=== PATIENT | female | born 1980 | race Caucasian/White ===

== ENCOUNTER 2019-01-02 15:06 | Emergency (ER) | payer OTHER, MEDICAID, SELFPAY ==
[2019-01-02 15:08] VITALS: BP 116/79; PULSE 77; RESP 22; TEMP 36.9; O2SAT 100
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
[2019-01-02 15:45] LABS: Add Manual Diff / Slide Review NO; Basophils Absolute Auto 100 /uL (0-100); Basophils Percent Auto 0.6 % (0-2); Eosinophils Absolute Auto 400 /uL (0-450); Eosinophils Percent Auto 3.5 % (2-4); Hematocrit 41.7 % (36-46); Hemoglobin 14.4 g/dL (12.0-16.0); Lymphocytes Absolute Auto 1300 /uL (1100-4500); Mean Corpuscular HGB Conc 34.4 % (30-36); Mean Corpuscular Hemoglobin 31.2 PG (26-34); Mean Corpuscular Volume 90.5 fL (80-100); Monocytes Absolute Auto 700 /uL (0-900); Monocytes Percent Auto 5.7 % (3-14); Neutrophils Absolute Auto 9500 /uL (1500-7000); Neutrophils Percent Auto 79.2 % (50-75); Platelet Count 291 X10^3/uL (150-400); Red Blood Cell Count 4.61 X10^6/uL (4.0-5.2); Red Cell Distribution Width 13.1 % (11.6-14.8); White Blood Cell Count 11.9 X10^3/uL (4.5-11.0)
[2019-01-02 16:04] LABS: Alanine Aminotransferase 12 IU/L (9-52); Albumin 4.2 g/dL (3.5-5.0); Albumin Globulin Ratio 1.1 (1.0-2.8); Alkaline Phosphatase 48 U/L (38-126); Aspartate Aminotransferase 28 IU/L (14-36); BUN Creatinine Ratio 11.3 (6-22); Bilirubin Total 0.7 mg/dL (0.2-1.3); Blood Urea Nitrogen 9 mg/dL (7-17); Calcium 8.8 mg/dL (8.4-10.2); Carbon Dioxide 27 mmol/L (22-32); Chloride 106 mmol/L (98-107); Creatine Kinase 60 U/L (30-135); Estimated Glomerular Filt Rate > 60.0 mL/min (>60); Globulin 3.7 g/dL (1.7-4.1); Glucose 94 mg/dL (70-100); HEMOLYSIS 67 (0-50); Potassium 4.1 mmol/L (3.4-5.1); Sodium 141 mmol/L (137-145); Total Protein 7.9 g/dL (6.3-8.2)
[2019-01-02 16:05] VITALS: BP 107/61; PULSE 71; RESP 13; O2SAT 100
[2019-01-02 16:16] LABS: Troponin I < 0.012 ng/mL (0.01-0.034)
== END 2019-01-02 16:45 | disposition home or self-care (01) ==
PROVIDERS: Emergency Provider Emergency Medicine; Family Provider Physician Assistant; PCP Physician Assistant
DX: R42 Dizziness and giddiness (principal)
CPT/HCPCS: 36591; 80053; 82550; 84484; 85025; 93005; 93041; 99283; 99284

== ENCOUNTER 2019-12-20 13:03 | Emergency (ER) | payer OTHER, MEDICAID, SELFPAY ==
[2019-12-20 13:11] VITALS: BP 116/67; PULSE 77; RESP 14; TEMP 37.1; O2SAT 96; BMI 31.1
--- NOTE | 2019-12-20 13:24 | ED.HA ---
HPI - Headache General Chief Complaint: Headache Stated Complaint: numbness in face/headache Time Seen by Provider: 12/20/19 13:10 Mode of arrival: Ambulatory Limitations: no limitations History of Present Illness HPI Narrative: Patient is a 39-year-old female who presents with numbness tingling on the left side of her face and headache. She was actually seen by her primary doctor yesterday he thought it was an atypical migraine. Today the numbness has gotten worse infected sharp shooting pain only on the left side of her face. She has no facial droop no difficulty speaking no visual changes no other neuro deficits. She says that she does have a history of migraines but this is significantly atypical. She is not sensitive to light or noise. She had a kidney stone earlier this week and was taking ibuprofen and Tylenol in her kidney stone has resolved. MD Complaint: headache Location: left Severity: moderate Related Data Home Medications Medication Instructions Recorded Confirmed hydrocodone-acetaminophen 1 tab PO TID PRN 01/02/19 01/02/19 Previous Rx's Medication Instructions Recorded hydrocodone-acetaminophen [[place]] 1 tab PO Q6H PRN #10 tab 12/20/19 Allergies Allergy/AdvReac Type Severity Reaction Status Date / Time doxycycline Allergy Verified 12/20/19 13:11 levofloxacin [From Levaquin] Allergy Verified 12/20/19 13:11 morphine Allergy Verified 12/20/19 13:11 Review of Systems Review of Systems Narrative: GENERAL: Denies chills, fatigue, malaise, fever, sweats, travel HEENT: Denies sinus pain, ear pain, sore throat, difficulty swallowing, neck pain RESPIRATORY: Denies dyspnea, cough, wheezing, hemoptysis, sputum. CARDIOVASCULAR: Denies chest pain, palpitations, orthopnea, edema GASTROINTESTINAL: Denies nausea, vomiting, abdominal pain, diarrhea, constipation, melena. : Denies dysuria, frequency, incontinence, hematuria, urinary retention, flank pain. MUSCULOSKELETAL: Denies weakness, joint pain, or bony pain SKIN: No rash, no erythema, no pruritus NEUROLOGIC: See HPI PSYCHIATRIC: No concerning psychosocial issues. 12 point review of systems is negative except for those stated above and HPI Patient History Medical History Vertigo (Acute) Social History Smoking Status: Unknown if ever smoked Smoking Status: Unknown if ever smoked alcohol intake frequency: holidays/special occasions only Substance Use Type: does not use Exam Initial Vital Signs Initial Vital Signs: Vital Signs Temperature 98.8 F 12/20/19 13:11 Pulse Rate 77 12/20/19 13:11 Respiratory Rate 14 12/20/19 13:11 Blood Pressure 116/67 12/20/19 13:11 Pulse Oximetry 96 12/20/19 13:11 GENERAL: Well-appearing, well-nourished and in no acute distress. HEENT: Head atraumatic,EOMI, pupils reactive, face symmetric, moist mucous membranes CARDIOVASCULAR: Regular rate and rhythm without murmurs, rubs or gallops. RESPIRATORY: Breath sounds equal bilaterally, no wheezes rales or rhonchi. ABDOMEN: Soft, nontender. Normoactive bowel sounds all 4 quadrants. No guarding or rebound. EXTREMITIES: Normal range of motion, no clubbing or edema. Neurovascularly intact NEUROLOGICAL: Alert and oriented x4.Normal gait and speech. Cranial nerves II through XII grossly intact. Decreased sensation on left side of face otolaryngologist strength equal bilaterally. Forehead wrinkles bilaterally and equally able to close eyes equally tight no facial droop. SKIN: Warm, dry, no laceration, no petechiae, no rashes or lesions. Scores NIH Stroke Scale Level of Conciousness: Alert, keenly responsive Ask month/age: Answers both questions correctly. Open/close eyes, close hand: Performs both tasks correctly Best gaze horizontal: Normal Visual sharma: No visual loss Facial palsy: Normal symetrical movement Left arm drift: No drift for full 10 sec Right arm drift: No drift for full 10 sec Left leg drift: No drift for full 10 sec Right leg drift: No drift for full 10 sec Limb ataxia: Absent Sensory on face/arms/legs: Normal, no sensory loss Best language: No aphasia, normal Dysarthria: Normal Extinction or inattention: No abnormality Total NIH Stroke scale score: 0 Course Orders Ordered: ED Orders 12/20/19 13:41 CT head/brain wo con Stat Vital Signs Vital signs: Vital Signs - 8 hr 12/20/19 13:11 12/20/19 14:25 Temperature 98.8 F Pulse Rate 77 70 Respiratory Rate 14 14 Blood Pressure 116/67 98/64 Pulse Oximetry 96 100 MDM - Headache Imaging Data CT scan - head: Radiologist's Impression: PROCEDURE: CT HEAD/BRAIN WO CON INDICATIONS: headache with numbness left face TECHNIQUE: Noncontrast 4.5 mm thick angled axial sections acquired from the foramen magnum to the vertex, with coronal and sagittal reformats. For radiation dose reduction, the following was used: automated exposure control, adjustment of mA and/or kV according to patient size. COMPARISON: None. FINDINGS: Image quality: Excellent. CSF spaces: Basal cisterns are patent. No extra-axial fluid collections. Ventricles are normal in size and shape. Brain: No midline shift. No intracranial masses or hemorrhage. Briceño-white matter interface is normal. Skull and face: Calvarium and visualized facial bones are intact, without suspicious lesions. Sinuses: Mild mucosal thickening in the visible sinuses, and ethmoid air cells. Mastoid air cavities are aerated. Frontal sinuses are hypoplastic. IMPRESSION: 1. No CT evidence of acute intracranial process. 2. Mild, partially imaged sinus disease. Dictated by: Kristal Hooper M.D. on 12/20/2019 at 12:53 Approved by: Kristal Hooper M.D. on 12/20/2019 at 12:56 [facility] Narrative Medical decision making narrative: The patient really has no focal deficit she has sharp shooting pain on left side of her face which may be the beginning of shingles. It has been ongoing for 1 day. It is not numbness. She currently has no rash. She also has a mild headache, but no weakness dysarthria or aphasia I do not think stroke, head CT is also negative. She does not have any signs of Alexander's palsy, she has no facial droop. She says she is unable to sleep due to pain in her face. I discussed with her the possibility of early shingles. I discussed all findings with the patient and , Education has been performed regarding treatment plan, diagnosis, warning signs and symptoms and all concerns have been addressed. Verbally agree with and understood all of the above. Discharge Plan Departure Patient Disposition: Home Clinical Impression: Headache Qualifiers: Headache type: unspecified Headache chronicity pattern: acute headache Intractability: not intractable Qualified Code(s): R51 - Headache Discharge Date/Time: 12/20/19 14:33 Instructions: DI for Shingles, DI for Headache Activity Restrictions/Additional Instructions: *You have been diagnosed with in headache *What to do: It is possible that he may develop shingles. If this is the case he will notice vesicle like lesions only on the left side of your face. This may appear in the next few days. *Continue to take medications as directed [place] 1 tablet every 6 hours if needed for severe pain *Follow up with your primary care provider in 2-3 days *Return to ER if you should have increasing pain and lesions around her and eye, weakness numbness tingling visual changes or any new, worsening or concerning symptoms CONTROLLED SUBSTANCE DISCHARGE (Narcotoic/benzodiazepine/Flexeril/Phenergan) 1. You have been prescribed narcotic medications, it does have acetaminophen/Tylenol/paracetamol in it so do not take extra Tylenol or Tylenol containing products TRAMADOL DOES NOT CONTAIN TYLENOL 2. Please understand that we cannot provide further refills of narcotics, benzodiazepines or controlled substances through the ED and her pain management will need to be through your provider. 3. While on these medications you cannot drive or operate heavy machinery. 4. You cannot sign legal documents or perform any duties such as this. 5. As long as you're taking opiate pain medications he should also be taking a stool softener such as Colace, Dulcolax, MiraLAX or prune juice, to help avoid constipation. Prescriptions: New hydrocodone-acetaminophen [[place]] 5-325 mg tablet 1 tab PO Q6H PRN (Reason: pain) Qty: 10 RF: 0 No Action hydrocodone-acetaminophen 5-325 mg tablet 1 tab PO TID PRN (Reason: Back Pain) RF: 0
--- NOTE | 2019-12-20 13:41 | DI.CT.S_ITS ---
PROCEDURE: CT HEAD/BRAIN WO CON INDICATIONS: headache with numbness left face TECHNIQUE: Noncontrast 4.5 mm thick angled axial sections acquired from the foramen magnum to the vertex, with coronal and sagittal reformats. For radiation dose reduction, the following was used: automated exposure control, adjustment of mA and/or kV according to patient size. COMPARISON: None. FINDINGS: Image quality: Excellent. CSF spaces: Basal cisterns are patent. No extra-axial fluid collections. Ventricles are normal in size and shape. Brain: No midline shift. No intracranial masses or hemorrhage. Briceño-white matter interface is normal. Skull and face: Calvarium and visualized facial bones are intact, without suspicious lesions. Sinuses: Mild mucosal thickening in the visible sinuses, and ethmoid air cells. Mastoid air cavities are aerated. Frontal sinuses are hypoplastic. IMPRESSION: 1. No CT evidence of acute intracranial process. 2. Mild, partially imaged sinus disease. Dictated by: Kristal Hooper M.D. on 12/20/2019 at 12:53 Approved by: Kristal Hooper M.D. on 12/20/2019 at 12:56
[2019-12-20 14:25] VITALS: BP 98/64; PULSE 70; RESP 14; O2SAT 100
== END 2019-12-20 14:33 | disposition home or self-care (01) ==
PROVIDERS: Emergency Provider Emergency Medicine; Family Provider Physician Assistant
DX: R51 Headache (principal); R20.0 Anesthesia of skin; B02.9 Zoster without complications
CPT/HCPCS: 70450; 99283; 99284

== ENCOUNTER 2020-01-30 14:45 | Emergency (ER) | payer OTHER, MEDICAID, SELFPAY ==
[2020-01-30 14:50] VITALS: BP 96/66; PULSE 77; RESP 18; TEMP 37; O2SAT 99; BMI 29.2
--- NOTE | 2020-01-30 16:26 | ED_ITS ---
HPI - Asthma General Chief Complaint: Asthma Stated Complaint: asthma complications since x5 days Time Seen by Provider: 01/30/20 16:22 Source: patient Mode of arrival: Ambulatory Limitations: no limitations History of Present Illness HPI Narrative: 39-year-old woman with a history of mild chronic asthma presents with worsening symptoms with the increased smoked in particular matter in the air over the last week. She currently is using albuterol nebulizer and inhaler and finding that her chest still feels tightness she feels that she can not get a complete breath. She is able speak in full sentences and is not having significant wheezing at this. Related Data Home Medications Medication Instructions Recorded Confirmed hydrocodone-acetaminophen 1 tab PO TID PRN 01/02/19 01/02/19 Previous Rx's Medication Instructions Recorded hydrocodone-acetaminophen [[place]] 1 tab PO Q6H PRN #10 tab 12/20/19 beclomethasone dipropionate [Qvar 1 inhalation INHALATION BID #10.6 01/30/20 RediHaler] gram prednisone 20 mg PO DAILY #7 tab 01/30/20 Allergies Allergy/AdvReac Type Severity Reaction Status Date / Time doxycycline Allergy Verified 12/20/19 13:11 levofloxacin [From Levaquin] Allergy Verified 12/20/19 13:11 morphine Allergy Verified 12/20/19 13:11 Review of Systems Review of Systems Narrative: Pertinent positive and negative findings as per HPI Remainder of review of systems is otherwise unremarkable for Constitutional: Fevers, chills, weakness ENT: No sore throat, neck pain, ear pain CV: palpitations, dyspnea on exertion GI: Nausea, vomiting, diarrhea, change in bowel habits, black or bloody stools : Dysuria, hematuria, flank pain MS: Muscle weakness, numbness, joint swelling or warmth Skin: Rashes, nonhealing lesions Neuro: Syncope, dizziness, tingling Patient History Medical History (Updated 01/30/20 @ 18:02 by Kami Courtney MD) Asthma (Acute) Vertigo (Acute) Social History Smoking Status: Never smoker Smoking Status: Never smoker alcohol intake frequency: holidays/special occasions only Substance Use Type: marijuana Exam Narrative Exam Narrative: General: Healthy appearing, in no acute distress. Able to give a complete and coherent history. Well-nourished well-developed HEENT: Moist mucous membranes, normal sclera with reactive pupils, Neck: supple Respiratory: Lungs are clear to auscultation, no wheezing no rales no rhonchi. No accessory muscle use. Full and symmetrical air movement Cardiac: Regular rate and rhythm no murmurs no bruits Abdomen: Soft nontender good bowel tones, no flank pain Skin: Warm and dry, no rashes Neurologic: Grossly neurologically intact with no obvious asymmetries or abnormalities Extremities: No trauma, well perfused Psych: Cooperative, appropriate insight and affect Initial Vital Signs Initial Vital Signs: Vital Signs Temperature 98.6 F 01/30/20 14:50 Pulse Rate 77 01/30/20 14:50 Respiratory Rate 18 01/30/20 14:50 Blood Pressure 96/66 01/30/20 14:50 Pulse Oximetry 99 01/30/20 14:50 Course Orders Ordered: ED Orders 01/30/20 16:24 COVID19 -ED/INPAT/OR/L&D Stat 01/30/20 16:26 Chest [XR chest 2V] Stat Vital Signs Vital signs: Vital Signs - 8 hr 01/30/20 14:50 01/30/20 17:02 01/30/20 17:07 Temperature 98.6 F Pulse Rate 77 62 65 Respiratory Rate 18 Blood Pressure 96/66 92/59 L Pulse Oximetry 99 100 98 01/30/20 17:30 01/30/20 18:00 Temperature Pulse Rate 62 62 Respiratory Rate Blood Pressure Pulse Oximetry 100 100 [facility] - Asthma Medical Records Attestation: I reviewed the patient's medical records. Lab Data Attestation: I reviewed the patient's lab results. Labs: Lab Results 01/30/20 Range/Units 16:24 COVID-19 PCR Negative (Negative) Imaging Data Chest x-ray: Radiologist's Impression: FINDINGS: Surgical changes and devices: None. Lungs and pleura: Lungs are clear. No pleural effusions or pneumothorax. Mediastinum: Mediastinal contours are normal. Heart size is normal. Bones and chest wall: No suspicious bony abnormalities. Soft tissues appear unremarkable. IMPRESSION: Normal chest plain films. Dictated by: Randall Hadley M.D. on 01/30/2020 at 15:46 MDM Narrative Medical decision making narrative: 39-year-old woman complaining tightness and inability it get a deep breath with the recent increase in smoke in the air. She has been using her inhalers more. She actually does not have significant wheeze on her exam today. Chest x-ray is unremarkable. Will suggest 5 days of 20 mg of prednisone and adding steroid inhaler b.i.d.. She is safe for home discharge Discharge Plan Departure Patient Disposition: Home Clinical Impression: Asthma due to environmental allergies Asthma Qualifiers: Asthma severity: mild Asthma persistence: intermittent Asthma complication type: with acute exacerbation Qualified Code(s): J45.21 - Mild intermittent asthma with (acute) exacerbation Instructions: DI for Asthma -- Adult Activity Restrictions/Additional Instructions: Thank you for coming in today Your chest x-ray is reassuring and your clinical exam does not suggest severe wheezing. I believe that of brief course of oral steroids will help you feel that you can completely expand her chest and that remaining on inhaled steroids 1 puff in the morning 1 puff in the evening. I have given you a prescription for Qvar, an inhaled steroid to continue for at least a week after all the smoke has cleared. I hope you feel better. Prescriptions: New Qvar RediHaler 80 mcg/actuation HFA aerosol breath activated 1 inhalation INHALATION BID Qty: 10.6 RF: 0 prednisone 20 mg tablet 20 mg PO DAILY Qty: 7 RF: 0 No Action hydrocodone-acetaminophen 5-325 mg tablet 1 tab PO TID PRN (Reason: Back Pain) RF: 0 hydrocodone-acetaminophen [[place]] 5-325 mg tablet 1 tab PO Q6H PRN (Reason: pain) Qty: 10 RF: 0
--- NOTE | 2020-01-30 16:26 | DI.RAD.S_ITS ---
PROCEDURE: XR CHEST 2V INDICATIONS: cough/short of breath TECHNIQUE: 2 views of the chest were acquired. COMPARISON: None. FINDINGS: Surgical changes and devices: None. Lungs and pleura: Lungs are clear. No pleural effusions or pneumothorax. Mediastinum: Mediastinal contours are normal. Heart size is normal. Bones and chest wall: No suspicious bony abnormalities. Soft tissues appear unremarkable. IMPRESSION: Normal chest plain films. Dictated by: Randall Hadley M.D. on 01/30/2020 at 15:46 Approved by: Randall Hadley M.D. on 01/30/2020 at 15:47
[2020-01-30 16:45] LABS: COVID19 -Nasal RAPID Negative (Negative)
[2020-01-30 17:02] VITALS: PULSE 62; O2SAT 100
[2020-01-30 17:07] VITALS: BP 92/59; PULSE 65; O2SAT 98
[2020-01-30 17:30] VITALS: PULSE 62; O2SAT 100
[2020-01-30 18:00] VITALS: PULSE 62; O2SAT 100
== END 2020-01-30 18:08 | disposition home or self-care (01) ==
PROVIDERS: Emergency Provider Emergency Medicine; Family Provider Physician Assistant
DX: J45.21 Mild intermittent asthma with (acute) exacerbation (principal); R05 Cough
CPT/HCPCS: 71046; 87635; 99281; 99283

== ENCOUNTER 2020-03-06 11:23 | Emergency (ER) | payer OTHER, SELFPAY ==
[2020-03-06 11:24] VITALS: BP 102/55; PULSE 71; RESP 14; TEMP 37.2; O2SAT 97; BMI 26.5
--- NOTE | 2020-03-06 11:44 | ED.EXTPRO ---
HPI - Extremity Problem <Mahnaz Dutton PA-C - Last Filed: 03/06/20 13:05> General Chief complaint: Extremity Problem,Nontraumatic Stated complaint: shoulder issues Time Seen by Provider: 03/06/20 11:27 Source: patient Mode of arrival: Ambulatory Limitations: no limitations History of Present Illness HPI Narrative: This is an uncomfortable appearing 39-year-old woman with a history of asthma, hysterectomy, chronic back pain and shoulder impingement on the left. She presents the emergency department complaining of worsening shoulder pain on the left with reduced range of motion, tight muscles. She has a history of Left shoulder impingement but her symptoms flared up 2 weeks ago and this morning when she woke up she realized she was not going to be able to go to work to to pain and tight muscles, at times over the last few days with spasms in her shoulder she has had pain so intense that it causes nausea. She has seen a physical therapist for this as well as her primary care, she was told she needs to have massage done as her muscles are too tight to get physical therapy to be effective and is working on getting scheduled for this. She has gradually felt that her shoulder symptoms are worsening over the last few weeks . 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 She states this does feel similar to previous flare-ups and episodes however it has been a long time since it has happened and she is not sure if it is been this bad before. She notes she has never had any imaging of her shoulder and has not seen an orthopedic provider. She is currently working on getting in to be seen at [facility] for further evaluation for this. She has been taking Aleve and ibuprofen but she has not taken the since yesterday. She has not taken any muscle relaxers. She does not remember doing anything to injure this, doing any heavy lifting or any new exercise routines in the last month. She denies any headache, chest pain, cough, shortness of breath, recent trauma or falls, throat pain, fevers, chills, vomiting, ongoing nausea, abdominal pain or any other symptoms. MD Complaint: joint paint (Left shoulder) Related Data Home Medications Medication Instructions Recorded Confirmed hydrocodone-acetaminophen 1 tab PO TID PRN 01/02/19 01/02/19 Previous Rx's Medication Instructions Recorded hydrocodone-acetaminophen [[place]] 1 tab PO Q6H PRN #10 tab 12/20/19 beclomethasone dipropionate [Qvar 1 inhalation INHALATION BID #10.6 01/30/20 RediHaler] gram prednisone 20 mg PO DAILY #7 tab 01/30/20 baclofen 10 mg PO TID #30 tab 03/06/20 hydrocodone-acetaminophen 1 tab PO Q8H PRN #14 tab 03/06/20 lidocaine 1 patch TOP DAILY PRN #10 each 03/06/20 ondansetron 4 mg PO Q8H #20 tab 03/06/20 Allergies Allergy/AdvReac Type Severity Reaction Status Date / Time doxycycline Allergy Verified 03/06/20 11:29 levofloxacin [From Levaquin] Allergy Verified 03/06/20 11:29 morphine Allergy Verified 03/06/20 11:29 Review of Systems <Mahnaz Dutton PA-C - Last Filed: 03/06/20 13:05> Review of Systems Narrative: GENERAL: Denies chills, fatigue, malaise, fever, sweats. HEENT: Denies sinus pain, ear pain, sore throat, difficulty swallowing, dizziness. RESPIRATORY: Denies dyspnea, cough, wheezing, hemoptysis, sputum. CARDIOVASCULAR: Denies chest pain, palpitations, orthopnea, edema, GASTROINTESTINAL: Denies nausea, vomiting, abdominal pain, diarrhea, constipation, melena. : Denies dysuria, frequency, incontinence, hematuria, urinary retention. MUSCULOSKELETAL: Positive for left shoulder pain for 2 weeks, worsening, with tingling sometimes radiating down the back of her left arm, and left neck pain when she turns her head to the right. Denies weakness, joint pain, or bony pain SKIN: Denies rash, skin lesions, or other NEUROLOGIC: Denies weakness, headache, numbness, change in speech, confusion, seizures, incoordination. PSYCHIATRIC: No concerning psychosocial issues. 12 point review of systems is negative except for those stated above ROS Unobtainable: All systems reviewed & are unremarkable except as noted in HPI and below Patient History <Mahnaz Dutton PA-C - Last Filed: 03/06/20 13:05> Medical History Asthma (Acute) Vertigo (Acute) Social History Smoking Status: Never smoker Smoking Status: Never smoker alcohol intake frequency: holidays/special occasions only Substance Use Type: marijuana Exam <Mahnaz Dutton PA-C - Last Filed: 03/06/20 13:05> Narrative Exam Narrative: GENERAL: 39 year old patient appears stated age. Well-nourished, well-developed patient, in mild distress. HEAD: Atraumatic. Normocephalic. EYES: Pupils equal round and reactive. Extraocular motions intact. No scleral icterus. No injection or drainage. ENT: Nose without bleeding, purulent drainage. Throat without erythema, tonsillar hypertrophy or exudate. Airway patent. NECK: Trachea midline. Spinous processes are nontender, paraspinal muscles on the left side of the neck and the left trapezius otherwise the Non tender CARDIOVASCULAR: Regular rate and rhythm without murmurs, gallops, or rubs. RESPIRATORY: Clear to auscultation. Breath sounds equal bilaterally. No wheezes, rales, or rhonchi. GASTROINTESTINAL: Abdomen soft, non-tender, nondistended. EXTREMITIES: She has tenderness at the shoulder joint, no appreciable swelling, no erythema or heat noted, trapezius and SITS muscles are extremely tight and are tender. She has reduced range of motion of the left shoulder due to pain she is able to lift her arm up/extend to approximately 90? without signifcant pain laterally and anteriorly, elevation above 90degrees both passive and active causes significant pain. No edema or joint tenderness. Sensation and strength are intact and equal bilaterally in the upper extremities 5/5, however she has pain with resisted range of motion on the left. Positive Neer sign, positive empty can test, positive scarf sign. BACK: Ther is generalized paraspinamuscle tenderness/tightness in the upper back. Otherwise nontender without deformity or crepitance. No flank tenderness. NEURO: AOx3. SKIN: No rash or erythema of visible areas Initial Vital Signs Initial Vital Signs: Vital Signs Temperature 98.9 F 03/06/20 11:24 Pulse Rate 71 03/06/20 11:24 Respiratory Rate 14 03/06/20 11:24 Blood Pressure 102/55 L 10/22/20 11:24 Pulse Oximetry 97 03/06/20 11:24 <Venessa Padilla DO - Last Filed: 03/06/20 13:08> Initial Vital Signs Initial Vital Signs: Vital Signs Temperature 98.9 F 03/06/20 11:24 Pulse Rate 71 03/06/20 11:24 Respiratory Rate 14 03/06/20 11:24 Blood Pressure 102/55 L 03/06/20 11:24 Pulse Oximetry 97 03/06/20 11:24 Scores <Mahnaz Dutton PA-C - Last Filed: 03/06/20 13:05> GCS [place] coma scale eye opening: Spontaneous [place] coma scale verbal response: Orientated [place] coma scale motor response: Obey commands [place] coma scale total score: 15 Course <Mahnaz Dutton PA-C - Last Filed: 03/06/20 13:05> Course Course Narrative: Spoke with the patient about her allergies this specifically related to opioid pain medicines as she is listed as having a morphine allergy. Patient states that she can take Vicodin she says ?it is the only 1 that does not make may have vomiting and other issues but it is fine. Orders Ordered: ED Orders 03/06/20 11:47 XR shoulder LT min 2V Stat Discontinued Medications Baclofen (Lioresal) 10 mg PO NOW ONE Stop: 03/06/20 11:48 Last Admin: 03/06/20 11:58 Dose: 10 mg Documented by: ELIZ Ketorolac Tromethamine (Toradol) 15 mg IM NOW ONE Stop: 03/06/20 11:48 Last Admin: 03/06/20 11:58 Dose: 15 mg Documented by: ELIZ Vital Signs Vital signs: Vital Signs - 8 hr 03/06/20 11:24 03/06/20 12:49 Temperature 98.9 F Pulse Rate 71 68 Respiratory Rate 14 16 Blood Pressure 102/55 L 100/58 L Pulse Oximetry 97 99 <Venessa Padilla DO - Last Filed: 03/06/20 13:08> Orders Ordered: ED Orders 03/06/20 11:47 XR shoulder LT min 2V Stat Discontinued Medications Baclofen (Lioresal) 10 mg PO NOW ONE Stop: 03/06/20 11:48 Last Admin: 03/06/20 11:58 Dose: 10 mg Documented by: ELIZ Ketorolac Tromethamine (Toradol) 15 mg IM NOW ONE Stop: 03/06/20 11:48 Last Admin: 03/06/20 11:58 Dose: 15 mg Documented by: ELIZ Vital Signs Vital signs: Vital Signs - 8 hr 03/06/20 11:24 03/06/20 12:49 Temperature 98.9 F Pulse Rate 71 68 Respiratory Rate 14 16 Blood Pressure 102/55 L 100/58 L Pulse Oximetry 97 99 MDM - Extremity (Nontraumatic) <Mahnaz Dutton PA-C - Last Filed: 03/06/20 13:05> Imaging Data Extremity x-ray #1: Attestation: I personally reviewed and interpreted this imaging study as follows: Radiologist's Impression: [address] [address] XRay Report Signed Patient: Lesvia Capellan CMR#: [id number] : 1980Acct:[id number] Age/Sex: 39 / FDate of Service: 03/06/20 Loc: ED Accession Number: [id number] Procedure: XR shoulder LT min 2V Ordering Provider: Mahnaz Dutton P.A-C PROCEDURE: XR SHOULDER LT MIN 2V INDICATIONS: left shoulder pain reduced ROM no trauma TECHNIQUE: 3 views of the shoulder were acquired. COMPARISON: None. FINDINGS: Bones: No fractures or dislocations. No suspicious bony lesions. Visualized ribs appear intact. Soft tissues: No suspicious soft tissue calcifications. IMPRESSION: No fracture or dislocation. If clinical symptoms persist or clinical suspicion for internal derangement is high, MRI is suggested for further evaluation. Dictated by: Miguel Chairez M.D. on 03/06/2020 at 12:23 Approved by: Miguel Chairez M.D. on 03/06/2020 at 12:25 [facility] Narrative Medical decision making narrative: Somewhat uncomfortable appearing 39-year-old woman with a history of mild intermittent asthma, chronic left shoulder pain presents to the emergency department complaining of acute worsening of her shoulder pain in the last 2 weeks. Her history and exam is not suggestive of cardiac, vascular, or infectious etiology. Labs are not obtained. She has a history of impingement syndrome and today has reduced range of motion at the shoulder, positive signs for rotator cuff injury, and muscle tightness and spasming of the left shoulder. No recent trauma, or injury. Patient is currently following with PCP, physical therapy and massage, she is encouraged to see orthopedics as she has never seen orthopedic provider for her shoulder issues and impingement syndrome, and has not had imaging. She is provided prescriptions for muscle relaxer, lidocaine patches, short course of pain medicine, as well as antinausea medicine to take with the pain medicine. Emergency return precautions provided, all questions answered. Discharge Plan Departure Patient Disposition: Home Clinical Impression: Acute pain of left shoulder, Impingement syndrome of left shoulder region Injury of left rotator cuff Qualifiers: Encounter type: subsequent encounter Qualified Code(s): S46.002D - Unspecified injury of muscle(s) and tendon(s) of the rotator cuff of left shoulder, subsequent encounter Discharge Date/Time: 03/06/20 12:50 Instructions: Rotator Cuff Injury Activity Restrictions/Additional Instructions: Thank you for letting us be part of your care in the emergency department today. I do think that your symptoms and your exam today suggest that you have a rotator cuff injury to your left shoulder and likely have a nerve impingement with this. Please continue to work on getting in for massage therapy, work with physical therapy and your primary care. I a.m. also including information for our orthopedic team if you would like to try to be seen in their office for further evaluation I do think that it would be beneficial for you to be seen by orthopedic provider as you had longstanding issues with her shoulder seems to be worsening and have not yet been evaluated by orthopedics. I did prescribe lidocaine patches for you as well as a muscle relaxer, a work note, and some nausea and pain medicine. In general Tylenol and ibuprofen are the best options for pain control for muscle pain I also recommend that you try using heat or alternating heat and ice although your muscles are very tight so I think heat is likely going to be more helpful. There is no evidence of an emergent or life threatening illness at this time, but follow up with your doctor in 1-2 days is recommended nonetheless to continue to rule out serious underlying causes of your symptoms. Please call the office for an appointment. Please return to the Emergency Department for any worsening or persistent symptoms. Please take medications as directed. Prescriptions: New baclofen 10 mg tablet 10 mg PO TID Qty: 30 RF: 0 lidocaine 4 % adhesive patch,medicated 1 patch TOP DAILY PRN (Reason: pain) Qty: 10 RF: 0 ondansetron 4 mg tablet,disintegrating 4 mg PO Q8H Qty: 20 RF: 0 hydrocodone-acetaminophen 5-325 mg tablet 1 tab PO Q8H PRN (Reason: pain) Qty: 14 RF: 0 No Action hydrocodone-acetaminophen 5-325 mg tablet 1 tab PO TID PRN (Reason: Back Pain) RF: 0 hydrocodone-acetaminophen [[place]] 5-325 mg tablet 1 tab PO Q6H PRN (Reason: pain) Qty: 10 RF: 0 Qvar RediHaler 80 mcg/actuation HFA aerosol breath activated 1 inhalation INHALATION BID Qty: 10.6 RF: 0 prednisone 20 mg tablet 20 mg PO DAILY Qty: 7 RF: 0 Referrals: Pedro Vieira MD [Physician] - (Shoulder impingement/rotator cuff injury, acute on chronic) Stand Alone Forms: Work Release Note
--- NOTE | 2020-03-06 11:47 | DI.RAD.S_ITS ---
PROCEDURE: XR SHOULDER LT MIN 2V INDICATIONS: left shoulder pain reduced ROM no trauma TECHNIQUE: 3 views of the shoulder were acquired. COMPARISON: None. FINDINGS: Bones: No fractures or dislocations. No suspicious bony lesions. Visualized ribs appear intact. Soft tissues: No suspicious soft tissue calcifications. IMPRESSION: No fracture or dislocation. If clinical symptoms persist or clinical suspicion for internal derangement is high, MRI is suggested for further evaluation. Dictated by: Miguel Chairez M.D. on 03/06/2020 at 12:23 Approved by: Miguel Chairez M.D. on 03/06/2020 at 12:25
[2020-03-06] MEDS: BACLOFEN 10 MG TABLET PO (11:58)
[2020-03-06] MEDS: KETOROLAC 60 MG/2 ML VIAL 15 MG IM (11:58)
[2020-03-06 12:49] VITALS: BP 100/58; PULSE 68; RESP 16; O2SAT 99
== END 2020-03-06 12:50 | disposition home or self-care (01) ==
PROVIDERS: Emergency Provider Student in an Organized Health Care Education/Training Program; Family Provider Physician Assistant
DX: M25.512 Pain in left shoulder (principal); M75.42 Impingement syndrome of left shoulder; S46.002D Unspecified injury of muscle(s) and tendon(s) of the rotator cuff of left shoulder, subsequent encounter; R11.0 Nausea
CPT/HCPCS: 73030; 96372; 99283; 99284; J1885

== ENCOUNTER 2020-03-27 18:50 | Emergency (ER) | payer OTHER, SELFPAY ==
[2020-03-27 18:54] VITALS: BP 107/59; PULSE 83; RESP 14; TEMP 37.1; O2SAT 98; BMI 27.4
--- NOTE | 2020-03-27 18:58 | ED.HA ---
HPI - Headache General Chief Complaint: Headache Stated Complaint: massive headache Time Seen by Provider: 03/27/20 18:57 History of Present Illness HPI Narrative: 40-year-old woman with a history of psoriasis who presents with 5 days of severe headache she describes as pulsating pressure through the top of her head, feels like her eyes are going to pop out and her tender to physically touching them. She has been nauseated and vomiting. She is dizzy if she stands up fast. Pressure is worse if she leans forward. She notes low-grade temperatures to the 100 range. No specific abdominal pain, chest pain, dyspnea, cough, diarrhea, dysuria. She does note that her usual psoriasis is a bit worse recently but nothing that is particularly troublesome. She has been using Flonase nasal spray with no relief. Additional medication she has tried to help with his headache include Tylenol, a single dose of rectal Phenergan, ibuprofen, heat oral Benadryl none of this has been effective. She does have a history of migraine headaches and describes current headache as distinctly different. She is not noticing any cognitive deficits, acute neurologic findings or meningismus. Related Data Home Medications Medication Instructions Recorded Confirmed hydrocodone-acetaminophen 1 tab PO TID PRN 01/02/19 01/02/19 Previous Rx's Medication Instructions Recorded hydrocodone-acetaminophen [[place]] 1 tab PO Q6H PRN #10 tab 12/20/19 beclomethasone dipropionate [Qvar 1 inhalation INHALATION BID #10.6 01/30/20 RediHaler] gram prednisone 20 mg PO DAILY #7 tab 01/30/20 baclofen 10 mg PO TID #30 tab 03/06/20 hydrocodone-acetaminophen 1 tab PO Q8H PRN #14 tab 03/06/20 lidocaine 1 patch TOP DAILY PRN #10 each 03/06/20 ondansetron 4 mg PO Q8H #20 tab 03/06/20 amoxicillin-pot clavulanate 1 tab PO BID #28 tab 03/27/20 [Augmentin] fluconazole [Diflucan] 150 mg PO DAILY #2 tab 03/27/20 Allergies Allergy/AdvReac Type Severity Reaction Status Date / Time doxycycline Allergy Verified 03/27/20 18:59 levofloxacin [From Levaquin] Allergy Verified 03/27/20 18:59 morphine Allergy Verified 03/27/20 18:59 Review of Systems Review of Systems Narrative: Remainder of review of systems including constitutional, ENT, cardiovascular, respiratory, GI, , musculoskeletal, skin, neurologic and psychiatric systems reviewed and are unremarkable except as noted in HPI. Patient History Medical History Asthma (Acute) Psoriasis (Acute) Vertigo (Acute) Social History Smoking Status: Never smoker Smoking Status: Never smoker alcohol intake frequency: holidays/special occasions only Substance Use Type: marijuana Exam Narrative Exam Narrative: General: Healthy appearing, in no acute distress. Able to give a complete and coherent history. Well-nourished well-developed HEENT: Moist mucous membranes, normal sclera with reactive pupils, tenderness to percussion over maxillary and frontal sinuses. Tympanic membranes are pearly [place] bilaterally. Oropharynx is unremarkable Neck: Minor submandibular bilateral adenopathy, supple, no pain or tenderness with head or neck manipulation to suggest meningismus Respiratory: Lungs are clear to auscultation, no wheezing no rales no rhonchi. Full and symmetrical air movement Cardiac: Regular rate and rhythm no murmurs no bruits Abdomen: Soft nontender good bowel tones, no flank pain Neurologic: Grossly neurologically intact with no obvious asymmetries or abnormalities Extremities: No trauma, well perfused Psych: Cooperative, appropriate insight and affect Initial Vital Signs Initial Vital Signs: Vital Signs Temperature 98.8 F 03/27/20 18:54 Pulse Rate 83 03/27/20 18:54 Respiratory Rate 14 03/27/20 18:54 Blood Pressure 107/59 L 03/27/20 18:54 Pulse Oximetry 98 03/27/20 18:54 Course Orders Ordered: ED Orders 03/27/20 19:25 Complete Blood Count AUTO DIFF Stat Comprehensive Metabolic Panel Stat 03/27/20 21:05 CT sinus screen wo con Stat Discontinued Medications Amoxicillin/Clavulanate Potassium (Augmentin 875-125 Mg) 1 tab PO NOW ONE Stop: 03/27/20 22:17 Last Admin: 03/27/20 22:21 Dose: 1 tab Documented by: RMARTIN Dexamethasone (Decadron) 10 mg IV NOW ONE Stop: 03/27/20 19:09 Last Admin: 03/27/20 19:30 Dose: 10 mg Documented by: VADIM Diphenhydramine HCl (Benadryl) 25 mg IV NOW ONE Stop: 03/27/20 19:09 Last Admin: 03/27/20 19:29 Dose: 25 mg Documented by: VADIM Sodium Chloride (Normal Saline 0.9%) 1,000 mls @ 1,000 mls/hr IV BOLUS ONE Stop: 03/27/20 20:07 Last Infusion: 03/27/20 20:29 Dose: 0 mls/hr Documented by: Admin: 03/27/20 19:34 Dose: 1,000 mls/hr Documented by: VADIM Ketorolac Tromethamine (Toradol) 15 mg IV NOW ONE Stop: 03/27/20 19:09 Last Admin: 03/27/20 19:30 Dose: 15 mg Documented by: VADIM Metoclopramide HCl (Reglan) 10 mg IV NOW ONE Stop: 03/27/20 19:09 Last Admin: 03/27/20 19:34 Dose: 10 mg Documented by: VADIM Vital Signs Vital signs: Vital Signs - 8 hr 03/27/20 18:54 03/27/20 21:56 03/27/20 22:23 Temperature 98.8 F Pulse Rate 83 72 75 Respiratory Rate 14 12 16 Blood Pressure 107/59 L 98/54 L 99/66 Pulse Oximetry 98 100 97 MDM - Headache Medical Records Attestation: I reviewed the patient's medical records. Lab Data Attestation: I reviewed the patient's lab results. Result diagrams: 03/27/20 19:25 03/27/20 19:25 Labs: Lab Results 03/27/20 03/27/20 Range/Units 19:25 19:25 WBC 8.8 (4.5-11.0) X10^3/uL RBC 4.20 (4.0-5.2) X10^6/uL Hgb 13.2 (12.0-16.0) g/dL Hct 38.5 (36-46) % MCV 91.5 (80-100) fL MCH 31.5 (26-34) PG MCHC 34.4 (30-36) % RDW 12.6 (11.6-14.8) % Plt Count 305 (150-400) X10^3/uL Neut % (Auto) 61.3 (50-75) % Lymph % (Auto) 23.3 L (25-40) % [place] % (Auto) 8.4 (3-14) % Eos % (Auto) 6.1 H (2-4) % Baso % (Auto) 0.9 (0-2) % Neut # (Auto) 5400 (5785-1431) /uL Lymph # (Auto) 2100 (7480-0685) /uL [place] # (Auto) 700 (0-900) /uL Eos # (Auto) 500 H (0-450) /uL Baso # (Auto) 100 (0-100) /uL Sodium 137 (137-145) mmol/L Potassium 3.3 L (3.4-5.1) mmol/L Chloride 104 (98-107) mmol/L Carbon Dioxide 28 (22-32) mmol/L BUN 7 (7-17) mg/dL Creatinine 0.73 (0.52-1.04) mg/dL Estimated GFR > 60.0 (>60) mL/min BUN/Creatinine Ratio 9.6 (6-22) Glucose 108 H (70-100) mg/dL Calcium 8.4 (8.4-10.2) mg/dL Total Bilirubin 0.3 (0.2-1.3) mg/dL AST 19 (14-36) IU/L ALT 13 (<35) IU/L Alkaline Phosphatase 56 (38-126) U/L Total Protein 6.9 (6.3-8.2) g/dL Albumin 3.7 (3.5-5.0) g/dL Globulin 3.2 (1.7-4.1) g/dL Albumin/Globulin Ratio 1.2 (1.0-2.8) Imaging Data Sinus CT: Radiologist's Impression: FINDINGS: Image quality: Excellent. Mucosal thickening noted in the maxillary sinuses, the sphenoid sinuses and the ethmoid air cells bilaterally. 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 IMPRESSION: Bilateral maxillary, bilateral sphenoid and bilateral ethmoid air cell sinusitis. Dictated by: Diane Romero MD, PhD on 03/27/2020 at 21:35 MDM Narrative Medical decision making narrative: 40-year-old woman with week of severe headache that continues to worsen. CT scan shows pansinusitis. She was feeling better after IV fluids, Toradol Decadron and Reglan. Will treat with 14 days of Augmentin. She is safe for home discharge Discharge Plan Departure Patient Disposition: Home Clinical Impression: Acute bacterial sinusitis Acute pansinusitis Qualifiers: Recurrence: non-recurrent Qualified Code(s): J01.40 - Acute pansinusitis, unspecified Instructions: DI for Sinusitis Activity Restrictions/Additional Instructions: Thank you for coming in today I am sorry you have had such a frustrating experience with the medical system this week. I am glad that your headache is slightly improved after the medications in the emergency room. The CT scan of your sinuses does show an acute bacterial sinusitis involving all 6 sinuses. Your going to need 2 full weeks of Augmentin, an antibiotic, twice a day. Augmentin can cause yeast infections. If your experiencing vaginal itching please take 1 Diflucan senior living through the course of antibiotics and another after you have completely finished the antibiotics. Using a saline irrigation system or Netti pot along with Sudafed to encourage drainage of your sinuses may help help you heal faster and feel better faster. Using 400 mg of ibuprofen (2 [id number] pills) and 1 Tylenol every 6 hours can be very helpful in controlling pain. I hope you improve quickly Prescriptions: New amoxicillin-pot clavulanate [Augmentin] 875-125 mg tablet 1 tab PO BID Qty: 28 RF: 0 fluconazole [Diflucan] 150 mg tablet 150 mg PO DAILY Qty: 2 RF: 0 No Action hydrocodone-acetaminophen 5-325 mg tablet 1 tab PO TID PRN (Reason: Back Pain) RF: 0 hydrocodone-acetaminophen [[place]] 5-325 mg tablet 1 tab PO Q6H PRN (Reason: pain) Qty: 10 RF: 0 Qvar RediHaler 80 mcg/actuation HFA aerosol breath activated 1 inhalation INHALATION BID Qty: 10.6 RF: 0 prednisone 20 mg tablet 20 mg PO DAILY Qty: 7 RF: 0 baclofen 10 mg tablet 10 mg PO TID Qty: 30 RF: 0 lidocaine 4 % adhesive patch,medicated 1 patch TOP DAILY PRN (Reason: pain) Qty: 10 RF: 0 ondansetron 4 mg tablet,disintegrating 4 mg PO Q8H Qty: 20 RF: 0 hydrocodone-acetaminophen 5-325 mg tablet 1 tab PO Q8H PRN (Reason: pain) Qty: 14 RF: 0
[2020-03-27 19:29] LABS: Add Manual Diff / Slide Review NO; Basophils Absolute Auto 100 /uL (0-100); Basophils Percent Auto 0.9 % (0-2); Eosinophils Absolute Auto 500 /uL (0-450); Eosinophils Percent Auto 6.1 % (2-4); Hematocrit 38.5 % (36-46); Hemoglobin 13.2 g/dL (12.0-16.0); Lymphocytes Absolute Auto 2100 /uL (1100-4500); Lymphocytes Percent Auto 23.3 % (25-40); Mean Corpuscular HGB Conc 34.4 % (30-36); Mean Corpuscular Hemoglobin 31.5 PG (26-34); Mean Corpuscular Volume 91.5 fL (80-100); Monocytes Absolute Auto 700 /uL (0-900); Monocytes Percent Auto 8.4 % (3-14); Neutrophils Absolute Auto 5400 /uL (1500-7000); Neutrophils Percent Auto 61.3 % (50-75); Platelet Count 305 X10^3/uL (150-400); Red Cell Distribution Width 12.6 % (11.6-14.8); White Blood Cell Count 8.8 X10^3/uL (4.5-11.0)
[2020-03-27] MEDS: diphenhydrAMINE 50 MG/ML VIAL 25 MG IV (19:29)
[2020-03-27] MEDS: KETOROLAC 60 MG/2 ML VIAL 15 MG IV (19:30)
[2020-03-27] MEDS: DEXAMETHASONE 10 MG/ML VIAL IV (19:30)
[2020-03-27] MEDS: METOCLOPRAMIDE 10 MG/2 ML INJ IV (19:34)
[2020-03-27] MEDS: SODIUM CHLORIDE 0.9% 1,000 ML 1000 ML IV (19:34)
[2020-03-27 19:44] LABS: Alanine Aminotransferase 13 IU/L (<35); Albumin 3.7 g/dL (3.5-5.0); Albumin Globulin Ratio 1.2 (1.0-2.8); Alkaline Phosphatase 56 U/L (38-126); Aspartate Aminotransferase 19 IU/L (14-36); BUN Creatinine Ratio 9.6 (6-22); Bilirubin Total 0.3 mg/dL (0.2-1.3); Blood Urea Nitrogen 7 mg/dL (7-17); Calcium 8.4 mg/dL (8.4-10.2); Carbon Dioxide 28 mmol/L (22-32); Chloride 104 mmol/L (98-107); Estimated Glomerular Filt Rate > 60.0 mL/min (>60); Globulin 3.2 g/dL (1.7-4.1); Glucose 108 mg/dL (70-100); HEMOLYSIS < 15 (0-50); Potassium 3.3 mmol/L (3.4-5.1); Sodium 137 mmol/L (137-145); Total Protein 6.9 g/dL (6.3-8.2)
--- NOTE | 2020-03-27 21:05 | DI.CT.S_ITS ---
PROCEDURE: CT SINUS SCREEN WO CON INDICATIONS: severe headache, ? ethmoid sinusitis TECHNIQUE: Noncontrast 3.0 mm axial images acquired from the frontal sinuses to the mid-sella, with coronal and sagittal reformats. For radiation dose reduction, the following was used: automated exposure control, adjustment of mA and/or kV according to patient size. COMPARISON: None. FINDINGS: Image quality: Excellent. Mucosal thickening noted in the maxillary sinuses, the sphenoid sinuses and the ethmoid air cells bilaterally. 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 IMPRESSION: Bilateral maxillary, bilateral sphenoid and bilateral ethmoid air cell sinusitis. Dictated by: Diane Romero MD, PhD on 03/27/2020 at 21:35 Approved by: Diane Romero MD, PhD on 03/27/2020 at 21:36
[2020-03-27 21:56] VITALS: BP 98/54; PULSE 72; RESP 12; O2SAT 100
[2020-03-27] MEDS: AMOXICILLIN/CLAV 875/125 MG 1 TAB PO (22:21)
[2020-03-27 22:23] VITALS: BP 99/66; PULSE 75; RESP 16; O2SAT 97
== END 2020-03-27 22:40 | disposition home or self-care (01) ==
PROVIDERS: Emergency Provider Emergency Medicine; Family Provider Physician Assistant
DX: J01.90 Acute sinusitis, unspecified (principal); J01.40 Acute pansinusitis, unspecified; R11.2 Nausea with vomiting, unspecified; R42 Dizziness and giddiness
CPT/HCPCS: 36415; 70486; 80053; 85025; 96361; 96374; 96375; 99284; J1100; J1200; J1885; J2765

== ENCOUNTER 2020-07-12 12:31 | Emergency (ER) | payer OTHER, MEDICAID, SELFPAY ==
[2020-07-12 12:48] VITALS: BP 104/67; PULSE 71; RESP 16; TEMP 35.8; O2SAT 97; BMI 28.7
--- NOTE | 2020-07-12 13:32 | ED_ITS ---
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 She is currently taking Tylenol, ibuprofen, Flexeril without improvement. She has been having difficult time getting rest due to discomfort. She describes pain as sharp, burning, shooting down to left fingers from left side neck. Patient is waiting to get MRI test done and a referral to allergy and immunology specialist. Patient denies recent injuries, or fall. Patient denies fever, chills, vomiting, or rash in her neck or back. Patient feels nauseous intermittently with severe pain. Related Data Previous Rx's Medication Instructions Recorded beclomethasone dipropionate [Qvar 1 inhalation INHALATION BID #10.6 01/30/20 RediHaler] gram lidocaine 1 patch TOP DAILY PRN #10 each 03/06/20 fluconazole [Diflucan] 150 mg PO DAILY #2 tab 03/27/20 hydrocodone-acetaminophen [Wellman] 1 tab PO Q8H PRN #7 tab 07/12/20 lidocaine 1 patch TOPICAL DAILY PRN #30 ea 07/12/20 ondansetron 4 mg PO Q8H PRN #7 tab 07/12/20 prednisone 40 mg PO DAILY 4 Days #8 tab 07/12/20 Allergies Allergy/AdvReac Type Severity Reaction Status Date / Time doxycycline Allergy Severe Anaphylaxis Verified 07/12/20 12:50 levofloxacin [From Levaquin] Allergy Severe Anaphylaxis Verified 07/12/20 12:50 morphine Allergy Severe Anaphylaxis Verified 07/12/20 12:50 Review of Systems <RAS Yan - Last Filed: 07/12/20 16:25> Review of Systems Narrative: General: Denies fever, chills, fatigue, malaise, sweats. HEENT: Denies sinus pain, ear pain, sore throat, difficulty swallowing, dizziness. Respiratory: Denies dyspnea, cough, wheezing, hemoptysis, sputum. Cardiovascular: Denies chest pain, palpitations, orthopnea, edema. Gastrointestinal: Denies (+) occasional nausea with severe pain, vomiting, abdominal pain, diarrhea, constipation, melena. : Denies dysuria, frequency, incontinence, hematuria, urinary retention. Musculoskeletal: See HPI Skin: Denies rash, skin lesions, or other. Neurologic: See HPI Patient History <RAS Yan - Last Filed: 07/12/20 16:25> Medical History Asthma Psoriasis Vertigo Social History Smoking Status: Never smoker Smoking Status: Never smoker alcohol intake frequency: holidays/special occasions only Substance Use Type: marijuana Exam <RAS Yan - Last Filed: 07/12/20 16:25> Narrative Exam Narrative: General appearance: well developed, well nourished, in no acute distress. Head: normocephalic, atraumatic, no scalp lesions, non-tender. ENT: Hearing grossly intact. Airway patent. Neck/Thyroid: neck supple, full range of motion, no visible masses or meningeal signs. No JVD, non-tender without lymphadenopathy. Skin: no suspicious rashes, lesions over visible areas. Warm and dry and appropriate color for ethnicity. Heart: no clubbing, no cyanosis, no edema. S1 and S2 normal. RRR w/o murmurs, clicks, or bruits. Lungs: Breathing even and unlabored. No stridor. No accessory muscles used. Able to speak in full sentences. Chest: normal shape and expansion. Abdomen: non-obese, non-distended. Neurologic: alert and oriented. Cognitive exam, EM[employer]OYMENT [employer] and PNS grossly intact on informal exam. Psych: good eye contact, normal affect. Initial Vital Signs Initial Vital Signs: Vital Signs Temperature 96.4 F L 07/12/20 12:48 Pulse Rate 71 07/12/20 12:48 Respiratory Rate 16 07/12/20 12:48 Blood Pressure 104/67 07/12/20 12:48 Pulse Oximetry 97 07/12/20 12:48 Back/Spine/Pelvis Back: normal to inspection Cervical Spine: normal cervical lordosis, pain with cervical ROM (left neck, no midcervical tendernss), No cervical spinal tenderness and No step off deformity Thoracic/Lumbar Spine: thoracic and lumbar spine normal to inspection, No pain with thoraco-lumbar ROM, No paraspinal tenderness and No thoracic spinal tenderness <Josh Motley DO - Last Filed: 07/12/20 18:19> Initial Vital Signs Initial Vital Signs: Vital Signs Temperature 96.4 F L 07/12/20 12:48 Pulse Rate 71 07/12/20 12:48 Respiratory Rate 16 07/12/20 12:48 Blood Pressure 104/67 07/12/20 12:48 Pulse Oximetry 97 07/12/20 12:48 Scores <RAS Yan - Last Filed: 07/12/20 16:25> GCS Sweeden coma scale eye opening: Spontaneous Sweeden coma scale verbal response: Orientated Sweeden coma scale motor response: Obey commands Anahi coma scale total score: 15 Nexus Score for C-Spine Focal Neurologic deficit present: No Midline spinal tenderness present: No Altered level of conciousness present: No Intoxication present: No Distracting Injury Present: No Nexus Criteria for C-spine: 0 Course <RAS Yan - Last Filed: 07/12/20 16:25> Orders Ordered: Discontinued Medications Hydrocodone Bitart/Acetaminophen (Hydrocodone/Acet 5/325 Tablet) 1 tab PO NOW ONE Stop: 07/12/20 13:17 Last Admin: 07/12/20 14:02 Dose: 1 tab Documented by: QUANG Ketorolac Tromethamine (Ketorolac 60 Mg/2 Ml Vial) 30 mg IM NOW ONE Stop: 07/12/20 13:17 Last Admin: 07/12/20 14:04 Dose: 30 mg Documented by: QUANG Lidocaine (Lidocaine Patch 1 Each Adh..Patch) 1 each TOP NOW ONE Stop: 07/12/20 13:17 Last Admin: 07/12/20 14:02 Dose: 1 each Documented by: QUANG Lidocaine (Remove Lidocaine Patch) 1 each TOP BEDTIME EKATERINA Pantoprazole Sodium (Pantoprazole 20 Mg Tablet) 20 mg PO NOW ONE Stop: 07/12/20 13:17 Last Admin: 07/12/20 14:02 Dose: 20 mg Documented by: QUANG Prednisone (Prednisone 20 Mg Tablet) 40 mg PO NOW ONE Stop: 07/12/20 13:17 Last Admin: 07/12/20 14:02 Dose: 40 mg Documented by: QUANG Reevaluation(s) Reevaluation #1: Patient reports pain starts to improve. Time: 14:35 Vital Signs Vital signs: Vital Signs - 8 hr 07/12/20 12:48 07/12/20 14:08 Temperature 96.4 F L Pulse Rate 71 64 Respiratory Rate 16 16 Blood Pressure 104/67 103/65 Pulse Oximetry 97 97 <Josh Motley DO - Last Filed: 07/12/20 18:19> Orders Ordered: Discontinued Medications Hydrocodone Bitart/Acetaminophen (Hydrocodone/Acet 5/325 Tablet) 1 tab PO NOW ONE Stop: 07/12/20 13:17 Last Admin: 07/12/20 14:02 Dose: 1 tab Documented by: QUANG Ketorolac Tromethamine (Ketorolac 60 Mg/2 Ml Vial) 30 mg IM NOW ONE Stop: 07/12/20 13:17 Last Admin: 07/12/20 14:04 Dose: 30 mg Documented by: QUANG Lidocaine (Lidocaine Patch 1 Each Adh..Patch) 1 each TOP NOW ONE Stop: 07/12/20 13:17 Last Admin: 07/12/20 14:02 Dose: 1 each Documented by: QUANG Lidocaine (Remove Lidocaine Patch) 1 each TOP BEDTIME EKATERINA Pantoprazole Sodium (Pantoprazole 20 Mg Tablet) 20 mg PO NOW ONE Stop: 07/12/20 13:17 Last Admin: 07/12/20 14:02 Dose: 20 mg Documented by: QUANG Prednisone (Prednisone 20 Mg Tablet) 40 mg PO NOW ONE Stop: 07/12/20 13:17 Last Admin: 07/12/20 14:02 Dose: 40 mg Documented by: QUANG Vital Signs Vital signs: Vital Signs - 8 hr 07/12/20 12:48 07/12/20 14:08 Temperature 96.4 F L Pulse Rate 71 64 Respiratory Rate 16 16 Blood Pressure 104/67 103/65 Pulse Oximetry 97 97 MDM - Neck Pain/Injury <RAS Yan - Last Filed: 07/12/20 16:25> Differential Diagnosis Differential diagnosis: Likely disc disorder of cervical region, cervical radiculopathy, cervical spondylosis and strain of neck muscle Medical Records Attestation: I reviewed the patient's medical records. DAKSHA Narrative Medical decision making narrative: This is a 40 year female who has a known history of degenerative disease of cervical spine and currently receiving Tylenol, Motrin, Flexeril treatment that was initiated by PCP without effective pain management at home. Patient reports pain radiating down to her two fingers in little and ring finger from left side neck. Patient has intact sensation bilaterally with equal bilateral strength. Slightly limited active and passive range of motion since this causes pain. Patient does not have rash in her neck and denies constitutional symptoms. Currently she is waiting for MRI test and a referral to spine surgeon. Patient's pain managed with lidocaine patch, Toradol, Wellman, a short course of prednisone therapy and prophylactic Protonix provided to protect GI ulcer. Patient reports pain improved after 30 minutes of treatment and is ready to go home. Patient discharged to home with same medication regimen with return precautions. Patient verbalized understanding in agreement with treatment plan. Discharge Plan Departure Patient Disposition: Home Clinical Impression: Cervical radiculopathy Instructions: DI for Cervical Radiculopathy Activity Restrictions/Additional Instructions: You have been diagnosed with [ neck pain likely cervical radiculopathy]. What to do: *Take your medications as directed. Please continue with your current medication Tylenol, Motrin, Flexeril as needed. You can take Wellman for severe pain which is narcotic pain medication and he can cause drowsiness and constipation. It can increase sedation when you take it with Flexeril. When you take these medications, please do not drive, drink alcohol, or operate heavy equipments. You can use lidocaine patch on affected site which stays on for 12 hours and off for 12 hours as needed for pain. Use Zofran as needed for nausea. Use prednisone 40 mg daily for next 4 more days. Please take omeprazole [id number] to protect stomach while your taking prednisone and ibuprofen concurrently. This medication have been transmitted to [facility] in [place]. *Follow up with your primary care provider in 2-3 days, call for an appointment. Let them know you were seen in the ED and that we asked you to be seen in follow up. Please follow-up with MRI and allergy and immunology specialist as planned. *Return to ED if you have any new, worsening, or concerning symptoms, such as [worsening pain/numbness, weakness to left extremity, chest pain, breathing difficulty, fever, rash, unable to tolerate fluids or any acute concerns]. Prescriptions: New hydrocodone-acetaminophen [Wellman] 5-325 mg tablet 1 tab PO Q8H PRN (Reason: pain) Qty: 7 RF: 0 prednisone 20 mg tablet 40 mg PO DAILY 4 Days Qty: 8 RF: 0 ondansetron 4 mg tablet,disintegrating 4 mg PO Q8H PRN (Reason: nausea and vomiting) Qty: 7 RF: 0 lidocaine 5 % adhesive patch,medicated 1 patch topical DAILY PRN (Reason: pain) Qty: 30 RF: 0 No Action Qvar RediHaler 80 mcg/actuation HFA aerosol breath activated 1 inhalation INHALATION BID Qty: 10.6 RF: 0 fluconazole [Diflucan] 150 mg tablet 150 mg PO DAILY Qty: 2 RF: 0 lidocaine 4 % adhesive patch,medicated 1 patch TOP DAILY PRN (Reason: pain) Qty: 10 RF: 0 Referrals: Betty Otriz PA-C [Family Provider] - <Josh Motley, - Last Filed: 07/12/20 18:19> Cosign ED Attending Cosignature Attestation: Dr Motley Co-Sign Statement: I was available for consultation during this patient's emergency department visit. This chart is signed by myself for administrative purposes only. I did not have direct contact with this patient during this visit. They were seen independently by the APC.
[2020-07-12] MEDS: predniSONE 20 MG TABLET 40 MG PO (14:02)
[2020-07-12] MEDS: PANTOPRAZOLE 20 MG TABLET PO (14:02)
[2020-07-12] MEDS: HYDROCODONE/ACET 5/325 TABLET 1 TAB PO (14:02)
[2020-07-12] MEDS: LIDOCAINE PATCH 1 EACH ADH..PATCH TOP (14:02)
[2020-07-12] MEDS: KETOROLAC 60 MG/2 ML VIAL 30 MG IM (14:04)
[2020-07-12 14:08] VITALS: BP 103/65; PULSE 64; RESP 16; O2SAT 97
== END 2020-07-12 15:19 | disposition home or self-care (01) ==
PROVIDERS: Emergency Provider Nurse Practitioner Family; Family Provider Physician Assistant
DX: M54.12 Radiculopathy, cervical region (principal)
CPT/HCPCS: 96372; 99281; 99283; J1885

== ENCOUNTER 2021-06-15 22:12 | Emergency (ER) | payer OTHER, MEDICAID, SELFPAY ==
[2021-06-15 22:40] VITALS: BP 112/60; PULSE 83; RESP 22; TEMP 37.1; O2SAT 96; BMI 31.1
--- NOTE | 2021-06-15 23:05 | DI.RAD.S_ITS ---
PROCEDURE: XR CHEST 2V INDICATIONS: Shortness of breath TECHNIQUE: 2 views of the chest were acquired. COMPARISON: [facility], , XR CHEST 2V, 01/30/2020, 16:16. FINDINGS: Surgical changes and devices: None. Lungs and pleura: Lungs are clear. No pleural effusions or pneumothorax. Mediastinum: Mediastinal contours are normal. Heart size is normal. Bones and chest wall: No suspicious bony abnormalities. Soft tissues appear unremarkable. IMPRESSION: No acute pulmonary process. Dictated by: Terri Brown M.D. on 06/15/2021 at 23:38 Approved by: Terri Brown M.D. on 06/15/2021 at 23:39
[2021-06-15 23:08] LABS: COVID19 -Nasal RAPID Negative (Negative)
[2021-06-15 23:25] VITALS: PULSE 82; RESP 21; O2SAT 96
[2021-06-15] MEDS: ALBUTEROL/IPRATROPIUM 3 ML AMPUL INH (23:25)
--- NOTE | 2021-06-15 23:54 | ED_ITS ---
HPI - SOB/Dyspnea General Chief Complaint: Shortness of Breath/Dyspnea Stated Complaint: trouble breathing Time Seen by Provider: 06/15/21 22:19 Source: patient Mode of arrival: Ambulatory Limitations: no limitations History of Present Illness HPI Narrative: 41-year-old female nonsmoker with history asthma presents with her significant other and a chief complaint of increased wheezing despite her best efforts as an outpatient. She has been using her inhalers and nebulizers as well as inhaled steroids at home for the past few days but feels increasingly tight. She denies any fever or chills and has had no productive cough. She denies nausea, vomiting or diarrhea. Related Data Previous Rx's Medication Instructions Recorded beclomethasone dipropionate 80 1 inhalation INHALATION BID #10.6 01/30/20 mcg/actuation HFA breath activated gram aerosol (Qvar RediHaler) lidocaine 4 % topical patch 1 patch TOP DAILY PRN #10 each 03/06/20 fluconazole 150 mg tablet 150 mg PO DAILY #2 tab 03/27/20 (Diflucan) hydrocodone 5 mg-acetaminophen 325 1 tab PO Q8H PRN #7 tab 07/12/20 mg tablet ([place]) lidocaine 5 % topical patch 1 patch TOPICAL DAILY PRN #30 ea 07/12/20 ondansetron 4 mg disintegrating 4 mg PO Q8H PRN #7 tab 07/12/20 tablet ipratropium bromide 0.02 % 2.5 ml INHALATION TID-QID PRN #75 06/15/21 solution for inhalation ml prednisone 10 mg tablet See Rx Instructions .ROUTE 06/15/21 .COMPLEX #30 tab Allergies Allergy/AdvReac Type Severity Reaction Status Date / Time doxycycline Allergy Severe Anaphylaxis Verified 07/12/20 12:50 levofloxacin [From Levaquin] Allergy Severe Anaphylaxis Verified 07/12/20 12:50 morphine Allergy Severe Anaphylaxis Verified 07/12/20 12:50 Review of Systems Review of Systems Narrative: GENERAL: Denies chills, fatigue, malaise, fever, sweats. HEENT: Denies sinus pain, ear pain, sore throat, difficulty swallowing, dizziness. RESPIRATORY: See HPI CARDIOVASCULAR: Denies chest pain, palpitations, orthopnea, edema, GASTROINTESTINAL: Denies nausea, vomiting, abdominal pain, diarrhea, constipation, melena. : Denies dysuria, frequency, incontinence, hematuria, urinary retention. MUSCULOSKELETAL: denies weakness, joint pain, or bony pain SKIN: Denies rash, skin lesions, or other NEUROLOGIC: Denies weakness, headache, numbness, change in speech, confusion, seizures, incoordination. PSYCHIATRIC: No concerning psychosocial issues. 12 point review of systems is negative except for those stated above Patient History Medical History Asthma Psoriasis Vertigo Social History Smoking Status: Never smoker Smoking Status: Never smoker alcohol intake frequency: a few times a month Substance Use Type: marijuana Exam Narrative Exam Narrative: GENERAL: [41 year old patient appears stated age. Well-developed patient, in mild distress. HEAD: Atraumatic. Normocephalic. EYES: Pupils equal round and reactive. Extraocular motions intact. No scleral icterus. No injection or drainage. ENT: Nose without bleeding, purulent drainage. Throat without erythema, tonsillar hypertrophy or exudate. Airway patent. NECK: Trachea midline. Non tender CARDIOVASCULAR: Regular rate and rhythm without murmurs, gallops, or rubs. RESPIRATORY: Increased work of breathing with decreased lung sounds throughout, inspiratory and expiratory wheeze GASTROINTESTINAL: Abdomen soft, non-tender, nondistended. EXTREMITIES: No edema or joint tenderness. BACK: Nontender without deformity or crepitance. No flank tenderness. NEURO: AOx3. SKIN: No rash or erythema of visible areas Initial Vital Signs Initial Vital Signs: Vital Signs Temperature 98.7 F 06/15/21 22:40 Pulse Rate 83 06/15/21 22:40 Respiratory Rate 22 06/15/21 22:40 Blood Pressure 112/60 06/15/21 22:40 Pulse Oximetry 96 06/15/21 22:40 Course Orders Ordered: ED Orders 06/15/21 22:45 COVID19 -Nasal swab/Pre-Proc Stat 06/15/21 23:05 Chest [XR chest 2V] Stat Discontinued Medications Albuterol/Ipratropium (Albuterol/Ipratropium 3 Ml Ampul) 3 ml INH NOW ONE Stop: 06/15/21 23:15 Last Admin: 06/15/21 23:25 Dose: 3 ml Documented by: MIKE Prednisone (Prednisone 20 Mg Tablet) 60 mg PO NOW ONE Stop: 06/15/21 23:49 Last Admin: 06/16/21 00:05 Dose: 60 mg Documented by: FELICITY Reevaluation(s) Reevaluation #1: Significant improvement with the above-stated therapies. Chest x-ray is clear. Patient can ambulate through the department without difficulty, increased work of breathing or hypoxemia Vital Signs Vital signs: Vital Signs - 8 hr 06/15/21 22:40 06/15/21 23:25 Temperature 98.7 F Pulse Rate 83 82 Respiratory Rate 22 21 Blood Pressure 112/60 Pulse Oximetry 96 96 MDM - SOB/Dyspnea Lab Data Labs: Lab Results 06/15/21 Range/Units 22:45 SARS-CoV-2 (PCR) Negative (Negative) MDM Narrative Medical decision making narrative: Patient with reassuring history, physical exam, chest x-ray, negative COVID and response to therapies. She has significant improvement, tolerates ambulation without difficulty, increased work of breathing or hypoxemia. She has no fever or chills. Prescription sent to her pharmacy of choice, return precautions given and questions answered to her apparent satisfaction Discharge Plan Departure Patient Disposition: Home Clinical Impression: Asthma exacerbation Instructions: DI for Asthma -- Adult Activity Restrictions/Additional Instructions: *You have been diagnosed with [asthma exacerbation] *What to do: *Please continue to take your regular medications as directed. [ x] New medication prescriptions sent to your pharmacy: [[facility] in [place] ] [ ] New medication written as a paper prescription [ ] No new medications given *Please follow up with your primary care provider in 2-3 days, call for an appointment. Let them know you were seen in the Emergency Department and that we ask that you be seen in follow up. We will electronically transmit a record of today's note if your PCP is in our system *If you do not have a primary care provider please contact the [facility] Resource line at [phone]. They will ask some questions about your medical history and help get you set up with a doctor in the community. *Return to Emergency Department if you should have any new, worsening or concer emma symptoms, such as [fever greater than 101 F, shaking chills, worsening pain, persistent vomiting or other bothersome symptoms] Prescriptions: New prednisone 10 mg tablet See Rx Instructions .ROUTE .COMPLEX Qty: 30 0RF Rx Instructions: Day 1,2,3: 40mg PO Daily Day 4,5,6: 30mg PO Daily Day 7,8,9: 20mg PO Daily Day 10,11,12: 10mg PO Daily #30 ipratropium bromide 0.02 % solution 2.5 ml inhalation TID-QID PRN (Reason: shortness of breath or wheezing) Qty: 75 0RF No Action Qvar RediHaler 80 mcg/actuation HFA aerosol breath activated 1 inhalation INHALATION BID Qty: 10.6 0RF fluconazole [Diflucan] 150 mg tablet 150 mg PO DAILY Qty: 2 0RF hydrocodone-acetaminophen [[place]] 5-325 mg tablet 1 tab PO Q8H PRN (Reason: pain) Qty: 7 0RF ondansetron 4 mg tablet,disintegrating 4 mg PO Q8H PRN (Reason: nausea and vomiting) Qty: 7 0RF lidocaine 5 % adhesive patch,medicated 1 patch topical DAILY PRN (Reason: pain) Qty: 30 0RF Rx Instructions: leave on most painful area for up to 12 hrs lidocaine 4 % adhesive patch,medicated 1 patch TOP DAILY PRN (Reason: pain) Qty: 10 0RF Rx Instructions: may leave on for up to 12 hrs
[2021-06-16] MEDS: predniSONE 20 MG TABLET 60 MG PO (00:05)
[2021-06-16 01:00] VITALS: BP 108/75; PULSE 82; RESP 18; O2SAT 96
--- NOTE | 2021-06-16 01:01 | PC.NURSE ---
pt states she has been using her inhaler x 2 weeks with some relief today she was not getting any relief
== END 2021-06-16 01:05 | disposition home or self-care (01) ==
PROVIDERS: Emergency Provider Emergency Medicine; Family Provider Physician Assistant
DX: J45.901 Unspecified asthma with (acute) exacerbation (principal); Z20.822 Contact with and (suspected) exposure to COVID-19
CPT/HCPCS: 71046; 87635; 94640; 99283; 99284; C9803

== ENCOUNTER 2021-12-13 22:57 | Emergency (ER) | payer OTHER, MEDICAID, SELFPAY ==
[2021-12-13 23:05] VITALS: BP 115/63; PULSE 104; RESP 18; O2SAT 100; BMI 31.1
--- NOTE | 2021-12-13 23:11 | DI.RAD.S_ITS ---
PROCEDURE: XR CHEST 1V INDICATIONS: chest pain TECHNIQUE: One view of the chest was acquired. COMPARISON: [facility], CR, XR CHEST 2V, 06/15/2021, 22:57. FINDINGS: Surgical changes and devices: None. Lungs and pleura: Lungs are clear. No pleural effusions or pneumothorax. Mediastinum: Mediastinal contours appear normal. Heart size is normal. Bones and chest wall: No suspicious bony lesions. Overlying soft tissues appear unremarkable. IMPRESSION: 1. No acute cardiopulmonary disease. Dictated by: Asa Traylor M.D. on 12/13/2021 at 23:40 Approved by: Asa Traylor M.D. on 12/13/2021 at 23:40
[2021-12-13 23:15] VITALS: PULSE 88; O2SAT 97
--- NOTE | 2021-12-13 23:24 | ED.CHESTPAIN ---
HPI - Chest Pain General Chief Complaint: Chest Pain Stated Complaint: Chest pain and tightness, IRR heartbeat Time Seen by Provider: 12/13/21 23:17 Source: patient Mode of arrival: Ambulatory History of Present Illness HPI narrative: Patient is a COMMUNITY SERVICE DIRECTOR. Here with her . [place] chest tightness at 7:30 p.m. tonight. Took 2 puffs of her inhaler without improvement. Later in the evening at bedtime patient continued to feel chest tightness and palpitations. No nausea no dyspnea no syncope no sweating. Patient states felt different from her asthma exacerbation. On monitor patient feels PVC when it does occur. They are isolated. Never had this problem before. No prior history of blood clots in legs or lungs. Does have family history of heart disease, father had had fatal [place] in his 30s. Patient does not smoke. Does not take blood pressure medication or cholesterol medication. Denies drugs. No changes in lifestyle or diet or medication. No new stressors Related Data Previous Rx's Medication Instructions Recorded beclomethasone dipropionate 80 1 inhalation inhalation BID #10.6 01/30/20 mcg/actuation HFA breath activated grams aerosol (Qvar RediHaler) lidocaine 4 % topical patch 1 patch topical DAILY PRN pain #10 03/06/20 ea fluconazole 150 mg tablet 150 mg PO DAILY #2 tabs 03/27/20 (Diflucan) hydrocodone 5 mg-acetaminophen 325 1 tab PO Q8H PRN pain #7 tabs 07/12/20 mg tablet ([place]) lidocaine 5 % topical patch 1 patch topical DAILY PRN pain #30 07/12/20 ea ondansetron 4 mg disintegrating 4 mg PO Q8H PRN nausea and 07/12/20 tablet vomiting #7 tabs ipratropium bromide 0.02 % 2.5 ml inhalation TID-QID PRN 06/15/21 solution for inhalation shortness of breath or wheezing #75 mL prednisone 10 mg tablet See Rx Instructions .Route 06/15/21 .COMPLEX #30 tabs potassium chloride 20 mEq 20 meq PO BID #14 tabs 12/14/21 tablet,extended release (K-Tab) Allergies Allergy/AdvReac Type Severity Reaction Status Date / Time doxycycline Allergy Severe Anaphylaxis Verified 07/12/20 12:50 levofloxacin [From Levaquin] Allergy Severe Anaphylaxis Verified 07/12/20 12:50 morphine Allergy Severe Anaphylaxis Verified 07/12/20 12:50 Review of Systems Review of Systems Narrative: GENERAL: Denies chills, fatigue, malaise, fever, sweats. HEENT: Denies sinus pain, ear pain, sore throat RESPIRATORY: Denies dyspnea, cough CARDIOVASCULAR: Positive for chest pain, palpitations GASTROINTESTINAL: Denies nausea, vomiting, abdominal pain : Denies dysuria, frequency, hematuria MUSCULOSKELETAL: denies muscle or bony pain SKIN: Denies rash, skin lesions NEUROLOGIC: Denies weakness, numbness ROS Unobtainable: All systems reviewed & are unremarkable except as noted in HPI and below Patient History Medical History (Updated 12/14/21 @ 01:43 by Serg Schumacher MD) Asthma Psoriasis Vertigo Social History Smoking Status: Never smoker Smoking Status: Never smoker alcohol intake frequency: a few times a month Substance Use Type: marijuana Exam Narrative Exam Narrative: GENERAL: in no distress, not toxic not dyspneic HEAD: Normocephalic. EYES: Pupils equal round No scleral icterus. ENT: Mucous membranes moist. NECK: Trachea midline. CARDIOVASCULAR: Regular rate and rhythm without murmurs RESPIRATORY: Clear to auscultation. Breath sounds equal bilaterally. No wheezes, rales, or rhonchi. GASTROINTESTINAL: Abdomen soft, non-tender EXTREMITIES: No gross deformities. BACK: No flank tenderness. NEURO: AOx4. SKIN: Warm and dry PSYCH: Not anxious, is cooperative Initial Vital Signs Initial Vital Signs: Vital Signs Pulse Rate 104 H 12/13/21 23:05 Respiratory Rate 18 12/13/21 23:05 Blood Pressure 115/63 12/13/21 23:05 Pulse Oximetry 100 12/13/21 23:05 Oxygen Delivery Method 12/13/21 23:05 Course Course Course Narrative: No new issues during course of stay Orders Ordered: ED Orders 12/13/21 23:11 XR chest 1V Stat EKG-12 Lead Stat 12/13/21 23:13 Complete Blood Count AUTO DIFF Stat Comprehensive Metabolic Panel Stat D Dimer Stat Lipase Stat Magnesium Stat Test Serum,Qual Stat TSH [Thyroid Stimulating Hormone] Stat Troponin & CK Cardiac Panel Stat 12/14/21 00:30 Urine Drug Screen, Rapid Stat Urine Microscopic Stat Discontinued Medications Potassium Chloride (Potassium Chloride 20 Meq Tab) 40 meq PO NOW ONE Stop: 12/14/21 00:26 Last Admin: 12/14/21 00:43 Dose: 40 meq Documented By: YOLANDA Reevaluation(s) Reevaluation #1: Updated patient and has been results. PVCs palpitations likely due to potassium being low. Looking back at last 2 years she has had trending downward her potassium levels from 4.1 Potassium tablets 40 mEq just given. Will continue to monitor for any improvement with PVCs. Patient and state they did not eat very much yesterday when they were out because it was so hot Time: 01:03 Reevaluation #2: Patient states much better with palpitations after given potassium 40 mEq. Much less palpitations and PVCs on monitor. at bedside. They desired discharge home. Reviewed with them her potassium was trending downward in the past couple of years. Likely today became symptomatic this session because she did not have a much to eat or drink yesterday Time: 01:39 Vital Signs Vital signs: Vital Signs - 8 hr 12/13/21 23:05 12/13/21 23:15 12/13/21 23:30 Pulse Rate 104 H 88 85 Respiratory Rate 18 16 Blood Pressure 115/63 Pulse Oximetry 100 97 100 Oxygen Delivery Method Room Air 12/13/21 23:32 12/13/21 23:32 12/14/21 00:00 Pulse Rate 82 Respiratory Rate 21 Blood Pressure 128/67 118/72 Pulse Oximetry 100 Oxygen Delivery Method 12/14/21 00:00 12/14/21 00:45 12/14/21 00:46 Pulse Rate 81 85 79 Respiratory Rate 18 20 12 Blood Pressure Pulse Oximetry 99 99 98 Oxygen Delivery Method 12/14/21 00:46 12/14/21 01:00 12/14/21 01:00 Pulse Rate 79 Respiratory Rate Blood Pressure 130/68 104/57 L Pulse Oximetry 97 Oxygen Delivery Method 12/14/21 01:30 12/14/21 01:30 Pulse Rate 71 Respiratory Rate 12 Blood Pressure 110/67 Pulse Oximetry 97 Oxygen Delivery Method MDM - Chest Pain Differential Diagnosis Differential diagnosis: Likely stable angina, unstable angina pectoris and other (Palpitations/arrhythmia/PVC/hypokalemia) Lab Data Result diagrams: 12/13/21 23:13 12/13/21 23:13 Labs: Lab Results 0712/13/21 12/13/21 Range/Units 23:13 23:13 23:13 WBC 11.5 H (4.5-11.0) X10^3/uL RBC 4.44 (4.0-5.2) X10^6/uL Hgb 14.1 (12.0-16.0) g/dL Hct 40.0 (36-46) % MCV 90.1 (80-100) fL MCH 31.8 (26-34) PG MCHC 35.3 (30-36) % RDW 13.0 (11.6-14.8) % Plt Count 317 (150-400) X10^3/uL Neut % (Auto) 60.3 (50-75) % Lymph % (Auto) 26.1 (25-40) % [place] % (Auto) 7.3 (3-14) % Eos % (Auto) 5.8 H (2-4) % Baso % (Auto) 0.5 (0-2) % Neut # (Auto) 7000 (5083-5810) /uL Lymph # (Auto) 3000 (6043-6386) /uL [place] # (Auto) 800 (0-900) /uL Eos # (Auto) 700 H (0-450) /uL Baso # (Auto) 100 (0-100) /uL D-Dimer < 200 (<230) ng/mL Sodium 140 (137-145) mmol/L Potassium 2.9 L (3.4-5.1) mmol/L Chloride 104 (98-107) mmol/L Carbon Dioxide 25 (22-32) mmol/L BUN 8 (7-17) mg/dL Creatinine 0.80 (0.52-1.04) mg/dL Estimated GFR > 60 (>60) mL/min BUN/Creatinine Ratio 10.0 (6-22) Glucose 122 H (70-100) mg/dL Calcium 8.7 (8.4-10.2) mg/dL Magnesium 2.0 (1.6-2.3) mg/dL Total Bilirubin 0.3 (0.2-1.3) mg/dL AST 22 (14-36) IU/L ALT 16 (<35) IU/L Alkaline Phosphatase 67 (38-126) U/L Total Creatine Kinase 73 (30-135) U/L CK-MB (CK-2) TNP CK-MB (CK-2) Rel Index TNP Troponin I < 0.012 (0.01-0.034) ng/mL Total Protein 7.7 (6.3-8.2) g/dL Albumin 4.2 (3.5-5.0) g/dL Globulin 3.5 (1.7-4.1) g/dL Albumin/Globulin Ratio 1.2 (1.0-2.8) Lipase 99 (23-300) U/L TSH (0.47-4.68) uIU/mL Serum , Qual (Negative) U Opiates 300ng/mL cut (Negative) Ur Oxycodone Screen (Negative) Urine Methadone Screen (Negative) Ur Barbiturates Screen (Negative) U Tricyclic Antidepress (Negative) Ur Phencyclidine Scrn (Negative) Ur Amphetamines Screen (Negative) U Methamphetamines Scrn (Negative) Ur MDMA Scrn (Ecstasy) (Negative) U Benzodiazepines Scrn (Negative) Urine Cocaine Screen (Negative) U Marijuana (THC) Screen (Negative) 12/13/21 12/13/21 12/14/21 Range/Units 23:13 23:13 00:30 WBC (4.5-11.0) X10^3/uL RBC (4.0-5.2) X10^6/uL Hgb (12.0-16.0) g/dL Hct (36-46) % MCV (80-100) fL MCH (26-34) PG MCHC (30-36) % RDW (11.6-14.8) % Plt Count (150-400) X10^3/uL Neut % (Auto) (50-75) % Lymph % (Auto) (25-40) % [place] % (Auto) (3-14) % Eos % (Auto) (2-4) % Baso % (Auto) (0-2) % Neut # (Auto) (0171-8354) /uL Lymph # (Auto) (3174-6043) /uL [place] # (Auto) (0-900) /uL Eos # (Auto) (0-450) /uL Baso # (Auto) (0-100) /uL D-Dimer (<230) ng/mL Sodium (137-145) mmol/L Potassium (3.4-5.1) mmol/L Chloride (98-107) mmol/L Carbon Dioxide (22-32) mmol/L BUN (7-17) mg/dL Creatinine (0.52-1.04) mg/dL Estimated GFR (>60) mL/min BUN/Creatinine Ratio (6-22) Glucose (70-100) mg/dL Calcium (8.4-10.2) mg/dL Magnesium (1.6-2.3) mg/dL Total Bilirubin (0.2-1.3) mg/dL AST (14-36) IU/L ALT (<35) IU/L Alkaline Phosphatase (38-126) U/L Total Creatine Kinase (30-135) U/L CK-MB (CK-2) CK-MB (CK-2) Rel Index Troponin I (0.01-0.034) ng/mL Total Protein (6.3-8.2) g/dL Albumin (3.5-5.0) g/dL Globulin (1.7-4.1) g/dL Albumin/Globulin Ratio (1.0-2.8) Lipase (23-300) U/L TSH 2.13 (0.47-4.68) uIU/mL Serum , Qual Negative (Negative) U Opiates 300ng/mL cut Negative (Negative) Ur Oxycodone Screen Negative (Negative) Urine Methadone Screen Negative (Negative) Ur Barbiturates Screen Negative (Negative) U Tricyclic Antidepress Negative (Negative) Ur Phencyclidine Scrn Negative (Negative) Ur Amphetamines Screen Negative (Negative) U Methamphetamines Scrn Negative (Negative) Ur MDMA Scrn (Ecstasy) Negative (Negative) U Benzodiazepines Scrn Negative (Negative) Urine Cocaine Screen Negative (Negative) U Marijuana (THC) Screen Positive H (Negative) Point of Care Testing Test Results Negative Urine Dip Bedside Urine Glucose Negative Bedside Urine Bilirubin - Negative Bedside Urine Ketone - Negative Urine Specific [place] 1.010 Bedside Urine Occult Blood + Bedside Urine pH 6.5 Bedside Urine Protein - Negative Bedside Urine Urobilinogen - Negative Bedside Urine Nitrite - Negative Bedside Urine Leukocytes - Negative Esterase Imaging Data Chest x-ray: Radiologist's Impression: [address] [address] XRay Report Signed Patient: Lesvia Capellan MR#: [id number] : 1980 Acct:[id number] Age/Sex: 41 / F Date of Service: 12/13/21 Loc: ED Accession Number: [id number] ?? Procedure: XR chest 1V Ordering Provider: Serg Schumacher MD PROCEDURE:? XR CHEST 1V ? INDICATIONS:? chest pain ? TECHNIQUE:? One view of the chest was acquired.? ? COMPARISON:? [facility], CR, XR CHEST 2V, 06/15/2021, 22:57. ? FINDINGS:? ? Surgical changes and devices:? None.? ? Lungs and pleura:? Lungs are clear.? No pleural effusions or pneumothorax.? ? Mediastinum:? Mediastinal contours appear normal.? Heart size is normal.? ? Bones and chest wall:? No suspicious bony lesions.? Overlying soft tissues appear unremarkable.? ? IMPRESSION:? ? 1.? No acute cardiopulmonary disease. ? ? ? Dictated by: Asa Traylor M.D. on 12/13/2021 at 23:40 ? ? Approved by: Asa Traylor M.D. on 12/13/2021 at 23:40 ? ECG Data Interpretation: Sinus rhythm, occasional PVC rate [address] elevation or depression MDM Narrative Medical decision making narrative: Appropriate for discharge home. Patient only has palpitations and is detected on monitor with a PVC. Symptoms significantly improved with potassium replacement. No repeat enzymes indicated this time. Patient does not want to repeat potassium levels. Does agree with potassium prescription and she will follow up with her family doctor. Has will get a Holter monitor. Never had exertional chest pain. Only palpitations discomfort and is detected on monitor. Return precautions reviewed with patient and . They desire discharge home Discharge Plan Departure Patient Disposition: Home Clinical Impression: Premature ventricular contractions (PVCs) (VPCs), Hypokalemia Instructions: DI for Hypokalemia, DI for Arrhythmias Activity Restrictions/Additional Instructions: See family doctor this week for re-evaluation and to have your potassium levels redrawn/levels. Continue prescribed potassium tablets. They have been sent to your pharmacy to brain picker tomorrow. Return if worse if any questions or concerns. You may need to schedule for Holter monitor with her family doctor. Prescriptions: New potassium chloride [K-Tab] 20 mEq tablet extended release 20 meq PO BID Qty: 14 0RF No Action Qvar RediHaler 80 mcg/actuation HFA aerosol breath activated 1 inhalation INHALATION BID Qty: 10.6 0RF fluconazole [Diflucan] 150 mg tablet 150 mg PO DAILY Qty: 2 0RF hydrocodone-acetaminophen [[place]] 5-325 mg tablet 1 tab PO Q8H PRN (Reason: pain) Qty: 7 0RF ondansetron 4 mg tablet,disintegrating 4 mg PO Q8H PRN (Reason: nausea and vomiting) Qty: 7 0RF lidocaine 5 % adhesive patch,medicated 1 patch topical DAILY PRN (Reason: pain) Qty: 30 0RF Rx Instructions: leave on most painful area for up to 12 hrs prednisone 10 mg tablet See Rx Instructions .ROUTE .COMPLEX Qty: 30 0RF Rx Instructions: Day 1,2,3: 40mg PO Daily Day 4,5,6: 30mg PO Daily Day 7,8,9: 20mg PO Daily Day 10,11,12: 10mg PO Daily #30 ipratropium bromide 0.02 % solution 2.5 ml inhalation TID-QID PRN (Reason: shortness of breath or wheezing) Qty: 75 0RF lidocaine 4 % adhesive patch,medicated 1 patch TOP DAILY PRN (Reason: pain) Qty: 10 0RF Rx Instructions: may leave on for up to 12 hrs Visit Report Forms: Patient Portal/API
[2021-12-13 23:30] VITALS: PULSE 85; RESP 16; O2SAT 100
[2021-12-13 23:30] LABS: Add Manual Diff / Slide Review NO; Basophils Absolute Auto 100 /uL (0-100); Basophils Percent Auto 0.5 % (0-2); Eosinophils Absolute Auto 700 /uL (0-450); Eosinophils Percent Auto 5.8 % (2-4); Hemoglobin 14.1 g/dL (12.0-16.0); Lymphocytes Absolute Auto 3000 /uL (1100-4500); Lymphocytes Percent Auto 26.1 % (25-40); Mean Corpuscular HGB Conc 35.3 % (30-36); Mean Corpuscular Hemoglobin 31.8 PG (26-34); Mean Corpuscular Volume 90.1 fL (80-100); Monocytes Absolute Auto 800 /uL (0-900); Monocytes Percent Auto 7.3 % (3-14); Neutrophils Absolute Auto 7000 /uL (1500-7000); Neutrophils Percent Auto 60.3 % (50-75); Platelet Count 317 X10^3/uL (150-400); Red Blood Cell Count 4.44 X10^6/uL (4.0-5.2); White Blood Cell Count 11.5 X10^3/uL (4.5-11.0)
[2021-12-13 23:32] VITALS: BP 128/67; PULSE 82; RESP 21; O2SAT 100
[2021-12-13 23:37] LABS: Pregnancy Test Serum,Qual Negative (Negative)
[2021-12-13 23:43] LABS: Alanine Aminotransferase 16 IU/L (<35); Albumin 4.2 g/dL (3.5-5.0); Albumin Globulin Ratio 1.2 (1.0-2.8); Alkaline Phosphatase 67 U/L (38-126); Aspartate Aminotransferase 22 IU/L (14-36); Bilirubin Total 0.3 mg/dL (0.2-1.3); Blood Urea Nitrogen 8 mg/dL (7-17); Calcium 8.7 mg/dL (8.4-10.2); Carbon Dioxide 25 mmol/L (22-32); Chloride 104 mmol/L (98-107); Creatine Kinase 73 U/L (30-135); Estimated Glomerular Filt Rate > 60 mL/min (>60); Globulin 3.5 g/dL (1.7-4.1); Glucose 122 mg/dL (70-100); HEMOLYSIS < 15 (0-50); Lipase 99 U/L (23-300); Potassium 2.9 mmol/L (3.4-5.1); Sodium 140 mmol/L (137-145); Total Protein 7.7 g/dL (6.3-8.2)
[2021-12-13 23:53] LABS: D Dimer < 200 ng/mL (<230)
[2021-12-13 23:55] LABS: Troponin I < 0.012 ng/mL (0.01-0.034)
[2021-12-14] VITALS: BP 118/72; PULSE 81; RESP 18; O2SAT 99
[2021-12-14 00:34] LABS: Thyroid Stimulating Hormone 2.13 uIU/mL (0.47-4.68)
[2021-12-14] MEDS: POTASSIUM CHLORIDE 20 MEQ TAB 40 MEQ PO (00:43)
[2021-12-14 00:45] VITALS: PULSE 85; RESP 20; O2SAT 99
[2021-12-14 00:46] VITALS: BP 130/68; PULSE 79; RESP 12; O2SAT 98
[2021-12-14 01:00] VITALS: BP 104/57; PULSE 79; O2SAT 97
[2021-12-14 01:16] LABS: UR Morphine/Opiate cutoff 300 Negative (Negative); Ur Creatinine 20 (Normal); Ur Specific Gravity 1.015 (Normal); Urine Amphetamines Negative (Negative); Urine Barbiturates Negative (Negative); Urine Benzodiazepines Negative (Negative); Urine Cocaine Negative (Negative); Urine MDMA Negative (Negative); Urine Methadone Negative (Negative); Urine Methamphetamines Negative (Negative); Urine Oxycodone Negative (Negative); Urine Phencyclidine Negative (Negative); Urine Tetrahydrocannabinol Positive (Negative); Urine Tricyclic Antidepressant Negative (Negative); Urine pH 5 (Normal)
[2021-12-14 01:30] VITALS: BP 110/67; PULSE 71; RESP 12; O2SAT 97
[2021-12-14 02:41] LABS: Bacteria Urine Many (>30); Culture Indicated Urine Specimen Cultured; RBC Urine 0-1/HPF (0-5/HPF); Squamous Epithelial Cell Urine 1-5 /HPF (0-5/HPF); WBC Urine 0-1/HPF (0-5/HPF)
== END 2021-12-14 01:53 | disposition home or self-care (01) ==
PROVIDERS: Emergency Provider Emergency Medicine; Family Provider Physician Assistant
DX: I49.3 Ventricular premature depolarization (principal); E87.6 Hypokalemia; R07.9 Chest pain, unspecified
CPT/HCPCS: 36415; 71045; 80053; 80305; 81003; 81015; 81025; 82550; 83690; 83735; 84443; 84484; 84703; 85025; 85379; 87077; 87086; 87186; 93005; 99284

== ENCOUNTER 2021-12-29 11:34 | Emergency (ER) | payer OTHER, MEDICAID, SELFPAY ==
[2021-12-29 11:46] VITALS: BP 128/71; PULSE 72; O2SAT 99
[2021-12-29 11:47] VITALS: BP 128/71; PULSE 76; RESP 17; TEMP 36.6; O2SAT 99; BMI 31.1
[2021-12-29 12:00] VITALS: BP 113/63; PULSE 74; O2SAT 99
[2021-12-29 12:30] VITALS: PULSE 68; O2SAT 100
[2021-12-29 12:31] VITALS: BP 109/67; PULSE 69; O2SAT 100
[2021-12-29] MEDS: KETOROLAC 30 MG/ML VIAL 15 MG IM (12:39)
[2021-12-29] MEDS: OXYCODONE/ACETAMINOPHEN 5/325 TABLET 1 TAB PO (12:39)
[2021-12-29] MEDS: methocarbamoL 500 MG TABLET 750 MG PO (12:39)
[2021-12-29] MEDS: predniSONE 20 MG TABLET 40 MG PO (12:39)
[2021-12-29] MEDS: LIDOCAINE PATCH 1 EACH ADH..PATCH TOP (12:40)
--- NOTE | 2021-12-29 12:51 | ED_ITS ---
HPI - Back Pain/Injury <Carla Barnard, [facility] - Last Filed: 12/29/21 13:15> General Chief Complaint: Back Pain/Injury Stated Complaint: Middle back pain Time Seen by Provider: 12/29/21 12:02 Source: patient and family History of Present Illness HPI Narrative: This is a 41-year-old female with history of psoriatic arthritis, degenerative joint disease, chronic low back pain who presents to the emergency department today describing muscle spasms in the middle lower aspect of her back which are getting worse and have been progressing over the last 3 days without recent injury. Patient states that it feels like pressure and can not relax her musculature, she endorses difficulty sleeping and doing everyday tasks. She denies any recent fever, chills, denies any incontinence, weakness, numbness or tingling in any extremity. She states that she is had a history of that past but does not have that currently. Patient has a follow-up appointment next week with her primary care provider after she was seen in the emergency department on 12/14/2021 and diagnosed with hypokalemia. Patient denies any weakness, states that she is still able to walk around but is not able to do certain tasks because she feels like she is having muscle spasms. Related Data Previous Rx's Medication Instructions Recorded beclomethasone dipropionate 80 1 inhalation inhalation BID #10.6 01/30/20 mcg/actuation HFA breath activated grams aerosol (Qvar RediHaler) lidocaine 4 % topical patch 1 patch topical DAILY PRN pain #10 03/06/20 ea fluconazole 150 mg tablet 150 mg PO DAILY #2 tabs 03/27/20 (Diflucan) hydrocodone 5 mg-acetaminophen 325 1 tab PO Q8H PRN pain #7 tabs 07/12/20 mg tablet ([place]) lidocaine 5 % topical patch 1 patch topical DAILY PRN pain #30 07/12/20 ea ondansetron 4 mg disintegrating 4 mg PO Q8H PRN nausea and 07/12/20 tablet vomiting #7 tabs ipratropium bromide 0.02 % 2.5 ml inhalation TID-QID PRN 06/15/21 solution for inhalation shortness of breath or wheezing #75 mL prednisone 10 mg tablet See Rx Instructions .Route 06/15/21 .COMPLEX #30 tabs potassium chloride 20 mEq 20 meq PO BID #14 tabs 12/14/21 tablet,extended release (K-Tab) lidocaine 5 % topical patch 1 patch topical DAILY PRN muscle 12/29/21 (Lidoderm) spasm #15 ea methocarbamol 750 mg tablet 750 mg PO Q8H PRN muscle spasms 12/29/21 #20 tabs prednisone 20 mg tablet 40 mg PO DAILY 4 days #8 tabs 12/29/21 Allergies Allergy/AdvReac Type Severity Reaction Status Date / Time doxycycline Allergy Severe Anaphylaxis Verified 12/29/21 11:51 levofloxacin [From Levaquin] Allergy Severe Anaphylaxis Verified 12/29/21 11:51 morphine Allergy Severe Anaphylaxis Verified 12/29/21 11:51 Review of Systems <RAS Swartz - Last Filed: 12/29/21 13:15> Review of Systems Narrative: General: denies fever, chills Head/Neck: denies headache, neck pain Eyes: denies visual changes, eye pain Cardio: denies chest pain, palpitations Respiratory: denies shortness of breath, cough GI: denies abdominal pain, nausea, vomiting, or diarrhea : denies dysuria, hematuria or flank pain MSK: denies new joint pain, muscle weakness or swelling Skin: denies rash, itching or wound Neuro: denies numbness, tingling, dizziness Patient History <RSA Swartz - Last Filed: 12/29/21 13:15> Medical History Asthma Psoriasis Vertigo Social History Smoking Status: Never smoker Smoking Status: Never smoker alcohol intake frequency: a few times a month Substance Use Type: marijuana Exam <RAS Swartz - Last Filed: 12/29/21 13:15> Narrative Exam Narrative: Independently reviewed vitals signs and nursing notes. General: cooperative, comfortable, in no acute distress, well groomed Head: atraumatic, symmetrical facial expressions Neck: supple Eyes: equal round and reactive, EOMI, conjunctiva normal Nose: nares patent, no rhinorrhea Mouth/Throat: moist mucus membranes Cardiovascular: regular rate and rhythm, no peripheral edema, warm extremities Respiratory: normal effort, able to speak in complete sentences, no audible wheezing, stridor, or rales. No retractions or tachypnea. GI: abdomen soft, nontender to palpation, nondistended, no masses, no exquisite tenderness with exam, without guarding or rebound. MSK: moves all extremities, neurovascularly intact, no weakness, normal tone with equal sensation bilaterally upper and lowers. Cervical Spine: normal cervical lordosis, no pain with cervical ROM (left neck, no midcervical tendernss), No cervical spinal tenderness and No step off deformity Thoracic/Lumbar Spine: thoracic and lumbar spine normal to inspection, No pain with thoraco-lumbar ROM, No paraspinal tenderness and No thoracic spinal tenderness Skin: brisk capillary refill, no rash, no erythema Neuro: normal speech and cognition, A&O x3 Psych: mental status is grossly normal, congruent mood, normal affect, pleasant and cooperative Initial Vital Signs Initial Vital Signs: Vital Signs Pulse Rate 72 12/29/21 11:46 Blood Pressure 128/71 12/29/21 11:46 Pulse Oximetry 99 12/29/21 11:46 <Kami Courtney MD - Last Filed: 12/29/21 18:57> Initial Vital Signs Initial Vital Signs: Vital Signs Pulse Rate 72 12/29/21 11:46 Blood Pressure 128/71 12/29/21 11:46 Pulse Oximetry 99 12/29/21 11:46 Course <RAS Swartz - Last Filed: 12/29/21 13:15> Orders Ordered: Discontinued Medications Ketorolac Tromethamine (Ketorolac 30 Mg/Ml Vial) 15 mg IM NOW ONE Stop: 12/29/21 12:20 Last Admin: 12/29/21 12:39 Dose: 15 mg Documented By: MYKEL Lidocaine (Lidocaine Patch 1 Each Adh..Patch) 1 each TOP DAILY ONE Stop: 12/29/21 12:21 Last Admin: 12/29/21 12:40 Dose: 1 each Documented By: MYKEL Methocarbamol (Methocarbamol 500 Mg Tablet) 750 mg PO NOW ONE Stop: 12/29/21 12:20 Last Admin: 12/29/21 12:39 Dose: 750 mg Documented By: MYKEL Oxycodone/Acetaminophen (Oxycodone/Acetaminophen 5/325 Tablet) 1 tab PO NOW ONE Stop: 12/29/21 12:20 Last Admin: 12/29/21 12:39 Dose: 1 tab Documented By: MYKEL Prednisone (Prednisone 20 Mg Tablet) 40 mg PO NOW ONE Stop: 12/29/21 12:20 Last Admin: 12/29/21 12:39 Dose: 40 mg Documented By: MYKEL Vital Signs Vital signs: Vital Signs - 8 hr 12/29/21 11:47 12/29/21 11:46 12/29/21 11:46 Temperature 98 F Pulse Rate 76 72 Respiratory Rate 17 Blood Pressure 128/71 128/71 Pulse Oximetry 99 99 Oxygen Delivery Method Room Air 12/29/21 12:00 12/29/21 12:00 12/29/21 12:30 Temperature Pulse Rate 74 68 Respiratory Rate Blood Pressure 113/63 Pulse Oximetry 99 100 Oxygen Delivery Method 12/29/21 12:31 12/29/21 12:31 Temperature Pulse Rate 69 Respiratory Rate Blood Pressure 109/67 Pulse Oximetry 100 Oxygen Delivery Method <Kami Courtney MD - Last Filed: 12/29/21 18:57> Orders Ordered: Discontinued Medications Ketorolac Tromethamine (Ketorolac 30 Mg/Ml Vial) 15 mg IM NOW ONE Stop: 12/29/21 12:20 Last Admin: 12/29/21 12:39 Dose: 15 mg Documented By: MYKEL Lidocaine (Lidocaine Patch 1 Each Adh..Patch) 1 each TOP DAILY ONE Stop: 12/29/21 12:21 Last Admin: 12/29/21 12:40 Dose: 1 each Documented By: MYKEL Methocarbamol (Methocarbamol 500 Mg Tablet) 750 mg PO NOW ONE Stop: 12/29/21 12:20 Last Admin: 12/29/21 12:39 Dose: 750 mg Documented By: MYKEL Oxycodone/Acetaminophen (Oxycodone/Acetaminophen 5/325 Tablet) 1 tab PO NOW ONE Stop: 12/29/21 12:20 Last Admin: 12/29/21 12:39 Dose: 1 tab Documented By: MYKEL Prednisone (Prednisone 20 Mg Tablet) 40 mg PO NOW ONE Stop: 12/29/21 12:20 Last Admin: 12/29/21 12:39 Dose: 40 mg Documented By: MYKEL Vital Signs Vital signs: Vital Signs - 8 hr 12/29/21 11:47 12/29/21 11:46 12/29/21 11:46 Temperature 98 F Pulse Rate 76 72 Respiratory Rate 17 Blood Pressure 128/71 128/71 Pulse Oximetry 99 99 Oxygen Delivery Method Room Air 12/29/21 12:00 12/29/21 12:00 12/29/21 12:30 Temperature Pulse Rate 74 68 Respiratory Rate Blood Pressure 113/63 Pulse Oximetry 99 100 Oxygen Delivery Method 12/29/21 12:31 12/29/21 12:31 Temperature Pulse Rate 69 Respiratory Rate Blood Pressure 109/67 Pulse Oximetry 100 Oxygen Delivery Method MDM - Back Pain/Injury <Carla Barnard, [facility] - Last Filed: 12/29/21 13:15> [facility] Narrative Medical decision making narrative: Patient presents with 3 days of worsening lumbar back pain with muscle spasms and without trauma, she is afebrile. Given history and exam, suspect likely musculoskeletal etiology, she is nontoxic appearing with no overt risk factors for epidural hematoma or abscess. No overt evidence of critical cord compression and has a nonfocal near exam. Neurovascularly intact distally, no evidence of infection, peritoneal signs, hypertensive crisis, or abdominal pain with low suspicion for AAA. No weakness, incontinence, neurovascular or sensation changes, no concerning findings for caudal equina syndrome, lumbar fracture, without paresthesia, neuropathic pain, meningeal signs and fever. This could be a herniated disk, paraspinal or other muscle strain, ligamental injury, arthritic, nephrolithiasis/pyelonephritis, epidural abscess, chronic pain, and other diagnosis? considered less likely. Patient has scheduled follow-up with her primary care provider next week, encouraged to seek out physical therapy, discuss advanced imaging, chronic pain medication management. Patient is appropriate and amenable to discharge home. Vital signs are stable on repeat examination is unremarkable. Patient has been informed of results. Patient has been given strict return to ER precautions for any new or worsening symptoms. Patient understands to follow up closely with outpatient providers as instructed. Patient understands plan and agrees to discharge home. All questions and concerns answered at this time. Discharge Plan Departure Patient Disposition: Home Clinical Impression: Acute exacerbation of chronic low back pain Instructions: DI for Back Spasm, DI for Back Strain or Sprain Activity Restrictions/Additional Instructions: *You have been diagnosed with an acute exacerbation of back pain. Please continue on your ibuprofen, Tylenol, and heat regimen. Please do not take any ibuprofen today, use a muscle relaxer every hours as needed muscle spasms. Please return to the emergency department if you develop weakness in any extremity, incontinence of bowel or bladder, if you develop a fever, or if you are unable to take care of yourself at home. Please follow-up with your primary care provider this episode exacerbation of pain as well as your previous visit. Discussed physical therapy or other pain management modalities and see what may worked best for you. Please eat food and drink water while taking these medications to prevent stomach ulcer. I hope you feel better soon. Thank you for trusting us with your care. *What to do: *Please continue to take your regular medications as directed. [x ] New medication prescriptions sent to your pharmacy: [ [facility]] [ ] New medication written as a paper prescription [ ] No new medications given *Please follow up with your primary care provider in 2-3 days, call for an appointment. Let them know you were seen in the Emergency Department and that we asked that you be seen for follow-up. We will electronically transmit a record of today's note if your PCP is in our system *If you do not have a primary care provider please contact [phone] to establish care with one of the [facility] primary care providers. *Return to Emergency Department if you should have any new, worsening, or concerning symptoms, such as [fever greater than 101F, chills, worsening pain, persistent vomiting or other bothersome symptoms]. Prescriptions: New prednisone 20 mg tablet 40 mg PO DAILY 4 Days Qty: 8 0RF lidocaine [Lidoderm] 5 % adhesive patch,medicated 1 patch topical DAILY PRN (Reason: muscle spasm) Qty: 15 0RF Rx Instructions: leave on most painful area for up to 12 hrs methocarbamol 750 mg tablet 750 mg PO Q8H PRN (Reason: muscle spasms) Qty: 20 0RF No Action Qvar RediHaler 80 mcg/actuation HFA aerosol breath activated 1 inhalation INHALATION BID Qty: 10.6 0RF fluconazole [Diflucan] 150 mg tablet 150 mg PO DAILY Qty: 2 0RF hydrocodone-acetaminophen [[place]] 5-325 mg tablet 1 tab PO Q8H PRN (Reason: pain) Qty: 7 0RF ondansetron 4 mg tablet,disintegrating 4 mg PO Q8H PRN (Reason: nausea and vomiting) Qty: 7 0RF lidocaine 5 % adhesive patch,medicated 1 patch topical DAILY PRN (Reason: pain) Qty: 30 0RF Rx Instructions: leave on most painful area for up to 12 hrs prednisone 10 mg tablet See Rx Instructions .ROUTE .COMPLEX Qty: 30 0RF Rx Instructions: Day 1,2,3: 40mg PO Daily Day 4,5,6: 30mg PO Daily Day 7,8,9: 20mg PO Daily Day 10,11,12: 10mg PO Daily #30 ipratropium bromide 0.02 % solution 2.5 ml inhalation TID-QID PRN (Reason: shortness of breath or wheezing) Qty: 75 0RF lidocaine 4 % adhesive patch,medicated 1 patch TOP DAILY PRN (Reason: pain) Qty: 10 0RF Rx Instructions: may leave on for up to 12 hrs potassium chloride [K-Tab] 20 mEq tablet extended release 20 meq PO BID Qty: 14 0RF Visit Report Forms: Patient Portal/API <Kami Courtney MD - Last Filed: 12/29/21 18:57> Cosign ED Attending Cosignature Attestation: I was immediately available in the department for consultation throughout this patient's visit. I agree with documentation as above. Kami Courtney MD
== END 2021-12-29 12:53 | disposition home or self-care (01) ==
PROVIDERS: Emergency Provider Nurse Practitioner Critical Care Medicine; Family Provider Physician Assistant
DX: M54.50 Low back pain, unspecified (principal)
CPT/HCPCS: 96372; 99283; J1885

== ENCOUNTER 2022-05-28 15:04 | Emergency (ER) | payer OTHER, SELFPAY ==
[2022-05-28 15:04] VITALS: BP 130/58; PULSE 85; RESP 16; TEMP 36.3; O2SAT 95; BMI 31.1
--- NOTE | 2022-05-28 15:26 | DI.RAD.S_ITS ---
PROCEDURE: XR CHEST 2V INDICATIONS: Cough, SOB x1week TECHNIQUE: 2 views of the chest were acquired. COMPARISON: [facility], CR, XR CHEST 1V, 12/13/2021, 23:20. FINDINGS: Surgical changes and devices: None. Lungs and pleura: Lungs are clear. No pleural effusions or pneumothorax. Mediastinum: Mediastinal contours are normal. Heart size is normal. Bones and chest wall: No suspicious bony abnormalities. Soft tissues appear unremarkable. IMPRESSION: No acute pulmonary process. Dictated by: Terri Brown M.D. on 05/28/2022 at 16:37 Approved by: Terri Brown M.D. on 05/28/2022 at 16:38
[2022-05-28 16:25] LABS: Influenza A - CEPHEID Flu A NEGATIVE (NEGATIVE); Influenza B - CEPHEID Flu B NEGATIVE (NEGATIVE); Respiratory Syncytial Virus Negative (Negative)
[2022-05-28 16:40] LABS: COVID-19 CEPHEID 4-PLEX PCR Negative (Negative)
[2022-05-28 19:30] VITALS: BP 122/79; PULSE 82; O2SAT 98
--- NOTE | 2022-05-28 19:32 | ED.URI ---
HPI - URI/Sore Throat <RAS Swartz - Last Filed: 05/28/22 20:14> General Chief Complaint: Upper Respiratory Symptoms Stated Complaint: Chest congestion, SOB Time Seen by Provider: 05/28/22 18:16 History of Present Illness HPI Narrative: This is a 42-year-old female with history of asthma who presents to the emergency department with upper respiratory congestion the last 2-3 days, states that she started wheezing and having shortness of breath today and denies recent fever, exposure to allergy, recent medications or other trigger. She states that she gave herself 6 breathing treatments prior to coming in, takes QVAR, and ipratropium as needed. Patient's primary care provider is Daksha MCGINNIS at [facility] and her health records are outside of this system. Patient also has a history of psoriasis, psoriatic arthritis, degenerative joint disease. States she has an allergy to doxycycline, Levaquin and morphine. States that she is had increasing frequency of her cough, if she takes a deep breath, it triggers a coughing fit. She denies any recent antibiotics or steroids. Related Data Previous Rx's Medication Instructions Recorded beclomethasone dipropionate 80 1 inhalation inhalation BID #10.6 01/30/20 mcg/actuation HFA breath activated grams aerosol (Qvar RediHaler) lidocaine 4 % topical patch 1 patch topical DAILY PRN pain #10 03/06/20 ea fluconazole 150 mg tablet 150 mg PO DAILY #2 tabs 03/27/20 (Diflucan) hydrocodone 5 mg-acetaminophen 325 1 tab PO Q8H PRN pain #7 tabs 07/12/20 mg tablet (Rankin) lidocaine 5 % topical patch 1 patch topical DAILY PRN pain #30 07/12/20 ea ondansetron 4 mg disintegrating 4 mg PO Q8H PRN nausea and 07/12/20 tablet vomiting #7 tabs ipratropium bromide 0.02 % 2.5 ml inhalation TID-QID PRN 06/15/21 solution for inhalation shortness of breath or wheezing #75 mL prednisone 10 mg tablet See Rx Instructions .Route 06/15/21 .COMPLEX #30 tabs potassium chloride 20 mEq 20 meq PO BID #14 tabs 12/14/21 tablet,extended release (K-Tab) lidocaine 5 % topical patch 1 patch topical DAILY PRN muscle 12/29/21 (Lidoderm) spasm #15 ea methocarbamol 750 mg tablet 750 mg PO Q8H PRN muscle spasms 12/29/21 #20 tabs albuterol sulfate 2.5 mg/3 mL 2.5 mg (3 mL) inhalation Q1H PRN 05/28/22 (0.083 %) solution for nebulization shortness of breath or wheezing #90 mL albuterol sulfate 90 mcg/actuation 2 inh inhalation Q4-6H PRN 05/28/22 breath activated powder inhaler shortness of breath #1 ea benzonatate 200 mg capsule 200 mg PO BID PRN cough #20 caps 05/28/22 cetirizine 10 mg tablet (Allergy 10 mg PO BEDTIME PRN congestion 05/28/22 Relief (cetirizine)) #30 tabs ipratropium 0.5 mg-albuterol 3 mg 3 ml inhalation TID PRN shortness 05/28/22 (2.5 mg base)/3 mL nebulization of breath or wheezing #90 mL soln magnesium oxide 500 mg capsule 500 mg PO BEDTIME #20 caps 05/28/22 prednisone 20 mg tablet 40 mg PO DAILY 5 days #10 tabs 05/28/22 Allergies Allergy/AdvReac Type Severity Reaction Status Date / Time doxycycline Allergy Severe Anaphylaxis Verified 05/28/22 15:38 levofloxacin [From Levaquin] Allergy Severe Anaphylaxis Verified 05/28/22 15:38 morphine Allergy Severe Anaphylaxis Verified 05/28/22 15:38 Review of Systems <ARS Swartz - Last Filed: 05/28/22 20:14> Review of Systems ROS Unobtainable: All systems reviewed & are unremarkable except as noted in HPI and below Patient History <RAS Swartz - Last Filed: 05/28/22 20:14> Medical History (Updated 05/29/22 @ 05:14 by Venessa Padilla DO) Asthma Psoriasis Vertigo Social History Smoking Status: Never smoker Smoking Status: Never smoker alcohol intake frequency: a few times a month Substance Use Type: marijuana Exam <RAS Swartz - Last Filed: 05/28/22 20:14> Narrative Exam Narrative: Reviewed vitals signs and nursing notes. General: cooperative, uncomfortable, short of breath, patient states that she is wheezing, well groomed HEENT: symmetrical facial expressions, moist mucous membranes, congestion Cardiovascular: regular rate and rhythm, no peripheral edema, warm extremities, without tachycardia Respiratory: normal effort, able to speak 4-5 word sentences, breath sounds tight throughout with inspiratory and expiratory wheezes, without stridor, rales, or crackles or abnormal breath sounds. No retractions. Re-evaluation after neb with ongoing GI: abdomen soft, nontender to palpation, nondistended, without masses, rebound tenderness or exquisite tenderness with exam. MSK: moves all extremities, neurovascularly intact, no weakness, normal tone Skin: brisk capillary refill, without pallor or erythema Neuro: normal speech and cognition, A&O x3, ambulatory, clear speech Psych: mental status is grossly normal, congruent mood, normal affect, pleasant and cooperative Initial Vital Signs Initial Vital Signs: Vital Signs Temperature 97.4 F L 05/28/22 15:04 Pulse Rate 85 05/28/22 15:04 Respiratory Rate 16 05/28/22 15:04 Blood Pressure 130/58 L 05/28/22 15:04 Pulse Oximetry 95 05/28/22 15:04 Oxygen Delivery Method 05/28/22 15:04 <Venessa Padilla DO - Last Filed: 05/30/22 07:50> Initial Vital Signs Initial Vital Signs: Vital Signs Temperature 97.4 F L 05/28/22 15:04 Pulse Rate 85 05/28/22 15:04 Respiratory Rate 16 05/28/22 15:04 Blood Pressure 130/58 L 05/28/22 15:04 Pulse Oximetry 95 05/28/22 15:04 Oxygen Delivery Method 05/28/22 15:04 Scores <RAS Swartz - Last Filed: 05/28/22 20:14> PERC Score Age greater than or equal to 50 years: No Heart rate greater than or equal to 100 bpm: No Room Air O2 Sat less than 95%: No Unilateral leg swelling: No Recent trauma or surgery: No Hemoptysis: No Hormone Use: No Course <RAS Swartz - Last Filed: 05/28/22 20:14> Orders Ordered: Discontinued Medications Albuterol (Albuterol Hfa Prepack) 1 box MISC SEEINSTR ONE Stop: 05/28/22 19:57 Last Admin: 05/28/22 20:07 Dose: 1 box Documented By: BRIANA Albuterol/Ipratropium (Albuterol/Ipratropium 3 Ml Ampul) 3 ml INH NOW ONE Stop: 05/28/22 19:27 Last Admin: 05/28/22 19:42 Dose: 3 ml Documented By: VIN Prednisone (Prednisone 20 Mg Tablet) 40 mg PO NOW ONE Stop: 05/28/22 19:27 Last Admin: 05/28/22 19:42 Dose: 40 mg Documented By: VIN Vital Signs Vital signs: Vital Signs - 8 hr 05/28/22 15:04 05/28/22 19:30 05/28/22 19:30 Temperature 97.4 F L Pulse Rate 85 82 Respiratory Rate 16 Blood Pressure 130/58 L 122/79 Pulse Oximetry 95 98 Oxygen Delivery Method Room Air <Venessa Padilla DO - Last Filed: 05/30/22 07:50> Orders Ordered: Discontinued Medications Albuterol (Albuterol Hfa Prepack) 1 box [facility] [place] Stop: 05/28/22 19:57 Last Admin: 05/28/22 20:07 Dose: 1 box Documented By: BRIANA Albuterol/Ipratropium (Albuterol/Ipratropium 3 Ml Ampul) 3 ml INH NOW ONE Stop: 05/28/22 19:27 Last Admin: 05/28/22 19:42 Dose: 3 ml Documented By: VIN Prednisone (Prednisone 20 Mg Tablet) 40 mg PO NOW ONE Stop: 05/28/22 19:27 Last Admin: 05/28/22 19:42 Dose: 40 mg Documented By: VIN Vital Signs Vital signs: Vital Signs - 8 hr 05/28/22 15:04 05/28/22 19:30 05/28/22 19:30 Temperature 97.4 F L Pulse Rate 85 82 Respiratory Rate 16 Blood Pressure 130/58 L 122/79 Pulse Oximetry 95 98 Oxygen Delivery Method Room Air MDM - URI/Sore Throat <RAS Swartz - Last Filed: 05/28/22 20:14> Lab Data Result diagrams: 05/28/22 19:20 05/28/22 19:20 Labs: Lab Results 05/28/22 05/28/22 05/28/22 Range/Units 15:22 19:20 19:20 WBC 11.9 H (4.5-11.0) X10^3/uL RBC 4.92 (4.0-5.2) X10^6/uL Hgb 15.3 (12.0-16.0) g/dL Hct 44.2 (36-46) % MCV 89.8 (80-100) fL MCH 31.2 (26-34) PG MCHC 34.7 (30-36) % RDW 13.1 (11.6-14.8) % Plt Count 325 (150-400) X10^3/uL Neut % (Auto) 64.6 (50-75) % Lymph % (Auto) 19.7 L (25-40) % [place] % (Auto) 7.5 (3-14) % Eos % (Auto) 7.3 H (2-4) % Baso % (Auto) 0.9 (0-2) % Neut # (Auto) 7700 H (2603-8373) /uL Lymph # (Auto) 2300 (4792-3421) /uL [place] # (Auto) 900 (0-900) /uL Eos # (Auto) 900 H (0-450) /uL Baso # (Auto) 100 (0-100) /uL PT 12.8 H (10.1-12.7) SECONDS INR 1.1 (0.9-1.3) APTT 32 (26-36) SECONDS Sodium (137-145) mmol/L Potassium (3.4-5.1) mmol/L Chloride (98-107) mmol/L Carbon Dioxide (22-32) mmol/L BUN (7-17) mg/dL Creatinine (0.52-1.04) mg/dL Estimated GFR (>60) mL/min BUN/Creatinine Ratio (6-22) Glucose (70-100) mg/dL Calcium (8.4-10.2) mg/dL Magnesium (1.6-2.3) mg/dL Total Bilirubin (0.2-1.3) mg/dL AST (14-36) IU/L ALT (<35) IU/L Alkaline Phosphatase (38-126) U/L Total Creatine Kinase (30-135) U/L CK-MB (CK-2) CK-MB (CK-2) Rel Index Troponin I (0.01-0.034) ng/mL Total Protein (6.3-8.2) g/dL Albumin (3.5-5.0) g/dL Globulin (1.7-4.1) g/dL Albumin/Globulin Ratio (1.0-2.8) Lipase (23-300) U/L SARS-CoV-2 (PCR) Negative (Negative) Influenza A (RT-PCR) Flu a negative (NEGATIVE) Influenza B (RT-PCR) Flu b negative (NEGATIVE) RSV (PCR) Negative (Negative) 05/28/22 Range/Units 19:20 WBC (4.5-11.0) X10^3/uL RBC (4.0-5.2) X10^6/uL Hgb (12.0-16.0) g/dL Hct (36-46) % MCV (80-100) fL MCH (26-34) PG MCHC (30-36) % RDW (11.6-14.8) % Plt Count (150-400) X10^3/uL Neut % (Auto) (50-75) % Lymph % (Auto) (25-40) % [place] % (Auto) (3-14) % Eos % (Auto) (2-4) % Baso % (Auto) (0-2) % Neut # (Auto) (9109-5433) /uL Lymph # (Auto) (4146-1882) /uL [place] # (Auto) (0-900) /uL Eos # (Auto) (0-450) /uL Baso # (Auto) (0-100) /uL PT (10.1-12.7) SECONDS INR (0.9-1.3) APTT (26-36) SECONDS Sodium 138 (137-145) mmol/L Potassium 3.5 (3.4-5.1) mmol/L Chloride 105 (98-107) mmol/L Carbon Dioxide 23 (22-32) mmol/L BUN 8 (7-17) mg/dL Creatinine 0.80 (0.52-1.04) mg/dL Estimated GFR > 60 (>60) mL/min BUN/Creatinine Ratio 10.0 (6-22) Glucose 94 (70-100) mg/dL Calcium 8.7 (8.4-10.2) mg/dL Magnesium 2.1 (1.6-2.3) mg/dL Total Bilirubin 0.5 (0.2-1.3) mg/dL AST 21 (14-36) IU/L ALT 20 (<35) IU/L Alkaline Phosphatase 67 (38-126) U/L Total Creatine Kinase 54 (30-135) U/L CK-MB (CK-2) TNP CK-MB (CK-2) Rel Index TNP Troponin I < 0.012 (0.01-0.034) ng/mL Total Protein 7.7 (6.3-8.2) g/dL Albumin 4.2 (3.5-5.0) g/dL Globulin 3.5 (1.7-4.1) g/dL Albumin/Globulin Ratio 1.2 (1.0-2.8) Lipase 159 (23-300) U/L SARS-CoV-2 (PCR) (Negative) Influenza A (RT-PCR) (NEGATIVE) Influenza B (RT-PCR) (NEGATIVE) RSV (PCR) (Negative) Imaging Data Chest x-ray: Radiologist's Impression: PROCEDURE:? XR CHEST 2V ? INDICATIONS:? Cough, SOB x1week ? TECHNIQUE:? 2 views of the chest were acquired.? ? COMPARISON:? [facility], , XR CHEST 1V, 12/13/2021, 23:20. ? FINDINGS:? ? Surgical changes and devices:? None.? ? Lungs and pleura:? Lungs are clear.? No pleural effusions or pneumothorax.? ? Mediastinum:? Mediastinal contours are normal.? Heart size is normal.? ? Bones and chest wall:? No suspicious bony abnormalities.? Soft tissues appear unremarkable.? ? IMPRESSION:? No acute pulmonary process. ? ? Dictated by: Terri Brown M.D. on 05/28/2022 at 16:37 ? ? Approved by: Terri Brown M.D. on 05/28/2022 at 16:38 ? MDM Narrative Medical decision making narrative: CC: Shortness of breath with asthma history This is a 42-year-old female with history of asthma who presents to the emergency department with upper respiratory congestion the last 2-3 days, states that she started wheezing and having shortness of breath today and denies recent fever, exposure to allergy, recent medications or other trigger. She states that she gave herself 6 breathing treatments prior to coming in, takes QVAR, and ipratropium as needed. Patient waited to see a provider for many hours, I walked in at 1922, patient was tachypneic, had inspiratory and expiratory wheezes throughout with decreased air movement, states that she used her asthma medications as prescribed and required 6 treatments prior to coming in, she came in and waited approximately 6 hours before being seen by provider. Nursing put orders in for chest pain Differential diagnoses include, but are not limited to: Asthma exacerbation, pneumonia, upper respiratory viral infection, pulmonary embolus, ACS, allergic reaction, dehydration I have reviewed the patient's vital signs and nursing notes as well as prior records if available. Lab test results independently reviewed, pertinent findings: Mild leukocytosis but hemo concentration is present, lymphopenia without electrolyte abnormalities, elevation in troponin, no elevation to lipase, COVID, influenza a, B, RSV negative via PCR My imaging interpretation: Chest x-ray without focal opacity or lobar pneumonia Re-evaluations/Ongoing course of care: After DuoNeb, patient is moving more air however she is more wheezy as well, she remains tachypneic without hypoxia, without increased work of breathing. States that she has an albuterol inhaler in the car but it is getting low, her pharmacy will likely be closed by the time she gets there, will send home with MDI and Respiratory therapy was called for MDI spacer Patient's symptoms improved over duration of stay with above-stated therapies. This patient presents with dyspnea, most likely secondary to asthma, Presentation not consistent with acute cardiac etiologies to include ACS (non ischemic ekg, unremarkable trop), CHF, pericardial effusion / tamponade . Patient does not have history of hypertension, hyperlipidemia, diabetes, or other cardiac risk factors. Presentation not consistent with acute respiratory etiologies to include acute PE Wells low risk, PERC 0, pneumothorax, asthma, COPD exacerbation, allergic etiologies, or infectious etiologies such as PNA. Presentation also not consistent with non-cardiopulmonary causes to include toxidromes, metabolic etiologies such as acidemia or electrolyte derangements, sepsis, neurologic causes (i.e. demyelinating diseases). Treated for asthma exacerbation. Patient has scheduled follow-up in 3 days with her PCP at [facility], encouraged have records requested, we will send note to [facility]. Patient understands return immediately for worsening symptoms, Respiratory therapy came by gave it MDI with spacer for patient to use on her way home, no indication for additional albuterol this point, she received MDI prior to DC. Encouraged to stay hydrated, prescribed Zyrtec for congestion, DuoNebs, albuterol nebulizers, refilled her albuterol inhalers, prednisone x5 days of 40 mg, Tessalon Perles, and patient understands to take her QVAR as scheduled. Also prescribed for magnesium oxide encouraged to take this nightly. She has Medicaid and some of her medications AKA the Tessalon Perles and magnesium are not covered, she is aware of this and will pick them of if she is able to. Asthma exacerbation without evidence of hypoxia, respiratory distress, dehydration, or focal exam to suggest secondary bacterial infection. Questions are addressed and there is agreement with the plan and for follow-up. Patient is appropriate for outpatient management. MIPS: This encounter doesn't have any diagnosis associated with MIPS criteria. I, Carla Barnard CAR WRECKER, personally performed the services described in the documentation, and it accurately records my words and actions. I collaborated with the ED attending physician for MARCELLO level 2, 3, and some level 4s as appropriate. <Venessa Padilla, DO - Last Filed: 05/30/22 07:50> Lab Data Labs: Lab Results 05/28/22 05/28/22 05/28/22 Range/Units 15:22 19:20 19:20 WBC 11.9 H (4.5-11.0) X10^3/uL RBC 4.92 (4.0-5.2) X10^6/uL Hgb 15.3 (12.0-16.0) g/dL Hct 44.2 (36-46) % MCV 89.8 (80-100) fL MCH 31.2 (26-34) PG MCHC 34.7 (30-36) % RDW 13.1 (11.6-14.8) % Plt Count 325 (150-400) X10^3/uL Neut % (Auto) 64.6 (50-75) % Lymph % (Auto) 19.7 L (25-40) % [place] % (Auto) 7.5 (3-14) % Eos % (Auto) 7.3 H (2-4) % Baso % (Auto) 0.9 (0-2) % Neut # (Auto) 7700 H (0625-3374) /uL Lymph # (Auto) 2300 (9051-5249) /uL [place] # (Auto) 900 (0-900) /uL Eos # (Auto) 900 H (0-450) /uL Baso # (Auto) 100 (0-100) /uL PT 12.8 H (10.1-12.7) SECONDS INR 1.1 (0.9-1.3) APTT 32 (26-36) SECONDS Sodium (137-145) mmol/L Potassium (3.4-5.1) mmol/L Chloride (98-107) mmol/L Carbon Dioxide (22-32) mmol/L BUN (7-17) mg/dL Creatinine (0.52-1.04) mg/dL Estimated GFR (>60) mL/min BUN/Creatinine Ratio (6-22) Glucose (70-100) mg/dL Calcium (8.4-10.2) mg/dL Magnesium (1.6-2.3) mg/dL Total Bilirubin (0.2-1.3) mg/dL AST (14-36) IU/L ALT (<35) IU/L Alkaline Phosphatase (38-126) U/L Total Creatine Kinase (30-135) U/L CK-MB (CK-2) CK-MB (CK-2) Rel Index Troponin I (0.01-0.034) ng/mL Total Protein (6.3-8.2) g/dL Albumin (3.5-5.0) g/dL Globulin (1.7-4.1) g/dL Albumin/Globulin Ratio (1.0-2.8) Lipase (23-300) U/L SARS-CoV-2 (PCR) Negative (Negative) Influenza A (RT-PCR) Flu a negative (NEGATIVE) Influenza B (RT-PCR) Flu b negative (NEGATIVE) RSV (PCR) Negative (Negative) 05/28/22 Range/Units 19:20 WBC (4.5-11.0) X10^3/uL RBC (4.0-5.2) X10^6/uL Hgb (12.0-16.0) g/dL Hct (36-46) % MCV (80-100) fL MCH (26-34) PG MCHC (30-36) % RDW (11.6-14.8) % Plt Count (150-400) X10^3/uL Neut % (Auto) (50-75) % Lymph % (Auto) (25-40) % [place] % (Auto) (3-14) % Eos % (Auto) (2-4) % Baso % (Auto) (0-2) % Neut # (Auto) (7537-4701) /uL Lymph # (Auto) (3554-6279) /uL [place] # (Auto) (0-900) /uL Eos # (Auto) (0-450) /uL Baso # (Auto) (0-100) /uL PT (10.1-12.7) SECONDS INR (0.9-1.3) APTT (26-36) SECONDS Sodium 138 (137-145) mmol/L Potassium 3.5 (3.4-5.1) mmol/L Chloride 105 (98-107) mmol/L Carbon Dioxide 23 (22-32) mmol/L BUN 8 (7-17) mg/dL Creatinine 0.80 (0.52-1.04) mg/dL Estimated GFR > 60 (>60) mL/min BUN/Creatinine Ratio 10.0 (6-22) Glucose 94 (70-100) mg/dL Calcium 8.7 (8.4-10.2) mg/dL Magnesium 2.1 (1.6-2.3) mg/dL Total Bilirubin 0.5 (0.2-1.3) mg/dL AST 21 (14-36) IU/L ALT 20 (<35) IU/L Alkaline Phosphatase 67 (38-126) U/L Total Creatine Kinase 54 (30-135) U/L CK-MB (CK-2) TNP CK-MB (CK-2) Rel Index TNP Troponin I < 0.012 (0.01-0.034) ng/mL Total Protein 7.7 (6.3-8.2) g/dL Albumin 4.2 (3.5-5.0) g/dL Globulin 3.5 (1.7-4.1) g/dL Albumin/Globulin Ratio 1.2 (1.0-2.8) Lipase 159 (23-300) U/L SARS-CoV-2 (PCR) (Negative) Influenza A (RT-PCR) (NEGATIVE) Influenza B (RT-PCR) (NEGATIVE) RSV (PCR) (Negative) Discharge Plan Departure Patient Disposition: Home Clinical Impression: Upper respiratory infection Asthma exacerbation Qualifiers: Asthma severity: unspecified severity Asthma persistence: unspecified Qualified Code(s): J45.901 - Unspecified asthma with (acute) exacerbation Instructions: Asthma -- Adult, DI for Viral Upper Respiratory Infection -- Adult Activity Restrictions/Additional Instructions: *You have been diagnosed with wheezing, likely secondary to upper respiratory viral infection. Your chest x-ray does not show any focal pneumonia or any patchy areas concerning for pneumonia. Please stay hydrated, take the steroid for the next 5 days, use your inhalers as prescribed and nebulizers as needed. Please follow-up with your primary care provider, thank you for coming in for your patience today. I am sorry for your long wait. I has not albuterol inhalers, albuterol nebulizer, DuoNeb nebulize and Tessalon Perles. Please use Mucinex if you have a productive cough, take magnesium oxide at night, sometimes this can help, up to 500mg. That is available over the counter also. Follow-up at your scheduled appointment with Daksha MCGINNIS [facility] - [address] [address] Closed: Opens Tuesday at 8:00 am *What to do: *Please continue to take your regular medications as directed. [ x] New medication prescriptions sent to your pharmacy: [Tameka Gómez ] [ ] New medication written as a paper prescription [ ] No new medications given *Please follow up with your primary care provider in 2-3 days, call for an appointment. Let them know you were seen in the Emergency Department and that we asked that you be seen for follow-up. We will electronically transmit a record of today's note if your PCP is in our system *If you do not have a primary care provider please contact [phone] to establish care with one of the [facility] primary care providers. *Return to Emergency Department if you should have any new, worsening, or concerning symptoms, such as [fever greater than 101F, chills, worsening pain, persistent vomiting or other bothersome symptoms]. Prescriptions: New prednisone 20 mg tablet 40 mg PO DAILY 5 Days Qty: 10 0RF ipratropium-albuterol 0.5 mg-3 mg(2.5 mg base)/3 mL solution for nebulization 3 ml inhalation TID PRN (Reason: shortness of breath or wheezing) Qty: 90 0RF albuterol sulfate 2.5 mg /3 mL (0.083 %) solution for nebulization 2.5 mg inhalation Q1H PRN (Reason: shortness of breath or wheezing) Qty: 90 2RF Rx Instructions: until breathing returns to target peak flow/parameters cetirizine [Allergy Relief (cetirizine)] 10 mg tablet 10 mg PO BEDTIME PRN (Reason: congestion) Qty: 30 0RF albuterol sulfate 90 mcg/actuation aerosol powdr breath activated 2 inh inhalation Q4-6H PRN (Reason: shortness of breath) Qty: 1 3RF benzonatate 200 mg capsule 200 mg PO BID PRN (Reason: cough) Qty: 20 0RF magnesium oxide 500 mg capsule 500 mg PO BEDTIME Qty: 20 0RF No Action Qvar RediHaler 80 mcg/actuation HFA aerosol breath activated 1 inhalation INHALATION BID Qty: 10.6 0RF fluconazole [Diflucan] 150 mg tablet 150 mg PO DAILY Qty: 2 0RF hydrocodone-acetaminophen [Rankin] 5-325 mg tablet 1 tab PO Q8H PRN (Reason: pain) Qty: 7 0RF ondansetron 4 mg tablet,disintegrating 4 mg PO Q8H PRN (Reason: nausea and vomiting) Qty: 7 0RF lidocaine 5 % adhesive patch,medicated 1 patch topical DAILY PRN (Reason: pain) Qty: 30 0RF Rx Instructions: leave on most painful area for up to 12 hrs prednisone 10 mg tablet See Rx Instructions .ROUTE .COMPLEX Qty: 30 0RF Rx Instructions: Day 1,2,3: 40mg PO Daily Day 4,5,6: 30mg PO Daily Day 7,8,9: 20mg PO Daily Day 10,11,12: 10mg PO Daily #30 ipratropium bromide 0.02 % solution 2.5 ml inhalation TID-QID PRN (Reason: shortness of breath or wheezing) Qty: 75 0RF lidocaine [Lidoderm] 5 % adhesive patch,medicated 1 patch topical DAILY PRN (Reason: muscle spasm) Qty: 15 0RF Rx Instructions: leave on most painful area for up to 12 hrs methocarbamol 750 mg tablet 750 mg PO Q8H PRN (Reason: muscle spasms) Qty: 20 0RF lidocaine 4 % adhesive patch,medicated 1 patch TOP DAILY PRN (Reason: pain) Qty: 10 0RF Rx Instructions: may leave on for up to 12 hrs potassium chloride [K-Tab] 20 mEq tablet extended release 20 meq PO BID Qty: 14 0RF Stand Alone Forms: Patient Portal/API <Venessa Padilla DO - Last Filed: 05/30/22 07:50> Cosign ED Attending Cosjgature Attestation: I was immediately available in the department for consultation. Documentation has been reviewed.
[2022-05-28 19:34] LABS: Add Manual Diff / Slide Review NO; Basophils Absolute Auto 100 /uL (0-100); Basophils Percent Auto 0.9 % (0-2); Eosinophils Absolute Auto 900 /uL (0-450); Eosinophils Percent Auto 7.3 % (2-4); Hematocrit 44.2 % (36-46); Hemoglobin 15.3 g/dL (12.0-16.0); Lymphocytes Absolute Auto 2300 /uL (1100-4500); Lymphocytes Percent Auto 19.7 % (25-40); Mean Corpuscular HGB Conc 34.7 % (30-36); Mean Corpuscular Hemoglobin 31.2 PG (26-34); Mean Corpuscular Volume 89.8 fL (80-100); Monocytes Absolute Auto 900 /uL (0-900); Monocytes Percent Auto 7.5 % (3-14); Neutrophils Absolute Auto 7700 /uL (1500-7000); Neutrophils Percent Auto 64.6 % (50-75); Platelet Count 325 X10^3/uL (150-400); Red Blood Cell Count 4.92 X10^6/uL (4.0-5.2); Red Cell Distribution Width 13.1 % (11.6-14.8); White Blood Cell Count 11.9 X10^3/uL (4.5-11.0)
[2022-05-28 19:40] LABS: INR 1.1 (0.9-1.3); Prothrombin Time 12.8 SECONDS (10.1-12.7)
[2022-05-28] MEDS: predniSONE 20 MG TABLET 40 MG PO (19:42)
[2022-05-28] MEDS: ALBUTEROL/IPRATROPIUM 3 ML AMPUL INH (19:42)
[2022-05-28 19:43] LABS: PTT Partial Thromboplastin Tim 32 SECONDS (26-36)
[2022-05-28 19:48] LABS: Alanine Aminotransferase 20 IU/L (<35); Albumin 4.2 g/dL (3.5-5.0); Albumin Globulin Ratio 1.2 (1.0-2.8); Alkaline Phosphatase 67 U/L (38-126); Aspartate Aminotransferase 21 IU/L (14-36); Bilirubin Total 0.5 mg/dL (0.2-1.3); Blood Urea Nitrogen 8 mg/dL (7-17); Calcium 8.7 mg/dL (8.4-10.2); Carbon Dioxide 23 mmol/L (22-32); Chloride 105 mmol/L (98-107); Creatine Kinase 54 U/L (30-135); Estimated Glomerular Filt Rate > 60 mL/min (>60); Globulin 3.5 g/dL (1.7-4.1); Glucose 94 mg/dL (70-100); HEMOLYSIS < 15 (0-50); Lipase 159 U/L (23-300); Magnesium 2.1 mg/dL (1.6-2.3); Potassium 3.5 mmol/L (3.4-5.1); Sodium 138 mmol/L (137-145); Total Protein 7.7 g/dL (6.3-8.2)
[2022-05-28 19:59] LABS: Troponin I < 0.012 ng/mL (0.01-0.034)
[2022-05-28 20:00] VITALS: BP 107/79; PULSE 82; O2SAT 99
[2022-05-28] MEDS: ALBUTEROL HFA PREPACK 1 BOX MISC (20:07)
[2022-05-28 20:15] VITALS: BP 113/81; PULSE 88; O2SAT 99
[2022-05-28 20:19] VITALS: BP 113/81; PULSE 84; RESP 16; TEMP 36.4; O2SAT 98
== END 2022-05-28 20:21 | disposition home or self-care (01) ==
PROVIDERS: Emergency Medicine; Emergency Provider Nurse Practitioner Critical Care Medicine
DX: J45.901 Unspecified asthma with (acute) exacerbation (principal); J06.9 Acute upper respiratory infection, unspecified; R07.9 Chest pain, unspecified; Z20.822 Contact with and (suspected) exposure to COVID-19
CPT/HCPCS: 0241U; 36415; 71046; 80053; 82550; 83690; 83735; 84484; 85025; 85610; 85730; 93005; 93010; 99284

== ENCOUNTER 2022-05-29 04:23 | Emergency (ER) | payer OTHER, SELFPAY ==
[2022-05-29] VITALS (13 sets, daily range): BP systolic 100–112; BP diastolic 55–78; PULSE 83–102; RESP 13–28; TEMP 36.3; O2SAT 96–99; BMI 31.1
--- NOTE | 2022-05-29 04:34 | ED.ARRPALP ---
HPI - Arrhythmia/Palpitations <Venessa Padilla, DO - Last Filed: 05/30/22 08:17> General Chief Complaint: Arrhythmia/Palpitations Stated Complaint: ER 05/28 heart skipping Time Seen by Provider: 05/29/22 04:34 Source: patient and old records reviewed Mode of arrival: Ambulatory Limitations: no limitations History of Present Illness HPI narrative: This is a 42-year-old female history of asthma who represents to the emergency department after being seen last night at 1900 in the evening. Patient states she would had recent upper respiratory congestion for 2-3 days was having chest pressure centralized shortness of breath and felt wheezy. She had been using breathing treatments at home she uses QVAR and albuterol. Patient states it was not improving so she presented. She denies fevers or chills. She states that chest pressure sensation has returned. She does not think that she is wheezy or tied at this time. She notes she is been having frequent palpitations she states every 3 or 4 seconds. Patient has not had any syncope. She denies nausea or vomiting. No GI or urinary symptoms. No swelling of extremities. Patient states she is allergic to doxycycline, Levaquin morphine and can not tolerate narcotics. She denies tobacco, states she does not regularly use alcohol. She does use THC. Patient had 1 DuoNeb, 40 mg of prednisone p.o. here in the emergency department 7:45 p.m last night. Related Data Previous Rx's Medication Instructions Recorded beclomethasone dipropionate 80 1 inhalation inhalation BID #10.6 01/30/20 mcg/actuation HFA breath activated grams aerosol (Qvar RediHaler) lidocaine 4 % topical patch 1 patch topical DAILY PRN pain #10 03/06/20 ea fluconazole 150 mg tablet 150 mg PO DAILY #2 tabs 03/27/20 (Diflucan) hydrocodone 5 mg-acetaminophen 325 1 tab PO Q8H PRN pain #7 tabs 07/12/20 mg tablet ([place]) lidocaine 5 % topical patch 1 patch topical DAILY PRN pain #30 07/12/20 ea ondansetron 4 mg disintegrating 4 mg PO Q8H PRN nausea and 07/12/20 tablet vomiting #7 tabs ipratropium bromide 0.02 % 2.5 ml inhalation TID-QID PRN 06/15/21 solution for inhalation shortness of breath or wheezing #75 mL prednisone 10 mg tablet See Rx Instructions .Route 06/15/21 .COMPLEX #30 tabs potassium chloride 20 mEq 20 meq PO BID #14 tabs 12/14/21 tablet,extended release (K-Tab) lidocaine 5 % topical patch 1 patch topical DAILY PRN muscle 12/29/21 (Lidoderm) spasm #15 ea methocarbamol 750 mg tablet 750 mg PO Q8H PRN muscle spasms 12/29/21 #20 tabs albuterol sulfate 2.5 mg/3 mL 2.5 mg (3 mL) inhalation Q1H PRN 05/28/22 (0.083 %) solution for nebulization shortness of breath or wheezing #90 mL albuterol sulfate 90 mcg/actuation 2 inh inhalation Q4-6H PRN 05/28/22 breath activated powder inhaler shortness of breath #1 ea benzonatate 200 mg capsule 200 mg PO BID PRN cough #20 caps 05/28/22 cetirizine 10 mg tablet (Allergy 10 mg PO BEDTIME PRN congestion 05/28/22 Relief (cetirizine)) #30 tabs ipratropium 0.5 mg-albuterol 3 mg 3 ml inhalation TID PRN shortness 05/28/22 (2.5 mg base)/3 mL nebulization of breath or wheezing #90 mL soln magnesium oxide 500 mg capsule 500 mg PO BEDTIME #20 caps 05/28/22 prednisone 20 mg tablet 40 mg PO DAILY 5 days #10 tabs 05/28/22 Allergies Allergy/AdvReac Type Severity Reaction Status Date / Time doxycycline Allergy Severe Anaphylaxis Verified 05/28/22 15:38 levofloxacin [From Levaquin] Allergy Severe Anaphylaxis Verified 05/28/22 15:38 morphine Allergy Severe Anaphylaxis Verified 05/28/22 15:38 <Glen Meneses, DO - Last Filed: 05/29/22 08:26> History of Present Illness HPI narrative: This is a 42-year-old female history of asthma who represents to the emergency department after being seen last night at 1900 in the evening. Patient states she would had recent upper respiratory congestion for 2-3 days was having chest pressure centralized shortness of breath and felt wheezy. She had been using breathing treatments at home she uses QVAR and albuterol. Patient states it was not improving so she presented. She denies fevers or chills. She states that chest pressure sensation has returned. She does not think that she is wheezy or tied at this time. She notes she is been having frequent palpitations she states every 3 or 4 seconds. Patient has not had any syncope. She denies nausea or vomiting. No GI or urinary symptoms. No swelling of extremities. Patient states she is allergic to doxycycline, Levaquin morphine and can not tolerate narcotics. She denies tobacco, states she does not regularly use alcohol. She does use THC. Patient had 1 DuoNeb, 40 mg of prednisone p.o. here in the emergency department 7:45 p.m.. Review of Systems <Venessa Padilla DO - Last Filed: 05/30/22 08:17> Review of Systems ROS Unobtainable: All systems reviewed & are unremarkable except as noted in HPI and below Patient History <Venessa Padilla DO - Last Filed: 05/30/22 08:17> Medical History (Updated 05/29/22 @ 05:14 by Venessa Padilla DO) Asthma Psoriasis Vertigo Social History Smoking Status: Never smoker Smoking Status: Never smoker alcohol intake frequency: a few times a month Substance Use Type: marijuana Exam <DO Sarah Iverson Last Filed: 05/30/22 08:17> Narrative Exam Narrative: GENERAL: Alert and oriented x three, female in mild distress. Patient ambulated in the department. HEENT: Head normocephalic, atraumatic, EOMI, pupils reactive, face symmetric, moist mucous membranes NECK: Supple, full range of motion CARDIOVASCULAR: Regular rate and rhythm without murmurs, rubs or gallops. RESPIRATORY: Breath sounds equal bilaterally, patient does have bilateral expiratory wheezes particularly left more than right. Rales or rhonchi. No tachypnea. No accessory muscle use. ABDOMEN: Soft, nontender. Normoactive bowel sounds all 4 quadrants. No guarding or rebound, rigidity, no mass : No CVA tenderness EXTREMITIES: Normal range of motion, no clubbing or edema. Neurovascularly intact NEUROLOGICAL: Cranial nerves II through XII grossly intact. Moving all extremities SKIN: Warm, dry, no petechiae, no rashes or lesions. Initial Vital Signs Initial Vital Signs: Vital Signs Pulse Rate 92 H 05/29/22 04:40 Respiratory Rate 14 05/29/22 04:40 Pulse Oximetry 97 05/29/22 04:40 <Glen Meneses, DO - Last Filed: 05/29/22 08:26> Initial Vital Signs Initial Vital Signs: Vital Signs Pulse Rate 92 H 05/29/22 04:40 Respiratory Rate 14 05/29/22 04:40 Pulse Oximetry 97 05/29/22 04:40 Course <Venessa Padilla, DO - Last Filed: 05/30/22 08:17> Orders Ordered: Discontinued Medications Albuterol/Ipratropium (Albuterol/Ipratropium 3 Ml Ampul) 3 ml INH NOW ONE Stop: 05/29/22 04:55 Last Admin: 05/29/22 05:03 Dose: 3 ml Documented By: MAURI Sodium Chloride (Normal Saline 0.9%) 1,000 mls @ 1,000 mls/hr IV BOLUS ONE Stop: 05/29/22 06:54 Last Infusion: 05/29/22 08:12 Dose: 0 mls/hr Documented By: Admin: 05/29/22 06:59 Dose: 1,000 mls/hr Documented By: GC Reevaluation(s) Reevaluation #1: Patient wheezes improved has very scant. Labs are still pending. Review PACs and PVCs and which is normal and abnormal. Time: 05:55 Vital Signs Vital signs: Vital Signs - 8 hr 05/29/22 04:41 05/29/22 04:40 05/29/22 05:00 Temperature 97.4 F L Pulse Rate 91 H 92 H 95 H Respiratory Rate 18 14 28 H Blood Pressure 111/78 Pulse Oximetry 97 97 96 Oxygen Delivery Method Room Air Oxygen Flow Rate Fraction of Inspired Oxygen 05/29/22 05:14 05/29/22 05:14 05/29/22 05:03 Temperature Pulse Rate 97 H 83 Respiratory Rate 21 18 Blood Pressure 103/66 Pulse Oximetry 99 98 Oxygen Delivery Method Room Air Oxygen Flow Rate 0 Fraction of Inspired Oxygen 21 <Glen Meneses, DO - Last Filed: 05/29/22 08:26> Orders Ordered: Discontinued Medications Albuterol/Ipratropium (Albuterol/Ipratropium 3 Ml Ampul) 3 ml INH NOW ONE Stop: 05/29/22 04:55 Last Admin: 05/29/22 05:03 Dose: 3 ml Documented By: MAURI Sodium Chloride (Normal Saline 0.9%) 1,000 mls @ 1,000 mls/hr IV BOLUS ONE Stop: 05/29/22 06:54 Last Infusion: 05/29/22 08:12 Dose: 0 mls/hr Documented By: Admin: 05/29/22 06:59 Dose: 1,000 mls/hr Documented By: VIN Vital Signs Vital signs: Vital Signs - 8 hr 05/29/22 04:41 05/29/22 04:40 05/29/22 05:00 Temperature 97.4 F L Pulse Rate 91 H 92 H 95 H Respiratory Rate 18 14 28 H Blood Pressure 111/78 Pulse Oximetry 97 97 96 Oxygen Delivery Method Room Air Oxygen Flow Rate Fraction of Inspired Oxygen 05/29/22 05:14 05/29/22 05:14 05/29/22 05:03 Temperature Pulse Rate 97 H 83 Respiratory Rate 21 18 Blood Pressure 103/66 Pulse Oximetry 99 98 Oxygen Delivery Method Room Air Oxygen Flow Rate 0 Fraction of Inspired Oxygen 21 MDM - Arrhythmia/Palpitations <Venessa Padilla, - Last Filed: 05/30/22 08:17> Lab Data Result diagrams: 05/29/22 05:10 05/29/22 05:10 Labs: Lab Results 05/29/22 05/29/22 05/29/22 Range/Units 05:10 05:10 05:10 WBC 13.1 H (4.5-11.0) X10^3/uL RBC 4.92 (4.0-5.2) X10^6/uL Hgb 15.4 (12.0-16.0) g/dL Hct 43.9 (36-46) % MCV 89.3 (80-100) fL MCH 31.3 (26-34) PG MCHC 35.0 (30-36) % RDW 13.4 (11.6-14.8) % Plt Count 328 (150-400) X10^3/uL Neut % (Auto) 91.6 H D (50-75) % Lymph % (Auto) 6.5 L (25-40) % Waller % (Auto) 1.2 L (3-14) % Eos % (Auto) 0.1 L (2-4) % Baso % (Auto) 0.6 (0-2) % Neut # (Auto) 18134 H (3447-7907) /uL Lymph # (Auto) 900 L (3300-6341) /uL Waller # (Auto) 200 (0-900) /uL Eos # (Auto) 0 (0-450) /uL Baso # (Auto) 100 (0-100) /uL PT 12.9 H (10.1-12.7) SECONDS INR 1.1 (0.9-1.3) APTT 29 (26-36) SECONDS D-Dimer (<500) ng/ml Sodium 137 (137-145) mmol/L Potassium 4.3 (3.4-5.1) mmol/L Chloride 105 (98-107) mmol/L Carbon Dioxide 19 L (22-32) mmol/L BUN 12 (7-17) mg/dL Creatinine 0.75 (0.52-1.04) mg/dL Estimated GFR > 60 (>60) mL/min BUN/Creatinine Ratio 16.0 (6-22) Glucose 151 H (70-100) mg/dL Calcium 9.2 (8.4-10.2) mg/dL Magnesium 2.1 (1.6-2.3) mg/dL Total Bilirubin 0.6 (0.2-1.3) mg/dL AST 25 (14-36) IU/L ALT 23 (<35) IU/L Alkaline Phosphatase 63 (38-126) U/L Total Creatine Kinase 59 (30-135) U/L CK-MB (CK-2) TNP CK-MB (CK-2) Rel Index TNP Troponin I < 0.012 (0.01-0.034) ng/mL Total Protein 8.0 (6.3-8.2) g/dL Albumin 4.3 (3.5-5.0) g/dL Globulin 3.7 (1.7-4.1) g/dL Albumin/Globulin Ratio 1.2 (1.0-2.8) Lipase 120 (23-300) U/L 05/29/22 05/29/22 Range/Units 05:10 07:10 WBC (4.5-11.0) X10^3/uL RBC (4.0-5.2) X10^6/uL Hgb (12.0-16.0) g/dL Hct (36-46) % MCV (80-100) fL MCH (26-34) PG MCHC (30-36) % RDW (11.6-14.8) % Plt Count (150-400) X10^3/uL Neut % (Auto) (50-75) % Lymph % (Auto) (25-40) % Waller % (Auto) (3-14) % Eos % (Auto) (2-4) % Baso % (Auto) (0-2) % Neut # (Auto) (7884-4269) /uL Lymph # (Auto) (7697-5101) /uL Waller # (Auto) (0-900) /uL Eos # (Auto) (0-450) /uL Baso # (Auto) (0-100) /uL PT (10.1-12.7) SECONDS INR (0.9-1.3) APTT (26-36) SECONDS D-Dimer < 215 (<500) ng/ml Sodium (137-145) mmol/L Potassium (3.4-5.1) mmol/L Chloride (98-107) mmol/L Carbon Dioxide (22-32) mmol/L BUN (7-17) mg/dL Creatinine (0.52-1.04) mg/dL Estimated GFR (>60) mL/min BUN/Creatinine Ratio (6-22) Glucose (70-100) mg/dL Calcium (8.4-10.2) mg/dL Magnesium (1.6-2.3) mg/dL Total Bilirubin (0.2-1.3) mg/dL AST (14-36) IU/L ALT (<35) IU/L Alkaline Phosphatase (38-126) U/L Total Creatine Kinase (30-135) U/L CK-MB (CK-2) CK-MB (CK-2) Rel Index Troponin I < 0.012 (0.01-0.034) ng/mL Total Protein (6.3-8.2) g/dL Albumin (3.5-5.0) g/dL Globulin (1.7-4.1) g/dL Albumin/Globulin Ratio (1.0-2.8) Lipase (23-300) U/L ECG Data Attestation: I personally reviewed and interpreted this ECG as follows: Prior ECG tracings: available for review Interpretation: Sinus rhythm occasional PAC rate of 82 MS 146 QRS is [address] elevation depression noted. Patient had prior EKG from yesterday with no acute changes. Patient does have occasional PVCs on telemetry but not persistent <Glen Meneses DO - Last Filed: 05/29/22 08:26> Lab Data Labs: Lab Results 05/29/22 05/29/22 05/29/22 Range/Units 05:10 05:10 05:10 WBC 13.1 H (4.5-11.0) X10^3/uL RBC 4.92 (4.0-5.2) X10^6/uL Hgb 15.4 (12.0-16.0) g/dL Hct 43.9 (36-46) % MCV 89.3 (80-100) fL MCH 31.3 (26-34) PG MCHC 35.0 (30-36) % RDW 13.4 (11.6-14.8) % Plt Count 328 (150-400) X10^3/uL Neut % (Auto) 91.6 H D (50-75) % Lymph % (Auto) 6.5 L (25-40) % Waller % (Auto) 1.2 L (3-14) % Eos % (Auto) 0.1 L (2-4) % Baso % (Auto) 0.6 (0-2) % Neut # (Auto) 89084 H (0719-9346) /uL Lymph # (Auto) 900 L (1373-3749) /uL Waller # (Auto) 200 (0-900) /uL Eos # (Auto) 0 (0-450) /uL Baso # (Auto) 100 (0-100) /uL PT 12.9 H (10.1-12.7) SECONDS INR 1.1 (0.9-1.3) APTT 29 (26-36) SECONDS D-Dimer (<500) ng/ml Sodium 137 (137-145) mmol/L Potassium 4.3 (3.4-5.1) mmol/L Chloride 105 (98-107) mmol/L Carbon Dioxide 19 L (22-32) mmol/L BUN 12 (7-17) mg/dL Creatinine 0.75 (0.52-1.04) mg/dL Estimated GFR > 60 (>60) mL/min BUN/Creatinine Ratio 16.0 (6-22) Glucose 151 H (70-100) mg/dL Calcium 9.2 (8.4-10.2) mg/dL Magnesium 2.1 (1.6-2.3) mg/dL Total Bilirubin 0.6 (0.2-1.3) mg/dL AST 25 (14-36) IU/L ALT 23 (<35) IU/L Alkaline Phosphatase 63 (38-126) U/L Total Creatine Kinase 59 (30-135) U/L CK-MB (CK-2) TNP CK-MB (CK-2) Rel Index TNP Troponin I < 0.012 (0.01-0.034) ng/mL Total Protein 8.0 (6.3-8.2) g/dL Albumin 4.3 (3.5-5.0) g/dL Globulin 3.7 (1.7-4.1) g/dL Albumin/Globulin Ratio 1.2 (1.0-2.8) Lipase 120 (23-300) U/L 05/29/22 05/29/22 Range/Units 05:10 07:10 WBC (4.5-11.0) X10^3/uL RBC (4.0-5.2) X10^6/uL Hgb (12.0-16.0) g/dL Hct (36-46) % MCV (80-100) fL MCH (26-34) PG MCHC (30-36) % RDW (11.6-14.8) % Plt Count (150-400) X10^3/uL Neut % (Auto) (50-75) % Lymph % (Auto) (25-40) % [place]er % (Auto) (3-14) % Eos % (Auto) (2-4) % Baso % (Auto) (0-2) % Neut # (Auto) (3687-3579) /uL Lymph # (Auto) (0550-5156) /uL Waller # (Auto) (0-900) /uL Eos # (Auto) (0-450) /uL Baso # (Auto) (0-100) /uL PT (10.1-12.7) SECONDS INR (0.9-1.3) APTT (26-36) SECONDS D-Dimer < 215 (<500) ng/ml Sodium (137-145) mmol/L Potassium (3.4-5.1) mmol/L Chloride (98-107) mmol/L Carbon Dioxide (22-32) mmol/L BUN (7-17) mg/dL Creatinine (0.52-1.04) mg/dL Estimated GFR (>60) mL/min BUN/Creatinine Ratio (6-22) Glucose (70-100) mg/dL Calcium (8.4-10.2) mg/dL Magnesium (1.6-2.3) mg/dL Total Bilirubin (0.2-1.3) mg/dL AST (14-36) IU/L ALT (<35) IU/L Alkaline Phosphatase (38-126) U/L Total Creatine Kinase (30-135) U/L CK-MB (CK-2) CK-MB (CK-2) Rel Index Troponin I < 0.012 (0.01-0.034) ng/mL Total Protein (6.3-8.2) g/dL Albumin (3.5-5.0) g/dL Globulin (1.7-4.1) g/dL Albumin/Globulin Ratio (1.0-2.8) Lipase (23-300) U/L MDM Narrative Medical decision making narrative: [0700] (Gideon) Patient received in sign out from [Valerie]. I have reviewed the clinical course and performed an independent history and physical exam. CC: 42-year-old female presented last night with respiratory complaints consistent with asthma exacerbation, returns this morning with palpitations Complicating co-morbidities: Asthma Data collected from: Patient and Medical records reviewed: Multiple prior ED visits Differential considered, but not limited to: Electrolyte abnormality, dehydration, PVCs, SVT, PE versus other arrhythmia Exam documented above, pertinent findings include: Clear lungs, occasional PVC, no increased work of breathing, soft abdomen Lab Test results independently reviewed as above. Pertinent findings: Slight increase white blood cells likely secondary to steroid use, patient has no fever or chills, reassuring electrolytes, troponin negative x2, negative Dimer Independently reviewed EKG as above Imaging studies independently reviewed: Chest x-ray from last evening without acute findings, no indication for repeat Treatments: Improved respiratory status after albuterol Re-evaluations: Patient resting comfortably, no increased work of breathing Discussion: Patient with extensive workup yesterday consistent with asthma exacerbation returns with palpitations. She is on pvc monitor for duration of visit and has occasional PVCs, absent of other arrhythmias. Hemodynamically stable, no increased work of breathing or hypoxemia. No repeat chest x-ray as she had a normal x-ray last evening. Wide differential considered and patient has very reassuring labs, EKG and other. Diagnosis: Disposition: see below, along with detailed discharge instructions that have been reviewed with patient as well as indications for ED re-evaluation and additional outpatient follow up Discharge Plan Departure Patient Disposition: Home Clinical Impression: Palpitations Instructions: Premature Ventricular Beats Activity Restrictions/Additional Instructions: *You have been diagnosed with [occasional PVCs]. As we discussed your history and physical exam are very reassuring, labs today including EKG showed no significant abnormality that would require a specific or immediate intervention *What to do: *Please continue to take your regular medications as directed. *Please follow up with your primary care provider in 2-3 days, call for an appointment. Let them know you were seen in the Emergency Department and that we ask that you be seen in follow up. We will electronically transmit a record of today's note if your PCP is in our system *If you do not have a primary care provider please contact the [facility] Resource line at [phone]. They will ask some questions about your medical history and help get you set up with a doctor in the community. *Return to Emergency Department if you should have any new, worsening or concerning symptoms, such as [fever greater than 101 F, shaking chills, worsening pain, persistent vomiting or other bothersome symptoms] Prescriptions: No Action Qvar RediHaler 80 mcg/actuation HFA aerosol breath activated 1 inhalation INHALATION BID Qty: 10.6 0RF fluconazole [Diflucan] 150 mg tablet 150 mg PO DAILY Qty: 2 0RF hydrocodone-acetaminophen [[place]] 5-325 mg tablet 1 tab PO Q8H PRN (Reason: pain) Qty: 7 0RF ondansetron 4 mg tablet,disintegrating 4 mg PO Q8H PRN (Reason: nausea and vomiting) Qty: 7 0RF lidocaine 5 % adhesive patch,medicated 1 patch topical DAILY PRN (Reason: pain) Qty: 30 0RF Rx Instructions: leave on most painful area for up to 12 hrs prednisone 10 mg tablet See Rx Instructions .ROUTE .COMPLEX Qty: 30 0RF Rx Instructions: Day 1,2,3: 40mg PO Daily Day 4,5,6: 30mg PO Daily Day 7,8,9: 20mg PO Daily Day 10,11,12: 10mg PO Daily #30 ipratropium bromide 0.02 % solution 2.5 ml inhalation TID-QID PRN (Reason: shortness of breath or wheezing) Qty: 75 0RF lidocaine [Lidoderm] 5 % adhesive patch,medicated 1 patch topical DAILY PRN (Reason: muscle spasm) Qty: 15 0RF Rx Instructions: leave on most painful area for up to 12 hrs methocarbamol 750 mg tablet 750 mg PO Q8H PRN (Reason: muscle spasms) Qty: 20 0RF lidocaine 4 % adhesive patch,medicated 1 patch TOP DAILY PRN (Reason: pain) Qty: 10 0RF Rx Instructions: may leave on for up to 12 hrs potassium chloride [K-Tab] 20 mEq tablet extended release 20 meq PO BID Qty: 14 0RF prednisone 20 mg tablet 40 mg PO DAILY 5 Days Qty: 10 0RF ipratropium-albuterol 0.5 mg-3 mg(2.5 mg base)/3 mL solution for nebulization 3 ml inhalation TID PRN (Reason: shortness of breath or wheezing) Qty: 90 0RF albuterol sulfate 2.5 mg /3 mL (0.083 %) solution for nebulization 2.5 mg inhalation Q1H PRN (Reason: shortness of breath or wheezing) Qty: 90 2RF Rx Instructions: until breathing returns to target peak flow/parameters cetirizine [Allergy Relief (cetirizine)] 10 mg tablet 10 mg PO BEDTIME PRN (Reason: congestion) Qty: 30 0RF albuterol sulfate 90 mcg/actuation aerosol powdr breath activated 2 inh inhalation Q4-6H PRN (Reason: shortness of breath) Qty: 1 3RF benzonatate 200 mg capsule 200 mg PO BID PRN (Reason: cough) Qty: 20 0RF magnesium oxide 500 mg capsule 500 mg PO BEDTIME Qty: 20 0RF Stand Alone Forms: Patient Portal/API
[2022-05-29] MEDS: ALBUTEROL/IPRATROPIUM 3 ML AMPUL INH (05:03)
[2022-05-29 05:24] LABS: Add Manual Diff / Slide Review NO; Basophils Absolute Auto 100 /uL (0-100); Basophils Percent Auto 0.6 % (0-2); Eosinophils Absolute Auto 0 /uL (0-450); Eosinophils Percent Auto 0.1 % (2-4); Hematocrit 43.9 % (36-46); Hemoglobin 15.4 g/dL (12.0-16.0); Lymphocytes Absolute Auto 900 /uL (1100-4500); Lymphocytes Percent Auto 6.5 % (25-40); Mean Corpuscular Hemoglobin 31.3 PG (26-34); Mean Corpuscular Volume 89.3 fL (80-100); Monocytes Absolute Auto 200 /uL (0-900); Monocytes Percent Auto 1.2 % (3-14); Neutrophils Absolute Auto 12000 /uL (1500-7000); Neutrophils Percent Auto 91.6 % (50-75); Platelet Count 328 X10^3/uL (150-400); Red Blood Cell Count 4.92 X10^6/uL (4.0-5.2); Red Cell Distribution Width 13.4 % (11.6-14.8); White Blood Cell Count 13.1 X10^3/uL (4.5-11.0)
[2022-05-29 05:33] LABS: INR 1.1 (0.9-1.3); Prothrombin Time 12.9 SECONDS (10.1-12.7)
[2022-05-29 05:36] LABS: PTT Partial Thromboplastin Tim 29 SECONDS (26-36)
[2022-05-29 05:52] LABS: Albumin 4.3 g/dL (3.5-5.0); Albumin Globulin Ratio 1.2 (1.0-2.8); Alkaline Phosphatase 63 U/L (38-126); Aspartate Aminotransferase 25 IU/L (14-36); Bilirubin Total 0.6 mg/dL (0.2-1.3); Blood Urea Nitrogen 12 mg/dL (7-17); Calcium 9.2 mg/dL (8.4-10.2); Carbon Dioxide 19 mmol/L (22-32); Chloride 105 mmol/L (98-107); Creatine Kinase 59 U/L (30-135); Estimated Glomerular Filt Rate > 60 mL/min (>60); Globulin 3.7 g/dL (1.7-4.1); Glucose 151 mg/dL (70-100); HEMOLYSIS < 15 (0-50); Lipase 120 U/L (23-300); Magnesium 2.1 mg/dL (1.6-2.3); Potassium 4.3 mmol/L (3.4-5.1); Sodium 137 mmol/L (137-145)
[2022-05-29 05:58] LABS: Alanine Aminotransferase 23 IU/L (<35)
[2022-05-29 06:04] LABS: Troponin I < 0.012 ng/mL (0.01-0.034)
[2022-05-29 06:18] LABS: D Dimer < 215 ng/ml (<500)
[2022-05-29] MEDS: SODIUM CHLORIDE 0.9% 1,000 ML 1000 ML IV (06:59)
[2022-05-29 07:41] LABS: Troponin I < 0.012 ng/mL (0.01-0.034)
== END 2022-05-29 08:35 | disposition home or self-care (01) ==
PROVIDERS: Emergency Medicine; Emergency Provider Emergency Medicine
DX: R00.2 Palpitations (principal); I49.3 Ventricular premature depolarization
CPT/HCPCS: 36415; 80053; 82550; 83690; 83735; 84484; 85025; 85379; 85610; 85730; 93005; 93010; 94640; 99283; 99284

== ENCOUNTER 2022-05-30 12:24 | Emergency (ER) | payer OTHER, SELFPAY ==
[2022-05-30] VITALS (8 sets, daily range): BP systolic 120–128; BP diastolic 59–65; PULSE 71–117; RESP 15–24; TEMP 36.7; O2SAT 96–100; BMI 31.1
--- NOTE | 2022-05-30 12:49 | DI.RAD.S_ITS ---
PROCEDURE: XR CHEST 1V INDICATIONS: chest pain TECHNIQUE: One view of the chest was acquired. COMPARISON: [facility], CR, XR CHEST 2V, 05/28/2022, 15:57. FINDINGS: Surgical changes and devices: None. Lungs and pleura: Lungs are clear. No pleural effusions or pneumothorax. Mediastinum: Mediastinal contours appear normal. Heart size is normal. Bones and chest wall: No suspicious bony lesions. Overlying soft tissues appear unremarkable. IMPRESSION: No acute cardiopulmonary abnormality. Approved by: Arsen Whitmore M.D. on 05/30/2022 at 13:16
--- NOTE | 2022-05-30 13:02 | DI.RAD.S_ITS ---
PROCEDURE: XR CHEST 1V INDICATIONS: pneumonia vs asthma exacer TECHNIQUE: One view of the chest was acquired. COMPARISON: [facility], CR, XR CHEST 1V, 05/30/2022, 12:49. FINDINGS: Surgical changes and devices: None. Lungs and pleura: Lungs are clear. No pleural effusions or pneumothorax. Mediastinum: Mediastinal contours appear normal. Heart size is normal. Bones and chest wall: No suspicious bony lesions. Overlying soft tissues appear unremarkable. IMPRESSION: No acute cardiopulmonary abnormality. Approved by: Arsen Whitmore M.D. on 05/30/2022 at 13:32
[2022-05-30 13:05] LABS: Add Manual Diff / Slide Review NO; Basophils Absolute Auto 100 /uL (0-100); Basophils Percent Auto 0.7 % (0-2); Eosinophils Absolute Auto 800 /uL (0-450); Eosinophils Percent Auto 6.5 % (2-4); Hematocrit 43.6 % (36-46); Lymphocytes Absolute Auto 2700 /uL (1100-4500); Lymphocytes Percent Auto 23.1 % (25-40); Mean Corpuscular HGB Conc 34.4 % (30-36); Mean Corpuscular Hemoglobin 31.2 PG (26-34); Mean Corpuscular Volume 90.5 fL (80-100); Monocytes Absolute Auto 800 /uL (0-900); Monocytes Percent Auto 6.9 % (3-14); Neutrophils Absolute Auto 7300 /uL (1500-7000); Neutrophils Percent Auto 62.8 % (50-75); Platelet Count 321 X10^3/uL (150-400); Red Blood Cell Count 4.82 X10^6/uL (4.0-5.2); Red Cell Distribution Width 13.3 % (11.6-14.8); White Blood Cell Count 11.6 X10^3/uL (4.5-11.0)
[2022-05-30 13:15] LABS: INR 1.1 (0.9-1.3)
[2022-05-30 13:17] LABS: PTT Partial Thromboplastin Tim 28 SECONDS (26-36)
[2022-05-30 13:21] LABS: Alanine Aminotransferase 21 IU/L (<35); Alkaline Phosphatase 56 U/L (38-126); Aspartate Aminotransferase 41 IU/L (14-36); BUN Creatinine Ratio 11.8 (6-22); Bilirubin Total 0.5 mg/dL (0.2-1.3); Blood Urea Nitrogen 9 mg/dL (7-17); Calcium 8.5 mg/dL (8.4-10.2); Carbon Dioxide 23 mmol/L (22-32); Chloride 105 mmol/L (98-107); Creatine Kinase 80 U/L (30-135); Estimated Glomerular Filt Rate > 60 mL/min (>60); Glucose 106 mg/dL (70-100); Lipase 116 U/L (23-300); Potassium 3.9 mmol/L (3.4-5.1); Sodium 139 mmol/L (137-145); Total Protein 7.7 g/dL (6.3-8.2)
[2022-05-30 13:33] LABS: Troponin I < 0.012 ng/mL (0.01-0.034)
[2022-05-30] MEDS: ALBUTEROL/IPRATROPIUM 3 ML AMPUL INH (14:13)
--- NOTE | 2022-05-30 14:24 | ED.ARRPALP ---
HPI - Arrhythmia/Palpitations <Carla Barnard, [facility] [place] - Last Filed: 05/30/22 16:12> General Chief Complaint: Arrhythmia/Palpitations Stated Complaint: High heartrate, SOB like someone sitting on chest Time Seen by Provider: 05/30/22 13:00 History of Present Illness HPI narrative: This is a 42-year-old female who returns to the emergency department for shortness of breath, wheezing, states she feels like her heart is racing and she is had frequent coughing similar to her prior episodes before. She denies chest pain or chest pressure but states that she is anxious, very short of breath, has had wheezing, and has not been able to vegetable picker her medications from the pharmacy due to insurance reasons. Patient was discharged from the emergency department for the 2nd time on 05/29/2022 around 08:00 after coming in that night. I saw her the 1st time and she was wheezing, I treated her for an asthma exacerbation and gave her 40 mg of prednisone, she is not had any steroids since this time. Her respiratory panel and cardiac workups came back negative for ACS, elevation to a D-dimer, without viral infection respiratory panel, pneumonia, or other considerable problem. Patient denies history of hypertension, hyperlipidemia, denies history of acute LA or a cardiac event in her family. States that she is otherwise healthy except for her asthma. Related Data Previous Rx's Medication Instructions Recorded beclomethasone dipropionate 80 1 inhalation inhalation BID #10.6 01/30/20 mcg/actuation HFA breath activated grams aerosol (Qvar RediHaler) lidocaine 4 % topical patch 1 patch topical DAILY PRN pain #10 03/06/20 ea fluconazole 150 mg tablet 150 mg PO DAILY #2 tabs 03/27/20 (Diflucan) hydrocodone 5 mg-acetaminophen 325 1 tab PO Q8H PRN pain #7 tabs 07/12/20 mg tablet ([place]) lidocaine 5 % topical patch 1 patch topical DAILY PRN pain #30 07/12/20 ea ondansetron 4 mg disintegrating 4 mg PO Q8H PRN nausea and 07/12/20 tablet vomiting #7 tabs ipratropium bromide 0.02 % 2.5 ml inhalation TID-QID PRN 06/15/21 solution for inhalation shortness of breath or wheezing #75 mL prednisone 10 mg tablet See Rx Instructions .Route 01/31/22 .COMPLEX #30 tabs potassium chloride 20 mEq 20 meq PO BID #14 tabs 12/14/21 tablet,extended release (K-Tab) lidocaine 5 % topical patch 1 patch topical DAILY PRN muscle 12/29/21 (Lidoderm) spasm #15 ea methocarbamol 750 mg tablet 750 mg PO Q8H PRN muscle spasms 12/29/21 #20 tabs albuterol sulfate 2.5 mg/3 mL 2.5 mg (3 mL) inhalation Q1H PRN 05/28/22 (0.083 %) solution for nebulization shortness of breath or wheezing #90 mL albuterol sulfate 90 mcg/actuation 2 inh inhalation Q4-6H PRN 05/28/22 breath activated powder inhaler shortness of breath #1 ea benzonatate 200 mg capsule 200 mg PO BID PRN cough #20 caps 05/28/22 cetirizine 10 mg tablet (Allergy 10 mg PO BEDTIME PRN congestion 05/28/22 Relief (cetirizine)) #30 tabs ipratropium 0.5 mg-albuterol 3 mg 3 ml inhalation TID PRN shortness 05/28/22 (2.5 mg base)/3 mL nebulization of breath or wheezing #90 mL soln magnesium oxide 500 mg capsule 500 mg PO BEDTIME #20 caps 05/28/22 prednisone 20 mg tablet 40 mg PO DAILY 5 days #10 tabs 05/28/22 Allergies Allergy/AdvReac Type Severity Reaction Status Date / Time doxycycline Allergy Severe Anaphylaxis Verified 05/28/22 15:38 levofloxacin [From Levaquin] Allergy Severe Anaphylaxis Verified 05/28/22 15:38 morphine Allergy Severe Anaphylaxis Verified 05/28/22 15:38 Review of Systems <RAS Swartz - Last Filed: 05/30/22 16:12> Review of Systems ROS Unobtainable: All systems reviewed & are unremarkable except as noted in HPI and below Patient History <RAS Swartz - Last Filed: 05/30/22 16:12> Medical History (Updated 05/30/22 @ 14:55 by RAS Swartz) Asthma Psoriasis Vertigo Social History Smoking Status: Never smoker Smoking Status: Never smoker alcohol intake frequency: a few times a month Substance Use Type: marijuana Exam <RAS Swartz - Last Filed: 05/30/22 16:12> Narrative Exam Narrative: Reviewed vitals signs and nursing notes. General: cooperative, comfortable, tachypneic, wheezing, without accessory muscle use, able to use 5-6 word sentences, well groomed HEENT: symmetrical facial expressions, moist mucous membranes, EOMI Cardiovascular: regular rate and rhythm, no peripheral edema, warm extremities S1-S2 without murmur, gallop or rub, occasional PVC Respiratory: normal effort, able to speak 5-6 word sentences, tachypneic, without hypoxia, wheezes throughout all sharma with mildly decreased air movement GI: abdomen soft, nontender to palpation, nondistended, without masses, rebound tenderness or exquisite tenderness with exam. MSK: moves all extremities, neurovascularly intact, no weakness, normal tone Skin: brisk capillary refill, without pallor or erythema Neuro: normal speech and cognition, A&O x3, ambulatory, clear speech Psych: mental status is grossly normal, congruent mood, normal affect, pleasant and cooperative Initial Vital Signs Initial Vital Signs: Vital Signs Temperature 98.0 F 05/30/22 12:43 Pulse Rate 94 H 05/30/22 12:43 Respiratory Rate 16 05/30/22 12:43 Blood Pressure 120/65 05/30/22 12:43 Pulse Oximetry 99 05/30/22 12:43 Oxygen Delivery Method 05/30/22 12:43 <Glen Meneses DO - Last Filed: 05/31/22 07:10> Initial Vital Signs Initial Vital Signs: Vital Signs Temperature 98.0 F 05/30/22 12:43 Pulse Rate 94 H 05/30/22 12:43 Respiratory Rate 16 05/30/22 12:43 Blood Pressure 120/65 05/30/22 12:43 Pulse Oximetry 99 05/30/22 12:43 Oxygen Delivery Method 05/30/22 12:43 Scores <RAS Swartz - Last Filed: 05/30/22 16:12> Wells' Criteria for PE Clinical signs and symptoms of DVT: No PE is #1 Dx or equally likely: No Heart rate > 100: No Immobilization at least 3 days or surg in previous 4 weeks: No History of PE or DVT: No Hemoptysis: No Malignancy w/Treatment within 6 months or palliative: No Wells' PE Score total: 0 <Glen Meneses DO - Last Filed: 05/31/22 07:10> Wells' Criteria for PE Wells' PE Score total: 0 Course <RAS Swartz - Last Filed: 05/30/22 16:12> Orders Ordered: Discontinued Medications Albuterol (Albuterol 2.5 Mg/3 Ml Neb (Adult)) 5 mg INH NOW ONE Stop: 05/30/22 14:23 Last Admin: 05/30/22 14:28 Dose: 5 mg Documented By: NICOL Albuterol (Albuterol 2.5 Mg/3 Ml Neb (Adult)) 7.5 mg INH NOW ONE Stop: 05/30/22 15:00 Last Admin: 05/30/22 15:31 Dose: 7.5 mg Documented By: BRIANA Albuterol/Ipratropium (Albuterol/Ipratropium 3 Ml Ampul) 3 ml INH NOW ONE Stop: 05/30/22 13:03 Last Admin: 05/30/22 14:13 Dose: 3 ml Documented By: NICOL Magnesium Sulfate (Magnesium Sulfate) 2 gm in 50 mls @ 50 mls/hr IV NOW ONE Stop: 05/30/22 15:59 Last Infusion: 05/30/22 16:40 Dose: 0 mls/hr Documented By: SANDRA Co-signed By: AT Admin: 05/30/22 15:31 Dose: 50 mls/hr Documented By: AT Co-signed By: SANDRA Sodium Chloride (Normal Saline 0.9%) 1,000 mls @ 1,000 mls/hr IV BOLUS ONE Stop: 05/30/22 16:00 Last Infusion: 05/30/22 16:40 Dose: 0 mls/hr Documented By: Admin: 05/30/22 15:31 Dose: 1,000 mls/hr Documented By: AT Methylprednisolone (Methylprednisolone 125 Mg/2 Ml Vial) 125 mg IV NOW ONE Stop: 05/30/22 14:23 Last Admin: 05/30/22 14:33 Dose: 125 mg Documented By: SANDRA Vital Signs Vital signs: Vital Signs - 8 hr 05/30/22 12:43 05/30/22 14:14 05/30/22 14:28 Temperature 98.0 F Pulse Rate 94 H 71 80 Respiratory Rate 16 16 18 Blood Pressure 120/65 Pulse Oximetry 99 96 100 Oxygen Delivery Method Room Air Room Air Room Air Oxygen Flow Rate 0 0 Fraction of Inspired Oxygen 21 21 05/30/22 15:34 05/30/22 14:11 05/30/22 14:12 Temperature Pulse Rate 89 77 76 Respiratory Rate 16 24 Blood Pressure Pulse Oximetry 99 98 96 Oxygen Delivery Method Room Air Oxygen Flow Rate Fraction of Inspired Oxygen 05/30/22 14:12 05/30/22 14:30 Temperature Pulse Rate 78 Respiratory Rate 15 Blood Pressure 128/59 L Pulse Oximetry 99 Oxygen Delivery Method Oxygen Flow Rate Fraction of Inspired Oxygen <Glen Meneses DO - Last Filed: 05/31/22 07:10> Orders Ordered: Discontinued Medications Albuterol (Albuterol 2.5 Mg/3 Ml Neb (Adult)) 5 mg INH NOW ONE Stop: 05/30/22 14:23 Last Admin: 05/30/22 14:28 Dose: 5 mg Documented By: NICOL Albuterol (Albuterol 2.5 Mg/3 Ml Neb (Adult)) 7.5 mg INH NOW ONE Stop: 05/30/22 15:00 Last Admin: 05/30/22 15:31 Dose: 7.5 mg Documented By: BRIANA Albuterol/Ipratropium (Albuterol/Ipratropium 3 Ml Ampul) 3 ml INH NOW ONE Stop: 05/30/22 13:03 Last Admin: 05/30/22 14:13 Dose: 3 ml Documented By: NICOL Magnesium Sulfate (Magnesium Sulfate) 2 gm in 50 mls @ 50 mls/hr IV NOW ONE Stop: 05/30/22 15:59 Last Infusion: 05/30/22 16:40 Dose: 0 mls/hr Documented By: SANDRA Co-signed By: AT Admin: 05/30/22 15:31 Dose: 50 mls/hr Documented By: AT Co-signed By: SANDRA Sodium Chloride (Normal Saline 0.9%) 1,000 mls @ 1,000 mls/hr IV BOLUS ONE Stop: 05/30/22 16:00 Last Infusion: 05/30/22 16:40 Dose: 0 mls/hr Documented By: Admin: 05/30/22 15:31 Dose: 1,000 mls/hr Documented By: AT Methylprednisolone (Methylprednisolone 125 Mg/2 Ml Vial) 125 mg IV NOW ONE Stop: 05/30/22 14:23 Last Admin: 05/30/22 14:33 Dose: 125 mg Documented By: SANDRA Vital Signs Vital signs: Vital Signs - 8 hr 05/30/22 12:43 05/30/22 14:14 05/30/22 14:28 Temperature 98.0 F Pulse Rate 94 H 71 80 Respiratory Rate 16 16 18 Blood Pressure 120/65 Pulse Oximetry 99 96 100 Oxygen Delivery Method Room Air Room Air Room Air Oxygen Flow Rate 0 0 Fraction of Inspired Oxygen 21 21 05/30/22 15:34 05/30/22 14:11 05/30/22 14:12 Temperature Pulse Rate 89 77 76 Respiratory Rate 16 24 Blood Pressure Pulse Oximetry 99 98 96 Oxygen Delivery Method Room Air Oxygen Flow Rate Fraction of Inspired Oxygen 05/30/22 14:12 05/30/22 14:30 Temperature Pulse Rate 78 Respiratory Rate 15 Blood Pressure 128/59 L Pulse Oximetry 99 Oxygen Delivery Method Oxygen Flow Rate Fraction of Inspired Oxygen MDM - Arrhythmia/Palpitations <Carla Barnard [facility] [place] - Last Filed: 05/30/22 16:12> Lab Data Result diagrams: 05/30/22 12:57 05/30/22 12:57 Labs: Lab Results 05/30/22 05/30/22 05/30/22 Range/Units 12:57 12:57 12:57 WBC 11.6 H (4.5-11.0) X10^3/uL RBC 4.82 (4.0-5.2) X10^6/uL Hgb 15.0 (12.0-16.0) g/dL Hct 43.6 (36-46) % MCV 90.5 (80-100) fL MCH 31.2 (26-34) PG MCHC 34.4 (30-36) % RDW 13.3 (11.6-14.8) % Plt Count 321 (150-400) X10^3/uL Neut % (Auto) 62.8 D (50-75) % Lymph % (Auto) 23.1 L (25-40) % [place] % (Auto) 6.9 (3-14) % Eos % (Auto) 6.5 H (2-4) % Baso % (Auto) 0.7 (0-2) % Neut # (Auto) 7300 H (2781-5570) /uL Lymph # (Auto) 2700 (1286-4836) /uL [place] # (Auto) 800 (0-900) /uL Eos # (Auto) 800 H (0-450) /uL Baso # (Auto) 100 (0-100) /uL PT 13.0 H (10.1-12.7) SECONDS INR 1.1 (0.9-1.3) APTT 28 (26-36) SECONDS Sodium 139 (137-145) mmol/L Potassium 3.9 (3.4-5.1) mmol/L Chloride 105 (98-107) mmol/L Carbon Dioxide 23 (22-32) mmol/L BUN 9 (7-17) mg/dL Creatinine 0.76 (0.52-1.04) mg/dL Estimated GFR > 60 (>60) mL/min BUN/Creatinine Ratio 11.8 (6-22) Glucose 106 H (70-100) mg/dL Calcium 8.5 (8.4-10.2) mg/dL Magnesium 2.0 (1.6-2.3) mg/dL Total Bilirubin 0.5 (0.2-1.3) mg/dL AST 41 H (14-36) IU/L ALT 21 (<35) IU/L Alkaline Phosphatase 56 (38-126) U/L Total Creatine Kinase 80 (30-135) U/L CK-MB (CK-2) TNP CK-MB (CK-2) Rel Index TNP Troponin I < 0.012 (0.01-0.034) ng/mL Total Protein 7.7 (6.3-8.2) g/dL Lipase 116 (23-300) U/L Urine RBC (0-5/HPF) Urine WBC (0-5/HPF) Ur Squamous Epith Cells (0-5/HPF) Urine Bacteria (None) Ur Culture Indicated? SARS-CoV-2 (PCR) (Negative) Influenza A (RT-PCR) (NEGATIVE) Influenza B (RT-PCR) (NEGATIVE) RSV (PCR) (Negative) 05/30/22 05/30/22 Range/Units 14:12 15:43 WBC (4.5-11.0) X10^3/uL RBC (4.0-5.2) X10^6/uL Hgb (12.0-16.0) g/dL Hct (36-46) % MCV (80-100) fL MCH (26-34) PG MCHC (30-36) % RDW (11.6-14.8) % Plt Count (150-400) X10^3/uL Neut % (Auto) (50-75) % Lymph % (Auto) (25-40) % [place] % (Auto) (3-14) % Eos % (Auto) (2-4) % Baso % (Auto) (0-2) % Neut # (Auto) (5062-7396) /uL Lymph # (Auto) (5638-1860) /uL [place] # (Auto) (0-900) /uL Eos # (Auto) (0-450) /uL Baso # (Auto) (0-100) /uL PT (10.1-12.7) SECONDS INR (0.9-1.3) APTT (26-36) SECONDS Sodium (137-145) mmol/L Potassium (3.4-5.1) mmol/L Chloride (98-107) mmol/L Carbon Dioxide (22-32) mmol/L BUN (7-17) mg/dL Creatinine (0.52-1.04) mg/dL Estimated GFR (>60) mL/min BUN/Creatinine Ratio (6-22) Glucose (70-100) mg/dL Calcium (8.4-10.2) mg/dL Magnesium (1.6-2.3) mg/dL Total Bilirubin (0.2-1.3) mg/dL AST (14-36) IU/L ALT (<35) IU/L Alkaline Phosphatase (38-126) U/L Total Creatine Kinase (30-135) U/L CK-MB (CK-2) CK-MB (CK-2) Rel Index Troponin I (0.01-0.034) ng/mL Total Protein (6.3-8.2) g/dL Lipase (23-300) U/L Urine RBC 0-1/hpf (0-5/HPF) Urine WBC 0-1/hpf (0-5/HPF) Ur Squamous Epith Cells 0-1 /hpf (0-5/HPF) Urine Bacteria None seen (None) Ur Culture Indicated? Cult not indicated SARS-CoV-2 (PCR) Negative (Negative) Influenza A (RT-PCR) Flu a negative (NEGATIVE) Influenza B (RT-PCR) Flu b negative (NEGATIVE) RSV (PCR) Negative (Negative) Urine Dip Bedside Urine Glucose Negative Bedside Urine Bilirubin - Negative Bedside Urine Ketone - Negative Urine Specific [place] 1.020 Bedside Urine Occult Blood + Bedside Urine pH 6.0 Bedside Urine Protein - Negative Bedside Urine Urobilinogen - Negative Bedside Urine Nitrite - Negative Bedside Urine Leukocytes - Negative Esterase Imaging Data Chest x-ray: Radiologist's Impresson: PROCEDURE:? XR CHEST 1V ? INDICATIONS:? pneumonia vs asthma exacer ? TECHNIQUE:? One view of the chest was acquired.? ? COMPARISON:? [facility], XR CHEST 1V, 05/30/2022, 12:49. ? FINDINGS:? ? Surgical changes and devices:? None.? ? Lungs and pleura:? Lungs are clear.? No pleural effusions or pneumothorax.? ? Mediastinum:? Mediastinal contours appear normal.? Heart size is normal.? ? Bones and chest wall:? No suspicious bony lesions.? Overlying soft tissues appear unremarkable.? ? IMPRESSION:? No acute cardiopulmonary abnormality. ? ? ? Approved by: Arsen Whitmore M.D. on 05/30/2022 at 13:32? PROCEDURE:? XR CHEST 1V ? INDICATIONS:? chest pain ? TECHNIQUE:? One view of the chest was acquired.? ? COMPARISON:? [facility], XR CHEST 2V, 05/28/2022, 15:57. ? FINDINGS:? ? Surgical changes and devices:? None.? ? Lungs and pleura:? Lungs are clear.? No pleural effusions or pneumothorax.? ? Mediastinum:? Mediastinal contours appear normal.? Heart size is normal.? ? Bones and chest wall:? No suspicious bony lesions.? Overlying soft tissues appear unremarkable.? ? IMPRESSION:? No acute cardiopulmonary abnormality. ? ? ? Approved by: Arsen Whitmore M.D. on 05/30/2022 at 13:16? MDM Narrative Medical decision making narrative: CC: shortness of breath This is a 42-year-old female who returns to the emergency department for shortness of breath, wheezing, states she feels like her heart is racing and she is had frequent coughing similar to her prior episodes before. She denies chest pain or chest pressure but states that she is anxious, very short of breath, has had wheezing, and has not been able to vegetable picker her medications from the pharmacy due to insurance reasons. Patient was discharged from the emergency department for the 2nd time on 05/29/2022 around 08:00 after coming in that night. Differential diagnoses include, but are not limited to: Asthma exacerbation, upper respiratory viral infection, pulmonary embolus, ACS, allergic reaction, dehydration, community acquired pneumonia, status asthmaticus, pericarditis, costochondritis I have reviewed the patient's vital signs and nursing notes as well as prior records if available. Lab test results independently reviewed, pertinent findings: Mild leukocytosis, mild hemoconcentration, without a left shift, no significant electrolyte abnormalities, troponin of 0.012 Respiratory panel is negative for COVID, influenza a and B and RSV. My imaging interpretation: Chest x-ray with lateral view is negative for focal or lobar opacity Re-evaluations/Ongoing course of care: Patient was brought back to a room Met with the patient and her , she is wheezing throughout, tachypneic, ordered a DuoNeb followed by 5 mg of continuous albuterol 1530 patient aeration and wheezing has improved, her is around 108, she is still wheezing much improved compared with earlier 1600 reassessed patient after her 7.5 mg continuous albuterol. She has very mild expiratory wheezes bilaterally, denies any chest pain at all, states that all of her symptoms about chest pain and chest tightness with pressure are gone after this breathing treatment. She states that she feels much better, she is a little bit jittery, receiving her magnesium infusion, talkative and satting 99 % on room air. Patient's symptoms improved over duration of stay with above-stated therapies. Social considerations that may affect disposition: low income Shared decision making: With patient and her significant other regarding disposition and plan of care This patient presents with dyspnea, most likely secondary to her asthma exacerbation. I presume she was most likely insufficiently treated for her asthma exacerbation on the 1st presentation to the emergency department. She was unable to vegetable picker her steroids and her Nebules but those are now available for her at the pharmacy including DuoNebs, albuterol Nebules, prednisone and Tessalon Perles. Patient has had exacerbating symptoms over the last 3 days, this is her 3rd visit to the emergency department and her symptoms have been improve with nebulizers each time. She was unable to vegetable picker her steroid prescription from the pharmacy because they did not fill it due to her insurance not covering DuoNebs. They([facility]) are now filling her other medications the they will cover. Presentation not consistent with acute cardiac etiologies to include ACS non ischemic ekg, unremarkable trop, CHF, pericardial effusion / tamponade . Presentation not consistent with acute respiratory etiologies to include acute PE Wells low risk, PERC 0, pneumothorax,COPD exacerbation, allergic etiologies, or infectious etiologies such as PNA. Presentation also not consistent with non-cardiopulmonary causes to include toxidromes, metabolic etiologies such as acidemia or electrolyte derangements, sepsis, neurologic causes (i.e. demyelinating diseases). Patient has scheduled follow-up with her primary care provider Daksha Tillman from [facility]. Disposition: see below, along with detailed discharge instructions that have been reviewed with the patient as well as indications for ED re-evaluation and additional outpatient follow-up. Questions are addressed and there is agreement with the plan and for follow-up. Patient is appropriate for outpatient management. MIPS: This encounter doesn't have any diagnosis associated with MIPS criteria. I, RAS Avila, personally performed the services described in the documentation, and it accurately records my words and actions. I collaborated with the ED attending physician for MARCELLO level 2, 3, and some level 4s as appropriate. <Glen Meneses, DO - Last Filed: 05/31/22 07:10> Lab Data Labs: Lab Results 05/30/22 05/30/22 05/30/22 Range/Units 12:57 12:57 12:57 WBC 11.6 H (4.5-11.0) X10^3/uL RBC 4.82 (4.0-5.2) X10^6/uL Hgb 15.0 (12.0-16.0) g/dL Hct 43.6 (36-46) % MCV 90.5 (80-100) fL MCH 31.2 (26-34) PG MCHC 34.4 (30-36) % RDW 13.3 (11.6-14.8) % Plt Count 321 (150-400) X10^3/uL Neut % (Auto) 62.8 D (50-75) % Lymph % (Auto) 23.1 L (25-40) % [place] % (Auto) 6.9 (3-14) % Eos % (Auto) 6.5 H (2-4) % Baso % (Auto) 0.7 (0-2) % Neut # (Auto) 7300 H (7551-1491) /uL Lymph # (Auto) 2700 (2767-0662) /uL [place] # (Auto) 800 (0-900) /uL Eos # (Auto) 800 H (0-450) /uL Baso # (Auto) 100 (0-100) /uL PT 13.0 H (10.1-12.7) SECONDS INR 1.1 (0.9-1.3) APTT 28 (26-36) SECONDS Sodium 139 (137-145) mmol/L Potassium 3.9 (3.4-5.1) mmol/L Chloride 105 (98-107) mmol/L Carbon Dioxide 23 (22-32) mmol/L BUN 9 (7-17) mg/dL Creatinine 0.76 (0.52-1.04) mg/dL Estimated GFR > 60 (>60) mL/min BUN/Creatinine Ratio 11.8 (6-22) Glucose 106 H (70-100) mg/dL Calcium 8.5 (8.4-10.2) mg/dL Magnesium 2.0 (1.6-2.3) mg/dL Total Bilirubin 0.5 (0.2-1.3) mg/dL AST 41 H (14-36) IU/L ALT 21 (<35) IU/L Alkaline Phosphatase 56 (38-126) U/L Total Creatine Kinase 80 (30-135) U/L CK-MB (CK-2) TNP CK-MB (CK-2) Rel Index TNP Troponin I < 0.012 (0.01-0.034) ng/mL Total Protein 7.7 (6.3-8.2) g/dL Lipase 116 (23-300) U/L Urine RBC (0-5/HPF) Urine WBC (0-5/HPF) Ur Squamous Epith Cells (0-5/HPF) Urine Bacteria (None) Ur Culture Indicated? SARS-CoV-2 (PCR) (Negative) Influenza A (RT-PCR) (NEGATIVE) Influenza B (RT-PCR) (NEGATIVE) RSV (PCR) (Negative) 05/30/22 05/30/22 Range/Units 14:12 15:43 WBC (4.5-11.0) X10^3/uL RBC (4.0-5.2) X10^6/uL Hgb (12.0-16.0) g/dL Hct (36-46) % MCV (80-100) fL MCH (26-34) PG MCHC (30-36) % RDW (11.6-14.8) % Plt Count (150-400) X10^3/uL Neut % (Auto) (50-75) % Lymph % (Auto) (25-40) % [place] % (Auto) (3-14) % Eos % (Auto) (2-4) % Baso % (Auto) (0-2) % Neut # (Auto) (8917-7954) /uL Lymph # (Auto) (4066-7902) /uL [place] # (Auto) (0-900) /uL Eos # (Auto) (0-450) /uL Baso # (Auto) (0-100) /uL PT (10.1-12.7) SECONDS INR (0.9-1.3) APTT (26-36) SECONDS Sodium (137-145) mmol/L Potassium (3.4-5.1) mmol/L Chloride (98-107) mmol/L Carbon Dioxide (22-32) mmol/L BUN (7-17) mg/dL Creatinine (0.52-1.04) mg/dL Estimated GFR (>60) mL/min BUN/Creatinine Ratio (6-22) Glucose (70-100) mg/dL Calcium (8.4-10.2) mg/dL Magnesium (1.6-2.3) mg/dL Total Bilirubin (0.2-1.3) mg/dL AST (14-36) IU/L ALT (<35) IU/L Alkaline Phosphatase (38-126) U/L Total Creatine Kinase (30-135) U/L CK-MB (CK-2) CK-MB (CK-2) Rel Index Troponin I (0.01-0.034) ng/mL Total Protein (6.3-8.2) g/dL Lipase (23-300) U/L Urine RBC 0-1/hpf (0-5/HPF) Urine WBC 0-1/hpf (0-5/HPF) Ur Squamous Epith Cells 0-1 /hpf (0-5/HPF) Urine Bacteria None seen (None) Ur Culture Indicated? Cult not indicated SARS-CoV-2 (PCR) Negative (Negative) Influenza A (RT-PCR) Flu a negative (NEGATIVE) Influenza B (RT-PCR) Flu b negative (NEGATIVE) RSV (PCR) Negative (Negative) Urine Dip Bedside Urine Glucose Negative Bedside Urine Bilirubin - Negative Bedside Urine Ketone - Negative Urine Specific [place] 1.020 Bedside Urine Occult Blood + Bedside Urine pH 6.0 Bedside Urine Protein - Negative Bedside Urine Urobilinogen - Negative Bedside Urine Nitrite - Negative Bedside Urine Leukocytes - Negative Esterase Discharge Plan Departure Patient Disposition: Home Clinical Impression: Asthma exacerbation Instructions: Asthma -- Adult Activity Restrictions/Additional Instructions: *You have been diagnosed with asthma exacerbation with ongoing wheezing, this is likely secondary to a viral illness because your chest x-ray does not show any focal pneumonia and your respiratory panels have come back negative for the big ones: COVID, RSV and influenza. Your symptoms are much better now than they have been this whole time far as I can tell. Please stay hydrated, use your DuoNebs every 4-6 hours on a schedule, use your albuterol Nebules in continuation until you get back on top of your symptoms and then every 1-4 hours as needed. Start taking the steroid tomorrow, you should start to get better soon, sorry that you likely not sleep well tonight. Go get your medicines, I hope you feel better, come back for any worsening symptoms. *What to do: *Please continue to take your regular medications as directed. [ ] New medication prescriptions sent to your pharmacy: [ ] [ ] New medication written as a paper prescription [x ] No new medications given *Please follow up with your primary care provider in 2-3 days, call for an appointment. Let them know you were seen in the Emergency Department and that we asked that you be seen for follow-up. We will electronically transmit a record of today's note if your PCP is in our system *If you do not have a primary care provider please contact [phone] to establish care with one of the [facility] primary care providers. *Return to Emergency Department if you should have any new, worsening, or concerning symptoms, such as [fever greater than 101F, chills, worsening pain, persistent vomiting or other bothersome symptoms]. Prescriptions: No Action Qvar RediHaler 80 mcg/actuation HFA aerosol breath activated 1 inhalation INHALATION BID Qty: 10.6 0RF fluconazole [Diflucan] 150 mg tablet 150 mg PO DAILY Qty: 2 0RF hydrocodone-acetaminophen [[place]] 5-325 mg tablet 1 tab PO Q8H PRN (Reason: pain) Qty: 7 0RF ondansetron 4 mg tablet,disintegrating 4 mg PO Q8H PRN (Reason: nausea and vomiting) Qty: 7 0RF lidocaine 5 % adhesive patch,medicated 1 patch topical DAILY PRN (Reason: pain) Qty: 30 0RF Rx Instructions: leave on most painful area for up to 12 hrs prednisone 10 mg tablet See Rx Instructions .ROUTE .COMPLEX Qty: 30 0RF Rx Instructions: Day 1,2,3: 40mg PO Daily Day 4,5,6: 30mg PO Daily Day 7,8,9: 20mg PO Daily Day 10,11,12: 10mg PO Daily #30 ipratropium bromide 0.02 % solution 2.5 ml inhalation TID-QID PRN (Reason: shortness of breath or wheezing) Qty: 75 0RF lidocaine [Lidoderm] 5 % adhesive patch,medicated 1 patch topical DAILY PRN (Reason: muscle spasm) Qty: 15 0RF Rx Instructions: leave on most painful area for up to 12 hrs methocarbamol 750 mg tablet 750 mg PO Q8H PRN (Reason: muscle spasms) Qty: 20 0RF lidocaine 4 % adhesive patch,medicated 1 patch TOP DAILY PRN (Reason: pain) Qty: 10 0RF Rx Instructions: may leave on for up to 12 hrs potassium chloride [K-Tab] 20 mEq tablet extended release 20 meq PO BID Qty: 14 0RF prednisone 20 mg tablet 40 mg PO DAILY 5 Days Qty: 10 0RF ipratropium-albuterol 0.5 mg-3 mg(2.5 mg base)/3 mL solution for nebulization 3 ml inhalation TID PRN (Reason: shortness of breath or wheezing) Qty: 90 0RF albuterol sulfate 2.5 mg /3 mL (0.083 %) solution for nebulization 2.5 mg inhalation Q1H PRN (Reason: shortness of breath or wheezing) Qty: 90 2RF Rx Instructions: until breathing returns to target peak flow/parameters cetirizine [Allergy Relief (cetirizine)] 10 mg tablet 10 mg PO BEDTIME PRN (Reason: congestion) Qty: 30 0RF albuterol sulfate 90 mcg/actuation aerosol powdr breath activated 2 inh inhalation Q4-6H PRN (Reason: shortness of breath) Qty: 1 3RF benzonatate 200 mg capsule 200 mg PO BID PRN (Reason: cough) Qty: 20 0RF magnesium oxide 500 mg capsule 500 mg PO BEDTIME Qty: 20 0RF Stand Alone Forms: Patient Portal/API <Glen Meneses DO - Last Filed: 05/31/22 07:10> Cosign ED Attending Lisa Attestation: I was immediately available in the department for consultation. Documentation has been reviewed. I agree with assessment and plan.
[2022-05-30] MEDS: ALBUTEROL 2.5 MG/3 ML NEB (ADULT) 5 MG INH (14:28)
[2022-05-30] MEDS: methylPREDNISolone 125 MG/2 ML VIAL IV (14:33)
[2022-05-30 15:00] LABS: Influenza A - CEPHEID Flu A NEGATIVE (NEGATIVE); Influenza B - CEPHEID Flu B NEGATIVE (NEGATIVE); Respiratory Syncytial Virus Negative (Negative)
[2022-05-30 15:01] LABS: COVID-19 CEPHEID 4-PLEX PCR Negative (Negative)
[2022-05-30] MEDS: ALBUTEROL 2.5 MG/3 ML NEB (ADULT) 7.5 MG INH (15:31)
[2022-05-30] MEDS: MAGNESIUM SULFATE 2 GM/50 ML PIGGYBACK IV (15:31)
[2022-05-30] MEDS: SODIUM CHLORIDE 0.9% 1,000 ML 1000 ML IV (15:31)
[2022-05-30 16:31] LABS: Bacteria Urine None Seen; Culture Indicated Urine Cult Not Indicated; RBC Urine 0-1/HPF (0-5/HPF); Squamous Epithelial Cell Urine 0-1 /HPF (0-5/HPF); WBC Urine 0-1/HPF (0-5/HPF)
[2022-06-04 15:21] LABS: Albumin Globulin Ratio 1.1 (1.0-2.8); Globulin 3.7 g/dL (1.7-4.1); HEMOLYSIS 31 (0-50)
== END 2022-05-30 16:47 | disposition home or self-care (01) ==
PROVIDERS: Emergency Medicine; Emergency Provider Nurse Practitioner Critical Care Medicine
DX: J45.901 Unspecified asthma with (acute) exacerbation (principal); Z79.899 Other long term (current) drug therapy; Z20.822 Contact with and (suspected) exposure to COVID-19
CPT/HCPCS: 0241U; 71045; 80053; 81003; 81015; 82550; 83690; 83735; 84484; 85025; 85610; 85730; 93005; 94640; 96361; 96374; 99284; J2930; J3475; J7613

== ENCOUNTER 2022-08-26 14:30 | Emergency (ER) | payer OTHER, MEDICAID, SELFPAY ==
[2022-08-26 14:39] VITALS: BP 101/59; PULSE 74; RESP 16; TEMP 36.7; O2SAT 97; BMI 32.0
--- NOTE | 2022-08-26 14:45 | DI.RAD.S_ITS ---
PROCEDURE: XR TOE RT MIN 2V INDICATIONS: [place] a pop with pain TECHNIQUE: Three views of the right toe(s) acquired. COMPARISON: None. FINDINGS: Bones: No fractures or dislocations. No suspicious bony lesions. Soft tissues: No suspicious soft tissue densities. IMPRESSION: No visible fractures. Dictated by: Kristal Hooper M.D. on 08/26/2022 at 16:04 Approved by: Kristal Hooper M.D. on 08/26/2022 at 16:05
[2022-08-26 15:15] VITALS: PULSE 74; RESP 18; O2SAT 97
[2022-08-26] MEDS: KETOROLAC 30 MG/ML VIAL IM (15:17)
[2022-08-26] MEDS: predniSONE 20 MG TABLET 40 MG PO (15:17)
--- NOTE | 2022-08-26 15:25 | ED_ITS ---
HPI - Extremity Injury (Lower) <Carla Barnard, [facility] - Last Filed: 08/26/22 16:21> General Chief Complaint: Extremity Injury, Lower Stated Complaint: can't put pressure on RT foot. felt a pop Time Seen by Provider: 08/26/22 15:01 Source: patient Mode of arrival: Wheelchair History of Present Illness HPI Narrative: This is a 42-year-old female presents to the emergency department complaining right toe MCP joint pain that she woke up with today, states that it felt stiff, is tender to palpation, denies any recent injury. States that she is concerned it might be gout. As history of COVID infection in January, then asthma exacerbation with palpitations in May 2022 which she states are still going on since then. She is a never smoker, denies any shortness of breath today, states that she does not have any chest pain and is here regarding her toe pain. Denies history of gout. Denies any wounds, does not have diabetes. Related Data Previous Rx's Medication Instructions Recorded beclomethasone dipropionate 80 1 inhalation inhalation BID #10.6 01/30/20 mcg/actuation HFA breath activated grams aerosol (Qvar RediHaler) lidocaine 4 % topical patch 1 patch topical DAILY PRN pain #10 03/06/20 ea fluconazole 150 mg tablet 150 mg PO DAILY #2 tabs 03/27/20 (Diflucan) hydrocodone 5 mg-acetaminophen 325 1 tab PO Q8H PRN pain #7 tabs 07/12/20 mg tablet ([place]) lidocaine 5 % topical patch 1 patch topical DAILY PRN pain #30 07/12/20 ea ondansetron 4 mg disintegrating 4 mg PO Q8H PRN nausea and 07/12/20 tablet vomiting #7 tabs ipratropium bromide 0.02 % 2.5 ml inhalation TID-QID PRN 06/15/21 solution for inhalation shortness of breath or wheezing #75 mL prednisone 10 mg tablet See Rx Instructions .Route 06/15/21 .COMPLEX #30 tabs potassium chloride 20 mEq 20 meq PO BID #14 tabs 12/14/21 tablet,extended release (K-Tab) lidocaine 5 % topical patch 1 patch topical DAILY PRN muscle 12/29/21 (Lidoderm) spasm #15 ea methocarbamol 750 mg tablet 750 mg PO Q8H PRN muscle spasms 12/29/21 #20 tabs albuterol sulfate 2.5 mg/3 mL 2.5 mg (3 mL) inhalation Q1H PRN 05/28/22 (0.083 %) solution for nebulization shortness of breath or wheezing #90 mL albuterol sulfate 90 mcg/actuation 2 inh inhalation Q4-6H PRN 05/28/22 breath activated powder inhaler shortness of breath #1 ea benzonatate 200 mg capsule 200 mg PO BID PRN cough #20 caps 05/28/22 cetirizine 10 mg tablet (Allergy 10 mg PO BEDTIME PRN congestion 05/28/22 Relief (cetirizine)) #30 tabs ipratropium 0.5 mg-albuterol 3 mg 3 ml inhalation TID PRN shortness 05/28/22 (2.5 mg base)/3 mL nebulization of breath or wheezing #90 mL soln magnesium oxide 500 mg capsule 500 mg PO BEDTIME #20 caps 05/28/22 diazepam 10 mg tablet 10 mg PO BEDTIME PRN 08/26/22 anxiety/palpitations #14 tabs naproxen 500 mg tablet 500 mg PO BID PRN pain #30 tabs 08/26/22 omeprazole 40 mg capsule,delayed 40 mg PO DAILY #14 caps 08/26/22 release prednisone 20 mg tablet 40 mg PO DAILY 5 days #10 tabs 08/26/22 Allergies Allergy/AdvReac Type Severity Reaction Status Date / Time doxycycline Allergy Severe Anaphylaxis Verified 08/26/22 14:39 levofloxacin [From Levaquin] Allergy Severe Anaphylaxis Verified 08/26/22 14:39 morphine Allergy Severe Anaphylaxis Verified 08/26/22 14:39 Review of Systems <RAS Swartz - Last Filed: 08/26/22 16:21> Review of Systems ROS Unobtainable: All systems reviewed & are unremarkable except as noted in HPI and below Patient History <RAS Swartz - Last Filed: 08/26/22 16:21> Medical History Asthma Psoriasis Vertigo Social History Smoking Status: Never smoker Smoking Status: Never smoker alcohol intake frequency: a few times a month Substance Use Type: marijuana Exam <RAS Swartz Last Filed: 08/26/22 16:21> Narrative Exam Narrative: Reviewed vitals signs and nursing notes. General: Pleasant, sitting upright, in no acute distress, well groomed, afebrile MSK: moves all extremities, no weakness, normal tone, ambulatory but limping due to right great toe pain at the MCP joint. There is mild erythema here, no significant edema, any movement of this great toe causes pain at the MCP joint. No open wound, no ecchymosis, no midfoot pain. Skin: brisk capillary refill, without rash or wound Neuro: normal speech and cognition, A&O x3 Initial Vital Signs Initial Vital Signs: Vital Signs Temperature 98.0 F 08/26/22 14:39 Pulse Rate 74 08/26/22 14:39 Respiratory Rate 16 08/26/22 14:39 Blood Pressure 101/59 L 08/26/22 14:39 Pulse Oximetry 97 08/26/22 14:39 Oxygen Delivery Method Room Air 08/26/22 14:39 <Glen Meneses DO - Last Filed: 08/26/22 19:45> Initial Vital Signs Initial Vital Signs: Vital Signs Temperature 98.0 F 08/26/22 14:39 Pulse Rate 74 08/26/22 14:39 Respiratory Rate 16 08/26/22 14:39 Blood Pressure 101/59 L 08/26/22 14:39 Pulse Oximetry 97 08/26/22 14:39 Oxygen Delivery Method Room Air 08/26/22 14:39 Procedures <RAS Swartz - Last Filed: 08/26/22 16:21> Orthopedic Splinting/Casting Injury #1: Lower Extremity Injury Location: foot Lower Extremity Immobilizer: post-op shoe Post splinting neuro exam: intact Post splinting vascular exam: intact Placed by: Nursing Course <RAS Swartz - Last Filed: 08/26/22 16:21> Orders Ordered: ED Orders 08/26/22 14:44 Consult to IN STORE MARKETING REPRESENTATIVE - Eyewear Consultant Stat 08/26/22 14:45 XR toe RT min 2V Stat Discontinued Medications Ketorolac Tromethamine (Ketorolac 30 Mg/Ml Vial) 30 mg IM NOW ONE Stop: 08/26/22 15:12 Last Admin: 08/26/22 15:17 Dose: 30 mg Documented By: ROYCE Prednisone (Prednisone 20 Mg Tablet) 40 mg PO NOW ONE Stop: 08/26/22 15:12 Last Admin: 08/26/22 15:17 Dose: 40 mg Documented By: ROYCE Vital Signs Vital signs: Vital Signs - 8 hr 08/26/22 14:39 08/26/22 15:15 Temperature 98.0 F Pulse Rate 74 74 Respiratory Rate 16 18 Blood Pressure 101/59 L Pulse Oximetry 97 97 Oxygen Delivery Method Room Air Room Air <Glen Meneses DO - Last Filed: 08/26/22 19:45> Orders Ordered: ED Orders 08/26/22 14:44 Consult to IN STORE MARKETING REPRESENTATIVE - Eyewear Consultant Stat 08/26/22 14:45 XR toe RT min 2V Stat Discontinued Medications Ketorolac Tromethamine (Ketorolac 30 Mg/Ml Vial) 30 mg IM NOW ONE Stop: 08/26/22 15:12 Last Admin: 08/26/22 15:17 Dose: 30 mg Documented By: ROYCE Prednisone (Prednisone 20 Mg Tablet) 40 mg PO NOW ONE Stop: 08/26/22 15:12 Last Admin: 08/26/22 15:17 Dose: 40 mg Documented By: ROYCE Vital Signs Vital signs: Vital Signs - 8 hr 08/26/22 14:39 08/26/22 15:15 Temperature 98.0 F Pulse Rate 74 74 Respiratory Rate 16 18 Blood Pressure 101/59 L Pulse Oximetry 97 97 Oxygen Delivery Method Room Air Room Air MDM - Extremity Injury (Lower) <SCARLETT SwartzP - Last Filed: 08/26/22 16:21> Imaging Data Extremity x-ray #1: Radiologist's Impression: PROCEDURE:? XR TOE RT MIN 2V ? INDICATIONS:? [place] a pop with pain ? TECHNIQUE:? Three views of the right toe(s) acquired.? ? COMPARISON:? None. ? FINDINGS:? ? Bones:? No fractures or dislocations.? No suspicious bony lesions.? ? Soft tissues:? No suspicious soft tissue densities.? ? IMPRESSION:? No visible fractures. ? ? Dictated by: Kristal Hooper M.D. on 08/26/2022 at 16:04 ? ? Approved by: Kristal Hooper M.D. on 08/26/2022 at 16:05 ? [facility] Narrative Medical decision making narrative: Chief Complaint: Right great toe pain Independent historian: Patient Differential diagnoses include but are not limited to: Gout, toe sprain, foot sprain I have independently reviewed the patient's vital signs and nursing notes as well as prior records if available. Pertinent Imaging reviewed: Right great toe x-ray does show visible fracture or suspicious soft tissue densities. Course of care: Patient's pain was treated with Toradol, she was also given prednisone, has history of allergy to morphine. She was placed in a postop shoe, able to ambulate with this, states it feels much better. She discussed wanting to follow-up with 1 of the streetsweeper operator but I encouraged her to establish care with a primary care provider so that she could get a Zio patch and further evaluation regarding her palpitations. She states that she wore a monitor for 2 days and it showed occasional PVCs but patient thinks that she has something wrong as she has had ongoing symptoms. She denies chest pain shortness of breath, difficulty breathing, wheezing or nausea and vomiting. We have treated her for gout, no evidence of other injury. She was taking NSAIDs/ibuprofen before this but states it was not adequate. Today started her on prednisone 40 mg daily for 5 days and gave her contact information to establish primary care. Social work saw her, please see her note. Social considerations that may affect disposition: none Questions are addressed and there is agreement with the plan and for follow-up. Patient is appropriate for outpatient management. MIPS: This encounter doesn't have any diagnosis' associated with MIPS criteria. Discharge Plan Departure Patient Disposition: Home Clinical Impression: Heart palpitations Gout Qualifiers: Gout site: toe Encounter type: initial encounter Chronicity: acute Laterality: right Instructions: Gout, DI for Palpitations Activity Restrictions/Additional Instructions: *You have been diagnosed with gout. I have given you a potent NSAID, naproxen daily with 40 mg prednisone daily, please take omeprazole 1st thing in the morning each day to protect her stomach from ulcer. Please take these medications with food, naproxen you take morning and night, take prednisone in the morning, and diazepam as needed for palpitations and sleep. Since you have history of severe asthma, beta-blockers are not indicated for you. Please elevate this, try some ice see if this is helpful, avoid walking on the next few days until it feels better if you can. Please establish care with a primary care provider, call the number listed below, they can get you set up with a Zio patch for heart monitoring, and other things that you may need. Please use the diazepam as needed for this. Stay hydrated, return for new worsening symptoms. *What to do: *Please continue to take your regular medications as directed. [x ] New medication prescriptions sent to your pharmacy: [ALEXANDRE Gómez ] [ ] New medication written as a paper prescription [ ] No new medications given *Please follow up with your primary care provider in 2-3 days, call for an appointment. Let them know you were seen in the Emergency Department and that we asked that you be seen for follow-up. We will electronically transmit a record of today's note if your PCP is in our system *If you do not have a primary care provider please contact [phone] to establish care with one of the [facility] primary care providers. *Return to Emergency Department if you should have any new, worsening, or concerning symptoms, such as [fever greater than 101F, chills, worsening pain, persistent vomiting or other bothersome symptoms]. Prescriptions: New naproxen 500 mg tablet 500 mg PO BID PRN (Reason: pain) Qty: 30 0RF omeprazole 40 mg capsule,delayed release(DR/EC) 40 mg PO DAILY Qty: 14 0RF prednisone 20 mg tablet 40 mg PO DAILY 5 Days Qty: 10 0RF diazepam 10 mg tablet 10 mg PO BEDTIME PRN (Reason: anxiety/palpitations) Qty: 14 0RF No Action Qvar RediHaler 80 mcg/actuation HFA aerosol breath activated 1 inhalation INHALATION BID Qty: 10.6 0RF fluconazole [Diflucan] 150 mg tablet 150 mg PO DAILY Qty: 2 0RF hydrocodone-acetaminophen [[place]] 5-325 mg tablet 1 tab PO Q8H PRN (Reason: pain) Qty: 7 0RF ondansetron 4 mg tablet,disintegrating 4 mg PO Q8H PRN (Reason: nausea and vomiting) Qty: 7 0RF lidocaine 5 % adhesive patch,medicated 1 patch topical DAILY PRN (Reason: pain) Qty: 30 0RF Rx Instructions: leave on most painful area for up to 12 hrs prednisone 10 mg tablet See Rx Instructions .ROUTE .COMPLEX Qty: 30 0RF Rx Instructions: Day 1,2,3: 40mg PO Daily Day 4,5,6: 30mg PO Daily Day 7,8,9: 20mg PO Daily Day 10,11,12: 10mg PO Daily #30 ipratropium bromide 0.02 % solution 2.5 ml inhalation TID-QID PRN (Reason: shortness of breath or wheezing) Qty: 75 0RF lidocaine [Lidoderm] 5 % adhesive patch,medicated 1 patch topical DAILY PRN (Reason: muscle spasm) Qty: 15 0RF Rx Instructions: leave on most painful area for up to 12 hrs methocarbamol 750 mg tablet 750 mg PO Q8H PRN (Reason: muscle spasms) Qty: 20 0RF lidocaine 4 % adhesive patch,medicated 1 patch TOP DAILY PRN (Reason: pain) Qty: 10 0RF Rx Instructions: may leave on for up to 12 hrs potassium chloride [K-Tab] 20 mEq tablet extended release 20 meq PO BID Qty: 14 0RF ipratropium-albuterol 0.5 mg-3 mg(2.5 mg base)/3 mL solution for nebulization 3 ml inhalation TID PRN (Reason: shortness of breath or wheezing) Qty: 90 0RF albuterol sulfate 2.5 mg /3 mL (0.083 %) solution for nebulization 2.5 mg inhalation Q1H PRN (Reason: shortness of breath or wheezing) Qty: 90 2RF Rx Instructions: until breathing returns to target peak flow/parameters cetirizine [Allergy Relief (cetirizine)] 10 mg tablet 10 mg PO BEDTIME PRN (Reason: congestion) Qty: 30 0RF albuterol sulfate 90 mcg/actuation aerosol powdr breath activated 2 inh inhalation Q4-6H PRN (Reason: shortness of breath) Qty: 1 3RF benzonatate 200 mg capsule 200 mg PO BID PRN (Reason: cough) Qty: 20 0RF magnesium oxide 500 mg capsule 500 mg PO BEDTIME Qty: 20 0RF Referrals: Miscellaneous,Doctor, MD [Primary Care Provider] - Stand Alone Forms: Patient Portal/API <Glen Meneses DO - Last Filed: 08/26/22 19:45> Cosign ED Attending Cosignature Attestation: I was immediately available in the department for consultation. Documentation has been reviewed. I agree with assessment and plan.
--- NOTE | 2022-08-26 16:03 | CM.SWNOTE ---
BODY LINE FINISHER Note BODY LINE FINISHER receives consult from invoice control clerk due to patient's concern for food and utilities insecurities. Patient is 42 y/o female who presents with concern for foot after hx of toe fracture. Patient presents with spouse to ED. BODY LINE FINISHER enters room, it is reported that patient lives with spouse at [facility] in where patient works and earns free lodging from employment. Patient endorses that she tried to apply for food stamps and barely made too much money, it is reported that spouse is in the process of applying for disability. Patient endorses that they utilize the food bank and they do not drive much to concern resources and money. BODY LINE FINISHER provides patient and spouse list of food desir, community meals and various community resources. Plan: patient to d/c to home upon medical clearance. Patient to f/u with resources provided. DALI AmosSW
== END 2022-08-26 15:15 | disposition home or self-care (01) ==
PROVIDERS: Emergency Provider Nurse Practitioner Critical Care Medicine
DX: M10.9 Gout, unspecified (principal); R00.2 Palpitations
CPT/HCPCS: 73660; 96372; 99283; 99284; J1885

== ENCOUNTER 2022-10-28 18:08 | Emergency (ER) | payer OTHER, SELFPAY ==
[2022-10-28] VITALS (10 sets, daily range): BP systolic 100–125; BP diastolic 60–78; PULSE 83–96; RESP 18–22; TEMP 36.6; O2SAT 94–100; BMI 31.1
[2022-10-28] MEDS: ALBUTEROL/IPRATROPIUM 3 ML AMPUL INH ×2 (18:30→19:25)
--- NOTE | 2022-10-28 19:05 | ED_ITS ---
HPI - Asthma General Chief Complaint: Asthma Stated Complaint: SOB, Asthma Time Seen by Provider: 10/28/22 18:24 Source: patient Mode of arrival: Ambulatory History of Present Illness HPI Narrative: Patient is a 42-year-old female. She does have history of asthma. She is been having issues with shortness of breath and coughing for the past several days if not weeks. She does have nebulizers at home and also inhalers. She is been usi ng these. She is actually out of her nebulizer medications. She states she is here because things just have been getting worse. She denies any fevers. She does not have a productive cough. No chest pain. Related Data Previous Rx's Medication Instructions Recorded beclomethasone dipropionate 80 1 inhalation inhalation BID #10.6 01/30/20 mcg/actuation HFA breath activated grams aerosol (Qvar RediHaler) lidocaine 4 % topical patch 1 patch topical DAILY PRN pain #10 03/06/20 ea fluconazole 150 mg tablet 150 mg PO DAILY #2 tabs 03/27/20 (Diflucan) hydrocodone 5 mg-acetaminophen 325 1 tab PO Q8H PRN pain #7 tabs 07/12/20 mg tablet ([place]) lidocaine 5 % topical patch 1 patch topical DAILY PRN pain #30 07/12/20 ea ondansetron 4 mg disintegrating 4 mg PO Q8H PRN nausea and 07/12/20 tablet vomiting #7 tabs ipratropium bromide 0.02 % 2.5 ml inhalation TID-QID PRN 06/15/21 solution for inhalation shortness of breath or wheezing #75 mL prednisone 10 mg tablet See Rx Instructions .Route 06/15/21 .COMPLEX #30 tabs potassium chloride 20 mEq 20 meq PO BID #14 tabs 12/14/21 tablet,extended release (K-Tab) lidocaine 5 % topical patch 1 patch topical DAILY PRN muscle 12/29/21 (Lidoderm) spasm #15 ea methocarbamol 750 mg tablet 750 mg PO Q8H PRN muscle spasms 12/29/21 #20 tabs albuterol sulfate 2.5 mg/3 mL 2.5 mg (3 mL) inhalation Q1H PRN 05/28/22 (0.083 %) solution for nebulization shortness of breath or wheezing #90 mL albuterol sulfate 90 mcg/actuation 2 inh inhalation Q4-6H PRN 05/28/22 breath activated powder inhaler shortness of breath #1 ea benzonatate 200 mg capsule 200 mg PO BID PRN cough #20 caps 05/28/22 cetirizine 10 mg tablet (Allergy 10 mg PO BEDTIME PRN congestion 05/28/22 Relief (cetirizine)) #30 tabs ipratropium 0.5 mg-albuterol 3 mg 3 ml inhalation TID PRN shortness 05/28/22 (2.5 mg base)/3 mL nebulization of breath or wheezing #90 mL soln magnesium oxide 500 mg capsule 500 mg PO BEDTIME #20 caps 05/28/22 diazepam 10 mg tablet 10 mg PO BEDTIME PRN 08/26/22 anxiety/palpitations #14 tabs naproxen 500 mg tablet 500 mg PO BID PRN pain #30 tabs 08/26/22 omeprazole 40 mg capsule,delayed 40 mg PO DAILY #14 caps 08/26/22 release ipratropium 0.5 mg-albuterol 3 mg 3 ml inhalation Q6H PRN shortness 10/28/22 (2.5 mg base)/3 mL nebulization of breath #90 mL soln prednisone 20 mg tablet 20 mg PO DAILY 6 days #6 tabs 10/28/22 Allergies Allergy/AdvReac Type Severity Reaction Status Date / Time doxycycline Allergy Severe Anaphylaxis Verified 08/26/22 14:39 levofloxacin [From Levaquin] Allergy Severe Anaphylaxis Verified 08/26/22 14:39 morphine Allergy Severe Anaphylaxis Verified 08/26/22 14:39 Review of Systems Constitutional Constitutional: Reports system reviewed and no additional complaints, except as documented Respiratory Respiratory: Reports system reviewed and no additional complaints, except as documented Gastrointestinal Gastrointestinal: Reports system reviewed and no additional complaints, except as documented Genitourinary Genitourinary: Reports system reviewed and no additional complaints, except as documented Musculoskeletal Musculoskeletal: Reports system reviewed and no additional complaints, except as documented Integumentary/Breasts Skin/Breast: Reports system reviewed and no additional complaints, except as documented Hematologic/Lymphatic On Anticoagulants: No Patient History Medical History Asthma Psoriasis Vertigo Social History Smoking Status: Never smoker Smoking Status: Never smoker alcohol intake frequency: a few times a month Substance Use Type: marijuana Exam Initial Vital Signs Initial Vital Signs: Vital Signs Temperature 97.8 F 10/28/22 18:10 Pulse Rate 83 10/28/22 18:10 Respiratory Rate 22 10/28/22 18:10 Blood Pressure 125/76 10/28/22 18:10 Pulse Oximetry 97 10/28/22 18:10 Oxygen Delivery Method Room Air 10/28/22 18:10 HENMT Head: normal to inspection and normocephalic Resp Effort & Inspection: normal respiratory effort and tachypneic Auscultation: rales, rhonchi and wheezes Cardio Rate: regular rate Skin General: no rashes or lesions noted Neuro General: patient alert, patient awake and moves all extremities Course Orders Ordered: ED Orders 10/28/22 18:21 RT Consult Eval and Treat NOW Discontinued Medications Albuterol/Ipratropium (Albuterol/Ipratropium 3 Ml Ampul) 3 ml INH NOW ONE Stop: 10/28/22 18:25 Last Admin: 10/28/22 18:30 Dose: 3 ml Documented By: JAMEL Albuterol/Ipratropium (Albuterol/Ipratropium 3 Ml Ampul) 3 ml INH NOW ONE Stop: 10/28/22 19:07 Last Admin: 10/28/22 19:25 Dose: 3 ml Documented By: Prednisone (Prednisone 20 Mg Tablet) 20 mg PO NOW ONE Stop: 10/28/22 19:07 Last Admin: 10/28/22 19:15 Dose: 20 mg Documented By: SPF Vital Signs Vital signs: Vital Signs - 8 hr 10/28/22 18:10 10/28/22 18:16 10/28/22 18:18 Temperature 97.8 F Pulse Rate 83 85 Respiratory Rate 22 Blood Pressure 125/76 119/65 Pulse Oximetry 97 94 Oxygen Delivery Method Room Air Oxygen Flow Rate 10/28/22 18:18 10/28/22 18:36 10/28/22 18:30 Temperature Pulse Rate 84 Respiratory Rate 18 Blood Pressure 100/60 Pulse Oximetry 94 94 Oxygen Delivery Method Room Air Oxygen Flow Rate 10/28/22 18:30 10/28/22 19:00 10/28/22 19:02 Temperature Pulse Rate 85 96 H Respiratory Rate Blood Pressure 112/72 Pulse Oximetry 94 98 Oxygen Delivery Method Room Air Room Air Oxygen Flow Rate 10/28/22 19:30 10/28/22 19:30 10/28/22 20:00 Temperature Pulse Rate 89 Respiratory Rate Blood Pressure 114/69 121/78 Pulse Oximetry 100 Oxygen Delivery Method Oxygen Flow Rate 10/28/22 20:00 10/28/22 20:18 Temperature Pulse Rate 90 94 H Respiratory Rate 20 Blood Pressure 121/78 Pulse Oximetry 98 Oxygen Delivery Method Room Air Room Air Oxygen Flow Rate 96 MDM - Asthma MDM Narrative Medical decision making narrative: I evaluated the patient after a 1st nebulizer treatment. She states she was feeling somewhat better but was still having wheezing. She received a 2nd treatment and also steroids. After this she stated that she was feeling much better. She was still having some wheezing although she felt that she could maintain the way she was currently with her home medications. We will send her home with steroids. I also refilled her nebulizer. We will hold on any radiologic studies for now as I do have a low suspicion for pneumonia. She was given return precautions follow-up instructions. She expressed understanding an d agreement. Discharge Plan Departure Patient Disposition: Home Clinical Impression: Asthma with acute exacerbation Instructions: DI for Asthma -- Adult Activity Restrictions/Additional Instructions: Continue to use the steroids and the nebulizers and inhalers as needed. Contact your primary doctor for a follow-up. Return to the emergency department for new or worsening symptoms. Prescriptions: New prednisone 20 mg tablet 20 mg PO DAILY 6 Days Qty: 6 0RF ipratropium-albuterol 0.5 mg-3 mg(2.5 mg base)/3 mL solution for nebulization 3 ml inhalation Q6H PRN (Reason: shortness of breath) Qty: 90 0RF No Action Qvar RediHaler 80 mcg/actuation HFA aerosol breath activated 1 inhalation INHALATION BID Qty: 10.6 0RF fluconazole [Diflucan] 150 mg tablet 150 mg PO DAILY Qty: 2 0RF hydrocodone-acetaminophen [[place]] 5-325 mg tablet 1 tab PO Q8H PRN (Reason: pain) Qty: 7 0RF ondansetron 4 mg tablet,disintegrating 4 mg PO Q8H PRN (Reason: nausea and vomiting) Qty: 7 0RF lidocaine 5 % adhesive patch,medicated 1 patch topical DAILY PRN (Reason: pain) Qty: 30 0RF Rx Instructions: leave on most painful area for up to 12 hrs prednisone 10 mg tablet See Rx Instructions .ROUTE .COMPLEX Qty: 30 0RF Rx Instructions: Day 1,2,3: 40mg PO Daily Day 4,5,6: 30mg PO Daily Day 7,8,9: 20mg PO Daily Day 10,11,12: 10mg PO Daily #30 ipratropium bromide 0.02 % solution 2.5 ml inhalation TID-QID PRN (Reason: shortness of breath or wheezing) Qty: 75 0RF lidocaine [Lidoderm] 5 % adhesive patch,medicated 1 patch topical DAILY PRN (Reason: muscle spasm) Qty: 15 0RF Rx Instructions: leave on most painful area for up to 12 hrs methocarbamol 750 mg tablet 750 mg PO Q8H PRN (Reason: muscle spasms) Qty: 20 0RF lidocaine 4 % adhesive patch,medicated 1 patch TOP DAILY PRN (Reason: pain) Qty: 10 0RF Rx Instructions: may leave on for up to 12 hrs potassium chloride [K-Tab] 20 mEq tablet extended release 20 meq PO BID Qty: 14 0RF ipratropium-albuterol 0.5 mg-3 mg(2.5 mg base)/3 mL solution for nebulization 3 ml inhalation TID PRN (Reason: shortness of breath or wheezing) Qty: 90 0RF albuterol sulfate 2.5 mg /3 mL (0.083 %) solution for nebulization 2.5 mg inhalation Q1H PRN (Reason: shortness of breath or wheezing) Qty: 90 2RF Rx Instructions: until breathing returns to target peak flow/parameters cetirizine [Allergy Relief (cetirizine)] 10 mg tablet 10 mg PO BEDTIME PRN (Reason: congestion) Qty: 30 0RF albuterol sulfate 90 mcg/actuation aerosol powdr breath activated 2 inh inhalation Q4-6H PRN (Reason: shortness of breath) Qty: 1 3RF benzonatate 200 mg capsule 200 mg PO BID PRN (Reason: cough) Qty: 20 0RF magnesium oxide 500 mg capsule 500 mg PO BEDTIME Qty: 20 0RF naproxen 500 mg tablet 500 mg PO BID PRN (Reason: pain) Qty: 30 0RF omeprazole 40 mg capsule,delayed release(DR/EC) 40 mg PO DAILY Qty: 14 0RF diazepam 10 mg tablet 10 mg PO BEDTIME PRN (Reason: anxiety/palpitations) Qty: 14 0RF Referrals: Miscellaneous,Doctor, MD [Primary Care Provider] - Stand Alone Forms: Patient Portal/API
[2022-10-28] MEDS: predniSONE 20 MG TABLET PO (19:15)
== END 2022-10-28 20:18 | disposition home or self-care (01) ==
PROVIDERS: Emergency Provider Emergency Medicine
DX: J45.901 Unspecified asthma with (acute) exacerbation (principal); R05.9 Cough, unspecified
CPT/HCPCS: 94150; 94640; 99283

== ENCOUNTER 2023-04-11 17:29 | Emergency (ER) | payer OTHER, SELFPAY ==
[2023-04-11] VITALS (9 sets, daily range): BP systolic 107–114; BP diastolic 58–66; PULSE 62–84; RESP 14–20; TEMP 36.6–37; O2SAT 97–100; BMI 32.0
--- NOTE | 2023-04-11 17:55 | DI.RAD.S_ITS ---
PROCEDURE: XR CHEST 1V INDICATIONS: Shortness of breath TECHNIQUE: One view of the chest was acquired. COMPARISON: Located Within [facility], , XR CHEST 1V, 05/30/2022, 13:03. Located Within [facility], CR, XR CHEST 1V, 05/30/2022, 12:49. FINDINGS: Surgical changes and devices: None. Lungs and pleura: Lungs are clear. No pleural effusions or pneumothorax. Mediastinum: Mediastinal contours appear normal. Heart size is normal. Bones and chest wall: No suspicious bony lesions. Overlying soft tissues appear unremarkable. IMPRESSION: No acute cardiopulmonary abnormality is seen. Approved by: Arsen Whitmore M.D. on 04/11/2023 at 18:48
[2023-04-11] MEDS: ALBUTEROL 2.5 MG/3 ML NEB (ADULT) INH (18:06)
[2023-04-11] MEDS: predniSONE 20 MG TABLET PO (18:52)
--- NOTE | 2023-04-11 18:53 | ED.ASTHMA ---
HPI - Asthma General Chief Complaint: Asthma Stated Complaint: cant get asthma under control Time Seen by Provider: 04/11/23 18:39 Source: patient Mode of arrival: Ambulatory History of Present Illness HPI Narrative: 43-year-old female. History of asthma. Is on Xopenex inhalers and also DuoNeb nebulizers. She is here for evaluation of wheezing and inability to control and asthma exacerbation at home. She was actually out of her DuoNeb nebulizers. She is not on steroids. Her current symptoms been going on for the past several days. Is having some chest tightness because of the problems breathing. No fevers. Related Data Previous Rx's Medication Instructions Recorded beclomethasone dipropionate 80 1 inhalation inhalation BID #10.6 01/30/20 mcg/actuation HFA breath activated grams aerosol (Qvar RediHaler) lidocaine 4 % topical patch 1 patch topical DAILY PRN pain #10 03/06/20 ea fluconazole 150 mg tablet 150 mg PO DAILY #2 tabs 03/27/20 (Diflucan) hydrocodone 5 mg-acetaminophen 325 1 tab PO Q8H PRN pain #7 tabs 07/12/20 mg tablet ([place]) lidocaine 5 % topical patch 1 patch topical DAILY PRN pain #30 07/12/20 ea ondansetron 4 mg disintegrating 4 mg PO Q8H PRN nausea and 07/12/20 tablet vomiting #7 tabs ipratropium bromide 0.02 % 2.5 ml inhalation TID-QID PRN 06/15/21 solution for inhalation shortness of breath or wheezing #75 mL prednisone 10 mg tablet See Rx Instructions .Route 06/15/21 .COMPLEX #30 tabs potassium chloride 20 mEq 20 meq PO BID #14 tabs 12/14/21 tablet,extended release (K-Tab) lidocaine 5 % topical patch 1 patch topical DAILY PRN muscle 12/29/21 (Lidoderm) spasm #15 ea methocarbamol 750 mg tablet 750 mg PO Q8H PRN muscle spasms 12/29/21 #20 tabs albuterol sulfate 2.5 mg/3 mL 2.5 mg (3 mL) inhalation Q1H PRN 05/28/22 (0.083 %) solution for nebulization shortness of breath or wheezing #90 mL albuterol sulfate 90 mcg/actuation 2 inh inhalation Q4-6H PRN 05/28/22 breath activated powder inhaler shortness of breath #1 ea benzonatate 200 mg capsule 200 mg PO BID PRN cough #20 caps 05/28/22 cetirizine 10 mg tablet (Allergy 10 mg PO BEDTIME PRN congestion 05/28/22 Relief (cetirizine)) #30 tabs ipratropium 0.5 mg-albuterol 3 mg 3 ml inhalation TID PRN shortness 05/28/22 (2.5 mg base)/3 mL nebulization of breath or wheezing #90 mL soln magnesium oxide 500 mg capsule 500 mg PO BEDTIME #20 caps 05/28/22 diazepam 10 mg tablet 10 mg PO BEDTIME PRN 08/26/22 anxiety/palpitations #14 tabs naproxen 500 mg tablet 500 mg PO BID PRN pain #30 tabs 08/26/22 omeprazole 40 mg capsule,delayed 40 mg PO DAILY #14 caps 08/26/22 release ipratropium 0.5 mg-albuterol 3 mg 3 ml inhalation Q6H PRN shortness 10/28/22 (2.5 mg base)/3 mL nebulization of breath #90 mL soln ipratropium 0.5 mg-albuterol 3 mg 3 ml inhalation Q20M PRN wheezing 04/11/23 (2.5 mg base)/3 mL nebulization #90 mL soln prednisone 20 mg tablet 20 mg PO DAILY #6 tabs 04/11/23 Allergies Allergy/AdvReac Type Severity Reaction Status Date / Time doxycycline Allergy Severe Anaphylaxis Verified 08/26/22 14:39 levofloxacin [From Levaquin] Allergy Severe Anaphylaxis Verified 08/26/22 14:39 morphine Allergy Severe Anaphylaxis Verified 08/26/22 14:39 Review of Systems Constitutional Constitutional: Reports system reviewed and no additional complaints, except as documented ENT Ears, Nose, Mouth, and Throat: Reports system reviewed and no additional complaints, except as documented Cardiovascular Cardiovascular: Reports system reviewed and no additional complaints, except as documented Respiratory Respiratory: Reports system reviewed and no additional complaints, except as documented Allergic/Immunologic Allergic/Immunologic: Reports system reviewed and no additional complaints, except as documented Patient History Medical History Psoriasis Asthma Vertigo Social History Smoking Status: Former smoker Smoking Status: Former smoker alcohol intake frequency: holidays/special occasions only Substance Use Type: marijuana Exam Initial Vital Signs Initial Vital Signs: Vital Signs Temperature 98.6 F 04/11/23 17:49 Pulse Rate 74 04/11/23 17:49 Respiratory Rate 20 04/11/23 17:49 Blood Pressure 114/61 04/11/23 17:49 Pulse Oximetry 97 04/11/23 17:49 Oxygen Delivery Method Room Air 04/11/23 17:49 HENMT Head: normal to inspection and normocephalic Resp Effort & Inspection: no cough, no respiratory distress, no retractions and tachypneic Auscultation: rhonchi and wheezes Cardio Rate: regular rate Neuro General: patient alert, patient awake and moves all extremities Course Orders Ordered: ED Orders 04/11/23 17:55 XR chest 1V Stat Lactate (Lactic Acid) Stat Measure peak expiratory flow ONCE RT Consult Eval and Treat NOW Discontinued Medications Albuterol (Albuterol 2.5 Mg/3 Ml Neb (Adult)) 2.5 mg INH NOW ONE Stop: 04/11/23 18:04 Last Admin: 04/11/23 18:06 Dose: 2.5 mg Documented By: NICOL Albuterol/Ipratropium (Albuterol/Ipratropium 3 Ml Ampul) 3 ml INH NOW ONE Stop: 04/11/23 18:50 Last Admin: 04/11/23 18:55 Dose: 3 ml Prednisone (Prednisone 20 Mg Tablet) 20 mg PO NOW ONE Stop: 04/11/23 18:41 Last Admin: 04/11/23 18:52 Dose: 20 mg Documented By: GARRETT Vital Signs Vital signs: Vital Signs - 8 hr 04/11/23 17:49 04/11/23 18:07 04/11/23 18:33 Temperature 98.6 F Pulse Rate 74 62 68 Respiratory Rate 20 18 Blood Pressure 114/61 107/58 L Pulse Oximetry 97 98 99 Oxygen Delivery Method Room Air Room Air Room Air Oxygen Flow Rate 0 Fraction of Inspired Oxygen 21 04/11/23 18:55 04/11/23 19:15 04/11/23 19:16 Temperature Pulse Rate 73 82 Respiratory Rate 18 18 Blood Pressure 110/61 109/64 Pulse Oximetry 99 99 Oxygen Delivery Method Room Air Oxygen Flow Rate Fraction of Inspired Oxygen 04/11/23 19:16 04/11/23 19:30 04/11/23 19:30 Temperature Pulse Rate 77 84 Respiratory Rate 14 19 Blood Pressure 107/66 Pulse Oximetry 100 98 Oxygen Delivery Method Oxygen Flow Rate Fraction of Inspired Oxygen MDM - Asthma Imaging Data Chest x-ray: Radiologist's Impression: PROCEDURE: XR CHEST 1V INDICATIONS: Shortness of breath TECHNIQUE: One view of the chest was acquired. COMPARISON: [facility], CR, XR CHEST 1V, 05/30/2022, 13:03. [facility], CR, XR CHEST 1V, 05/30/2022, 12:49. FINDINGS: Surgical changes and devices: None. Lungs and pleura: Lungs are clear. No pleural effusions or pneumothorax. Mediastinum: Mediastinal contours appear normal. Heart size is normal. Bones and chest wall: No suspicious bony lesions. Overlying soft tissues appear unremarkable. IMPRESSION: No acute cardiopulmonary abnormality is seen. [facility] Narrative Medical decision making narrative: Patient has received 1 albuterol neb prior to my evaluation however she is still wheezing. Chest x-ray is unremarkable. Received a DuoNeb and steroids. Afterwards she states she was feeling much better. She was observed for period of time without return of the wheezing. States she felt like she could go home. We will put her on steroids for the next couple days and I did refill her DuoNeb nebulizer prescription. She was given return precautions. She expressed understanding and agreement. Discharge Plan Departure Patient Disposition: Home Clinical Impression: Asthma with acute exacerbation Instructions: DI for Asthma -- Adult Activity Restrictions/Additional Instructions: Refills for your DuoNeb nebulizer solution and steroids for sent to [facility] in [place]. Please take them as directed. I also recommend you contact your primary doctor for a follow-up. Return to the emergency department for new or worsening symptoms. Prescriptions: New prednisone 20 mg tablet 20 mg PO DAILY Qty: 6 0RF ipratropium-albuterol 0.5 mg-3 mg(2.5 mg base)/3 mL solution for nebulization 3 ml inhalation Q20M PRN (Reason: wheezing) Qty: 90 2RF Rx Instructions: for 3 doses No Action Qvar RediHaler 80 mcg/actuation HFA aerosol breath activated 1 inhalation INHALATION BID Qty: 10.6 0RF fluconazole [Diflucan] 150 mg tablet 150 mg PO DAILY Qty: 2 0RF hydrocodone-acetaminophen [[place]] 5-325 mg tablet 1 tab PO Q8H PRN (Reason: pain) Qty: 7 0RF ondansetron 4 mg tablet,disintegrating 4 mg PO Q8H PRN (Reason: nausea and vomiting) Qty: 7 0RF lidocaine 5 % adhesive patch,medicated 1 patch topical DAILY PRN (Reason: pain) Qty: 30 0RF Rx Instructions: leave on most painful area for up to 12 hrs prednisone 10 mg tablet See Rx Instructions .ROUTE .COMPLEX Qty: 30 0RF Rx Instructions: Day 1,2,3: 40mg PO Daily Day 4,5,6: 30mg PO Daily Day 7,8,9: 20mg PO Daily Day 10,11,12: 10mg PO Daily #30 ipratropium bromide 0.02 % solution 2.5 ml inhalation TID-QID PRN (Reason: shortness of breath or wheezing) Qty: 75 0RF lidocaine [Lidoderm] 5 % adhesive patch,medicated 1 patch topical DAILY PRN (Reason: muscle spasm) Qty: 15 0RF Rx Instructions: leave on most painful area for up to 12 hrs methocarbamol 750 mg tablet 750 mg PO Q8H PRN (Reason: muscle spasms) Qty: 20 0RF ipratropium-albuterol 0.5 mg-3 mg(2.5 mg base)/3 mL solution for nebulization 3 ml inhalation Q6H PRN (Reason: shortness of breath) Qty: 90 0RF lidocaine 4 % adhesive patch,medicated 1 patch TOP DAILY PRN (Reason: pain) Qty: 10 0RF Rx Instructions: may leave on for up to 12 hrs potassium chloride [K-Tab] 20 mEq tablet extended release 20 meq PO BID Qty: 14 0RF ipratropium-albuterol 0.5 mg-3 mg(2.5 mg base)/3 mL solution for nebulization 3 ml inhalation TID PRN (Reason: shortness of breath or wheezing) Qty: 90 0RF albuterol sulfate 2.5 mg /3 mL (0.083 %) solution for nebulization 2.5 mg inhalation Q1H PRN (Reason: shortness of breath or wheezing) Qty: 90 2RF Rx Instructions: until breathing returns to target peak flow/parameters cetirizine [Allergy Relief (cetirizine)] 10 mg tablet 10 mg PO BEDTIME PRN (Reason: congestion) Qty: 30 0RF albuterol sulfate 90 mcg/actuation aerosol powdr breath activated 2 inh inhalation Q4-6H PRN (Reason: shortness of breath) Qty: 1 3RF benzonatate 200 mg capsule 200 mg PO BID PRN (Reason: cough) Qty: 20 0RF magnesium oxide 500 mg capsule 500 mg PO BEDTIME Qty: 20 0RF naproxen 500 mg tablet 500 mg PO BID PRN (Reason: pain) Qty: 30 0RF omeprazole 40 mg capsule,delayed release(DR/EC) 40 mg PO DAILY Qty: 14 0RF diazepam 10 mg tablet 10 mg PO BEDTIME PRN (Reason: anxiety/palpitations) Qty: 14 0RF Referrals: Miscellaneous,Doctor, MD [Primary Care Provider] - Stand Alone Forms: Patient Portal/API
[2023-04-11] MEDS: ALBUTEROL/IPRATROPIUM 3 ML AMPUL INH (18:55)
== END 2023-04-11 19:40 | disposition home or self-care (01) ==
PROVIDERS: Emergency Provider Emergency Medicine
DX: J45.901 Unspecified asthma with (acute) exacerbation (principal); Z87.891 Personal history of nicotine dependence
CPT/HCPCS: 36415; 71045; 94640; 99284; J7613

== ENCOUNTER 2023-05-12 12:27 | Emergency (ER) | payer OTHER, SELFPAY ==
[2023-05-12] VITALS (7 sets, daily range): BP systolic 97–125; BP diastolic 63–73; PULSE 83–98; RESP 14–18; TEMP 36.9; O2SAT 95–98; BMI 32.9
--- NOTE | 2023-05-12 12:47 | PC.NURSE ---
This pt refused [employer] consult that was triggered via triage questions about food/housing insecurity
--- NOTE | 2023-05-12 12:53 | DI.RAD.S_ITS ---
PROCEDURE: XR CHEST 1V INDICATIONS: fever TECHNIQUE: One view of the chest was acquired. COMPARISON: [facility], CR, XR CHEST 1V, 05/30/2022, 13:03. [facility], CR, XR CHEST 1V, 04/11/2023, 18:02. FINDINGS: Surgical changes and devices: None. Lungs and pleura: New left mid lung patchy consolidation and adjacent linear atelectasis. No pleural effusions or pneumothorax. Mediastinum: Mediastinal contours appear normal. Heart size is normal. Bones and chest wall: No suspicious bony lesions. Overlying soft tissues appear unremarkable. IMPRESSION: New left mid lung patchy consolidation and adjacent linear atelectasis suggestive of infection. Dictated by: Mayco Floyd M.D. on 05/12/2023 at 13:32 Approved by: Mayco Floyd M.D. on 05/12/2023 at 13:33
[2023-05-12 13:01] LABS: Add Manual Diff / Slide Review NO; Basophils Absolute Auto 0 /uL (0-100); Basophils Percent Auto 0.5 % (0-2); Eosinophils Absolute Auto 0 /uL (0-450); Eosinophils Percent Auto 0.5 % (2-4); Hematocrit 44.6 % (36-46); Hemoglobin 15.4 g/dL (12.0-16.0); Lymphocytes Absolute Auto 400 /uL (1100-4500); Lymphocytes Percent Auto 6.5 % (25-40); Mean Corpuscular HGB Conc 34.5 % (30-36); Mean Corpuscular Hemoglobin 31.7 PG (26-34); Monocytes Absolute Auto 700 /uL (0-900); Monocytes Percent Auto 11.4 % (3-14); Neutrophils Absolute Auto 5000 /uL (1500-7000); Neutrophils Percent Auto 81.1 % (50-75); Platelet Count 260 X10^3/uL (150-400); Red Blood Cell Count 4.84 X10^6/uL (4.0-5.2); Red Cell Distribution Width 13.4 % (11.6-14.8); White Blood Cell Count 6.2 X10^3/uL (4.5-11.0)
[2023-05-12 13:08] LABS: Alanine Aminotransferase 28 IU/L (<35); Albumin 4.1 g/dL (3.5-5.0); Albumin Globulin Ratio 1.1 (1.0-2.8); Alkaline Phosphatase 64 U/L (38-126); Aspartate Aminotransferase 40 IU/L (14-36); BUN Creatinine Ratio 12.2 (6-22); Bilirubin Total 0.7 mg/dL (0.2-1.3); Blood Urea Nitrogen 10 mg/dL (7-17); Calcium 8.9 mg/dL (8.4-10.2); Carbon Dioxide 21 mmol/L (22-32); Chloride 103 mmol/L (98-107); Estimated Glomerular Filt Rate > 60 mL/min (>60); Globulin 3.8 g/dL (1.7-4.1); Glucose 92 mg/dL (70-100); HEMOLYSIS < 15 (0-50); Lactate (Lactic Acid) 1.3 mmol/L (0.7-2.1); Potassium 3.9 mmol/L (3.4-5.1); Sodium 135 mmol/L (137-145); Total Protein 7.9 g/dL (6.3-8.2)
[2023-05-12 13:44] LABS: Bacteria Urine None Seen; Culture Indicated Urine Cult Not Indicated; RBC Urine 0-1/HPF (0-5/HPF); Squamous Epithelial Cell Urine 0-1 /HPF (0-5/HPF); WBC Urine None Seen (0-5/HPF)
[2023-05-12 13:51] LABS: Influenza A - CEPHEID Flu A POSITIVE (NEGATIVE); Influenza B - CEPHEID Flu B NEGATIVE (NEGATIVE); Respiratory Syncytial Virus Negative (Negative)
[2023-05-12 13:52] LABS: COVID-19 CEPHEID 4-PLEX PCR Negative (Negative)
--- NOTE | 2023-05-12 17:43 | ED_ITS ---
HPI - Fever General Chief Complaint: Fever Stated Complaint: fever of 102.8 meds not helping/congestion cough Time Seen by Provider: 05/12/23 12:51 Source: patient Mode of arrival: Ambulatory History of Present Illness HPI Narrative: 43-year-old female with a history of intermittent asthma presenting with 4 days of fever and a cough. Also reported shortness of breath. Has a history of asthma has been using her home bronchodilators with good results thus far. No prior hospitalizations for asthma has not been on steroids recently. Has ill contacts in the home. Did not have a flu vaccine this year. Nonsmoker. Has had some nausea but not vomiting not having abdominal pain no dysuria or diarrhea. Related Data Previous Rx's Medication Instructions Recorded beclomethasone dipropionate 80 1 inhalation inhalation BID #10.6 01/30/20 mcg/actuation HFA breath activated grams aerosol (Qvar RediHaler) lidocaine 4 % topical patch 1 patch topical DAILY PRN pain #10 03/06/20 ea fluconazole 150 mg tablet 150 mg PO DAILY #2 tabs 03/27/20 (Diflucan) hydrocodone 5 mg-acetaminophen 325 1 tab PO Q8H PRN pain #7 tabs 07/12/20 mg tablet (Merom) lidocaine 5 % topical patch 1 patch topical DAILY PRN pain #30 07/12/20 ea ondansetron 4 mg disintegrating 4 mg PO Q8H PRN nausea and 07/12/20 tablet vomiting #7 tabs ipratropium bromide 0.02 % 2.5 ml inhalation TID-QID PRN 06/15/21 solution for inhalation shortness of breath or wheezing #75 mL prednisone 10 mg tablet See Rx Instructions .Route 06/15/21 .COMPLEX #30 tabs potassium chloride 20 mEq 20 meq PO BID #14 tabs 12/14/21 tablet,extended release (K-Tab) lidocaine 5 % topical patch 1 patch topical DAILY PRN muscle 12/29/21 (Lidoderm) spasm #15 ea methocarbamol 750 mg tablet 750 mg PO Q8H PRN muscle spasms 12/29/21 #20 tabs albuterol sulfate 2.5 mg/3 mL 2.5 mg (3 mL) inhalation Q1H PRN 05/28/22 (0.083 %) solution for nebulization shortness of breath or wheezing #90 mL albuterol sulfate 90 mcg/actuation 2 inh inhalation Q4-6H PRN 05/28/22 breath activated powder inhaler shortness of breath #1 ea benzonatate 200 mg capsule 200 mg PO BID PRN cough #20 caps 05/28/22 cetirizine 10 mg tablet (Allergy 10 mg PO BEDTIME PRN congestion 05/28/22 Relief (cetirizine)) #30 tabs ipratropium 0.5 mg-albuterol 3 mg 3 ml inhalation TID PRN shortness 05/28/22 (2.5 mg base)/3 mL nebulization of breath or wheezing #90 mL soln magnesium oxide 500 mg capsule 500 mg PO BEDTIME #20 caps 05/28/22 diazepam 10 mg tablet 10 mg PO BEDTIME PRN 08/26/22 anxiety/palpitations #14 tabs naproxen 500 mg tablet 500 mg PO BID PRN pain #30 tabs 08/26/22 omeprazole 40 mg capsule,delayed 40 mg PO DAILY #14 caps 08/26/22 release ipratropium 0.5 mg-albuterol 3 mg 3 ml inhalation Q6H PRN shortness 10/28/22 (2.5 mg base)/3 mL nebulization of breath #90 mL soln ipratropium 0.5 mg-albuterol 3 mg 3 ml inhalation Q20M PRN wheezing 04/11/23 (2.5 mg base)/3 mL nebulization #90 mL soln prednisone 20 mg tablet 20 mg PO DAILY #6 tabs 04/11/23 amoxicillin 500 mg capsule 1,000 mg (2 x 500 mg) PO TID 5 05/12/23 days #30 caps prednisone 50 mg tablet 50 mg PO DAILY 5 days #5 tabs 05/12/23 Allergies Allergy/AdvReac Type Severity Reaction Status Date / Time doxycycline Allergy Severe Anaphylaxis Verified 05/12/23 12:48 levofloxacin [From Levaquin] Allergy Severe Anaphylaxis Verified 05/12/23 12:48 morphine Allergy Severe Anaphylaxis Verified 05/12/23 12:48 Patient History Medical History (Updated 05/12/23 @ 14:33 by Francesco Jung MD) Psoriasis Asthma Vertigo Social History Smoking Status: Former smoker Smoking Status: Former smoker alcohol intake frequency: holidays/special occasions only Substance Use Type: marijuana Exam Initial Vital Signs Initial Vital Signs: Vital Signs Pulse Rate 90 05/12/23 12:32 Blood Pressure 125/73 05/12/23 12:32 Pulse Oximetry 98 05/12/23 12:32 Const Other: Alert and nontoxic appearing. HENMT Mouth: moist mucous membranes Throat: posterior oropharynx normal Eyes Other: Conjunctiva normal pupils are equal and reactive Neck Other: Supple with mild adenopathy anteriorly Resp Other: Speaking in full sentences, equal breath sounds with good air movement she does have mild wheezing Cardio Other: Regular rhythm and rate no murmur rub or gallop GI Other: Normal bowel sounds soft and nontender Skin Other: Warm and dry without rash Neuro Other: Alert and oriented moving all 4 extremities spontaneously and equally neck is supple Scores CURB-65 Score 0-1 Outpatient care, Score 2 Inpt vs. Obs, Score 3 or over Inpt admit with ICU for score of 4-5 Citation:: 0 Course Orders Ordered: ED Orders 05/12/23 12:37 CBC Auto Diff [Complete Blood Count AUTO DIFF] Stat CMP [Comprehensive Metabolic Panel] Stat Lactate (Lactic Acid) Stat 05/12/23 12:53 CXR [XR chest 1V] Stat 05/12/23 13:05 Covid-19 + FLU A/B + RSV - PCR Stat 05/12/23 13:34 Urine Microscopic Stat Reevaluation(s) Reevaluation #1: Patient was improved after IV fluid Vital Signs Vital signs: Vital Signs - 8 hr 05/12/23 12:32 05/12/23 12:32 05/12/23 12:41 Temperature 98.4 F Pulse Rate 90 83 Respiratory Rate 16 Blood Pressure 125/73 125/73 Pulse Oximetry 98 96 Oxygen Delivery Method Room Air 05/12/23 13:00 05/12/23 13:31 05/12/23 13:32 Temperature Pulse Rate 89 98 H Respiratory Rate 14 Blood Pressure 117/71 Pulse Oximetry 95 Oxygen Delivery Method 05/12/23 13:32 05/12/23 14:00 05/12/23 14:00 Temperature Pulse Rate 84 87 Respiratory Rate 16 18 Blood Pressure 111/63 Pulse Oximetry 95 95 Oxygen Delivery Method 05/12/23 14:30 05/12/23 14:30 Temperature Pulse Rate 86 Respiratory Rate 16 Blood Pressure 97/66 Pulse Oximetry 96 Oxygen Delivery Method MDM - Fever Lab Data Lab results narrative: CBC with diff and CMP are unremarkable. Urinalysis does not show evidence of infection. She is positive for influenza A lactic acid is normal 05/12/23 12:37 05/12/23 12:37 Labs: Lab Results 05/12/23 05/12/23 05/12/23 Range/Units 12:37 13:05 13:34 WBC 6.2 (4.5-11.0) X10^3/uL RBC 4.84 (4.0-5.2) X10^6/uL Hgb 15.4 (12.0-16.0) g/dL Hct 44.6 (36-46) % MCV 92.0 (80-100) fL MCH 31.7 (26-34) PG MCHC 34.5 (30-36) % RDW 13.4 (11.6-14.8) % Plt Count 260 (150-400) X10^3/uL Neut % (Auto) 81.1 H (50-75) % Lymph % (Auto) 6.5 L (25-40) % [place] % (Auto) 11.4 (3-14) % Eos % (Auto) 0.5 L (2-4) % Baso % (Auto) 0.5 (0-2) % Neut # (Auto) 5000 (5107-2262) /uL Lymph # (Auto) 400 L (3691-1228) /uL [place] # (Auto) 700 (0-900) /uL Eos # (Auto) 0 (0-450) /uL Baso # (Auto) 0 (0-100) /uL Sodium 135 L (137-145) mmol/L Potassium 3.9 (3.4-5.1) mmol/L Chloride 103 (98-107) mmol/L Carbon Dioxide 21 L (22-32) mmol/L BUN 10 (7-17) mg/dL Creatinine 0.82 (0.52-1.04) mg/dL Estimated GFR > 60 (>60) mL/min BUN/Creatinine Ratio 12.2 (6-22) Glucose 92 (70-100) mg/dL Lactate 1.3 (0.7-2.1) mmol/L Calcium 8.9 (8.4-10.2) mg/dL Total Bilirubin 0.7 (0.2-1.3) mg/dL AST 40 H (14-36) IU/L ALT 28 (<35) IU/L Alkaline Phosphatase 64 (38-126) U/L Total Protein 7.9 (6.3-8.2) g/dL Albumin 4.1 (3.5-5.0) g/dL Globulin 3.8 (1.7-4.1) g/dL Albumin/Globulin Ratio 1.1 (1.0-2.8) Urine RBC 0-1/hpf (0-5/HPF) Urine WBC None seen (0-5/HPF) Ur Squamous Epith Cells 0-1 /hpf (0-5/HPF) Urine Bacteria None seen (None) Ur Culture Indicated? Cult not indicated SARS-CoV-2 (PCR) Negative (Negative) Influenza A (RT-PCR) Flu a positive H (NEGATIVE) Influenza B (RT-PCR) Flu b negative (NEGATIVE) RSV (PCR) Negative (Negative) Point of Care Testing Test Results Negative Urine Dip Bedside Urine Glucose Negative Bedside Urine Bilirubin - Negative Bedside Urine Ketone +++ 80 Urine Specific Wall 1.010 Bedside Urine Occult Blood ++ Bedside Urine pH 6.0 Bedside Urine Protein - Negative Bedside Urine Urobilinogen - Negative Bedside Urine Nitrite - Negative Bedside Urine Leukocytes - Negative Esterase Imaging Data Chest x-ray: My Impression: On my initial evaluation, chest x-ray shows area of linear atelectasis or infiltrate on the left lung Radiologist's Impression: IMPRESSION: New left mid lung patchy consolidation and adjacent linear atelectasis suggestive of infection. Dictated by: Mayco Floyd M.D. on 05/12/2023 at 13:32 Approved by: Mayco Floyd M.D. on 05/12/2023 at 13:33 [facility] Narrative Medical decision making narrative: 43-year-old female with a history of asthma presenting with an acute febrile respiratory infection. She is positive for influenza A she has not hypoxic she has not in respiratory distress. Based on her chest x-ray there is concern for a possible infiltrate I ear secondary pneumonia. I started her on amoxicillin for this. Also provided a prescription for prednisone should she need a steroid for her asthma which at present seems to be well controlled and the patient is well familiar with the care of. I do not think that she is septic today. Discharge Plan Departure Patient Disposition: Home Clinical Impression: Influenza Pneumonia Qualifiers: Pneumonia type: due to unspecified organism Laterality: left Lung location: u pper lobe of lung Qualified Code(s): J18.9 - Pneumonia, unspecified organism Community acquired pneumonia Qualifiers: Laterality: left Lung location: upper lobe of lung Qualified Code(s): J18.9 - Pneumonia, unspecified organism Instructions: DI for Fever (Symptom) -- Adult Activity Restrictions/Additional Instructions: Emergency department workup today is reassuring, you do have influenza. Additionally it does look like he may be developing a pneumonia. For this reason I provided a prescription for an antibiotic that I want you to start. Additionally, given your history of asthma and your moderate wheezing at present I have provided a prescription for prednisone which you can use if you wheezing is getting worse. Continue with Tylenol and/or ibuprofen as needed for fevers and get adequate fluids. . If you are having increasing shortness of breath uncontrolled vomiting or other acute symptoms recheck in the emergency department. Follow up soon with your primary care provider. Prescriptions: New amoxicillin 500 mg capsule 1,000 mg PO TID 5 Days Qty: 30 0RF prednisone 50 mg tablet 50 mg PO DAILY 5 Days Qty: 5 0RF No Action Qvar RediHaler 80 mcg/actuation HFA aerosol breath activated 1 inhalation INHALATION BID Qty: 10.6 0RF fluconazole [Diflucan] 150 mg tablet 150 mg PO DAILY Qty: 2 0RF hydrocodone-acetaminophen [Merom] 5-325 mg tablet 1 tab PO Q8H PRN (Reason: pain) Qty: 7 0RF ondansetron 4 mg tablet,disintegrating 4 mg PO Q8H PRN (Reason: nausea and vomiting) Qty: 7 0RF lidocaine 5 % adhesive patch,medicated 1 patch topical DAILY PRN (Reason: pain) Qty: 30 0RF Rx Instructions: leave on most painful area for up to 12 hrs prednisone 10 mg tablet See Rx Instructions .ROUTE .COMPLEX Qty: 30 0RF Rx Instructions: Day 1,2,3: 40mg PO Daily Day 4,5,6: 30mg PO Daily Day 7,8,9: 20mg PO Daily Day 10,11,12: 10mg PO Daily #30 ipratropium bromide 0.02 % solution 2.5 ml inhalation TID-QID PRN (Reason: shortness of breath or wheezing) Qty: 75 0RF lidocaine [Lidoderm] 5 % adhesive patch,medicated 1 patch topical DAILY PRN (Reason: muscle spasm) Qty: 15 0RF Rx Instructions: leave on most painful area for up to 12 hrs methocarbamol 750 mg tablet 750 mg PO Q8H PRN (Reason: muscle spasms) Qty: 20 0RF ipratropium-albuterol 0.5 mg-3 mg(2.5 mg base)/3 mL solution for nebulization 3 ml inhalation Q6H PRN (Reason: shortness of breath) Qty: 90 0RF prednisone 20 mg tablet 20 mg PO DAILY Qty: 6 0RF ipratropium-albuterol 0.5 mg-3 mg(2.5 mg base)/3 mL solution for nebulization 3 ml inhalation Q20M PRN (Reason: wheezing) Qty: 90 2RF Rx Instructions: for 3 doses lidocaine 4 % adhesive patch,medicated 1 patch TOP DAILY PRN (Reason: pain) Qty: 10 0RF Rx Instructions: may leave on for up to 12 hrs potassium chloride [K-Tab] 20 mEq tablet extended release 20 meq PO BID Qty: 14 0RF ipratropium-albuterol 0.5 mg-3 mg(2.5 mg base)/3 mL solution for nebulization 3 ml inhalation TID PRN (Reason: shortness of breath or wheezing) Qty: 90 0RF albuterol sulfate 2.5 mg /3 mL (0.083 %) solution for nebulization 2.5 mg inhalation Q1H PRN (Reason: shortness of breath or wheezing) Qty: 90 2RF Rx Instructions: until breathing returns to target peak flow/parameters cetirizine [Allergy Relief (cetirizine)] 10 mg tablet 10 mg PO BEDTIME PRN (Reason: congestion) Qty: 30 0RF albuterol sulfate 90 mcg/actuation aerosol powdr breath activated 2 inh inhalation Q4-6H PRN (Reason: shortness of breath) Qty: 1 3RF benzonatate 200 mg capsule 200 mg PO BID PRN (Reason: cough) Qty: 20 0RF magnesium oxide 500 mg capsule 500 mg PO BEDTIME Qty: 20 0RF naproxen 500 mg tablet 500 mg PO BID PRN (Reason: pain) Qty: 30 0RF omeprazole 40 mg capsule,delayed release(DR/EC) 40 mg PO DAILY Qty: 14 0RF diazepam 10 mg tablet 10 mg PO BEDTIME PRN (Reason: anxiety/palpitations) Qty: 14 0RF Referrals: Miscellaneous,Doctor, MD [Primary Care Provider] - Stand Alone Forms: Patient Portal/API, Work Release Note
== END 2023-05-12 14:42 | disposition home or self-care (01) ==
PROVIDERS: Emergency Provider Emergency Medicine
DX: J18.9 Pneumonia, unspecified organism (principal); J10.1 Influenza due to other identified influenza virus with other respiratory manifestations; Z20.822 Contact with and (suspected) exposure to COVID-19
CPT/HCPCS: 0241U; 36415; 71045; 80053; 81003; 81015; 81025; 83605; 85025; 99284

== ENCOUNTER 2023-12-30 17:24 | Emergency (ER) | payer OTHER, SELFPAY ==
[2023-12-30] VITALS (10 sets, daily range): BP systolic 98–119; BP diastolic 60–78; PULSE 81–99; RESP 14–30; TEMP 37.1; O2SAT 94–98; BMI 32.0
[2023-12-30] MEDS: ALBUTEROL/IPRATROPIUM 3 ML AMPUL INH (17:53)
--- NOTE | 2023-12-30 18:04 | ED_ITS ---
HPI - Asthma General Chief Complaint: Asthma Stated Complaint: Asthma Exasperation Time Seen by Provider: 12/30/23 18:00 Source: patient Mode of arrival: Ambulatory History of Present Illness HPI Narrative: 43-year-old woman presents complaining of worsening as this symptoms over the last week, she is used for DuoNebs and and a albuterol x2 today. Audible wheezing noted in triage. She is minimal additional medical issues aside from her asthma. She notes that when she is not sick she typically does not need inhalers at all. When she does get sick she tends to get ill quite quickly. She has been having symptoms for a week with increasing cough, she feels like there is some production to it but she is unable to get that out. Overall chest tightness and has noted low-grade headaches body aches and diarrhea. She states she has been able to eat and drink in the diary is essentially every time she eats and is quite watery. She has not complaining of abdominal pain. Related Data Previous Rx's Medication Instructions Recorded beclomethasone dipropionate 80 1 inhalation inhalation BID #10.6 01/30/20 mcg/actuation HFA breath activated grams aerosol (Qvar RediHaler) lidocaine 4 % topical patch 1 patch topical DAILY PRN pain #10 03/06/20 ea fluconazole 150 mg tablet 150 mg PO DAILY #2 tabs 03/27/20 (Diflucan) hydrocodone 5 mg-acetaminophen 325 1 tab PO Q8H PRN pain #7 tabs 07/12/20 mg tablet (Noble) lidocaine 5 % topical patch 1 patch topical DAILY PRN pain #30 07/12/20 ea ondansetron 4 mg disintegrating 4 mg PO Q8H PRN nausea and 07/12/20 tablet vomiting #7 tabs ipratropium bromide 0.02 % 2.5 ml inhalation TID-QID PRN 06/15/21 solution for inhalation shortness of breath or wheezing #75 mL prednisone 10 mg tablet See Rx Instructions .Route 06/15/21 .COMPLEX #30 tabs potassium chloride 20 mEq 20 meq PO BID #14 tabs 12/14/21 tablet,extended release (K-Tab) lidocaine 5 % topical patch 1 patch topical DAILY PRN muscle 12/29/21 (Lidoderm) spasm #15 ea methocarbamol 750 mg tablet 750 mg PO Q8H PRN muscle spasms 12/29/21 #20 tabs albuterol sulfate 2.5 mg/3 mL 2.5 mg (3 mL) inhalation Q1H PRN 05/28/22 (0.083 %) solution for nebulization shortness of breath or wheezing #90 mL albuterol sulfate 90 mcg/actuation 2 inh inhalation Q4-6H PRN 05/28/22 breath activated powder inhaler shortness of breath #1 ea benzonatate 200 mg capsule 200 mg PO BID PRN cough #20 caps 05/28/22 cetirizine 10 mg tablet (Allergy 10 mg PO BEDTIME PRN congestion 05/28/22 Relief (cetirizine)) #30 tabs ipratropium 0.5 mg-albuterol 3 mg 3 ml inhalation TID PRN shortness 05/28/22 (2.5 mg base)/3 mL nebulization of breath or wheezing #90 mL soln magnesium oxide 500 mg capsule 500 mg PO BEDTIME #20 caps 05/28/22 diazepam 10 mg tablet 10 mg PO BEDTIME PRN 08/26/22 anxiety/palpitations #14 tabs naproxen 500 mg tablet 500 mg PO BID PRN pain #30 tabs 08/26/22 omeprazole 40 mg capsule,delayed 40 mg PO DAILY #14 caps 08/26/22 release ipratropium 0.5 mg-albuterol 3 mg 3 ml inhalation Q6H PRN shortness 10/28/22 (2.5 mg base)/3 mL nebulization of breath #90 mL soln ipratropium 0.5 mg-albuterol 3 mg 3 ml inhalation Q20M PRN wheezing 04/11/23 (2.5 mg base)/3 mL nebulization #90 mL soln prednisone 20 mg tablet 20 mg PO DAILY #6 tabs 04/11/23 prednisone 10 mg tablet 10 mg PO DIRECTED #11 tabs 12/30/23 Allergies Allergy/AdvReac Type Severity Reaction Status Date / Time doxycycline Allergy Severe Anaphylaxis Verified 12/30/23 17:31 levofloxacin [From Levaquin] Allergy Severe Anaphylaxis Verified 12/30/23 17:31 morphine Allergy Severe Anaphylaxis Verified 12/30/23 17:31 Review of Systems Review of Systems Narrative: Pertinent positive and negative findings as per HPI Patient History Medical History (Updated 08/16/24 @ 20:01 by Kami Courtney MD) Psoriasis Asthma Vertigo Social History Smoking Status: Former smoker Smoking Status: Former smoker alcohol intake frequency: holidays/special occasions only Substance Use Type: marijuana Exam Initial Vital Signs Initial Vital Signs: Vital Signs Temperature 98.8 F 12/30/23 17:28 Pulse Rate 82 12/30/23 17:28 Respiratory Rate 18 12/30/23 17:28 Blood Pressure 109/60 12/30/23 17:28 Pulse Oximetry 96 12/30/23 17:28 Oxygen Delivery Method Room Air 12/30/23 17:28 General: Healthy appearing, audible wheeze currently using an albuterol nebulizer. Able to give a complete and coherent history. Well-nourished well- developed HEENT: Moist mucous membranes, normal sclera with reactive pupils, no cervical adenopathy Respiratory: Lungs with diffuse wheeze in all sharma, no rhonchi no crackles. No accessory muscle use she is able to speak in complete sentences Cardiac: Regular rate and rhythm no murmurs no bruits Abdomen: Soft, nontender, good bowel tones, no flank pain Skin: Warm and dry, no rashes Neurologic: Grossly neurologically intact with no obvious asymmetries or abnormalities Extremities: No trauma, well perfused Psych: Cooperative, appropriate insight and affect Course Orders Ordered: ED Orders 12/30/23 17:50 Complete Blood Count AUTO DIFF Stat Comprehensive Metabolic Panel Stat 12/30/23 18:17 Respiratory Panel (Film Array) Stat 12/30/23 18:19 XR chest 1V Stat 12/30/23 18:20 GI Panel (Film Array) Stat Albuterol (Albuterol 2.5 Mg/3 Ml Neb (Adult)) 2.5 mg INH [id number] PRN PRN Reason: Shortness Of Breath Last Admin: 12/30/23 18:09 Dose: 2.5 mg Documented By: SAT Discontinued Medications Albuterol/Ipratropium (Albuterol/Ipratropium 3 Ml Ampul) 3 ml INH NOW ONE Stop: 12/30/23 17:43 Last Admin: 12/30/23 17:53 Dose: 3 ml Documented By: SAT Sodium Chloride (Normal Saline 0.9%) 1,000 mls @ 1,000 mls/hr IV BOLUS ONE Stop: 12/30/23 19:16 Last Infusion: 12/30/23 19:17 Dose: Infused Documented By: Admin: 12/30/23 18:35 Dose: 1,000 mls/hr Documented By: BLOSSOM Magnesium Sulfate (Magnesium Sulfate) 2 gm in 50 mls @ 150 mls/hr IV NOW ONE Stop: 12/30/23 18:36 Last Infusion: 12/30/23 18:54 Dose: Infused Documented By: ROYCE Co-signed By: DAVID Admin: 12/30/23 18:31 Dose: 150 mls/hr Documented By: BLOSSOM Co-signed By: BASIA Methylprednisolone (Methylprednisolone 125 Mg/2 Ml Vial) 125 mg IV NOW ONE Stop: 12/30/23 18:18 Last Admin: 12/30/23 18:27 Dose: 125 mg Documented By: BLOSSOM Vital Signs Vital signs: Vital Signs - 8 hr 12/30/23 17:28 12/30/23 17:35 12/30/23 17:36 Temperature 98.8 F Pulse Rate 82 87 90 Respiratory Rate 18 Blood Pressure 109/60 Pulse Oximetry 96 96 95 Oxygen Delivery Method Room Air 12/30/23 17:36 12/30/23 17:57 12/30/23 18:00 Temperature Pulse Rate 81 87 Respiratory Rate 20 24 Blood Pressure 119/74 Pulse Oximetry 95 95 Oxygen Delivery Method Room Air 12/30/23 18:01 12/30/23 18:01 Temperature Pulse Rate 82 Respiratory Rate 20 Blood Pressure 105/64 Pulse Oximetry 94 Oxygen Delivery Method MDM - Asthma Lab Data 12/30/23 17:50 12/30/23 17:50 Labs: Lab Results 12/30/23 Range/Units 17:50 WBC 12.3 H (4.5-11.0) X10^3/uL RBC 4.62 (4.0-5.2) X10^6/uL Hgb 14.5 (12.0-16.0) g/dL Hct 42.5 (36-46) % MCV 92.1 (80-100) fL MCH 31.4 (26-34) PG MCHC 34.1 (30-36) % RDW 13.0 (11.6-14.8) % Plt Count 358 (150-400) X10^3/uL Neut % (Auto) 64.8 (50-75) % Lymph % (Auto) 17.8 L (25-40) % Brooks % (Auto) 6.7 (3-14) % Eos % (Auto) 9.4 H (2-4) % Baso % (Auto) 1.3 (0-2) % Neut # (Auto) 8000 H (1108-0795) /uL Lymph # (Auto) 2200 (5498-6999) /uL Brooks # (Auto) 800 (0-900) /uL Eos # (Auto) 1200 H (0-450) /uL Baso # (Auto) 200 H (0-100) /uL Sodium 137 (137-145) mmol/L Potassium 3.4 (3.4-5.1) mmol/L Chloride 108 H (98-107) mmol/L Carbon Dioxide 22 (22-32) mmol/L BUN 7 (7-17) mg/dL Creatinine 0.80 (0.52-1.04) mg/dL Estimated GFR > 60 (>60) mL/min BUN/Creatinine Ratio 8.8 (6-22) Glucose 94 (70-100) mg/dL Calcium 8.9 (8.4-10.2) mg/dL Total Bilirubin 0.5 (0.2-1.3) mg/dL AST 39 H (14-36) IU/L ALT 28 (<35) IU/L Alkaline Phosphatase 77 (38-126) U/L Total Protein 7.2 (6.3-8.2) g/dL Albumin 4.1 (3.5-5.0) g/dL Globulin 3.1 (1.7-4.1) g/dL Albumin/Globulin Ratio 1.3 (1.0-2.8) MDM Narrative Medical decision making narrative: CC: Increasing wheeze for a week Complicating co-morbidities: History of asthma Data collected from: patient, partner Medical records reviewed: ER notes from April with a community-acquired pneumonia, asthma in March and asthma exacerbation in October are all reviewed Differential considered: Viral syndrome, appear asthma exacerbation, pneumonia, with normal oxygenation and heart rate pulmonary embolism is less likely, pneumothorax Exam documented above, pertinent findings include: Diffuse wheeze in all lung sharma without rhonchi or accessory muscle use. She is moving air through all lung sharma and able to speak in complete sentences. Belly is benign Lab Test results independently reviewed as above. Pertinent findings: CBC shows mild leukocytosis without left shift Chemistries are reassuring Imaging studies independently reviewed: Chest x-ray does not show underlying abnormalities Treatments: DuoNeb, Solu-Medrol, magnesium, a L of fluid Re-evaluations: Patient is feeling significantly improved, wheezes diminished, she continues to have good air movement throughout no acute respiratory distress Discussion: 43-year-old woman likely with a low-grade viruses set up an acute asthma exacerbation. We discussed waiting for a respiratory panel and with shared decision-making, recognizing that it was not going to change any treatment recommendations, opted to not proceed with this. Will have her complete a prednisone taper, continue to use her DuoNeb, albuterol and inhaled steroid, beclomethasone, as previously prescribed. Reviewed anticipated recovery and at this point she has not requiring additional imaging, blood work or hospitalization. She understands need to return if she worsens. Questions are answered and she is safe for discharge Discharge Plan Departure Patient Disposition: Home Clinical Impression: Upper respiratory infection, viral Acute asthma exacerbation Qualifiers: Asthma severity: moderate Asthma persistence: persistent Qualified Code(s): J 45.41 - Moderate persistent asthma with (acute) exacerbation Instructions: DI for Asthma -- Adult, DI for Viral Upper Respiratory Infection -- Adult Activity Restrictions/Additional Instructions: Thank you for coming in today I suspect that you are getting over a viral respiratory infection and that has caused an acute asthma exacerbation. Your workup today was actually quite reassuring. You received steroids, fluids, magnesium and a DuoNeb in the emergency department with significant improvement of symptoms. There was no indication of severe respiratory distress, heart failure, bacterial pneumonia or indication for antibiotics I am going to have you complete a prednisone taper. 20 mg for 3 days, 10 mg for 3 days, 5 mg for 4 days. The prescription was electronically transmitted to [facility] in [place] Please continue to use your inhalers and nebulizers as prescribed If you feel that you are getting worse please return to the ER Prescriptions: New prednisone 10 mg tablet 10 mg PO DIRECTED Qty: 11 0RF Rx Instructions: 20 mg for 3 days, 10 mg for 3 days, 5 mg for 4 days No Action Qvar RediHaler 80 mcg/actuation HFA aerosol breath activated 1 inhalation INHALATION BID Qty: 10.6 0RF fluconazole [Diflucan] 150 mg tablet 150 mg PO DAILY Qty: 2 0RF hydrocodone-acetaminophen [Noble] 5-325 mg tablet 1 tab PO Q8H PRN (Reason: pain) Qty: 7 0RF ondansetron 4 mg tablet,disintegrating 4 mg PO Q8H PRN (Reason: nausea and vomiting) Qty: 7 0RF lidocaine 5 % adhesive patch,medicated 1 patch topical DAILY PRN (Reason: pain) Qty: 30 0RF Rx Instructions: leave on most painful area for up to 12 hrs prednisone 10 mg tablet See Rx Instructions .ROUTE .COMPLEX Qty: 30 0RF Rx Instructions: Day 1,2,3: 40mg PO Daily Day 4,5,6: 30mg PO Daily Day 7,8,9: 20mg PO Daily Day 10,11,12: 10mg PO Daily #30 ipratropium bromide 0.02 % solution 2.5 ml inhalation TID-QID PRN (Reason: shortness of breath or wheezing) Qty: 75 0RF lidocaine [Lidoderm] 5 % adhesive patch,medicated 1 patch topical DAILY PRN (Reason: muscle spasm) Qty: 15 0RF Rx Instructions: leave on most painful area for up to 12 hrs methocarbamol 750 mg tablet 750 mg PO Q8H PRN (Reason: muscle spasms) Qty: 20 0RF ipratropium-albuterol 0.5 mg-3 mg(2.5 mg base)/3 mL solution for nebulization 3 ml inhalation Q6H PRN (Reason: shortness of breath) Qty: 90 0RF prednisone 20 mg tablet 20 mg PO DAILY Qty: 6 0RF ipratropium-albuterol 0.5 mg-3 mg(2.5 mg base)/3 mL solution for nebulization 3 ml inhalation Q20M PRN (Reason: wheezing) Qty: 90 2RF Rx Instructions: for 3 doses lidocaine 4 % adhesive patch,medicated 1 patch TOP DAILY PRN (Reason: pain) Qty: 10 0RF Rx Instructions: may leave on for up to 12 hrs potassium chloride [K-Tab] 20 mEq tablet extended release 20 meq PO BID Qty: 14 0RF ipratropium-albuterol 0.5 mg-3 mg(2.5 mg base)/3 mL solution for nebulization 3 ml inhalation TID PRN (Reason: shortness of breath or wheezing) Qty: 90 0RF albuterol sulfate 2.5 mg /3 mL (0.083 %) solution for nebulization 2.5 mg inhalation Q1H PRN (Reason: shortness of breath or wheezing) Qty: 90 2RF Rx Instructions: until breathing returns to target peak flow/parameters cetirizine [Allergy Relief (cetirizine)] 10 mg tablet 10 mg PO BEDTIME PRN (Reason: congestion) Qty: 30 0RF albuterol sulfate 90 mcg/actuation aerosol powdr breath activated 2 inh inhalation Q4-6H PRN (Reason: shortness of breath) Qty: 1 3RF benzonatate 200 mg capsule 200 mg PO BID PRN (Reason: cough) Qty: 20 0RF magnesium oxide 500 mg capsule 500 mg PO BEDTIME Qty: 20 0RF naproxen 500 mg tablet 500 mg PO BID PRN (Reason: pain) Qty: 30 0RF omeprazole 40 mg capsule,delayed release(DR/EC) 40 mg PO DAILY Qty: 14 0RF diazepam 10 mg tablet 10 mg PO BEDTIME PRN (Reason: anxiety/palpitations) Qty: 14 0RF Referrals: Miscellaneous,Doctor, MD [Primary Care Provider] - Stand Alone Forms: Patient Portal/API
[2023-12-30] MEDS: ALBUTEROL 2.5 MG/3 ML NEB (ADULT) INH (18:09)
--- NOTE | 2023-12-30 18:19 | DI.RAD.S_ITS ---
PROCEDURE: XR CHEST 1V INDICATIONS: asthma exacerbation TECHNIQUE: One view of the chest was acquired. COMPARISON: None. FINDINGS: Surgical changes and devices: None. Lungs and pleura: Lungs are clear. No pleural effusions or pneumothorax. Mediastinum: Mediastinal contours appear normal. Heart size is normal. Bones and chest wall: No suspicious bony lesions. Overlying soft tissues appear unremarkable. IMPRESSION: No acute cardiopulmonary abnormality is seen. Dictated by: Baldemar Gunter M.D. on 12/30/2023 at 19:17 Approved by: Baldemar Gunter M.D. on 12/30/2023 at 19:17
[2023-12-30 18:25] LABS: Add Manual Diff / Slide Review NO; Basophils Absolute Auto 200 /uL (0-100); Basophils Percent Auto 1.3 % (0-2); Eosinophils Absolute Auto 1200 /uL (0-450); Eosinophils Percent Auto 9.4 % (2-4); Hematocrit 42.5 % (36-46); Hemoglobin 14.5 g/dL (12.0-16.0); Lymphocytes Absolute Auto 2200 /uL (1100-4500); Lymphocytes Percent Auto 17.8 % (25-40); Mean Corpuscular HGB Conc 34.1 % (30-36); Mean Corpuscular Hemoglobin 31.4 PG (26-34); Mean Corpuscular Volume 92.1 fL (80-100); Monocytes Absolute Auto 800 /uL (0-900); Monocytes Percent Auto 6.7 % (3-14); Neutrophils Absolute Auto 8000 /uL (1500-7000); Neutrophils Percent Auto 64.8 % (50-75); Platelet Count 358 X10^3/uL (150-400); Red Blood Cell Count 4.62 X10^6/uL (4.0-5.2); White Blood Cell Count 12.3 X10^3/uL (4.5-11.0)
[2023-12-30] MEDS: methylPREDNISolone 125 MG/2 ML VIAL IV (18:27)
[2023-12-30] MEDS: MAGNESIUM SULFATE 2 GM/50 ML PIGGYBACK IV (18:31)
[2023-12-30] MEDS: SODIUM CHLORIDE 0.9% 1,000 ML 1000 ML IV (18:35)
[2023-12-30 18:38] LABS: Alanine Aminotransferase 28 IU/L (<35); Albumin 4.1 g/dL (3.5-5.0); Albumin Globulin Ratio 1.3 (1.0-2.8); Alkaline Phosphatase 77 U/L (38-126); Aspartate Aminotransferase 39 IU/L (14-36); BUN Creatinine Ratio 8.8 (6-22); Bilirubin Total 0.5 mg/dL (0.2-1.3); Blood Urea Nitrogen 7 mg/dL (7-17); Calcium 8.9 mg/dL (8.4-10.2); Carbon Dioxide 22 mmol/L (22-32); Chloride 108 mmol/L (98-107); Estimated Glomerular Filt Rate > 60 mL/min (>60); Globulin 3.1 g/dL (1.7-4.1); Glucose 94 mg/dL (70-100); HEMOLYSIS < 15 (0-50); Potassium 3.4 mmol/L (3.4-5.1); Sodium 137 mmol/L (137-145); Total Protein 7.2 g/dL (6.3-8.2)
== END 2023-12-30 20:14 | disposition home or self-care (01) ==
PROVIDERS: Emergency Provider Emergency Medicine
DX: J45.41 Moderate persistent asthma with (acute) exacerbation (principal); J06.9 Acute upper respiratory infection, unspecified
CPT/HCPCS: 71045; 80053; 85025; 94640; 96361; 96374; 99284; J2919; J3475; J7613

== ENCOUNTER 2024-03-26 13:43 | Emergency (ER) | payer OTHER, SELFPAY ==
[2024-03-26] VITALS (12 sets, daily range): BP systolic 103–122; BP diastolic 55–71; PULSE 78–109; RESP 20–28; TEMP 36.3; O2SAT 94–100; BMI 31.4
--- NOTE | 2024-03-26 13:51 | ED_ITS ---
HPI - Asthma General Chief Complaint: Asthma Stated Complaint: Having a hard time breathing Time Seen by Provider: 03/26/24 13:51 Source: patient Mode of arrival: Ambulatory History of Present Illness HPI Narrative: History of asthma with mild upper respiratory symptoms for the last 2 weeks, getting worse over the last 4 days busy life prevented her from coming into seek additional care, she has been using her DuoNeb at home and today found that it was no longer effective. She comes in complaining that she has having a difficult time breathing. She is tachypneic but not hypoxic, no fevers. Related Data Previous Rx's Medication Instructions Recorded beclomethasone dipropionate 80 1 inhalation inhalation BID #10.6 01/30/20 mcg/actuation HFA breath activated grams aerosol (Qvar RediHaler) lidocaine 4 % topical patch 1 patch topical DAILY PRN pain #10 03/06/20 ea fluconazole 150 mg tablet 150 mg PO DAILY #2 tabs 03/27/20 (Diflucan) hydrocodone 5 mg-acetaminophen 325 1 tab PO Q8H PRN pain #7 tabs 07/12/20 mg tablet ([place]) lidocaine 5 % topical patch 1 patch topical DAILY PRN pain #30 07/12/20 ea ondansetron 4 mg disintegrating 4 mg PO Q8H PRN nausea and 07/12/20 tablet vomiting #7 tabs ipratropium bromide 0.02 % 2.5 ml inhalation TID-QID PRN 06/15/21 solution for inhalation shortness of breath or wheezing #75 mL prednisone 10 mg tablet See Rx Instructions .Route 06/15/21 .COMPLEX #30 tabs potassium chloride 20 mEq 20 meq PO BID #14 tabs 12/14/21 tablet,extended release (K-Tab) lidocaine 5 % topical patch 1 patch topical DAILY PRN muscle 12/29/21 (Lidoderm) spasm #15 ea methocarbamol 750 mg tablet 750 mg PO Q8H PRN muscle spasms 12/29/21 #20 tabs albuterol sulfate 2.5 mg/3 mL 2.5 mg (3 mL) inhalation Q1H PRN 05/28/22 (0.083 %) solution for nebulization shortness of breath or wheezing #90 mL albuterol sulfate 90 mcg/actuation 2 inh inhalation Q4-6H PRN 05/28/22 breath activated powder inhaler shortness of breath #1 ea benzonatate 200 mg capsule 200 mg PO BID PRN cough #20 caps 05/28/22 cetirizine 10 mg tablet (Allergy 10 mg PO BEDTIME PRN congestion 05/28/22 Relief (cetirizine)) #30 tabs ipratropium 0.5 mg-albuterol 3 mg 3 ml inhalation TID PRN shortness 05/28/22 (2.5 mg base)/3 mL nebulization of breath or wheezing #90 mL soln magnesium oxide 500 mg capsule 500 mg PO BEDTIME #20 caps 05/28/22 diazepam 10 mg tablet 10 mg PO BEDTIME PRN 08/26/22 anxiety/palpitations #14 tabs naproxen 500 mg tablet 500 mg PO BID PRN pain #30 tabs 08/26/22 omeprazole 40 mg capsule,delayed 40 mg PO DAILY #14 caps 08/26/22 release ipratropium 0.5 mg-albuterol 3 mg 3 ml inhalation Q6H PRN shortness 10/28/22 (2.5 mg base)/3 mL nebulization of breath #90 mL soln ipratropium 0.5 mg-albuterol 3 mg 3 ml inhalation Q20M PRN wheezing 04/11/23 (2.5 mg base)/3 mL nebulization #90 mL soln prednisone 20 mg tablet 20 mg PO DAILY #6 tabs 04/11/23 prednisone 10 mg tablet 10 mg PO DIRECTED #11 tabs 12/30/23 amoxicillin 500 mg capsule 500 mg PO TID #21 caps 03/26/24 azithromycin 250 mg tablet 250 mg PO DAILY 6 days #6 tabs 03/26/24 oxycodone-acetaminophen 5 mg-325 0.5 - 1 tab PO Q6H PRN cough #10 03/26/24 mg tablet tabs prednisone 20 mg tablet 20 mg PO DAILY #6 tabs 03/26/24 Allergies Allergy/AdvReac Type Severity Reaction Status Date / Time doxycycline Allergy Severe Anaphylaxis Verified 03/26/24 13:48 levofloxacin [From Levaquin] Allergy Severe Anaphylaxis Verified 03/26/24 13:48 morphine Allergy Severe Anaphylaxis Verified 03/26/24 13:48 aspirin Allergy Verified 03/26/24 13:48 Review of Systems Review of Systems Narrative: Pertinent positive and negative findings as per HPI Patient History Medical History (Updated 03/26/24 @ 18:06 by Kami Courtney MD) Psoriasis Asthma Vertigo Social History Smoking Status: Former smoker Smoking Status: Former smoker alcohol intake frequency: holidays/special occasions only Substance Use Type: marijuana Exam Initial Vital Signs Initial Vital Signs: Vital Signs Temperature 97.4 F L 03/26/24 13:44 Pulse Rate 87 03/26/24 13:44 Respiratory Rate 28 H 03/26/24 13:44 Blood Pressure 122/59 L 03/26/24 13:44 Pulse Oximetry 97 03/26/24 13:44 Oxygen Delivery Method Room Air 03/26/24 13:44 General: Healthy appearing, in no acute distress. Able to give a complete and coherent history. Well-nourished well-developed HEENT: Moist mucous membranes, normal sclera with reactive pupils, Neck: No JVD, no cervical adenopathy Respiratory: Pulmonary exam is after a 20 mg albuterol nebulizer treatment. She now is showing enough air movement that she is having significant wheeze and rhonchi in all lung sharma. Still slightly tachypneic and mild retractions Cardiac: Regular rate and rhythm no murmurs no bruits Abdomen: Soft, nontender, good bowel tones, no flank pain Skin: Warm and dry, no rashes Neurologic: Grossly neurologically intact with no obvious asymmetries or abnormalities Extremities: No trauma, well perfused, no edema Psych: Cooperative, appropriate insight and affect Course Orders Ordered: ED Orders 03/26/24 16:00 Complete Blood Count AUTO DIFF Stat Comprehensive Metabolic Panel Stat 03/26/24 16:10 XR chest 1V Stat Discontinued Medications Albuterol (Albuterol 2.5 Mg/3 Ml Neb (Adult)) 2.5 mg INH Q20M EKATERINA Stop: 03/26/24 14:41 Albuterol (Albuterol 2.5 Mg/3 Ml Neb (Adult)) 20 mg INH NOW ONE Stop: 03/26/24 13:56 Last Admin: 03/26/24 14:00 Dose: 20 mg Documented By: NICOL Sodium Chloride (Normal Saline 0.9%) 1,000 mls @ 1,000 mls/hr IV BOLUS ONE Stop: 03/26/24 17:07 Last Infusion: 03/26/24 17:34 Dose: Infused Documented By: Admin: 03/26/24 16:24 Dose: 1,000 mls/hr Documented By: BASIA Magnesium Sulfate (Magnesium Sulfate) 2 gm in 50 mls @ 150 mls/hr IV NOW ONE Stop: 03/26/24 16:27 Last Infusion: 03/26/24 16:52 Dose: Infused Documented By: ROYCE Co-signed By: BASIA Admin: 03/26/24 16:24 Dose: 150 mls/hr Documented By: BASIA Co-signed By: JUDIT Methylprednisolone (Methylprednisolone 125 Mg/2 Ml Vial) 125 mg IV NOW ONE Stop: 03/26/24 16:09 Last Admin: 03/26/24 16:24 Dose: 125 mg Documented By: BASIA Potassium Chloride (Potassium Chloride 20 Meq Tab) 40 meq PO NOW ONE Stop: 03/26/24 17:51 Vital Signs Vital signs: Vital Signs - 8 hr 03/26/24 13:44 03/26/24 13:46 03/26/24 13:46 Temperature 97.4 F L Pulse Rate 87 97 H Respiratory Rate 28 H Blood Pressure 122/59 L 122/59 L Pulse Oximetry 97 97 Oxygen Delivery Method Room Air Oxygen Flow Rate Fraction of Inspired Oxygen 03/26/24 14:00 03/26/24 14:01 03/26/24 14:01 Temperature Pulse Rate 78 85 Respiratory Rate 22 Blood Pressure 104/62 Pulse Oximetry 97 98 Oxygen Delivery Method Room Air Oxygen Flow Rate 0 Fraction of Inspired Oxygen 21 03/26/24 14:01 03/26/24 14:30 03/26/24 14:30 Temperature Pulse Rate 79 92 H Respiratory Rate Blood Pressure 107/66 Pulse Oximetry 95 100 Oxygen Delivery Method Oxygen Flow Rate Fraction of Inspired Oxygen 03/26/24 15:00 03/26/24 15:00 03/26/24 15:30 Temperature Pulse Rate 86 Respiratory Rate Blood Pressure 109/62 115/59 L Pulse Oximetry 100 Oxygen Delivery Method Oxygen Flow Rate Fraction of Inspired Oxygen 03/26/24 15:30 03/26/24 16:00 03/26/24 16:00 Temperature Pulse Rate 104 H 109 H Respiratory Rate Blood Pressure 108/71 Pulse Oximetry 99 96 Oxygen Delivery Method Room Air Oxygen Flow Rate Fraction of Inspired Oxygen 03/26/24 16:30 03/26/24 16:30 Temperature Pulse Rate 97 H Respiratory Rate Blood Pressure 114/65 Pulse Oximetry 94 Oxygen Delivery Method Room Air Oxygen Flow Rate Fraction of Inspired Oxygen MDM - Asthma Lab Data 03/26/24 16:00 03/26/24 16:00 Labs: Lab Results 03/26/24 Range/Units 16:00 WBC 11.2 H (4.5-11.0) X10^3/uL RBC 4.44 (4.0-5.2) X10^6/uL Hgb 14.0 (12.0-16.0) g/dL Hct 41.6 (36-46) % MCV 93.9 (80-100) fL MCH 31.5 (26-34) PG MCHC 33.5 (30-36) % RDW 12.9 (11.6-14.8) % Plt Count 317 (150-400) X10^3/uL Neut % (Auto) 55.6 (50-75) % Lymph % (Auto) 21.0 L (25-40) % [place] % (Auto) 6.4 (3-14) % Eos % (Auto) 16.0 H (2-4) % Baso % (Auto) 1.0 (0-2) % Neut # (Auto) 6200 (5315-5868) /uL Lymph # (Auto) 2400 (9317-8259) /uL [place] # (Auto) 700 (0-900) /uL Eos # (Auto) 1800 H (0-450) /uL Baso # (Auto) 100 (0-100) /uL Sodium 140 (137-145) mmol/L Potassium 3.1 L (3.4-5.1) mmol/L Chloride 108 H (98-107) mmol/L Carbon Dioxide 20 L (22-32) mmol/L BUN 8 (7-17) mg/dL Creatinine 0.72 (0.52-1.04) mg/dL Estimated GFR > 60 (>60) mL/min BUN/Creatinine Ratio 11.1 (6-22) Glucose 109 H (70-100) mg/dL Calcium 8.9 (8.4-10.2) mg/dL Total Bilirubin 0.4 (0.2-1.3) mg/dL AST 23 (14-36) IU/L ALT 24 (<35) IU/L Alkaline Phosphatase 66 (38-126) U/L Total Protein 7.5 (6.3-8.2) g/dL Albumin 4.1 (3.5-5.0) g/dL Globulin 3.4 (1.7-4.1) g/dL Albumin/Globulin Ratio 1.2 (1.0-2.8) MDM Narrative Medical decision making narrative: CC: Acute asthma exacerbation Complicating co-morbidities: Viral type symptoms for the previous 2 weeks, typically has mild intermittent asthma uses DuoNebs at home only Data collected from: patient Differential considered: Viral syndrome with the acute asthma exacerbation, pneumonia, PE, atypical pneumonia Exam documented above, pertinent findings include: Tachypneic, after 20 mg of albuterol she finally is moving enough air to appreciate the severity of the wheeze and rhonchi in all lung sharma. Lab Test results independently reviewed as above. Pertinent findings: CBC has mild leukocytosis at 11.2 with no left shift. No anemia Chemistries are notable for mild hypokalemia at 3.1. Renal function is appropriate, liver studies were unremarkable Imaging studies independently reviewed: Chest x-ray shows peribronchial cuffing and hilar findings. Concern for developing pneumonia on the right side Treatments: 20 mg of albuterol, L of fluid, 125 mg of Solu-Medrol, magnesium sulfate oral potassium replacement Discussion: 44-year-old woman with acute asthma exacerbation likely following a 2 week upper respiratory viral infection and now concurrent bacterial pneumonia. At this point she is oxygenating well able to eat and drink, no cognitive deficits and I believe she is safe for discharge. She is responded nicely to fluids albuterol nebulizer, IV magnesium and IV steroids. She has a nebulizer available at home. We will give her a prescription for prednisone 20 mg for 4 days 10 mg for 4 days, course of azithromycin and amoxicillin for community- acquired pneumonia developing in the right side, we will have her continue albuterol nebulizers. She has given a small dose of Percocet to use for cough suppression. She understands reasons to return to the emergency department. At this point there was no evidence of acute hypoxic respiratory distress and she is safe for discharge Discharge Plan Departure Patient Disposition: Home Clinical Impression: Bacterial pneumonia Asthma exacerbation Qualifiers: Asthma severity: moderate Asthma persistence: persistent Qualified Code(s): J 45.41 - Moderate persistent asthma with (acute) exacerbation Instructions: DI for Asthma -- Adult, DI for Pneumonia -- Adult Activity Restrictions/Additional Instructions: Thank you for coming in today I think that more problems started with a viral upper respiratory infection, this major asthma worse and now you are developing a right sided bacterial pneumonia. In the emergency department you responded nicely to an extended dose of albuterol, IV steroids, IV fluids, IV magnesium. You are given 1st doses of amoxicillin and azithromycin. I have sent prescriptions for amoxicillin, azithromycin, prednisone and Percocet to [facility]. The Percocet is to help with the pain from coughing and the narcotic in the will also help suppress the cough somewhat. Helping with the inflammation with both the steroids and the nebulized albuterol is treating the underlying reason for the cough. If you find that you are getting worse or develop any new symptoms, please feel free to return to the emergency department for further evaluation. Prescriptions: New prednisone 20 mg tablet 20 mg PO DAILY Qty: 6 0RF Rx Instructions: 20mg daily for 4 days, 10mg for 4 days azithromycin 250 mg tablet 250 mg PO DAILY 6 Days Qty: 6 0RF Rx Instructions: start on day 2 of therapy amoxicillin 500 mg capsule 500 mg PO TID Qty: 21 0RF oxycodone-acetaminophen 5-325 mg tablet 0.5 - 1 tab PO Q6H PRN (Reason: cough) Qty: 10 0RF No Action Qvar RediHaler 80 mcg/actuation HFA aerosol breath activated 1 inhalation INHALATION BID Qty: 10.6 0RF fluconazole [Diflucan] 150 mg tablet 150 mg PO DAILY Qty: 2 0RF hydrocodone-acetaminophen [[place]] 5-325 mg tablet 1 tab PO Q8H PRN (Reason: pain) Qty: 7 0RF ondansetron 4 mg tablet,disintegrating 4 mg PO Q8H PRN (Reason: nausea and vomiting) Qty: 7 0RF lidocaine 5 % adhesive patch,medicated 1 patch topical DAILY PRN (Reason: pain) Qty: 30 0RF Rx Instructions: leave on most painful area for up to 12 hrs prednisone 10 mg tablet See Rx Instructions .ROUTE .COMPLEX Qty: 30 0RF Rx Instructions: Day 1,2,3: 40mg PO Daily Day 4,5,6: 30mg PO Daily Day 7,8,9: 20mg PO Daily Day 10,11,12: 10mg PO Daily #30 ipratropium bromide 0.02 % solution 2.5 ml inhalation TID-QID PRN (Reason: shortness of breath or wheezing) Qty: 75 0RF lidocaine [Lidoderm] 5 % adhesive patch,medicated 1 patch topical DAILY PRN (Reason: muscle spasm) Qty: 15 0RF Rx Instructions: leave on most painful area for up to 12 hrs methocarbamol 750 mg tablet 750 mg PO Q8H PRN (Reason: muscle spasms) Qty: 20 0RF ipratropium-albuterol 0.5 mg-3 mg(2.5 mg base)/3 mL solution for nebulization 3 ml inhalation Q6H PRN (Reason: shortness of breath) Qty: 90 0RF prednisone 20 mg tablet 20 mg PO DAILY Qty: 6 0RF ipratropium-albuterol 0.5 mg-3 mg(2.5 mg base)/3 mL solution for nebulization 3 ml inhalation Q20M PRN (Reason: wheezing) Qty: 90 2RF Rx Instructions: for 3 doses lidocaine 4 % adhesive patch,medicated 1 patch TOP DAILY PRN (Reason: pain) Qty: 10 0RF Rx Instructions: may leave on for up to 12 hrs potassium chloride [K-Tab] 20 mEq tablet extended release 20 meq PO BID Qty: 14 0RF ipratropium-albuterol 0.5 mg-3 mg(2.5 mg base)/3 mL solution for nebulization 3 ml inhalation TID PRN (Reason: shortness of breath or wheezing) Qty: 90 0RF albuterol sulfate 2.5 mg /3 mL (0.083 %) solution for nebulization 2.5 mg inhalation Q1H PRN (Reason: shortness of breath or wheezing) Qty: 90 2RF Rx Instructions: until breathing returns to target peak flow/parameters cetirizine [Allergy Relief (cetirizine)] 10 mg tablet 10 mg PO BEDTIME PRN (Reason: congestion) Qty: 30 0RF albuterol sulfate 90 mcg/actuation aerosol powdr breath activated 2 inh inhalation Q4-6H PRN (Reason: shortness of breath) Qty: 1 3RF benzonatate 200 mg capsule 200 mg PO BID PRN (Reason: cough) Qty: 20 0RF magnesium oxide 500 mg capsule 500 mg PO BEDTIME Qty: 20 0RF naproxen 500 mg tablet 500 mg PO BID PRN (Reason: pain) Qty: 30 0RF omeprazole 40 mg capsule,delayed release(DR/EC) 40 mg PO DAILY Qty: 14 0RF diazepam 10 mg tablet 10 mg PO BEDTIME PRN (Reason: anxiety/palpitations) Qty: 14 0RF prednisone 10 mg tablet 10 mg PO DIRECTED Qty: 11 0RF Rx Instructions: 20 mg for 3 days, 10 mg for 3 days, 5 mg for 4 days Referrals: Miscellaneous,Doctor, MD [Primary Care Provider] - Stand Alone Forms: Patient Portal/API/Survey
[2024-03-26] MEDS: ALBUTEROL 2.5 MG/3 ML NEB (ADULT) 20 MG INH (14:00)
--- NOTE | 2024-03-26 16:10 | DI.RAD.S_ITS ---
PROCEDURE: XR CHEST 1V INDICATIONS: asthma exacerbation TECHNIQUE: One view of the chest was acquired. COMPARISON: [facility], CR, XR CHEST 1V, 12/30/2023, 18:18. [facility], CR, XR CHEST 1V, 05/12/2023, 13:05. [facility], CR, XR CHEST 1V, 04/11/2023, 18:02. [facility], CR, XR CHEST 2V, 01/30/2020, 16:16. FINDINGS: Surgical changes and devices: None. Lungs and pleura: Lungs are clear. No pleural effusions or pneumothorax. Mediastinum: Mediastinal contours appear normal. Heart size is normal. Bones and chest wall: No suspicious bony lesions. Overlying soft tissues appear unremarkable. IMPRESSION: No acute cardiothoracic process. Dictated by: Dominick Hunt M.D. on 03/26/2024 at 17:04 Approved by: Dominick Hunt M.D. on 03/26/2024 at 17:04
[2024-03-26 16:16] LABS: Add Manual Diff / Slide Review NO; Basophils Absolute Auto 100 /uL (0-100); Eosinophils Absolute Auto 1800 /uL (0-450); Hematocrit 41.6 % (36-46); Lymphocytes Absolute Auto 2400 /uL (1100-4500); Mean Corpuscular HGB Conc 33.5 % (30-36); Mean Corpuscular Hemoglobin 31.5 PG (26-34); Mean Corpuscular Volume 93.9 fL (80-100); Monocytes Absolute Auto 700 /uL (0-900); Monocytes Percent Auto 6.4 % (3-14); Neutrophils Absolute Auto 6200 /uL (1500-7000); Neutrophils Percent Auto 55.6 % (50-75); Platelet Count 317 X10^3/uL (150-400); Red Blood Cell Count 4.44 X10^6/uL (4.0-5.2); Red Cell Distribution Width 12.9 % (11.6-14.8); White Blood Cell Count 11.2 X10^3/uL (4.5-11.0)
[2024-03-26] MEDS: methylPREDNISolone 125 MG/2 ML VIAL IV (16:24)
[2024-03-26] MEDS: SODIUM CHLORIDE 0.9% 1,000 ML 1000 ML IV (16:24)
[2024-03-26] MEDS: MAGNESIUM SULFATE 2 GM/50 ML PIGGYBACK IV (16:24)
[2024-03-26 16:28] LABS: Alanine Aminotransferase 24 IU/L (<35); Albumin 4.1 g/dL (3.5-5.0); Albumin Globulin Ratio 1.2 (1.0-2.8); Alkaline Phosphatase 66 U/L (38-126); Aspartate Aminotransferase 23 IU/L (14-36); BUN Creatinine Ratio 11.1 (6-22); Bilirubin Total 0.4 mg/dL (0.2-1.3); Blood Urea Nitrogen 8 mg/dL (7-17); Calcium 8.9 mg/dL (8.4-10.2); Carbon Dioxide 20 mmol/L (22-32); Chloride 108 mmol/L (98-107); Estimated Glomerular Filt Rate > 60 mL/min (>60); Globulin 3.4 g/dL (1.7-4.1); Glucose 109 mg/dL (70-100); HEMOLYSIS < 15 (0-50); Potassium 3.1 mmol/L (3.4-5.1); Sodium 140 mmol/L (137-145); Total Protein 7.5 g/dL (6.3-8.2)
[2024-03-26] MEDS: POTASSIUM CHLORIDE 20 MEQ TAB 40 MEQ PO (18:04)
[2024-03-26] MEDS: OXYCODONE/ACETAMINOPHEN 5/325 TABLET 1 TAB PO (18:05)
[2024-03-26] MEDS: AMOXICILLIN 250 MG CAPSULE 500 MG PO (18:05)
[2024-03-26] MEDS: AZITHROMYCIN 250 MG TABLET 500 MG PO (18:05)
== END 2024-03-26 18:13 | disposition home or self-care (01) ==
PROVIDERS: Emergency Provider Emergency Medicine
DX: J18.9 Pneumonia, unspecified organism (principal); J45.41 Moderate persistent asthma with (acute) exacerbation
CPT/HCPCS: 36415; 71045; 80053; 85025; 94640; 96365; 96375; 99284; J2919; J3475; J7613

== ENCOUNTER 2024-06-04 18:07 | Emergency (ER) | payer OTHER, SELFPAY ==
[2024-06-04] VITALS (11 sets, daily range): BP systolic 100–120; BP diastolic 65–80; PULSE 79–96; RESP 13–24; TEMP 36.4; O2SAT 94–98; BMI 32.9
--- NOTE | 2024-06-04 18:18 | DI.RAD.S_ITS ---
PROCEDURE: XR CHEST 1V INDICATIONS: Shortness of breath TECHNIQUE: One view of the chest was acquired. COMPARISON: [facility], CR, XR CHEST 1V, 03/26/2024, 16:06. [facility], CR, XR CHEST 1V, 12/30/2023, 18:18. FINDINGS: Surgical changes and devices: None. Lungs and pleura: Lungs are clear. No pleural effusions or pneumothorax. Mediastinum: Mediastinal contours appear normal. Heart size is normal. Bones and chest wall: No suspicious bony lesions. Overlying soft tissues appear unremarkable. IMPRESSION: No acute cardiopulmonary abnormality is seen. Dictated by: Lazaro Alarcon M.D. on 06/04/2024 at 19:14 Approved by: Lazaro Alarcon M.D. on 06/04/2024 at 19:14
[2024-06-04] MEDS: ALBUTEROL/IPRATROPIUM 3 ML AMPUL 6 ML INH (21:31)
--- NOTE | 2024-06-04 21:41 | EKG_ITS ---
[facility] Normal sinus rhythm Electronically Signed On 06-05-2024 11:32:27 PST by Tyler Slaughter
[2024-06-04 21:51] LABS: Add Manual Diff / Slide Review NO; Basophils Absolute Auto 100 /uL (0-100); Basophils Percent Auto 0.9 % (0-2); Eosinophils Absolute Auto 1700 /uL (0-450); Eosinophils Percent Auto 13.8 % (2-4); Hematocrit 47.8 % (36-46); Hemoglobin 16.4 g/dL (12.0-16.0); Lymphocytes Absolute Auto 2500 /uL (1100-4500); Lymphocytes Percent Auto 20.1 % (25-40); Mean Corpuscular HGB Conc 34.3 % (30-36); Mean Corpuscular Hemoglobin 31.6 PG (26-34); Mean Corpuscular Volume 92.2 fL (80-100); Monocytes Absolute Auto 900 /uL (0-900); Monocytes Percent Auto 7.2 % (3-14); Neutrophils Absolute Auto 7300 /uL (1500-7000); Platelet Count 386 X10^3/uL (150-400); Red Blood Cell Count 5.18 X10^6/uL (4.0-5.2); Red Cell Distribution Width 13.2 % (11.6-14.8); White Blood Cell Count 12.5 X10^3/uL (4.5-11.0)
[2024-06-04 21:56] LABS: INR 1.2 (0.9-1.3); Prothrombin Time 13.2 SECONDS (9.4-12.5)
[2024-06-04] MEDS: methylPREDNISolone 125 MG/2 ML VIAL IV (21:58)
[2024-06-04] MEDS: MAGNESIUM SULFATE 2 GM/50 ML PIGGYBACK IV (21:58)
[2024-06-04 22:00] LABS: Alanine Aminotransferase 32 IU/L (<35); Albumin 4.5 g/dL (3.5-5.0); Albumin Globulin Ratio 1.3 (1.0-2.8); Alkaline Phosphatase 64 U/L (38-126); Aspartate Aminotransferase 36 IU/L (14-36); BUN Creatinine Ratio 15.6 (6-22); Bilirubin Total 0.6 mg/dL (0.2-1.3); Blood Urea Nitrogen 14 mg/dL (7-17); Calcium 9.1 mg/dL (8.4-10.2); Carbon Dioxide 24 mmol/L (22-32); Chloride 107 mmol/L (98-107); Estimated Glomerular Filt Rate > 60 mL/min (>60); Globulin 3.6 g/dL (1.7-4.1); Glucose 94 mg/dL (70-100); HEMOLYSIS < 15 (0-50); Potassium 3.8 mmol/L (3.4-5.1); Sodium 137 mmol/L (137-145); Total Protein 8.1 g/dL (6.3-8.2)
[2024-06-04 22:01] LABS: Lactate (Lactic Acid) 1.4 mmol/L (0.7-2.1)
[2024-06-04 22:12] LABS: NT-proBNP (BNP-Adult 18+) 26 pg/mL (<125); Troponin I < 0.012 ng/mL (0.01-0.034)
[2024-06-04 22:57] LABS: Influenza A - CEPHEID Flu A NEGATIVE (NEGATIVE); Influenza B - CEPHEID Flu B NEGATIVE (NEGATIVE); Respiratory Syncytial Virus Negative (Negative)
[2024-06-04 23:01] LABS: COVID-19 CEPHEID 4-PLEX PCR Negative (Negative)
--- NOTE | 2024-06-04 23:10 | ED_ITS ---
HPI - SOB/Dyspnea General Chief Complaint: Shortness of Breath/Dyspnea Stated Complaint: SOB Time Seen by Provider: 06/04/24 23:10 Source: patient Mode of arrival: Ambulatory Limitations: no limitations History of Present Illness HPI Narrative: 44-year-old female history of asthma comes into the ED from home for evaluation shortness breath ongoing persistent for the past 1 and half weeks, states it has been using her nebs at home but still short of breath, patient denies any other symptoms such as headache visual disturbances chest pain fever chills nausea vomiting abdominal pain or any other GI/ symptoms time. Related Data Previous Rx's Medication Instructions Recorded beclomethasone dipropionate 80 1 inhalation inhalation BID #10.6 01/30/20 mcg/actuation HFA breath activated grams aerosol (Qvar RediHaler) lidocaine 4 % topical patch 1 patch topical DAILY PRN pain #10 03/06/20 ea fluconazole 150 mg tablet 150 mg PO DAILY #2 tabs 03/27/20 (Diflucan) hydrocodone 5 mg-acetaminophen 325 1 tab PO Q8H PRN pain #7 tabs 07/12/20 mg tablet ([place]) lidocaine 5 % topical patch 1 patch topical DAILY PRN pain #30 07/12/20 ea ondansetron 4 mg disintegrating 4 mg PO Q8H PRN nausea and 07/12/20 tablet vomiting #7 tabs ipratropium bromide 0.02 % 2.5 ml inhalation TID-QID PRN 06/15/21 solution for inhalation shortness of breath or wheezing #75 mL prednisone 10 mg tablet See Rx Instructions .Route 06/15/21 .COMPLEX #30 tabs potassium chloride 20 mEq 20 meq PO BID #14 tabs 12/14/21 tablet,extended release (K-Tab) lidocaine 5 % topical patch 1 patch topical DAILY PRN muscle 12/29/21 (Lidoderm) spasm #15 ea methocarbamol 750 mg tablet 750 mg PO Q8H PRN muscle spasms 12/29/21 #20 tabs albuterol sulfate 2.5 mg/3 mL 2.5 mg (3 mL) inhalation Q1H PRN 05/28/22 (0.083 %) solution for nebulization shortness of breath or wheezing #90 mL albuterol sulfate 90 mcg/actuation 2 inh inhalation Q4-6H PRN 05/28/22 breath activated powder inhaler shortness of breath #1 ea benzonatate 200 mg capsule 200 mg PO BID PRN cough #20 caps 05/28/22 cetirizine 10 mg tablet (Allergy 10 mg PO BEDTIME PRN congestion 05/28/22 Relief (cetirizine)) #30 tabs ipratropium 0.5 mg-albuterol 3 mg 3 ml inhalation TID PRN shortness 05/28/22 (2.5 mg base)/3 mL nebulization of breath or wheezing #90 mL soln magnesium oxide 500 mg capsule 500 mg PO BEDTIME #20 caps 05/28/22 diazepam 10 mg tablet 10 mg PO BEDTIME PRN 08/26/22 anxiety/palpitations #14 tabs naproxen 500 mg tablet 500 mg PO BID PRN pain #30 tabs 08/26/22 omeprazole 40 mg capsule,delayed 40 mg PO DAILY #14 caps 08/26/22 release ipratropium 0.5 mg-albuterol 3 mg 3 ml inhalation Q6H PRN shortness 10/28/22 (2.5 mg base)/3 mL nebulization of breath #90 mL soln ipratropium 0.5 mg-albuterol 3 mg 3 ml inhalation Q20M PRN wheezing 04/11/23 (2.5 mg base)/3 mL nebulization #90 mL soln prednisone 20 mg tablet 20 mg PO DAILY #6 tabs 04/11/23 prednisone 10 mg tablet 10 mg PO DIRECTED #11 tabs 12/30/23 amoxicillin 500 mg capsule 500 mg PO TID #21 caps 03/26/24 oxycodone-acetaminophen 5 mg-325 0.5 - 1 tab PO Q6H PRN cough #10 03/26/24 mg tablet tabs prednisone 20 mg tablet 20 mg PO DAILY #6 tabs 03/26/24 albuterol sulfate 2.5 mg/0.5 mL 5 mg inhalation Q6H PRN shortness 06/04/24 solution for nebulization of breath or wheezing #30 ea albuterol sulfate 90 mcg/actuation 2 puff inhalation QID PRN 06/04/24 aerosol inhaler shortness of breath or wheezing #8.5 grams prednisone 20 mg tablet 40 mg (2 x 20 mg) PO DAILY 5 days 06/04/24 #10 tabs Allergies Allergy/AdvReac Type Severity Reaction Status Date / Time doxycycline Allergy Severe Anaphylaxis Verified 03/26/24 13:48 levofloxacin [From Levaquin] Allergy Severe Anaphylaxis Verified 03/26/24 13:48 morphine Allergy Severe Anaphylaxis Verified 03/26/24 13:48 aspirin Allergy Verified 03/26/24 13:48 Review of Systems Review of Systems Narrative: General: Denies fever, chills, weight loss HEENT: Denies headache, eye drainage, eye irritation, head trauma, sore throat, voice change Cardiovascular: Denies any chest pain, palpitations, shortness of breath, tachycardia Respiratory: Positive shortness of breath, cough, wheeze, denies tried GI/: Denies any abdominal pain, nausea, vomiting, diarrhea, bright red blood per rectum, melanotic stools, urinary frequency, urinary retention, dysuria, hematuria MSK: Denies any joint pain, muscle pains, swelling Skin: Denies any rashes, lesions, discoloration Neuro: Denies any headache, lightheadedness, dizziness, fainting, weakness Psych: Denies SI/HI Patient History Medical History (Updated 06/04/24 @ 23:22 by Darrell Cook DO) Psoriasis Asthma Vertigo Social History Smoking Status: Former smoker Smoking Status: Former smoker alcohol intake frequency: holidays/special occasions only Exam Narrative Exam Narrative: General: Cooperative, comfortable, well-developed, not in acute distress HEENT: Normocephalic, atraumatic, PERRLA, normal sclera, eyelids normal, Neck: Active full range of motion, atraumatic Chest: Normal to inspection, negative crepitus, no overlying erythema ecchymosis Respiratory: Mild expiratory wheezes in bilateral lung sharma, patient is protecting airway speaking full sentences Cardiology: Regular rate rhythm negative gallop, murmur, rubs GI/: Normal to inspection, soft, nonrigid, no tenderness to palpation, exam deferred MSK: Full range of active range of motion of all 4 extremities, atraumatic Skin: No rashes lesions noted Neuro: Alert awake oriented x3, moves all 4 extremities spontaneously, cranial nerves intact, able to answer all questions appropriately follows commands appropriately Psych: Cooperative, negative suicidal or homicidal ideations Initial Vital Signs Initial Vital Signs: Vital Signs Temperature 97.5 F L 06/04/24 18:13 Pulse Rate 90 06/04/24 18:13 Respiratory Rate 18 06/04/24 18:13 Blood Pressure 120/80 06/04/24 18:13 Pulse Oximetry 94 06/04/24 18:13 Oxygen Delivery Method Room Air 06/04/24 18:13 Course Orders Ordered: ED Orders 06/04/24 18:18 XR chest 1V Stat Measure peak expiratory flow ONCE RT Consult Eval and Treat NOW 06/04/24 21:38 Complete Blood Count AUTO DIFF Stat Comprehensive Metabolic Panel Stat Lactate (Lactic Acid) Stat NT-proBNP (BNP-Adult 18+) Stat Prothrombin Time INR Stat Troponin I Stat 06/04/24 22:15 Covid-19 + FLU A/B + RSV - PCR Stat Discontinued Medications Albuterol/Ipratropium (Albuterol/Ipratropium 3 Ml Ampul) 6 ml INH NOW ONE Stop: 06/04/24 21:27 Last Admin: 06/04/24 21:31 Dose: 6 ml Documented By: MERLIN Magnesium Sulfate (Magnesium Sulfate) 2 gm in 50 mls @ 150 mls/hr IV NOW ONE Stop: 06/04/24 22:07 Last Infusion: 06/04/24 22:23 Dose: Infused Documented By: GARRETT Co-signed By: KAREN Admin: 06/04/24 21:58 Dose: 150 mls/hr Documented By: KAREN Co-signed By: GARRETT Methylprednisolone (Methylprednisolone 125 Mg/2 Ml Vial) 125 mg IV NOW ONE Stop: 06/04/24 21:48 Last Admin: 06/04/24 21:58 Dose: 125 mg Documented By: KAREN Vital Signs Vital signs: Vital Signs - 8 hr 06/04/24 18:13 06/04/24 21:15 06/04/24 21:15 Temperature 97.5 F L Pulse Rate 90 83 Respiratory Rate 18 Blood Pressure 120/80 114/67 Pulse Oximetry 94 94 Oxygen Delivery Method Room Air Room Air Fraction of Inspired Oxygen 06/04/24 21:30 06/04/24 21:33 06/04/24 21:43 Temperature Pulse Rate 85 82 88 Respiratory Rate 20 24 Blood Pressure Pulse Oximetry 95 98 98 Oxygen Delivery Method Room Air Room Air Fraction of Inspired Oxygen 21 06/04/24 21:44 06/04/24 21:44 06/04/24 22:00 Temperature Pulse Rate 79 Respiratory Rate Blood Pressure 100/67 105/65 Pulse Oximetry 98 Oxygen Delivery Method Fraction of Inspired Oxygen 06/04/24 22:00 06/04/24 22:27 06/04/24 22:27 Temperature Pulse Rate 89 96 H Respiratory Rate 15 Blood Pressure 108/66 Pulse Oximetry 96 95 Oxygen Delivery Method Fraction of Inspired Oxygen 06/04/24 22:30 Temperature Pulse Rate 87 Respiratory Rate 20 Blood Pressure Pulse Oximetry 94 Oxygen Delivery Method Room Air Fraction of Inspired Oxygen MDM - SOB/Dyspnea Differential Diagnosis Differential diagnosis: Likely other (COPD exacerbation, asthma exacerbation, pneumonia, COVID, flu) Lab Data 06/04/24 21:38 06/04/24 21:38 Labs: Lab Results 06/04/24 06/04/24 Range/Units 21:38 22:15 WBC 12.5 H (4.5-11.0) X10^3/uL RBC 5.18 (4.0-5.2) X10^6/uL Hgb 16.4 H (12.0-16.0) g/dL Hct 47.8 H (36-46) % MCV 92.2 (80-100) fL MCH 31.6 (26-34) PG MCHC 34.3 (30-36) % RDW 13.2 (11.6-14.8) % Plt Count 386 (150-400) X10^3/uL Neut % (Auto) 58.0 (50-75) % Lymph % (Auto) 20.1 L (25-40) % Allen % (Auto) 7.2 (3-14) % Eos % (Auto) 13.8 H (2-4) % Baso % (Auto) 0.9 (0-2) % Neut # (Auto) 7300 H (4767-1701) /uL Lymph # (Auto) 2500 (1235-7754) /uL Allen # (Auto) 900 (0-900) /uL Eos # (Auto) 1700 H (0-450) /uL Baso # (Auto) 100 (0-100) /uL PT 13.2 H (9.4-12.5) SECONDS INR 1.2 (0.9-1.3) Sodium 137 (137-145) mmol/L Potassium 3.8 (3.4-5.1) mmol/L Chloride 107 (98-107) mmol/L Carbon Dioxide 24 (22-32) mmol/L BUN 14 (7-17) mg/dL Creatinine 0.90 (0.52-1.04) mg/dL Estimated GFR > 60 (>60) mL/min BUN/Creatinine Ratio 15.6 (6-22) Glucose 94 (70-100) mg/dL Lactate 1.4 (0.7-2.1) mmol/L Calcium 9.1 (8.4-10.2) mg/dL Total Bilirubin 0.6 (0.2-1.3) mg/dL AST 36 (14-36) IU/L ALT 32 (<35) IU/L Alkaline Phosphatase 64 (38-126) U/L Troponin I < 0.012 (0.01-0.034) ng/mL NT-Pro-B Natriuret Pep 26 (<125) pg/mL Total Protein 8.1 (6.3-8.2) g/dL Albumin 4.5 (3.5-5.0) g/dL Globulin 3.6 (1.7-4.1) g/dL Albumin/Globulin Ratio 1.3 (1.0-2.8) SARS-CoV-2 (PCR) Negative (Negative) Influenza A (RT-PCR) Flu a negative (NEGATIVE) Influenza B (RT-PCR) Flu b negative (NEGATIVE) RSV (PCR) Negative (Negative) Imaging Data Chest x-ray: Radiologist's Impression: [address] [address] XRay Report Signed Patient: Lesvia Capellan MR#: [id number] : 1980 Acct:[id number] Age/Sex: 44 / F Date of Service: 06/04/24 Loc: ED Accession Number: [id number] Procedure: XR chest 1V Ordering Provider: Darrell Cook D.O. PROCEDURE: XR CHEST 1V INDICATIONS: Shortness of breath TECHNIQUE: One view of the chest was acquired. COMPARISON: [facility], CR, XR CHEST 1V, 03/26/2024, 16:06. [facility], , XR CHEST 1V, 12/30/2023, 18:18. FINDINGS: Surgical changes and devices: None. Lungs and pleura: Lungs are clear. No pleural effusions or pneumothorax. Mediastinum: Mediastinal contours appear normal. Heart size is normal. Bones and chest wall: No suspicious bony lesions. Overlying soft tissues appear unremarkable. IMPRESSION: No acute cardiopulmonary abnormality is seen. ECG Data Interpretation: EKG interpreted ED physician sinus 83 beats per minute QTC 455, normal axis, nonspecific ST changes, no STEMI MDM Narrative Medical decision making narrative: 44-year-old female past medical history of asthma presents for asthma exacerbation ongoing persistent for the past 1 and half weeks has tried all her home meds without any much relief, at time of evaluation expiratory wheezes bilateral lung sharma protecting airway significantly improved symptoms after administration of magnesium Solu-Medrol and breathing treatment, patient has never required supplemental oxygen she was given strict return precautions will be discharged home with steroids albuterol and nebulizers, understands and agrees with being discharged home with outpatient follow up Discharge Plan Departure Patient Disposition: Home Clinical Impression: Asthma exacerbation Instructions: DI for Asthma -- Adult Activity Restrictions/Additional Instructions: Please read the discharge instructions sheet carefully and bring all papers to all doctor follow-up visits, as it may contain information that your doctor may want to see. Disease processes change and evolve, if your symptoms worsen or if you develop any new symptoms that are concerning to you please return for evaluation. Your evaluation today does not show any evidence of any life- threatening/serious illnesses requiring admission to the hospital or surgery. Please follow-up with your doctor for re-evaluation in approximately 1 day. Seek immediate medical attention for any worrisome symptoms. *If you do not have a primary care provider please contact the [facility] Resource line at [phone]. They will ask some questions about your medical history and help get you set up with a doctor in the community. Prescriptions: New prednisone 20 mg tablet 40 mg PO DAILY 5 Days Qty: 10 0RF albuterol sulfate 90 mcg/actuation HFA aerosol inhaler 2 puff inhalation QID PRN (Reason: shortness of breath or wheezing) Qty: 8.5 0RF albuterol sulfate 2.5 mg/0.5 mL solution for nebulization 5 mg inhalation Q6H PRN (Reason: shortness of breath or wheezing) Qty: 30 0RF No Action Qvar RediHaler 80 mcg/actuation HFA aerosol breath activated 1 inhalation INHALATION BID Qty: 10.6 0RF fluconazole [Diflucan] 150 mg tablet 150 mg PO DAILY Qty: 2 0RF hydrocodone-acetaminophen [[place]] 5-325 mg tablet 1 tab PO Q8H PRN (Reason: pain) Qty: 7 0RF ondansetron 4 mg tablet,disintegrating 4 mg PO Q8H PRN (Reason: nausea and vomiting) Qty: 7 0RF lidocaine 5 % adhesive patch,medicated 1 patch topical DAILY PRN (Reason: pain) Qty: 30 0RF Rx Instructions: leave on most painful area for up to 12 hrs prednisone 10 mg tablet See Rx Instructions .ROUTE .COMPLEX Qty: 30 0RF Rx Instructions: Day 1,2,3: 40mg PO Daily Day 4,5,6: 30mg PO Daily Day 7,8,9: 20mg PO Daily Day 10,11,12: 10mg PO Daily #30 ipratropium bromide 0.02 % solution 2.5 ml inhalation TID-QID PRN (Reason: shortness of breath or wheezing) Qty: 75 0RF lidocaine [Lidoderm] 5 % adhesive patch,medicated 1 patch topical DAILY PRN (Reason: muscle spasm) Qty: 15 0RF Rx Instructions: leave on most painful area for up to 12 hrs methocarbamol 750 mg tablet 750 mg PO Q8H PRN (Reason: muscle spasms) Qty: 20 0RF ipratropium-albuterol 0.5 mg-3 mg(2.5 mg base)/3 mL solution for nebulization 3 ml inhalation Q6H PRN (Reason: shortness of breath) Qty: 90 0RF prednisone 20 mg tablet 20 mg PO DAILY Qty: 6 0RF ipratropium-albuterol 0.5 mg-3 mg(2.5 mg base)/3 mL solution for nebulization 3 ml inhalation Q20M PRN (Reason: wheezing) Qty: 90 2RF Rx Instructions: for 3 doses lidocaine 4 % adhesive patch,medicated 1 patch TOP DAILY PRN (Reason: pain) Qty: 10 0RF Rx Instructions: may leave on for up to 12 hrs potassium chloride [K-Tab] 20 mEq tablet extended release 20 meq PO BID Qty: 14 0RF ipratropium-albuterol 0.5 mg-3 mg(2.5 mg base)/3 mL solution for nebulization 3 ml inhalation TID PRN (Reason: shortness of breath or wheezing) Qty: 90 0RF albuterol sulfate 2.5 mg /3 mL (0.083 %) solution for nebulization 2.5 mg inhalation Q1H PRN (Reason: shortness of breath or wheezing) Qty: 90 2RF Rx Instructions: until breathing returns to target peak flow/parameters cetirizine [Allergy Relief (cetirizine)] 10 mg tablet 10 mg PO BEDTIME PRN (Reason: congestion) Qty: 30 0RF albuterol sulfate 90 mcg/actuation aerosol powdr breath activated 2 inh inhalation Q4-6H PRN (Reason: shortness of breath) Qty: 1 3RF benzonatate 200 mg capsule 200 mg PO BID PRN (Reason: cough) Qty: 20 0RF magnesium oxide 500 mg capsule 500 mg PO BEDTIME Qty: 20 0RF naproxen 500 mg tablet 500 mg PO BID PRN (Reason: pain) Qty: 30 0RF omeprazole 40 mg capsule,delayed release(DR/EC) 40 mg PO DAILY Qty: 14 0RF diazepam 10 mg tablet 10 mg PO BEDTIME PRN (Reason: anxiety/palpitations) Qty: 14 0RF prednisone 10 mg tablet 10 mg PO DIRECTED Qty: 11 0RF Rx Instructions: 20 mg for 3 days, 10 mg for 3 days, 5 mg for 4 days prednisone 20 mg tablet 20 mg PO DAILY Qty: 6 0RF Rx Instructions: 20mg daily for 4 days, 10mg for 4 days amoxicillin 500 mg capsule 500 mg PO TID Qty: 21 0RF oxycodone-acetaminophen 5-325 mg tablet 0.5 - 1 tab PO Q6H PRN (Reason: cough) Qty: 10 0RF Referrals: Miscellaneous,Doctor, MD [Primary Care Provider] - Stand Alone Forms: Patient Portal/API/Survey, Work Release Note
== END 2024-06-04 23:31 | disposition home or self-care (01) ==
PROVIDERS: Emergency Provider Student in an Organized Health Care Education/Training Program
DX: J45.901 Unspecified asthma with (acute) exacerbation (principal)
CPT/HCPCS: 0241U; 36415; 71045; 80053; 83605; 83880; 84484; 85025; 85610; 93005; 94640; 96365; 96375; 99284; J2919; J3475

== ENCOUNTER 2024-08-12 14:46 | Emergency (ER) | payer OTHER, SELFPAY ==
[2024-08-12] VITALS (13 sets, daily range): BP systolic 100–136; BP diastolic 56–71; PULSE 77–98; RESP 16–26; TEMP 36.3; O2SAT 93–97; BMI 32.9
--- NOTE | 2024-08-12 14:53 | EKG_ITS ---
[place] [id number] [place] [id number] Test Date: 2024-08-12 Pat Name: Lesvia Capellan Department: [facility] Room: Gender: Female Legislative Analyst: VLAD : 1980 Requested By: Order Number: [id number] Reading MD: Levi Perez Measurements Intervals [place] Rate: 80 P: 49 [place]: 142 QRS: 47 QRSD: 84 T: 51 QT: 390 QTc: 449 Interpretive Statements Normal sinus rhythm Electronically Signed On 08-12-2024 18:26:01 PDT by Levi Perez
--- NOTE | 2024-08-12 14:53 | DI.RAD.S_ITS ---
PROCEDURE: XR CHEST 1V INDICATIONS: Shortness of breath TECHNIQUE: One view of the chest was acquired. COMPARISON: [facility], [place], XR CHEST 1V, 06/04/2024, 18:31. [facility], CR, XR CHEST 1V, 03/26/2024, 16:06. FINDINGS: Surgical changes and devices: None. Lungs and pleura: Lungs are clear. No pleural effusions or pneumothorax. Mediastinum: Mediastinal contours appear normal. Heart size is normal. Bones and chest wall: No suspicious bony lesions. Overlying soft tissues appear unremarkable. IMPRESSION: No acute cardiopulmonary abnormality is seen. Dictated by: Kevin Delgado M.D. on 08/12/2024 at 15:36 Approved by: Kevin Delgado M.D. on 08/12/2024 at 15:36
[2024-08-12 15:16] LABS: Add Manual Diff / Slide Review NO; Basophils Absolute Auto 100 /uL (0-100); Basophils Percent Auto 1.3 % (0-2); Eosinophils Absolute Auto 1900 /uL (0-450); Eosinophils Percent Auto 18.6 % (2-4); Hematocrit 44.2 % (36-46); Hemoglobin 15.3 g/dL (12.0-16.0); Lymphocytes Absolute Auto 1700 /uL (1100-4500); Lymphocytes Percent Auto 16.8 % (25-40); Mean Corpuscular HGB Conc 34.6 % (30-36); Mean Corpuscular Hemoglobin 32.1 PG (26-34); Mean Corpuscular Volume 92.7 fL (80-100); Monocytes Absolute Auto 700 /uL (0-900); Monocytes Percent Auto 7.3 % (3-14); Neutrophils Absolute Auto 5700 /uL (1500-7000); Platelet Count 347 X10^3/uL (150-400); Red Blood Cell Count 4.76 X10^6/uL (4.0-5.2); Red Cell Distribution Width 13.4 % (11.6-14.8); White Blood Cell Count 10.2 X10^3/uL (4.5-11.0)
[2024-08-12 15:18] LABS: INR 1.1 (0.9-1.3); Prothrombin Time 12.8 SECONDS (9.4-12.5)
[2024-08-12 15:22] LABS: Lactate (Lactic Acid) 1.7 mmol/L (0.7-2.1)
[2024-08-12 15:23] LABS: Alanine Aminotransferase 30 IU/L (<35); Albumin 4.2 g/dL (3.5-5.0); Albumin Globulin Ratio 1.3 (1.0-2.8); Alkaline Phosphatase 53 U/L (38-126); Aspartate Aminotransferase 31 IU/L (14-36); BUN Creatinine Ratio 9.8 (6-22); Bilirubin Total 0.8 mg/dL (0.2-1.3); Blood Urea Nitrogen 9 mg/dL (7-17); Calcium 9.1 mg/dL (8.4-10.2); Carbon Dioxide 24 mmol/L (22-32); Chloride 107 mmol/L (98-107); Estimated Glomerular Filt Rate > 60 mL/min (>60); Globulin 3.3 g/dL (1.7-4.1); Glucose 96 mg/dL (70-100); HEMOLYSIS < 15 (0-50); Potassium 3.5 mmol/L (3.4-5.1); Sodium 140 mmol/L (137-145); Total Protein 7.5 g/dL (6.3-8.2)
--- NOTE | 2024-08-12 15:28 | ED_ITS ---
HPI - SOB/Dyspnea General Chief Complaint: Shortness of Breath/Dyspnea Stated Complaint: asthma x 2days Time Seen by Provider: 08/12/24 15:26 Source: patient, RN notes reviewed and old records reviewed Mode of arrival: Ambulatory Limitations: no limitations History of Present Illness HPI Narrative: 44 year female history of asthma, psoriatic arthritis who presents with complaint of increased shortness of breath for the past 1-2 weeks. Patient states feels like her asthma has been flared up it has been pretty persistent she has been using nebulizer treatments and albuterol but not really had much relief. Denies any fevers or upper respiratory symptoms recently. She states she was sometimes does get flares with seasonal changes and certain allergens. She was take Benadryl nightly for this. Denies any fevers. She was had a cough with sometimes creamy but mostly clear phlegm. She states pain just with cough describes it as a burning feeling. She does feel short of breath. No hemoptysis. She has not had any nausea or vomiting no issues with bowel movements, no urinary symptoms. No new swelling in her extremities. States this feels like her asthma. States she has sometimes had to get IV steroids as well as magnesium in the past. States no other daily medications besides her inhaler. Has had prior hysterectomy in 2015, several lithotripsies and C- section x3. Reports allergies to doxycycline, Levaquin and morphine. Briefly smoked when she was young, no regular alcohol, uses marijuana but does not inhale in any form, no other recreational drugs. Primary care is through [facility]. She does not follow up with pulmonology. Related Data Previous Rx's Medication Instructions Recorded beclomethasone dipropionate 80 1 inhalation inhalation BID #10.6 01/30/20 mcg/actuation HFA breath activated grams aerosol (Qvar RediHaler) lidocaine 4 % topical patch 1 patch topical DAILY PRN pain #10 03/06/20 ea fluconazole 150 mg tablet 150 mg PO DAILY #2 tabs 03/27/20 (Diflucan) hydrocodone 5 mg-acetaminophen 325 1 tab PO Q8H PRN pain #7 tabs 07/12/20 mg tablet (Raymond) lidocaine 5 % topical patch 1 patch topical DAILY PRN pain #30 07/12/20 ea ondansetron 4 mg disintegrating 4 mg PO Q8H PRN nausea and 07/12/20 tablet vomiting #7 tabs ipratropium bromide 0.02 % 2.5 ml inhalation TID-QID PRN 06/15/21 solution for inhalation shortness of breath or wheezing #75 mL prednisone 10 mg tablet See Rx Instructions .Route 06/15/21 .COMPLEX #30 tabs potassium chloride 20 mEq 20 meq PO BID #14 tabs 12/14/21 tablet,extended release (K-Tab) lidocaine 5 % topical patch 1 patch topical DAILY PRN muscle 12/29/21 (Lidoderm) spasm #15 ea methocarbamol 750 mg tablet 750 mg PO Q8H PRN muscle spasms 12/29/21 #20 tabs albuterol sulfate 2.5 mg/3 mL 2.5 mg (3 mL) inhalation Q1H PRN 05/28/22 (0.083 %) solution for nebulization shortness of breath or wheezing #90 mL albuterol sulfate 90 mcg/actuation 2 inh inhalation Q4-6H PRN 05/28/22 breath activated powder inhaler shortness of breath #1 ea benzonatate 200 mg capsule 200 mg PO BID PRN cough #20 caps 05/28/22 cetirizine 10 mg tablet (Allergy 10 mg PO BEDTIME PRN congestion 05/28/22 Relief (cetirizine)) #30 tabs ipratropium 0.5 mg-albuterol 3 mg 3 ml inhalation TID PRN shortness 05/28/22 (2.5 mg base)/3 mL nebulization of breath or wheezing #90 mL soln magnesium oxide 500 mg capsule 500 mg PO BEDTIME #20 caps 05/28/22 diazepam 10 mg tablet 10 mg PO BEDTIME PRN 08/26/22 anxiety/palpitations #14 tabs naproxen 500 mg tablet 500 mg PO BID PRN pain #30 tabs 08/26/22 omeprazole 40 mg capsule,delayed 40 mg PO DAILY #14 caps 08/26/22 release ipratropium 0.5 mg-albuterol 3 mg 3 ml inhalation Q6H PRN shortness 10/28/22 (2.5 mg base)/3 mL nebulization of breath #90 mL soln ipratropium 0.5 mg-albuterol 3 mg 3 ml inhalation Q20M PRN wheezing 04/11/23 (2.5 mg base)/3 mL nebulization #90 mL soln prednisone 20 mg tablet 20 mg PO DAILY #6 tabs 04/11/23 prednisone 10 mg tablet 10 mg PO DIRECTED #11 tabs 12/30/23 amoxicillin 500 mg capsule 500 mg PO TID #21 caps 03/26/24 oxycodone-acetaminophen 5 mg-325 0.5 - 1 tab PO Q6H PRN cough #10 03/26/24 mg tablet tabs prednisone 20 mg tablet 20 mg PO DAILY #6 tabs 03/26/24 albuterol sulfate 2.5 mg/0.5 mL 5 mg inhalation Q6H PRN shortness 06/04/24 solution for nebulization of breath or wheezing #30 ea albuterol sulfate 90 mcg/actuation 2 puff inhalation QID PRN 06/04/24 aerosol inhaler shortness of breath or wheezing #8.5 grams albuterol sulfate 2.5 mg/3 mL 2.5 mg (3 mL) inhalation Q4-6H PRN 08/12/24 (0.083 %) solution for nebulization shortness of breath or wheezing #90 mL beclomethasone dipropionate 80 1 inh inhalation Q12H #10.6 grams 08/12/24 mcg/actuation HFA breath activated aerosol (Qvar RediHaler) fluconazole 150 mg tablet 150 mg PO Q3D 2 doses #2 tabs 08/12/24 ipratropium 0.5 mg-albuterol 3 mg 3 ml inhalation Q4-6H PRN 08/12/24 (2.5 mg base)/3 mL nebulization shortness of breath or wheezing soln #90 mL prednisone 10 mg tablets in a dose See Rx Instructions PO .COMPLEX 08/12/24 pack #21 ea Allergies Allergy/AdvReac Type Severity Reaction Status Date / Time doxycycline Allergy Severe Anaphylaxis Verified 03/26/24 13:48 levofloxacin [From Levaquin] Allergy Severe Anaphylaxis Verified 03/26/24 13:48 morphine Allergy Severe Anaphylaxis Verified 03/26/24 13:48 aspirin Allergy Verified 03/26/24 13:48 Review of Systems Review of Systems ROS Unobtainable: All systems reviewed & are unremarkable except as noted in HPI and below Patient History Medical History (Updated 08/12/24 @ 15:57 by Venessa Padilla DO) Psoriasis Asthma Vertigo Social History Smoking Status: Former smoker Smoking Status: Former smoker alcohol intake frequency: holidays/special occasions only Exam Narrative Exam Narrative: GENERAL: Alert and oriented x three, female in mild distress HEENT: Head normocephalic, atraumatic, EOMI, pupils reactive, face symmetric, moist mucous membranes NECK: Supple, full range of motion CARDIOVASCULAR: Regular rate and rhythm without murmurs, rubs or gallops. No JVD. No edema bilateral lower extremities. RESPIRATORY: Breath sounds decreased throughout patient has bilateral expiratory wheeze. No tachypnea, no accessory muscle use. Patient is speaks in 4 or 5 word sentences. She was receiving DuoNeb during evaluation. ABDOMEN: Soft, nontender. Normoactive bowel sounds all 4 quadrants. No guarding or rebound, rigidity, no mass : No CVA tenderness EXTREMITIES: Normal range of motion, no clubbing or edema. Neurovascularly intact NEUROLOGICAL: Cranial nerves II through XII grossly intact. Moving all extremities SKIN: Warm, dry, no petechiae, no rashes or lesions. Initial Vital Signs Initial Vital Signs: Vital Signs Temperature 97.3 F L 08/12/24 14:48 Pulse Rate 77 08/12/24 14:48 Respiratory Rate 26 H 08/12/24 14:48 Blood Pressure 136/71 08/12/24 14:48 Pulse Oximetry 93 08/12/24 14:48 Oxygen Delivery Method Room Air 08/12/24 14:48 Course Orders Ordered: Discontinued Medications Albuterol (Albuterol 2.5 Mg/3 Ml Neb (Adult)) 2.5 mg INH [id number] PRN PRN Reason: Shortness Of Breath Last Admin: 08/12/24 16:21 Dose: 2.5 mg Documented By: SAT Albuterol (Albuterol 2.5 Mg/3 Ml Neb (Adult)) 10 mg INH NOW ONE Stop: 08/12/24 16:46 Last Admin: 08/12/24 16:55 Dose: 10 mg Documented By: SAT Albuterol (Albuterol Hfa Prepack) 1 box MISC DIRECTED ONE Stop: 08/12/24 18:19 Albuterol/Ipratropium (Albuterol/Ipratropium 3 Ml Ampul) 3 ml INH NOW ONE Stop: 08/12/24 15:41 Last Admin: 08/12/24 15:44 Dose: 3 ml Documented By: JAMEL Magnesium Sulfate (Magnesium Sulfate) 2 gm in 50 mls @ 25 mls/hr IV NOW ONE Stop: 08/12/24 17:52 Last Admin: 08/12/24 16:45 Dose: 25 mls/hr Documented By: ROYCE Co-signed By: JUSTUS Methylprednisolone (Methylprednisolone 125 Mg/2 Ml Vial) 125 mg IV NOW ONE Stop: 08/12/24 15:54 Last Admin: 08/12/24 16:44 Dose: 125 mg Documented By: ROYCE Vital Signs Vital signs: Vital Signs - 8 hr 08/12/24 14:48 08/12/24 15:03 08/12/24 15:30 Temperature 97.3 F L Pulse Rate 77 84 81 Respiratory Rate 26 H 19 24 Blood Pressure 136/71 107/61 Pulse Oximetry 93 94 Oxygen Delivery Method Room Air 08/12/24 15:30 08/12/24 15:48 08/12/24 16:00 Temperature Pulse Rate 87 Respiratory Rate 18 Blood Pressure 100/69 106/61 Pulse Oximetry 97 Oxygen Delivery Method Room Air 08/12/24 16:00 08/12/24 16:30 08/12/24 16:30 Temperature Pulse Rate 83 86 Respiratory Rate 20 16 Blood Pressure 108/60 Pulse Oximetry 94 93 Oxygen Delivery Method 08/12/24 17:00 08/12/24 17:00 Temperature Pulse Rate 81 Respiratory Rate 22 Blood Pressure 100/62 Pulse Oximetry 94 Oxygen Delivery Method MDM - SOB/Dyspnea Lab Data 08/12/24 15:02 08/12/24 15:02 Labs: Lab Results 08/12/24 Range/Units 15:02 WBC 10.2 (4.5-11.0) X10^3/uL RBC 4.76 (4.0-5.2) X10^6/uL Hgb 15.3 (12.0-16.0) g/dL Hct 44.2 (36-46) % MCV 92.7 (80-100) fL MCH 32.1 (26-34) PG MCHC 34.6 (30-36) % RDW 13.4 (11.6-14.8) % Plt Count 347 (150-400) X10^3/uL Neut % (Auto) 56.0 (50-75) % Lymph % (Auto) 16.8 L (25-40) % Baxter % (Auto) 7.3 (3-14) % Eos % (Auto) 18.6 H (2-4) % Baso % (Auto) 1.3 (0-2) % Neut # (Auto) 5700 (4693-9857) /uL Lymph # (Auto) 1700 (7634-6235) /uL Baxter # (Auto) 700 (0-900) /uL Eos # (Auto) 1900 H (0-450) /uL Baso # (Auto) 100 (0-100) /uL PT 12.8 H (9.4-12.5) SECONDS INR 1.1 (0.9-1.3) Sodium 140 (137-145) mmol/L Potassium 3.5 (3.4-5.1) mmol/L Chloride 107 (98-107) mmol/L Carbon Dioxide 24 (22-32) mmol/L BUN 9 (7-17) mg/dL Creatinine 0.92 (0.52-1.04) mg/dL Estimated GFR > 60 (>60) mL/min BUN/Creatinine Ratio 9.8 (6-22) Glucose 96 (70-100) mg/dL Lactate 1.7 (0.7-2.1) mmol/L Calcium 9.1 (8.4-10.2) mg/dL Total Bilirubin 0.8 (0.2-1.3) mg/dL AST 31 (14-36) IU/L ALT 30 (<35) IU/L Alkaline Phosphatase 53 (38-126) U/L Troponin I < 0.012 (0.01-0.034) ng/mL NT-Pro-B Natriuret Pep 71 (<125) pg/mL Total Protein 7.5 (6.3-8.2) g/dL Albumin 4.2 (3.5-5.0) g/dL Globulin 3.3 (1.7-4.1) g/dL Albumin/Globulin Ratio 1.3 (1.0-2.8) ECG Data Attestation: I personally reviewed and interpreted this ECG as follows: Interpretation: Sinus rhythm rate 80 WI 142 QRS 84 QTC of [address] elevation depression no priors for comparison. MDM Narrative Medical decision making narrative: EKG shows sinus rhythm, no priors for comparison. Labs show white count of 10 hemoglobin of 15 platelets of 347. INR is 1.1 electrolytes are otherwise appropriate BUN creatinine is normal glucose is 96 troponins less than 0.012 with a BNP of 71. Patient defers any COVID/influenza/RSV testing. Chest x-ray shows no acute change. 44-year-old female known history of asthma appears to be having asthma exacerbation describes has been a little bit more longstanding without improvement has not been on any recent steroids. Patient received DuoNeb, Solu-Medrol, patient is improved but still has some wheeze. Has not received her magnesium yet. We will give this as well as additional albuterol and re-evaluate. On recheck patient still has a little bit of wheeze but she was states feels much better she feels comfortable returning home she was out of all her medications we will give a prepack of albuterol tonight she has a spacer, oral steroid, DuoNeb vials as well as albuterol vials to use at home. Discharge Plan Departure Patient Disposition: Home Clinical Impression: Asthma exacerbation Instructions: DI for Asthma -- Adult Activity Restrictions/Additional Instructions: Please follow up for recheck with primary care. Take steroids until completed. Use your inhaler with spacer every 4-6 hours as needed. Prescription for medications was sent to [facility] in [place]. Please return for new chest pain or shortness of breath, lightheadedness or passing out, increasing difficulty breathing, vomiting, new swelling of your extremities or other new or concerning changes Prescriptions: New prednisone 10 mg tablets,dose pack See Rx Instructions .ROUTE .COMPLEX Qty: 21 0RF Rx Instructions: 6 tabs p.o. x1 day, then 5 tabs p.o. x1 day, then 4 tablets p.o. x1 day, then 3 tabs p.o. x1 day, then 2 tabs p.o. x1 day, then 1 tab p.o. x1 day fluconazole 150 mg tablet 150 mg PO Q3D Qty: 2 0RF Rx Instructions: may repeat second dose 72 hrs after first dose if symptoms persist ipratropium-albuterol 0.5 mg-3 mg(2.5 mg base)/3 mL solution for nebulization 3 ml inhalation Q4-6H PRN (Reason: shortness of breath or wheezing) Qty: 90 0RF albuterol sulfate 2.5 mg /3 mL (0.083 %) solution for nebulization 2.5 mg inhalation Q4-6H PRN (Reason: shortness of breath or wheezing) Qty: 90 0RF Qvar RediHaler 80 mcg/actuation HFA aerosol breath activated 1 inh inhalation Q12H Qty: 10.6 0RF No Action Qvar RediHaler 80 mcg/actuation HFA aerosol breath activated 1 inhalation INHALATION BID Qty: 10.6 0RF fluconazole [Diflucan] 150 mg tablet 150 mg PO DAILY Qty: 2 0RF hydrocodone-acetaminophen [Raymond] 5-325 mg tablet 1 tab PO Q8H PRN (Reason: pain) Qty: 7 0RF ondansetron 4 mg tablet,disintegrating 4 mg PO Q8H PRN (Reason: nausea and vomiting) Qty: 7 0RF lidocaine 5 % adhesive patch,medicated 1 patch topical DAILY PRN (Reason: pain) Qty: 30 0RF Rx Instructions: leave on most painful area for up to 12 hrs prednisone 10 mg tablet See Rx Instructions .ROUTE .COMPLEX Qty: 30 0RF Rx Instructions: Day 1,2,3: 40mg PO Daily Day 4,5,6: 30mg PO Daily Day 7,8,9: 20mg PO Daily Day 10,11,12: 10mg PO Daily #30 ipratropium bromide 0.02 % solution 2.5 ml inhalation TID-QID PRN (Reason: shortness of breath or wheezing) Qty: 75 0RF lidocaine [Lidoderm] 5 % adhesive patch,medicated 1 patch topical DAILY PRN (Reason: muscle spasm) Qty: 15 0RF Rx Instructions: leave on most painful area for up to 12 hrs methocarbamol 750 mg tablet 750 mg PO Q8H PRN (Reason: muscle spasms) Qty: 20 0RF ipratropium-albuterol 0.5 mg-3 mg(2.5 mg base)/3 mL solution for nebulization 3 ml inhalation Q6H PRN (Reason: shortness of breath) Qty: 90 0RF prednisone 20 mg tablet 20 mg PO DAILY Qty: 6 0RF ipratropium-albuterol 0.5 mg-3 mg(2.5 mg base)/3 mL solution for nebulization 3 ml inhalation Q20M PRN (Reason: wheezing) Qty: 90 2RF Rx Instructions: for 3 doses albuterol sulfate 90 mcg/actuation HFA aerosol inhaler 2 puff inhalation QID PRN (Reason: shortness of breath or wheezing) Qty: 8.5 0RF albuterol sulfate 2.5 mg/0.5 mL solution for nebulization 5 mg inhalation Q6H PRN (Reason: shortness of breath or wheezing) Qty: 30 0RF lidocaine 4 % adhesive patch,medicated 1 patch TOP DAILY PRN (Reason: pain) Qty: 10 0RF Rx Instructions: may leave on for up to 12 hrs potassium chloride [K-Tab] 20 mEq tablet extended release 20 meq PO BID Qty: 14 0RF ipratropium-albuterol 0.5 mg-3 mg(2.5 mg base)/3 mL solution for nebulization 3 ml inhalation TID PRN (Reason: shortness of breath or wheezing) Qty: 90 0RF albuterol sulfate 2.5 mg /3 mL (0.083 %) solution for nebulization 2.5 mg inhalation Q1H PRN (Reason: shortness of breath or wheezing) Qty: 90 2RF Rx Instructions: until breathing returns to target peak flow/parameters cetirizine [Allergy Relief (cetirizine)] 10 mg tablet 10 mg PO BEDTIME PRN (Reason: congestion) Qty: 30 0RF albuterol sulfate 90 mcg/actuation aerosol powdr breath activated 2 inh inhalation Q4-6H PRN (Reason: shortness of breath) Qty: 1 3RF benzonatate 200 mg capsule 200 mg PO BID PRN (Reason: cough) Qty: 20 0RF magnesium oxide 500 mg capsule 500 mg PO BEDTIME Qty: 20 0RF naproxen 500 mg tablet 500 mg PO BID PRN (Reason: pain) Qty: 30 0RF omeprazole 40 mg capsule,delayed release(DR/EC) 40 mg PO DAILY Qty: 14 0RF diazepam 10 mg tablet 10 mg PO BEDTIME PRN (Reason: anxiety/palpitations) Qty: 14 0RF prednisone 10 mg tablet 10 mg PO DIRECTED Qty: 11 0RF Rx Instructions: 20 mg for 3 days, 10 mg for 3 days, 5 mg for 4 days prednisone 20 mg tablet 20 mg PO DAILY Qty: 6 0RF Rx Instructions: 20mg daily for 4 days, 10mg for 4 days amoxicillin 500 mg capsule 500 mg PO TID Qty: 21 0RF oxycodone-acetaminophen 5-325 mg tablet 0.5 - 1 tab PO Q6H PRN (Reason: cough) Qty: 10 0RF Referrals: Miscellaneous,Doctor, MD [Primary Care Provider] - Stand Alone Forms: Patient Portal/API/Survey
[2024-08-12 15:34] LABS: NT-proBNP (BNP-Adult 18+) 71 pg/mL (<125); Troponin I < 0.012 ng/mL (0.01-0.034)
[2024-08-12] MEDS: ALBUTEROL/IPRATROPIUM 3 ML AMPUL INH (15:44)
[2024-08-12] MEDS: ALBUTEROL 2.5 MG/3 ML NEB (ADULT) INH (16:21)
[2024-08-12] MEDS: methylPREDNISolone 125 MG/2 ML VIAL IV (16:44)
[2024-08-12] MEDS: MAGNESIUM SULFATE 2 GM/50 ML PIGGYBACK IV (16:45)
[2024-08-12] MEDS: ALBUTEROL 2.5 MG/3 ML NEB (ADULT) 10 MG INH (16:55)
== END 2024-08-12 18:29 | disposition home or self-care (01) ==
PROVIDERS: Emergency Provider Emergency Medicine
DX: J45.901 Unspecified asthma with (acute) exacerbation (principal); R05.9 Cough, unspecified; Z87.891 Personal history of nicotine dependence
CPT/HCPCS: 36415; 71045; 80053; 83605; 83880; 84484; 85025; 85610; 93005; 94150; 94640; 96365; 96375; 99284; 99285; J2919; J3475; J7613

== ENCOUNTER 2024-11-11 12:34 | Emergency (ER) | payer OTHER, SELFPAY ==
[2024-11-11] VITALS (11 sets, daily range): BP systolic 101–142; BP diastolic 58–68; PULSE 76–105; RESP 16–18; TEMP 36.6; O2SAT 92–99; BMI 32.9
--- NOTE | 2024-11-11 12:45 | ED_ITS ---
HPI - Asthma General Chief Complaint: Asthma Stated Complaint: asthmatic aspiration Time Seen by Provider: 11/11/24 12:35 Source: patient Mode of arrival: Ambulatory History of Present Illness HPI Narrative: 44-year-old woman history of asthma has ER visits every 3-4 months for significant asthma exacerbations with choice respond appropriately to steroids, they are typically is no infectious component. Similar complaints today, she has been having increasing wheezing, waking up at night, inhaler alone has not been effective symptoms have been worsening for the last 2 weeks. There has been no new exposures, no obvious other allergy symptoms, no chest pain, palpitations. She has been noticing increased exertional dyspnea secondary to the wheeze Related Data Previous Rx's ?Medication ?Instructions ?Recorded beclomethasone dipropionate 80 1 inhalation inhalation BID #10.6 01/30/20 mcg/actuation HFA breath activated grams aerosol (Qvar RediHaler) lidocaine 4 % topical patch 1 patch topical DAILY PRN pain #10 03/06/20 ea fluconazole 150 mg tablet 150 mg PO DAILY #2 tabs 03/16 07/05 (Diflucan) hydrocodone 5 mg-acetaminophen 325 1 tab PO Q8H PRN pa in #7 tabs 07/12/20 mg tablet ([place]) lidocaine 5 % topical patch 1 patch topical DAILY PRN pain #30 07/12/20 ea ondansetron 4 mg disintegrating 4 mg PO Q8H PRN nausea and 07/12/20 tablet vomiting #7 tabs ipratropium bromide 0.02 % 2.5 ml inhalation TID-QID P RN 06/15/21 solution for inhalation shortness of breath or wheez ing #75 mL prednisone 10 mg tablet See Rx Instructions .Route 0 06/15/21 .COMPLEX #30 tabs potassium chloride 20 mEq 20 meq PO BID #14 tabs 12/14 tablet,extended release (K-Tab) lidocaine 5 % topical patch 1 patch topical DAILY PRN muscle 12/29/21 (Lidoderm) spasm #15 ea methocarbamol 750 mg tablet 750 mg PO Q8H PRN muscle s pasms 12/29/21 #20 tabs albuterol sulfate 2.5 mg/3 mL 2.5 mg (3 mL) inhalation Q1H PRN 05/28/22 (0.083 %) solution for nebulization shortness of breat h or wheezing #90 mL albuterol sulfate 90 mcg/actuation 2 inh inhalation Q4 -6H PRN 05/28/22 breath activated powder inhaler shortness of breath #1 ea benzonatate 200 mg capsule 200 mg PO BID PRN cough #20 caps 05/28/22 cetirizine 10 mg tablet (Allergy 10 mg PO BEDTIME PRN congestion 05/28/22 Relief (cetirizine)) #30 tabs ipratropium 0.5 mg-albuterol 3 mg 3 ml inhalation TID PRN shortness 05/28/22 (2.5 mg base)/3 mL nebulization of breath or wheezing #90 mL soln magnesium oxide 500 mg capsule 500 mg PO BEDTIME #20 c aps 05/28/22 diazepam 10 mg tablet 10 mg PO BEDTIME PRN 3 anxiety/palpitations #14 tabs naproxen 500 mg tablet 500 mg PO BID PRN pain #30 t abs 08/26/22 omeprazole 40 mg capsule,delayed 40 mg PO DAILY #14 ca ps 08/26/22 release ipratropium 0.5 mg-albuterol 3 mg 3 ml inhalation Q6H PRN shortness 10/28/22 (2.5 mg base)/3 mL nebulization of breath #90 mL soln ipratropium 0.5 mg-albuterol 3 mg 3 ml inhalation Q20M PRN wheezing 04/11/23 (2.5 mg base)/3 mL nebulization #90 mL soln prednisone 20 mg tablet 20 mg PO DAILY #6 tabs 04/11 prednisone 10 mg tablet 10 mg PO DIRECTED #11 tab s 12/30/23 amoxicillin 500 mg capsule 500 mg PO TID #21 caps 03/16 06/08 oxycodone-acetaminophen 5 mg-325 0.5 - 1 tab PO Q6H SC N cough #10 03/26/24 mg tablet tabs prednisone 20 mg tablet 20 mg PO DAILY #6 tabs 03/26 albuterol sulfate 2.5 mg/0.5 mL 5 mg inhalation Q6H SC N shortness 06/04/24 solution for nebulization of breath or wheezing #30 ea albuterol sulfate 90 mcg/actuation 2 puff inhalation Q ID PRN 06/04/24 aerosol inhaler shortness of breath or wheez ing #8.5 grams albuterol sulfate 2.5 mg/3 mL 2.5 mg (3 mL) inhalation Q4-6H PRN 08/12/24 (0.083 %) solution for nebulization shortness of breat h or wheezing #90 mL beclomethasone dipropionate 80 1 inh inhalation Q12H # 10.6 grams 08/12/24 mcg/actuation HFA breath activated aerosol (Qvar RediHaler) fluconazole 150 mg tablet 150 mg PO Q3D 2 doses #2 tab s 08/12/24 ipratropium 0.5 mg-albuterol 3 mg 3 ml inhalation Q4-6 H PRN 08/12/24 (2.5 mg base)/3 mL nebulization shortness of breath or wheezing soln #90 mL prednisone 10 mg tablets in a dose See Rx Instructions PO .COMPLEX 08/12/24 pack #21 ea fluticasone 100 mcg-salmeterol 50 1 inh inhalation BID #60 ea 11/11/24 mcg/dose blistr powdr for inhalation (Advair Diskus) prednisone 20 mg tablet 20 mg PO DAILY #7 tabs 11/11 Allergies Allergy/AdvReac Type Severity Reaction Status Date / Time doxycycline Allergy Severe Anaphylaxis Verified 11/11/24 12:42 levofloxacin (From Levaquin) Allergy Severe Anaphylaxis Verified 11/11/24 12:42 morphine Allergy Severe Anaphylaxis Verified 11/11/24 12:42 aspirin Allergy Verified 11/11/24 12:42 Review of Systems Review of Systems Narrative: Pertinent positive and negative findings as per HPI Patient History Medical History (Updated 11/11/24 @ 15:24 by Kami Courtney MD) Psoriasis Asthma Vertigo Social History Smoking Status: Never smoker Smoking Status: Never smoker alcohol intake frequency: holidays/special occasions only Exam Initial Vital Signs Initial Vital Signs: Vital Signs Pulse Rate 76 11/11/24 12:38 Pulse Oximetry 94 11/11/24 12:38 General: Healthy appearing, in no acute distress. Able to give a complete and coherent history. But does have audible wheezing Well-nourished well-developed HEENT: Moist mucous membranes, normal sclera with reactive pupils, Respiratory: Lungs significant expiratory wheeze in all lung sharma but still having full and symmetrical air movement Cardiac: Regular rate and rhythm no murmurs no bruits Abdomen: Soft, nontender, no rebound or guarding, no flank pain Skin: Warm, mildly diaphoretic from the work of breathing Neurologic: Grossly neurologically intact with no obvious asymmetries or abnormalities Extremities: No trauma, no lower extremity edema Psych: Cooperative, appropriate insight and affect Course Orders Ordered: ED Orders 11/11/24 12:14 Complete Blood Count AUTO DIFF Stat Comprehensive Metabolic Panel Stat 11/11/24 12:45 XR chest 1V Stat Albuterol/Ipratropium (Albuterol/Ipratropium 3 Ml Ampul) 3 ml INH NOW ONE Stop: 11/11/24 15:16 Discontinued Medications Albuterol (Albuterol 2.5 Mg/3 Ml Neb (Adult)) 2.5 mg INH NOW ONE Stop: 11/11/24 12:45 Last Admin: 11/11/24 13:37 Dose: Not Given Documented By: JAMAL Albuterol/Ipratropium (Albuterol/Ipratropium 3 Ml Ampul) 6 ml INH NOW ONE Stop: 11/11/24 12:47 Last Admin: 11/11/24 12:50 Dose: 6 ml Documented By: BRIANA Sodium Chloride (Normal Saline 0.9%) 1,000 mls @ 1,000 mls/hr IV BOLUS ONE Stop: 11/11/24 13:43 Last Infusion: 11/11/24 13:37 Dose: Infused Documented By: Admin: 11/11/24 13:03 Dose: 1,000 mls/hr Documented By: JAMAL Methylprednisolone (Methylprednisolone 125 Mg/2 Ml Vial) 125 mg IV NOW ONE Stop: 11/11/24 12:45 Last Admin: 11/11/24 13:03 Dose: 125 mg Documented By: JAMAL Vital Signs Vital signs: Vital Signs - 8 hr 11/11/24 12:38 11/11/24 12:40 11/11/24 12:40 Temperature Pulse Rate 76 82 Respiratory Rate Blood Pressure 101/60 Pulse Oximetry 94 96 Oxygen Delivery Method 11/11/24 12:42 11/11/24 12:50 11/11/24 13:00 Temperature 97.9 F Pulse Rate 77 92 H Respiratory Rate 18 16 Blood Pressure 101/60 103/62 Pulse Oximetry 96 99 Oxygen Delivery Method Room Air Room Air 11/11/24 13:00 11/11/24 13:30 11/11/24 13:30 Temperature Pulse Rate 91 H 105 H Respiratory Rate Blood Pressure 130/68 Pulse Oximetry 99 96 Oxygen Delivery Method 11/11/24 14:00 11/11/24 14:00 11/11/24 14:30 Temperature Pulse Rate 89 Respiratory Rate Blood Pressure 128/58 L 142/65 H Pulse Oximetry 95 Oxygen Delivery Method 11/11/24 14:30 11/11/24 15:00 11/11/24 15:00 Temperature Pulse Rate 89 92 H Respiratory Rate Blood Pressure 111/65 Pulse Oximetry 92 94 Oxygen Delivery Method MDM - Asthma Lab Data 11/11/24 12:14 11/11/24 12:14 Labs: Lab Results 11/11/24 Range/Units 12:14 WBC 9.1 (4.5-11.0) X10^3/uL RBC 4.57 (4.0-5.2) X10^6/uL Hgb 14.7 (12.0-16.0) g/dL Hct 42.0 (36-46) % MCV 92.1 (80-100) fL MCH 32.2 (26-34) PG MCHC 34.9 (30-36) % RDW 13.1 (11.6-14.8) % Plt Count 328 (150-400) X10^3/uL Neut % (Auto) 51.9 (50-75) % Lymph % (Auto) 19.4 L (25-40) % [place] % (Auto) 6.8 (3-14) % Eos % (Auto) 20.2 H (2-4) % Baso % (Auto) 1.7 (0-2) % Neut # (Auto) 4700 (3457-6506) /uL Lymph # (Auto) 1800 (3392-4748) /uL [place] # (Auto) 600 (0-900) /uL Eos # (Auto) 1800 H (0-450) /uL Baso # (Auto) 200 H (0-100) /uL Sodium 138 (137-145) mmol/L Potassium 4.2 (3.4-5.1) mmol/L Chloride 108 H (98-107) mmol/L Carbon Dioxide 21 L (22-32) mmol/L BUN 7 (7-17) mg/dL Creatinine 0.77 (0.52-1.04) mg/dL Estimated GFR > 60 (>60) mL/min BUN/Creatinine Ratio 9.1 (6-22) Glucose 88 (70-99) mg/dL Calcium 9.1 (8.4-10.2) mg/dL Total Bilirubin 0.8 (0.2-1.3) mg/dL AST 27 (14-36) IU/L ALT 23 (<35) IU/L Alkaline Phosphatase 61 (38-126) U/L Total Protein 7.5 (6.3-8.2) g/dL Albumin 4.2 (3.5-5.0) g/dL Globulin 3.3 (1.7-4.1) g/dL Albumin/Globulin Ratio 1.3 (1.0-2.8) MDM Narrative Medical decision making narrative: CC: Acute asthma exacerbation Complicating co-morbidities: Chronic asthma, she is not on any preventive medications, history of psoriatic arthritis Data collected from: patient Medical records reviewed: ER records are available almost all are related to her asthma Differential considered: Acute asthma exacerbation, pneumonia, viral infection Exam documented above, pertinent findings include: Patient with diffuse expiratory wheeze but movement in all lung sharma, she is able to speak in full sentences Lab Test results independently reviewed as above. Pertinent findings: CBC is unremarkable Chemistries are reassuring Imaging studies independently reviewed: No pneumothorax, no obvious infiltrates Treatments: DuoNeb, Solu-Medrol, 1 L of saline Re-evaluations: Feeling better, moving air much more easily Discussion: 44-year-old woman with recurrent asthma exacerbation. At this point she is prescribed albuterol inhaler as needed. Each time she has talked to previous physicians they have said that this should be adequate. Given her recurrent episodes and multiple ER visits I am going to suggest that she begin maintenance treatment with fluticasone and salmeterol, Advair Diskus 100/50 b.i.d.. Prescription is given. For her acute exacerbation given her 7 days of 20 mg of prednisone, she needs her albuterol MDI refilled has plenty of DuoNebs for her nebulizer machine Notes that she feels she is getting thrush. Prescription for clotrimazole shay given No evidence of pneumonia or alternate explanation that would require further evaluation or hospitalization. Questions are answered and she is safe for discharge Discharge Plan Departure Patient Disposition: Home Clinical Impression: Thrush of mouth and esophagus Asthma with acute exacerbation Qualifiers: Asthma severity: moderate Asthma persistence: persistent Qualified Code(s): J 45.41 - Moderate persistent asthma with (acute) exacerbation Instructions: DI for Asthma -- Adult Activity Restrictions/Additional Instructions: Thank you for coming in today. Unfortunately you do need more steroids. You were given 2 DuoNebs in the emergency department, fluids and IV steroids. I have given you prescriptions for 7 more days of prednisone I have also given you a prescription for an Advair Diskus, this has all long- acting medicine like albuterol and a steroid. This is to prevent flare-ups in the 1st place. This is not for acute shortness of breath. If you are acutely wheezing you need either your nebulizer or your albuterol inhaler You mentioned feeling like you are developing thrush, I have given you a prescription for clotrimazole troches she was. These are to be savored 5 times a day and allow the medicine to sit in your mouth and then triple down the back of your throat to treat the thrush If you are interested in finding provider closer to home, you can call [facility] at [phone] and see if they can direct you to a local provider with openings and their practice. If you find that you are getting worse or develop any new symptoms, please feel free to return to the emergency department for further evaluation. Prescriptions: New prednisone 20 mg tablet 20 mg PO DAILY Qty: 7 0RF fluticasone propion-salmeterol [Advair Diskus] 100-50 mcg/dose blister with device 1 inh inhalation BID Qty: 60 3RF No Action Qvar RediHaler 80 mcg/actuation HFA aerosol breath activated 1 inhalation INHALATION BID Qty: 10.6 0RF fluconazole [Diflucan] 150 mg tablet 150 mg PO DAILY Qty: 2 0RF hydrocodone-acetaminophen [[place]] 5-325 mg tablet 1 tab PO Q8H PRN (Reason: pain) Qty: 7 0RF ondansetron 4 mg tablet,disintegrating 4 mg PO Q8H PRN (Reason: nausea and vomiting) Qty: 7 0RF lidocaine 5 % adhesive patch,medicated 1 patch topical DAILY PRN (Reason: pain) Qty: 30 0RF Rx Instructions: leave on most painful area for up to 12 hrs prednisone 10 mg tablet See Rx Instructions .ROUTE .COMPLEX Qty: 30 0RF Rx Instructions: Day 1,2,3: 40mg PO Daily Day 4,5,6: 30mg PO Daily Day 7,8,9: 20mg PO Daily Day 10,11,12: 10mg PO Daily #30 ipratropium bromide 0.02 % solution 2.5 ml inhalation TID-QID PRN (Reason: shortness of breath or wheezing) Qty: 75 0RF lidocaine [Lidoderm] 5 % adhesive patch,medicated 1 patch topical DAILY PRN (Reason: muscle spasm) Qty: 15 0RF Rx Instructions: leave on most painful area for up to 12 hrs methocarbamol 750 mg tablet 750 mg PO Q8H PRN (Reason: muscle spasms) Qty: 20 0RF ipratropium-albuterol 0.5 mg-3 mg(2.5 mg base)/3 mL solution for nebulization 3 ml inhalation Q6H PRN (Reason: shortness of breath) Qty: 90 0RF prednisone 20 mg tablet 20 mg PO DAILY Qty: 6 0RF ipratropium-albuterol 0.5 mg-3 mg(2.5 mg base)/3 mL solution for nebulization 3 ml inhalation Q20M PRN (Reason: wheezing) Qty: 90 2RF Rx Instructions: for 3 doses albuterol sulfate 90 mcg/actuation HFA aerosol inhaler 2 puff inhalation QID PRN (Reason: shortness of breath or wheezing) Qty: 8.5 0RF albuterol sulfate 2.5 mg/0.5 mL solution for nebulization 5 mg inhalation Q6H PRN (Reason: shortness of breath or wheezing) Qty: 30 0RF prednisone 10 mg tablets,dose pack See Rx Instructions .ROUTE .COMPLEX Qty: 21 0RF Rx Instructions: 6 tabs p.o. x1 day, then 5 tabs p.o. x1 day, then 4 tablets p.o. x1 day, then 3 tabs p.o. x1 day, then 2 tabs p.o. x1 day, then 1 tab p.o. x1 day fluconazole 150 mg tablet 150 mg PO Q3D Qty: 2 0RF Rx Instructions: may repeat second dose 72 hrs after first dose if symptoms persist ipratropium-albuterol 0.5 mg-3 mg(2.5 mg base)/3 mL solution for nebulization 3 ml inhalation Q4-6H PRN (Reason: shortness of breath or wheezing) Qty: 90 0RF albuterol sulfate 2.5 mg /3 mL (0.083 %) solution for nebulization 2.5 mg inhalation Q4-6H PRN (Reason: shortness of breath or wheezing) Qty: 90 0RF Qvar RediHaler 80 mcg/actuation HFA aerosol breath activated 1 inh inhalation Q12H Qty: 10.6 0RF lidocaine 4 % adhesive patch,medicated 1 patch TOP DAILY PRN (Reason: pain) Qty: 10 0RF Rx Instructions: may leave on for up to 12 hrs potassium chloride [K-Tab] 20 mEq tablet extended release 20 meq PO BID Qty: 14 0RF ipratropium-albuterol 0.5 mg-3 mg(2.5 mg base)/3 mL solution for nebulization 3 ml inhalation TID PRN (Reason: shortness of breath or wheezing) Qty: 90 0RF albuterol sulfate 2.5 mg /3 mL (0.083 %) solution for nebulization 2.5 mg inhalation Q1H PRN (Reason: shortness of breath or wheezing) Qty: 90 2RF Rx Instructions: until breathing returns to target peak flow/parameters cetirizine [Allergy Relief (cetirizine)] 10 mg tablet 10 mg PO BEDTIME PRN (Reason: congestion) Qty: 30 0RF albuterol sulfate 90 mcg/actuation aerosol powdr breath activated 2 inh inhalation Q4-6H PRN (Reason: shortness of breath) Qty: 1 3RF benzonatate 200 mg capsule 200 mg PO BID PRN (Reason: cough) Qty: 20 0RF magnesium oxide 500 mg capsule 500 mg PO BEDTIME Qty: 20 0RF naproxen 500 mg tablet 500 mg PO BID PRN (Reason: pain) Qty: 30 0RF omeprazole 40 mg capsule,delayed release(DR/EC) 40 mg PO DAILY Qty: 14 0RF diazepam 10 mg tablet 10 mg PO BEDTIME PRN (Reason: anxiety/palpitations) Qty: 14 0RF prednisone 10 mg tablet 10 mg PO DIRECTED Qty: 11 0RF Rx Instructions: 20 mg for 3 days, 10 mg for 3 days, 5 mg for 4 days prednisone 20 mg tablet 20 mg PO DAILY Qty: 6 0RF Rx Instructions: 20mg daily for 4 days, 10mg for 4 days amoxicillin 500 mg capsule 500 mg PO TID Qty: 21 0RF oxycodone-acetaminophen 5-325 mg tablet 0.5 - 1 tab PO Q6H PRN (Reason: cough) Qty: 10 0RF Referrals: Miscellaneous,Doctor, MD [Primary Care Provider, Medical] Stand Alone Forms: Patient Portal/API
--- NOTE | 2024-11-11 12:45 | DI.RAD.S_ITS ---
PROCEDURE: XR CHEST 1V INDICATIONS: Asthma exacerbation TECHNIQUE: One view of the chest was acquired. COMPARISON: [facility], CR, XR CHEST 1V, 08/12/2024, 15:08. [facility], CR, XR CHEST 1V, 06/04/2024, 18:31. FINDINGS AND IMPRESSION: On this single view study, no airspace consolidation or pleural effusion is seen. Normal heart size. Unremarkable osseous structures. Dictated by: Harlan Priest M.D. on 11/11/2024 at 12:10 Approved by: Harlan Priest M.D. on 11/11/2024 at 12:10
[2024-11-11] MEDS: ALBUTEROL/IPRATROPIUM 3 ML AMPUL 6 ML INH (12:50)
[2024-11-11 12:55] LABS: Add Manual Diff / Slide Review NO; Basophils Absolute Auto 200 /uL (0-100); Basophils Percent Auto 1.7 % (0-2); Eosinophils Absolute Auto 1800 /uL (0-450); Eosinophils Percent Auto 20.2 % (2-4); Hemoglobin 14.7 g/dL (12.0-16.0); Lymphocytes Absolute Auto 1800 /uL (1100-4500); Lymphocytes Percent Auto 19.4 % (25-40); Mean Corpuscular HGB Conc 34.9 % (30-36); Mean Corpuscular Hemoglobin 32.2 PG (26-34); Mean Corpuscular Volume 92.1 fL (80-100); Monocytes Absolute Auto 600 /uL (0-900); Monocytes Percent Auto 6.8 % (3-14); Neutrophils Absolute Auto 4700 /uL (1500-7000); Neutrophils Percent Auto 51.9 % (50-75); Platelet Count 328 X10^3/uL (150-400); Red Blood Cell Count 4.57 X10^6/uL (4.0-5.2); Red Cell Distribution Width 13.1 % (11.6-14.8); White Blood Cell Count 9.1 X10^3/uL (4.5-11.0)
[2024-11-11] MEDS: SODIUM CHLORIDE 0.9% 1,000 ML 1000 ML IV (13:03)
[2024-11-11] MEDS: methylPREDNISolone 125 MG/2 ML VIAL IV (13:03)
[2024-11-11 13:06] LABS: Alanine Aminotransferase 23 IU/L (<35); Albumin 4.2 g/dL (3.5-5.0); Albumin Globulin Ratio 1.3 (1.0-2.8); Alkaline Phosphatase 61 U/L (38-126); Aspartate Aminotransferase 27 IU/L (14-36); BUN Creatinine Ratio 9.1 (6-22); Bilirubin Total 0.8 mg/dL (0.2-1.3); Blood Urea Nitrogen 7 mg/dL (7-17); Calcium 9.1 mg/dL (8.4-10.2); Carbon Dioxide 21 mmol/L (22-32); Chloride 108 mmol/L (98-107); Estimated Glomerular Filt Rate > 60 mL/min (>60); Globulin 3.3 g/dL (1.7-4.1); Glucose 88 mg/dL (70-99); HEMOLYSIS 15 (0-50); Potassium 4.2 mmol/L (3.4-5.1); Sodium 138 mmol/L (137-145); Total Protein 7.5 g/dL (6.3-8.2)
[2024-11-11] MEDS: ALBUTEROL/IPRATROPIUM 3 ML AMPUL INH (15:33)
== END 2024-11-11 15:45 | disposition home or self-care (01) ==
PROVIDERS: Emergency Provider Emergency Medicine
DX: J45.41 Moderate persistent asthma with (acute) exacerbation (principal); B37.81 Candidal esophagitis; B37.0 Candidal stomatitis
CPT/HCPCS: 36415; 71045; 80053; 85025; 94150; 94640; 96361; 96374; 99284; J2919

== ENCOUNTER 2025-02-25 20:46 | Emergency (ER) | payer OTHER, SELFPAY ==
[2025-02-25 20:50] VITALS: BP 118/80; PULSE 83; RESP 21; TEMP 36.7; O2SAT 96; BMI 32.9
[2025-02-25] MEDS: ALBUTEROL/IPRATROPIUM 3 ML AMPUL 6 ML INH (21:02)
[2025-02-25 21:03] VITALS: PULSE 83; RESP 18; O2SAT 100
[2025-02-25 22:49] VITALS: PULSE 81; RESP 18; O2SAT 100
[2025-02-25] MEDS: ALBUTEROL/IPRATROPIUM 3 ML AMPUL INH (22:49)
[2025-02-25 23:45] VITALS: PULSE 95; O2SAT 96
--- NOTE | 2025-02-25 23:47 | ED.ASTHMA ---
HPI - Asthma General Chief Complaint: Asthma Stated Complaint: asthma Time Seen by Provider: 02/25/25 23:42 Source: patient Mode of arrival: Ambulatory History of Present Illness HPI Narrative: 44-year-old female with longstanding history of asthma presents with furthering exacerbation in the past 2-3 weeks due to not being able to get her inhalers because of insurance issues. Related Data Previous Rx's ?Medication ?Instructions ?Recorded beclomethasone dipropionate 80 1 inhalation inhalation BID #10.6 01/30/20 mcg/actuation HFA breath activated grams aerosol (Qvar RediHaler) lidocaine 4 % topical patch 1 patch topical DAILY PRN pain #10 03/06/20 ea fluconazole 150 mg tablet 150 mg PO DAILY #2 tabs 03/27/20 (Diflucan) hydrocodone 5 mg-acetaminophen 325 1 tab PO Q8H PRN pain #7 tabs 07/12/20 mg tablet ([place]) lidocaine 5 % topical patch 1 patch topical DAILY PRN pain #30 07/12/20 ea ondansetron 4 mg disintegrating 4 mg PO Q8H PRN nausea and 07/12/20 tablet vomiting #7 tabs ipratropium bromide 0.02 % 2.5 ml inhalation TID-QID PRN 06/15/21 solution for inhalation shortness of breath or wheezing #75 mL prednisone 10 mg tablet See Rx Instructions .Route 06/15/21 .COMPLEX #30 tabs potassium chloride 20 mEq 20 meq PO BID #14 tabs 12/14/21 tablet,extended release (K-Tab) lidocaine 5 % topical patch 1 patch topical DAILY PRN muscle 12/29/21 (Lidoderm) spasm #15 ea methocarbamol 750 mg tablet 750 mg PO Q8H PRN muscle spasms 12/29/21 #20 tabs albuterol sulfate 2.5 mg/3 mL 2.5 mg (3 mL) inhalation Q1H PRN 05/28/22 (0.083 %) solution for nebulization shortness of breath or wheezing #90 mL albuterol sulfate 90 mcg/actuation 2 inh inhalation Q4-6H PRN 05/28/22 breath activated powder inhaler shortness of breath #1 ea benzonatate 200 mg capsule 200 mg PO BID PRN cough #20 caps 05/28/22 cetirizine 10 mg tablet (Allergy 10 mg PO BEDTIME PRN congestion 05/28/22 Relief (cetirizine)) #30 tabs ipratropium 0.5 mg-albuterol 3 mg 3 ml inhalation TID PRN shortness 05/28/22 (2.5 mg base)/3 mL nebulization of breath or wheezing #90 mL soln magnesium oxide 500 mg capsule 500 mg PO BEDTIME #20 caps 05/28/22 diazepam 10 mg tablet 10 mg PO BEDTIME PRN 08/26/22 anxiety/palpitations #14 tabs naproxen 500 mg tablet 500 mg PO BID PRN pain #30 tabs 08/26/22 omeprazole 40 mg capsule,delayed 40 mg PO DAILY #14 caps 08/26/22 release ipratropium 0.5 mg-albuterol 3 mg 3 ml inhalation Q6H PRN shortness 10/28/22 (2.5 mg base)/3 mL nebulization of breath #90 mL soln ipratropium 0.5 mg-albuterol 3 mg 3 ml inhalation Q20M PRN wheezing 04/11/23 (2.5 mg base)/3 mL nebulization #90 mL soln prednisone 20 mg tablet 20 mg PO DAILY #6 tabs 04/11/23 prednisone 10 mg tablet 10 mg PO DIRECTED #11 tabs 12/30/23 amoxicillin 500 mg capsule 500 mg PO TID #21 caps 03/26/24 oxycodone-acetaminophen 5 mg-325 0.5 - 1 tab PO Q6H PRN cough #10 03/26/24 mg tablet tabs prednisone 20 mg tablet 20 mg PO DAILY #6 tabs 03/26/24 albuterol sulfate 2.5 mg/0.5 mL 5 mg inhalation Q6H PRN shortness 06/04/24 solution for nebulization of breath or wheezing #30 ea albuterol sulfate 90 mcg/actuation 2 puff inhalation QID PRN 06/04/24 aerosol inhaler shortness of breath or wheezing #8.5 grams albuterol sulfate 2.5 mg/3 mL 2.5 mg (3 mL) inhalation Q4-6H PRN 08/12/24 (0.083 %) solution for nebulization shortness of breath or wheezing #90 mL beclomethasone dipropionate 80 1 inh inhalation Q12H #10.6 grams 08/12/24 mcg/actuation HFA breath activated aerosol (Qvar RediHaler) fluconazole 150 mg tablet 150 mg PO Q3D 2 doses #2 tabs 08/12/24 ipratropium 0.5 mg-albuterol 3 mg 3 ml inhalation Q4-6H PRN 08/12/24 (2.5 mg base)/3 mL nebulization shortness of breath or wheezing soln #90 mL prednisone 10 mg tablets in a dose See Rx Instructions PO .COMPLEX 08/12/24 pack #21 ea albuterol sulfate 90 mcg/actuation 2 puff inhalation Q6H shortness of 11/11/24 aerosol inhaler breath or wheezing #8.5 grams clotrimazole 10 mg shay 10 mg mucous membrane 5XD #90 tabs 11/11/24 fluticasone 100 mcg-salmeterol 50 1 inh inhalation BID #60 ea 11/11/24 mcg/dose blistr powdr for inhalation (Advair Diskus) prednisone 20 mg tablet 20 mg PO DAILY #7 tabs 11/11/24 albuterol sulfate 2.5 mg/3 mL 2.5 mg (3 mL) inhalation Q4-6H PRN 02/26/25 (0.083 %) solution for nebulization shortness of breath or wheezing #75 mL fluticasone propionate 110 2 puff inhalation BID #12 grams 02/26/25 mcg/actuation HFA aerosol inhaler prednisone 20 mg tablet 40 mg (2 x 20 mg) PO DAILY 5 days 02/26/25 #10 tabs prednisone 20 mg tablet 40 mg (2 x 20 mg) PO DAILY 5 days 02/26/25 #10 tabs Allergies Allergy/AdvReac Type Severity Reaction Status Date / Time doxycycline Allergy Severe Anaphylaxis Verified 02/25/25 20:50 duloxetine Allergy Severe Anaphylaxis Verified 02/25/25 20:50 levofloxacin (From Levaquin) Allergy Severe Anaphylaxis Verified 02/25/25 20:50 morphine Allergy Severe Anaphylaxis Verified 02/25/25 20:50 aspirin Allergy Verified 02/25/25 20:50 Review of Systems Review of Systems ROS Unobtainable: All systems reviewed & are unremarkable except as noted in HPI and below Patient History Medical History (Updated 02/26/25 @ 01:22 by Sherman Staples MD) Psoriasis Asthma Vertigo Smoking Status: Never smoker alcohol intake frequency: holidays/special occasions only Exam Narrative Exam Narrative: General: Patient appears to be in no acute distress, acting appropriately Head: normocephalic, atraumatic, HEENT: Pupils equal round reactive, eyes tracking well, neck supple, no JVD Heart: regular rate and rhythm, no murmurs, rubs, or gallops heard Lungs: Mild expiratory wheezing heard bilaterally. Abdomen: soft , nontender, nondistended, positive bowel sounds Neurological: no focal neurological signs, moving all extremities well, alert and oriented x3, Psych: good judgment ,good insight, mood is normal. Initial Vital Signs Initial Vital Signs: Vital Signs Temperature 98.0 F 02/25/25 20:50 Pulse Rate 83 02/25/25 20:50 Respiratory Rate 21 02/25/25 20:50 Blood Pressure 118/80 02/25/25 20:50 Pulse Oximetry 96 02/25/25 20:50 Oxygen Delivery Method Room Air 02/25/25 20:50 Course Orders Ordered: Discontinued Medications Albuterol (Albuterol Hfa Prepack) 1 box MISC DIRECTED ONE Stop: 02/26/25 01:12 Last Admin: 02/26/25 01:18 Dose: 1 box Albuterol/Ipratropium (Albuterol/Ipratropium 3 Ml Ampul) 6 ml INH NOW ONE Stop: 02/25/25 20:57 Last Admin: 02/25/25 21:02 Dose: 6 ml Documented By: MERLIN Albuterol/Ipratropium (Albuterol/Ipratropium 3 Ml Ampul) 3 ml INH NOW ONE Stop: 02/25/25 22:35 Last Admin: 02/25/25 22:49 Dose: 3 ml Documented By: MERLIN Albuterol/Ipratropium (Albuterol/Ipratropium 3 Ml Ampul) 3 ml INH NOW ONE Stop: 02/26/25 00:30 Last Admin: 02/26/25 00:40 Dose: 3 ml Dexamethasone (Dexamethasone 10 Mg/Ml Vial) 10 mg IM NOW ONE Stop: 02/26/25 00:00 Last Admin: 02/26/25 00:02 Dose: 10 mg Methylprednisolone (Methylprednisolone Succ 125 Mg/2 Ml Vial) 125 mg IV NOW ONE Stop: 02/25/25 23:50 Last Admin: 02/26/25 00:02 Dose: Not Given Reevaluation(s) Reevaluation #1: After 4 rounds of DuoNeb treatments and a dexamethasone 10 mg IM injection, patient's wheezing is much improved and her shortness of breath is no longer present Reevaluation #2: Patient briefly needed 2 L of O2 after the dexamethasone injection but after final DuoNeb treatment, patient ambulated fine and kept her oxygen level above 97% Vital Signs Vital signs: Vital Signs - 8 hr 02/25/25 20:50 02/25/25 21:03 02/25/25 22:49 Temperature 98.0 F Pulse Rate 83 83 81 Respiratory Rate 21 18 18 Blood Pressure 118/80 Pulse Oximetry 96 100 100 Oxygen Delivery Method Room Air Room Air Room Air Oxygen Flow Rate Fraction of Inspired Oxygen 21 21 02/25/25 23:45 02/26/25 00:00 02/26/25 00:00 Temperature Pulse Rate 95 H 86 Respiratory Rate Blood Pressure 93/65 Pulse Oximetry 96 92 Oxygen Delivery Method Room Air Room Air Oxygen Flow Rate Fraction of Inspired Oxygen 02/26/25 00:23 02/26/25 00:42 02/26/25 01:01 Temperature Pulse Rate 110 H Respiratory Rate 18 Blood Pressure Pulse Oximetry 87 L 94 98 Oxygen Delivery Method Room Air Nasal Cannula Room Air Oxygen Flow Rate 2 Fraction of Inspired Oxygen 28 MDM - Asthma MDM Narrative Medical decision making narrative: 44-year-old female with a history of asthma leading several DuoNeb treatments and dexamethasone here in the ED. after her treatments, the patient is stable and breathing much better wanting to be discharged. We will discharge the patient with a take home albuterol inhaler, more albuterol solution as well as a maintenance inhaler to be used daily until she can see her PCP. Discharge Plan Departure Patient Disposition: Home Clinical Impression: Asthma exacerbation Qualifiers: Asthma severity: moderate Asthma persistence: persistent Qualified Code(s): J45.41 - Moderate persistent asthma with (acute) exacerbation Instructions: DI for Asthma -- Adult Activity Restrictions/Additional Instructions: Use meds as prescribed. Follow up PCP. Can come back sooner if shortness of breath not controlled. Prescriptions: New prednisone 20 mg tablet 40 mg PO DAILY 5 Days Qty: 10 0RF Rx Instructions: take 2 tabs po daily x 5 days prednisone 20 mg tablet 40 mg PO DAILY 5 Days Qty: 10 0RF albuterol sulfate 2.5 mg /3 mL (0.083 %) solution for nebulization 2.5 mg inhalation Q4-6H PRN (Reason: shortness of breath or wheezing) Qty: 75 0RF fluticasone propionate 110 mcg/actuation HFA aerosol inhaler 2 puff inhalation BID Qty: 12 1RF No Action Qvar RediHaler 80 mcg/actuation HFA aerosol breath activated 1 inhalation INHALATION BID Qty: 10.6 0RF fluconazole [Diflucan] 150 mg tablet 150 mg PO DAILY Qty: 2 0RF hydrocodone-acetaminophen [[place]] 5-325 mg tablet 1 tab PO Q8H PRN (Reason: pain) Qty: 7 0RF ondansetron 4 mg tablet,disintegrating 4 mg PO Q8H PRN (Reason: nausea and vomiting) Qty: 7 0RF lidocaine 5 % adhesive patch,medicated 1 patch topical DAILY PRN (Reason: pain) Qty: 30 0RF Rx Instructions: leave on most painful area for up to 12 hrs prednisone 10 mg tablet See Rx Instructions .ROUTE .COMPLEX Qty: 30 0RF Rx Instructions: Day 1,2,3: 40mg PO Daily Day 4,5,6: 30mg PO Daily Day 7,8,9: 20mg PO Daily Day 10,11,12: 10mg PO Daily #30 ipratropium bromide 0.02 % solution 2.5 ml inhalation TID-QID PRN (Reason: shortness of breath or wheezing) Qty: 75 0RF lidocaine [Lidoderm] 5 % adhesive patch,medicated 1 patch topical DAILY PRN (Reason: muscle spasm) Qty: 15 0RF Rx Instructions: leave on most painful area for up to 12 hrs methocarbamol 750 mg tablet 750 mg PO Q8H PRN (Reason: muscle spasms) Qty: 20 0RF ipratropium-albuterol 0.5 mg-3 mg(2.5 mg base)/3 mL solution for nebulization 3 ml inhalation Q6H PRN (Reason: shortness of breath) Qty: 90 0RF prednisone 20 mg tablet 20 mg PO DAILY Qty: 6 0RF ipratropium-albuterol 0.5 mg-3 mg(2.5 mg base)/3 mL solution for nebulization 3 ml inhalation Q20M PRN (Reason: wheezing) Qty: 90 2RF Rx Instructions: for 3 doses albuterol sulfate 90 mcg/actuation HFA aerosol inhaler 2 puff inhalation QID PRN (Reason: shortness of breath or wheezing) Qty: 8.5 0RF albuterol sulfate 2.5 mg/0.5 mL solution for nebulization 5 mg inhalation Q6H PRN (Reason: shortness of breath or wheezing) Qty: 30 0RF prednisone 10 mg tablets,dose pack See Rx Instructions .ROUTE .COMPLEX Qty: 21 0RF Rx Instructions: 6 tabs p.o. x1 day, then 5 tabs p.o. x1 day, then 4 tablets p.o. x1 day, then 3 tabs p.o. x1 day, then 2 tabs p.o. x1 day, then 1 tab p.o. x1 day fluconazole 150 mg tablet 150 mg PO Q3D Qty: 2 0RF Rx Instructions: may repeat second dose 72 hrs after first dose if symptoms persist ipratropium-albuterol 0.5 mg-3 mg(2.5 mg base)/3 mL solution for nebulization 3 ml inhalation Q4-6H PRN (Reason: shortness of breath or wheezing) Qty: 90 0RF albuterol sulfate 2.5 mg /3 mL (0.083 %) solution for nebulization 2.5 mg inhalation Q4-6H PRN (Reason: shortness of breath or wheezing) Qty: 90 0RF Qvar RediHaler 80 mcg/actuation HFA aerosol breath activated 1 inh inhalation Q12H Qty: 10.6 0RF prednisone 20 mg tablet 20 mg PO DAILY Qty: 7 0RF fluticasone propion-salmeterol [Advair Diskus] 100-50 mcg/dose blister with device 1 inh inhalation BID Qty: 60 3RF clotrimazole 10 mg shay 10 mg mucous membrane 5XD Qty: 90 0RF albuterol sulfate 90 mcg/actuation HFA aerosol inhaler 2 puff inhalation Q6H Qty: 8.5 1RF lidocaine 4 % adhesive patch,medicated 1 patch TOP DAILY PRN (Reason: pain) Qty: 10 0RF Rx Instructions: may leave on for up to 12 hrs potassium chloride [K-Tab] 20 mEq tablet extended release 20 meq PO BID Qty: 14 0RF ipratropium-albuterol 0.5 mg-3 mg(2.5 mg base)/3 mL solution for nebulization 3 ml inhalation TID PRN (Reason: shortness of breath or wheezing) Qty: 90 0RF albuterol sulfate 2.5 mg /3 mL (0.083 %) solution for nebulization 2.5 mg inhalation Q1H PRN (Reason: shortness of breath or wheezing) Qty: 90 2RF Rx Instructions: until breathing returns to target peak flow/parameters cetirizine [Allergy Relief (cetirizine)] 10 mg tablet 10 mg PO BEDTIME PRN (Reason: congestion) Qty: 30 0RF albuterol sulfate 90 mcg/actuation aerosol powdr breath activated 2 inh inhalation Q4-6H PRN (Reason: shortness of breath) Qty: 1 3RF benzonatate 200 mg capsule 200 mg PO BID PRN (Reason: cough) Qty: 20 0RF magnesium oxide 500 mg capsule 500 mg PO BEDTIME Qty: 20 0RF naproxen 500 mg tablet 500 mg PO BID PRN (Reason: pain) Qty: 30 0RF omeprazole 40 mg capsule,delayed release(DR/EC) 40 mg PO DAILY Qty: 14 0RF diazepam 10 mg tablet 10 mg PO BEDTIME PRN (Reason: anxiety/palpitations) Qty: 14 0RF prednisone 10 mg tablet 10 mg PO DIRECTED Qty: 11 0RF Rx Instructions: 20 mg for 3 days, 10 mg for 3 days, 5 mg for 4 days prednisone 20 mg tablet 20 mg PO DAILY Qty: 6 0RF Rx Instructions: 20mg daily for 4 days, 10mg for 4 days amoxicillin 500 mg capsule 500 mg PO TID Qty: 21 0RF oxycodone-acetaminophen 5-325 mg tablet 0.5 - 1 tab PO Q6H PRN (Reason: cough) Qty: 10 0RF Stand Alone Forms: Patient Portal/API
[2025-02-26] VITALS: BP 93/65; PULSE 86; O2SAT 92
[2025-02-26 00:23] VITALS: O2SAT 87
[2025-02-26 00:30] VITALS: BP 104/67; PULSE 76; O2SAT 98
[2025-02-26] MEDS: ALBUTEROL/IPRATROPIUM 3 ML AMPUL INH (00:40)
[2025-02-26 00:42] VITALS: PULSE 110; RESP 18; O2SAT 94
[2025-02-26 01:01] VITALS: O2SAT 98
[2025-02-26] MEDS: ALBUTEROL HFA PREPACK 1 BOX MISC (01:18)
[2025-02-26 01:48] VITALS: BP 116/61; PULSE 91; RESP 19; O2SAT 93
== END 2025-02-26 01:56 | disposition home or self-care (01) ==
PROVIDERS: Emergency Provider Family Medicine
DX: J45.41 Moderate persistent asthma with (acute) exacerbation (principal)
CPT/HCPCS: 94640; 96372; 99283; J1100